=== PATIENT | female | born 1955 | race Caucasian/White ===

== ENCOUNTER 2017-08-10 08:23 | Inpatient (IN) | payer MEDICARE ==
[~2017-08-10] VITALS: Ht 167.6 cm; Wt 55.3 kg
[2017-08-10] VITALS (16 sets, daily range): BP systolic 120–179; BP diastolic 47–82
[2017-08-10] MEDS ORDERED: HUMALOG100 UNIT/4 SUBQ (08:25)
[2017-08-10 09:21] LABS: BASOPHILS % (AUTO) 0.7 % (0.0-2.0); LYMPHOCYTES % (AUTO) 6.3 % (20.0-45.0); MEAN CORPUSCULAR HEMOGLOBIN 28.7 PG (27.0-31.0); MEAN CORPUSCULAR HGB CONC 30.1 G/DL (32.0-36.0); MEAN CORPUSCULAR VOLUME 95 FL (80-99); MEAN PLATELET VOLUME 7.6 FL (6.5-10.1); MONOCYTES % (AUTO) 12.9 % (1.0-10.0); NEUTROPHILS % (AUTO) 80.1 % (45.0-75.0); PLATELET COUNT 310 K/UL (150-450); RED BLOOD COUNT 4.45 M/UL (4.20-5.40); RED CELL DISTRIBUTION WIDTH 15.4 % (11.6-14.8); WHITE BLOOD COUNT 9.2 K/UL (4.8-10.8)
[2017-08-10 09:33] LABS: ABG ALLEN TEST POSITIVE
--- NOTE | 2017-08-10 09:35 | Emergency Room Report ---
History of Present Illness General Chief Complaint: Altered Level of Consciousness Source: Patient, EMS Present Illness HPI Patient presents from nursing facility with complaints of change in mental status and elevated blood glucose The initial call from paramedics is essentially regarding high blood sugar patient is a diabetic and was found to have a high glucose Upon arrival the patient is responsive to physical stimuli However not verbal with the staff History of present illness is significantly limited Unknown duration of time regarding change in mentation Allergies: Coded Allergies: No Known Allergies (Unverified , 08/10/17) Patient History Limited by: medical condition Past Surgical History: unable to obtain Pertinent Family History: unable to obtain Reviewed Nursing Documentation: PMH: Agreed, PSxH: Agreed Nursing Documentation-PMH Hx Hypertension: Yes Hx Diabetes: Yes Hx Dialysis: Yes History Of Psychiatric Problem: Yes - SCHIZOPHRENIA Review of Systems All Other Systems: limited - Other than the ones mentioned in the history of present illness all others are reviewed however they do stay limited due to the patient's mental status Physical Exam Vital Signs Date Time Temp Pulse Resp B/P (MAP) Pulse Ox O2 Delivery O2 Flow Rate FiO2 08/10/17 08:19 99.3 112 14 98/54 96 Room Air 08/10/17 08:40 100 Sp02 EP Interpretation: reviewed, normal General Appearance: moderate distress - Patient is tachypneic, appears uncomfortable Head: normocephalic, atraumatic Eyes: bilateral eye PERRL, bilateral eye EOMI ENT: dry mucus membranes Neck: supple, thyroid normal Respiratory: crackles - Patient has audible cough, crackles diffusely appears tachypneic but no obvious retractions Cardiovascular #1: tachycardia Gastrointestinal: non tender, soft Musculoskeletal: other - Patient localizes to physical stimuli otherwise not following commands Neurologic: responsive - to physical stimuli Skin: other - Poor skin turgor, multiple subcutaneous hematomas appear to be likely subcutaneous injections from insulin Lymphatic: no adenopathy Procedures Critical Care Time Critical Care Time 50 minutes for initial critical presentation multiple evaluations presentation and findings concerning for left any pathology not including any procedural time Central Line Central Line : Consent: Emergent Central Line Lumen: triple Maximal Sterile Barrier Tech: yes cap, yes mask, yes sterile gown, yes sterile gloves, yes large sterile sheet, yes hand hygiene, yes chlorhexidine prep Central Line Postion: femoral (R) Anesthesia: Lidocaine cc's of anesthesia: 5 Complications: none Central Line Post Position: sutured Attempts: Other - 2 Patient Tolerated: Well Complications: None Medical Decision Making Diagnostic Impression: Primary Impression: DKA (diabetic ketoacidoses) ER Course Given the patient's presentation Patient is concerning with possibility of DKA, other infectious pathology, acidosis Patient has aggressive IV hydration initiated Maintaining appropriate gag reflex with appropriate cough Airway intubation has not been required Patient has central line placement as noted above Insulin including insulin drip also initiated Patient was given broad-spectrum antibiotic with the possibility of right upper lobe pathology And requires intensive care unit admission In critical condition Labs Test 08/10/17 09:00 08/10/17 09:15 08/10/17 09:50 White Blood Count 9.2 K/UL (4.8-10.8) Red Blood Count 4.45 M/UL (4.20-5.40) Hemoglobin 12.8 G/DL (12.0-16.0) Hematocrit 42.4 % (37.0-47.0) Mean Corpuscular Volume 95 FL (80-99) Mean Corpuscular Hemoglobin 28.7 PG (27.0-31.0) Mean Corpuscular Hemoglobin Concent 30.1 G/DL (32.0-36.0) Red Cell Distribution Width 15.4 % (11.6-14.8) Platelet Count 310 K/UL (150-450) Mean Platelet Volume 7.6 FL (6.5-10.1) Neutrophils (%) (Auto) 80.1 % (45.0-75.0) Lymphocytes (%) (Auto) 6.3 % (20.0-45.0) Monocytes (%) (Auto) 12.9 % (1.0-10.0) Eosinophils (%) (Auto) 0.0 % (0.0-3.0) Basophils (%) (Auto) 0.7 % (0.0-2.0) Sodium Level 140 MMOL/L (136-145) Potassium Level 4.2 MMOL/L (3.5-5.1) Chloride Level 101 MMOL/L (98-107) Carbon Dioxide Level 7 MMOL/L (21-32) Anion Gap 32 mmol/L (5-15) Blood Urea Nitrogen 30 mg/dL (7-18) Creatinine 1.7 MG/DL (0.55-1.30) Estimat Glomerular Filtration Rate 30.6 mL/min (>60) Glucose Level 482 MG/DL (74-106) Lactic Acid Level 2.00 mmol/L (0.66-2.22) Calcium Level 9.8 MG/DL (8.5-10.1) Total Bilirubin 0.5 MG/DL (0.2-1.0) Aspartate Amino Transf (AST/SGOT) 16 U/L (15-37) Alanine Aminotransferase (ALT/SGPT) 25 U/L (12-78) Alkaline Phosphatase 140 U/L (46-116) Total Creatine Kinase 90 U/L (26-308) Creatine Kinase MB 5.9 NG/ML (0.0-3.6) Creatine Kinase MB Relative Index 6.5 Total Protein 7.5 G/DL (6.4-8.2) Albumin 3.2 G/DL (3.4-5.0) Globulin 4.3 g/dL Albumin/Globulin Ratio 0.7 (1.0-2.7) Lipase 44 U/L (73-393) Arterial Blood pH 7.228 (7.350-7.450) Arterial Blood Partial Pressure CO2 12.0 mmHg (35.0-45.0) Arterial Blood Partial Pressure O2 108.9 mmHg (75.0-100.0) Arterial Blood HCO3 4.9 mmol/L (22.0-26.0) Arterial Blood Oxygen Saturation 97.7 % (92.0-98.0) Arterial Blood Base Excess -20.0 Kenneth Test Positive Urine Color Pale yellow Urine Appearance Clear Urine pH 6 (4.5-8.0) Urine Specific [place] 1.020 (1.005-1.035) Urine Protein 2+ (NEGATIVE) Urine Glucose (UA) 4+ (NEGATIVE) Urine Ketones 4+ (NEGATIVE) Urine Occult Blood Negative (NEGATIVE) Urine Nitrite Negative (NEGATIVE) Urine Bilirubin Negative (NEGATIVE) Urine Urobilinogen Normal MG/DL (0.0-1.0) Urine Leukocyte Esterase Negative (NEGATIVE) Urine RBC 0-2 /HPF (0 - 2) Urine WBC 0-2 /HPF (0 - 2) Urine Squamous Epithelial Cells Occasional /LPF Urine Bacteria Occasional /HPF (NONE) Urine Mucus Few /LPF (NONE/OCC) EKG Diagnostic Results Rate: tachycardiac Rhythm: NSR ST Segments: no acute changes Rhythm Strip Diag. Results EP Interpretation: yes Rate: 105 Rhythm: no PVC's, no ectopy, other - sinus tach Chest X-Ray Diagnostic Results Chest X-Ray Diagnostic Results : Chest X-Ray Ordered: Yes # of Views/Limited/Complete: 1 View Indication: Chest Pain Interpretation: no effusion, no pneumothorax, other - Right upper lobe increased markings, nonspecific Impression: Other - right upper lobe markings Electronically Signed by: Daxa Rivero DO Last Vital Signs Date Time Temp Pulse Resp B/P (MAP) Pulse Ox O2 Delivery O2 Flow Rate FiO2 08/10/17 08:40 97.0 105 20 126/59 100 Room Air 08/10/17 08:40 100 Status: improved Disposition: ADMITTED INPATIENT Condition: Critical Referrals: MANDIE PUENTE (PCP) DAXA RIVERO D.O. Aug 10, 2017 09:35
[2017-08-10 09:45] LABS: ALANINE AMINOTRANSFERASE 25 U/L (12-78); ALBUMIN/GLOBULIN RATIO 0.7 (1.0-2.7); ANION GAP 32 mmol/L (5-15); ASPARTATE AMINO TRANSFERASE 16 U/L (15-37); CALCIUM 9.8 MG/DL (8.5-10.1); CHLORIDE 101 MMOL/L (98-107); CKMB 5.9 NG/ML (0.0-3.6); CREATININE 1.7 MG/DL (0.55-1.30); GLOMERULAR FILTRATION RATE 30.6 mL/min (>60); LIPASE 44 U/L (73-393); POTASSIUM 4.2 MMOL/L (3.5-5.1); SODIUM 140 MMOL/L (136-145); TOTAL PROTEIN 7.5 G/DL (6.4-8.2)
[2017-08-10 09:55] LABS: CARBON DIOXIDE 7 MMOL/L (21-32)
[2017-08-10 09:57] LABS: REFLEX LACTIC ACID YES OR NO YES
--- NOTE | 2017-08-10 10:09 | Diagnostic Imaging Report ---
Indication: Dyspnea Comparison: None A single view chest radiograph was obtained. Findings: Ill-defined density noted in the right lung apex just of scarring. There is some pleural tenting and there is streaky ill-defined parenchymal densities present. There is suggestion of retraction of the right prominent hilum due to the fibrosis. The heart is normal in size. Bones are osteopenic. Impression: Scarring suspected within the right upper lobe. Difficult to completely exclude the possibility of superimposed disease of a more acute nature. There are no reference studies.
[2017-08-10 10:15] LABS: APPEARANCE,URINE CLEAR; KETONES,URINE 4+ (NEGATIVE); LEUKOCYTE ESTERASE ,URINE NEGATIVE (NEGATIVE); NITRITE,URINE NEGATIVE (NEGATIVE); PH,URINE 6 (4.5-8.0); PROTEIN,URINE 2+ (NEGATIVE); UROBILINOGEN,URINE NORMAL MG/DL (0.0-1.0)
[2017-08-10 10:25] LABS: RBC,URINE 0-2 /HPF (0 - 2); SQUAMOUS EPITHELIAL CELL,UR OCCASIONAL /LPF (NONE/OCC); WBC,URINE 0-2 /HPF (0 - 2)
[2017-08-10 10:26] LABS: BACTERIA,URINE OCCASIONAL /HPF; MUCUS,URINE FEW /LPF (NONE/OCC)
--- NOTE | 2017-08-10 11:12 | Infectious Diseases Prog Note ---
Assessment/Plan Problems: (1) Right upper lobe consolidation Assessment & Plan: rule out pneumonia, will continue levaquin for now and repeat CXR in am (2) DKA (diabetic ketoacidoses) Assessment & Plan: continue insuline drip, with tight glycemic control to keep blood sugar between 80-120 (3) Diabetes mellitus Assessment & Plan: poorly controlled, with DKA, recommend endocrinology eval Subjective Allergies: Coded Allergies: No Known Allergies (Unverified , 08/10/17) Objective Vital Signs Last 24 Hour Vital Signs Date Time Temp Pulse Resp B/P (MAP) Pulse Ox O2 Delivery O2 Flow Rate FiO2 08/10/17 10:30 97.0 98 17 129/52 100 Room Air 100 08/10/17 10:30 98 17 129/52 100 Room Air 100 08/10/17 09:40 100 19 129/52 100 Room Air 100 08/10/17 08:40 97.0 105 20 126/59 100 Room Air 08/10/17 08:40 100 20 Room Air 100 08/10/17 08:19 99.3 112 14 98/54 96 Room Air Height (Feet): 5 Height (Inches): 6.00 Weight (Pounds): 165 Laboratory Tests Test 08/10/17 09:00 08/10/17 09:15 08/10/17 09:50 08/10/17 10:20 White Blood Count 9.2 K/UL (4.8-10.8) Red Blood Count 4.45 M/UL (4.20-5.40) Hemoglobin 12.8 G/DL (12.0-16.0) Hematocrit 42.4 % (37.0-47.0) Mean Corpuscular Volume 95 FL (80-99) Mean Corpuscular Hemoglobin 28.7 PG (27.0-31.0) Mean Corpuscular Hemoglobin Concent 30.1 G/DL (32.0-36.0) L Red Cell Distribution Width 15.4 % (11.6-14.8) H Platelet Count 310 K/UL (150-450) Mean Platelet Volume 7.6 FL (6.5-10.1) Neutrophils (%) (Auto) 80.1 % (45.0-75.0) H Lymphocytes (%) (Auto) 6.3 % (20.0-45.0) L Monocytes (%) (Auto) 12.9 % (1.0-10.0) H Eosinophils (%) (Auto) 0.0 % (0.0-3.0) Basophils (%) (Auto) 0.7 % (0.0-2.0) Sodium Level 140 MMOL/L (136-145) Potassium Level 4.2 MMOL/L (3.5-5.1) Chloride Level 101 MMOL/L (98-107) Carbon Dioxide Level 7 MMOL/L (21-32) *L Anion Gap 32 mmol/L (5-15) H Blood Urea Nitrogen 30 mg/dL (7-18) H Creatinine 1.7 MG/DL (0.55-1.30) H Estimat Glomerular Filtration Rate 30.6 mL/min (>60) Glucose Level 482 MG/DL (74-106) H Lactic Acid Level 2.00 mmol/L (0.66-2.22) 1.60 mmol/L (0.66-2.22) Calcium Level 9.8 MG/DL (8.5-10.1) Total Bilirubin 0.5 MG/DL (0.2-1.0) Aspartate Amino Transf (AST/SGOT) 16 U/L (15-37) Alanine Aminotransferase (ALT/SGPT) 25 U/L (12-78) Alkaline Phosphatase 140 U/L (46-116) H Total Creatine Kinase 90 U/L (26-308) Creatine Kinase MB 5.9 NG/ML (0.0-3.6) H Creatine Kinase MB Relative Index 6.5 Total Protein 7.5 G/DL (6.4-8.2) Albumin 3.2 G/DL (3.4-5.0) L Globulin 4.3 g/dL Albumin/Globulin Ratio 0.7 (1.0-2.7) L Lipase 44 U/L (73-393) L Arterial Blood pH 7.228 (7.350-7.450) Arterial Blood Partial Pressure CO2 12.0 mmHg (35.0-45.0) *L Arterial Blood Partial Pressure O2 108.9 mmHg (75.0-100.0) H Arterial Blood HCO3 4.9 mmol/L (22.0-26.0) L Arterial Blood Oxygen Saturation 97.7 % (92.0-98.0) Arterial Blood Base Excess -20.0 Kenneth Test Positive Urine Color Pale yellow Urine Appearance Clear Urine pH 6 (4.5-8.0) Urine Specific [place] 1.020 (1.005-1.035) Urine Protein 2+ (NEGATIVE) H Urine Glucose (UA) 4+ (NEGATIVE) H Urine Ketones 4+ (NEGATIVE) H Urine Occult Blood Negative (NEGATIVE) Urine Nitrite Negative (NEGATIVE) Urine Bilirubin Negative (NEGATIVE) Urine Urobilinogen Normal MG/DL (0.0-1.0) Urine Leukocyte Esterase Negative (NEGATIVE) Urine RBC 0-2 /HPF (0 - 2) Urine WBC 0-2 /HPF (0 - 2) Urine Squamous Epithelial Cells Occasional /LPF Urine Bacteria Occasional /HPF (NONE) Urine Mucus Few /LPF (NONE/OCC) H Current Medications Medications (Trade) Dose Ordered Sig/Danielle Route PRN Reason Start Time Stop Time Status Last Admin Dose Admin Insulin Human Regular 100 units/ Sodium Chloride 100 ml @ 7 mls/hr Q24H IV 08/10/17 09:00 09/09/17 08:59 08/10/17 10:06 Richie Davis M.D. Aug 10, 2017 11:12
[2017-08-10] MEDS ORDERED: Nitroglycerin Subl 0.4mg tab SL PRN (11:30)
[2017-08-10] MEDS ORDERED: LORazepam Inj 2mg/ml 1ml IV PRN (11:30)
[2017-08-10] MEDS ORDERED: Miralax 17gm pkt ORAL PRN (11:30)
[2017-08-10] MEDS ORDERED: Morphine Sulfate 4mg/ml Inj IVP PRN (11:30)
[2017-08-10] MEDS ORDERED: ASPIR 8181 MG ORAL (11:32)
[2017-08-10] MEDS ORDERED: PLAVIX75 MG ORAL (11:32)
[2017-08-10] MEDS ORDERED: PEPCID20 MG ORAL (11:32)
[2017-08-10] MEDS ORDERED: VITAMIN D250000 UNI1 ORAL (11:32)
[2017-08-10] MEDS ORDERED: SIMVASTATIN80 MG ORAL (11:32)
[2017-08-10] MEDS ORDERED: NEURONTIN400 MG ORAL (11:32)
[2017-08-10] MEDS ORDERED: LIPITOR40 MG ORAL (11:32)
--- NOTE | 2017-08-10 11:49 | Pulmonolgy Critical Care Note ---
Critical Care - Asmt/Plan Problems: (1) assisted resident (2) DKA (diabetic ketoacidoses) Respiratory: monitor respiratory rate Cardiac: continue to monitor HR/BP Renal: F/U I&O, keep IV fluid Gastrointestinal: hold feedings Endocrine: monitor blood sugar, start insulin drip Hematologic: monitor H/H Neurologic: PRN Ativan, PRN Morphine, keep patient comfortable Affect: PRN ativan Notes Reviewed: head of physics, renal Discussed with: nurses, consultants, rehabilitation case coordinatorsenior architect/design manager - Objective Last 24 Hour Vital Signs Date Time Temp Pulse Resp B/P (MAP) Pulse Ox O2 Delivery O2 Flow Rate FiO2 08/10/17 11:00 97.3 99 17 120/51 100 Room Air 08/10/17 11:00 99 08/10/17 10:30 97.0 98 17 129/52 100 Room Air 100 08/10/17 10:30 98 17 129/52 100 Room Air 100 08/10/17 09:40 100 19 129/52 100 Room Air 100 08/10/17 08:40 97.0 105 20 126/59 100 Room Air 08/10/17 08:40 100 20 Room Air 100 08/10/17 08:19 99.3 112 14 98/54 96 Room Air Status: awake Condition: critical HEENT: atraumatic Neck: full ROM Lungs: chest wall tender Heart: HR/BP stable Abdomen: soft, non-tender Extremities: edema Accucheck: 397 Critical Care - Subjective ROS Limited/Unobtainable: Yes ICU Day: 1 Interval Events: 62 year old female with hx of DM, prison resident presented with complaints of change in mental status and elevated blood glucose. Upon arrival the patient is responsive to physical stimuli History of present illness is significantly limited. She was diagnosed to have DKA and started on insulin drip and transferred to ICU. FI02: 100 I&O: Intake and Output 08/10/17 08/11/17 19:00 07:00 Intake Total 1150 ml Output Total 650 ml Balance 500 ml Intake Oral 0 ml IV Total 1150 ml Output Urine Total 650 ml CXR: DMITRI Labs: Laboratory Tests Test 08/10/17 09:00 08/10/17 09:15 08/10/17 09:50 08/10/17 10:20 White Blood Count 9.2 K/UL (4.8-10.8) Red Blood Count 4.45 M/UL (4.20-5.40) Hemoglobin 12.8 G/DL (12.0-16.0) Hematocrit 42.4 % (37.0-47.0) Mean Corpuscular Volume 95 FL (80-99) Mean Corpuscular Hemoglobin 28.7 PG (27.0-31.0) Mean Corpuscular Hemoglobin Concent 30.1 G/DL (32.0-36.0) L Red Cell Distribution Width 15.4 % (11.6-14.8) H Platelet Count 310 K/UL (150-450) Mean Platelet Volume 7.6 FL (6.5-10.1) Neutrophils (%) (Auto) 80.1 % (45.0-75.0) H Lymphocytes (%) (Auto) 6.3 % (20.0-45.0) L Monocytes (%) (Auto) 12.9 % (1.0-10.0) H Eosinophils (%) (Auto) 0.0 % (0.0-3.0) Basophils (%) (Auto) 0.7 % (0.0-2.0) Sodium Level 140 MMOL/L (136-145) Potassium Level 4.2 MMOL/L (3.5-5.1) Chloride Level 101 MMOL/L (98-107) Carbon Dioxide Level 7 MMOL/L (21-32) *L Anion Gap 32 mmol/L (5-15) H Blood Urea Nitrogen 30 mg/dL (7-18) H Creatinine 1.7 MG/DL (0.55-1.30) H Estimat Glomerular Filtration Rate 30.6 mL/min (>60) Glucose Level 482 MG/DL (74-106) H Lactic Acid Level 2.00 mmol/L (0.66-2.22) 1.60 mmol/L (0.66-2.22) Calcium Level 9.8 MG/DL (8.5-10.1) Total Bilirubin 0.5 MG/DL (0.2-1.0) Aspartate Amino Transf (AST/SGOT) 16 U/L (15-37) Alanine Aminotransferase (ALT/SGPT) 25 U/L (12-78) Alkaline Phosphatase 140 U/L (46-116) H Total Creatine Kinase 90 U/L (26-308) Creatine Kinase MB 5.9 NG/ML (0.0-3.6) H Creatine Kinase MB Relative Index 6.5 Total Protein 7.5 G/DL (6.4-8.2) Albumin 3.2 G/DL (3.4-5.0) L Globulin 4.3 g/dL Albumin/Globulin Ratio 0.7 (1.0-2.7) L Lipase 44 U/L (73-393) L Arterial Blood pH 7.228 (7.350-7.450) Arterial Blood Partial Pressure CO2 12.0 mmHg (35.0-45.0) *L Arterial Blood Partial Pressure O2 108.9 mmHg (75.0-100.0) H Arterial Blood HCO3 4.9 mmol/L (22.0-26.0) L Arterial Blood Oxygen Saturation 97.7 % (92.0-98.0) Arterial Blood Base Excess -20.0 Kenneth Test Positive Urine Color Pale yellow Urine Appearance Clear Urine pH 6 (4.5-8.0) Urine Specific [place] 1.020 (1.005-1.035) Urine Protein 2+ (NEGATIVE) H Urine Glucose (UA) 4+ (NEGATIVE) H Urine Ketones 4+ (NEGATIVE) H Urine Occult Blood Negative (NEGATIVE) Urine Nitrite Negative (NEGATIVE) Urine Bilirubin Negative (NEGATIVE) Urine Urobilinogen Normal MG/DL (0.0-1.0) Urine Leukocyte Esterase Negative (NEGATIVE) Urine RBC 0-2 /HPF (0 - 2) Urine WBC 0-2 /HPF (0 - 2) Urine Squamous Epithelial Cells Occasional /LPF Urine Bacteria Occasional /HPF (NONE) Urine Mucus Few /LPF (NONE/OCC) YUVAL SIMPSON Aug 10, 2017 11:49
[2017-08-10] MEDS: Insulin Rate Change 1 Each MISC PRN ×3 (13:11→20:55)
[2017-08-10] MEDS: Pantoprazole Inj IVP SCH (13:39)
[2017-08-10] MEDS: Promethazine/DM 6.25mg/5ml ORAL PRN (14:21)
--- NOTE | 2017-08-10 18:30 | Consultation ---
DATE OF CONSULTATION: 08/10/2017 INFECTIOUS DISEASE CONSULTATION CONSULTING PHYSICIAN: Richie Davis M.D. REQUESTING PHYSICIAN: Daxa Lane M.D. REASON FOR CONSULTATION: Right upper lobe consolidation, possible pneumonia, recommendation for antibiotics therapy HISTORY OF PRESENT ILLNESS: The patient is a 62-year-old female, a residential resident, was sent from the residential with altered mental status and hyperglycemia. The patient's blood sugar was found to be high at the residential and when the paramedics arrived also, she had elevated blood sugar. The patient was barely responsive to physical stimuli upon arrival of the paramedics, but she was not verbal. The patient was found to have significant leukocytosis and hyperglycemia. She was hypotensive with temperature of 99.3 degrees. Chest x-ray showed right upper lobe consolidation, suspicious for pneumonia. The patient was given IV antibiotics by the emergency room physician and I was consulted by the primary provider for antibiotics treatment and further management. As of note, the patient is a poor historian, unresponsive, cannot provide history. History was mainly obtained from the medical record. PAST MEDICAL HISTORY: Significant for hypertension, diabetes, and schizophrenia. PAST SURGICAL HISTORY: Negative. FAMILY HISTORY: Unable to obtain. SOCIAL HISTORY: She is a residential resident. No recent drugs, tobacco, or alcohol. ALLERGIES: No known drug allergy. MEDICATIONS: The patient received levofloxacin in the emergency room. For the rest of her medications, please refer to MAR. PHYSICAL EXAMINATION: VITAL SIGNS: Temperature 97.3 degrees, pulse 99, respirations 17, blood pressure 120/51, and saturation 100% on room air. GENERAL: This is a middle-aged female, lying in bed, comfortable, nonverbal, not in acute distress. Afebrile. HEENT: Normocephalic and atraumatic. Pupils are reactive to light. Dry oral mucosa. No exudate or thrush. NECK: Supple. No lymphadenopathy. CARDIOVASCULAR: Regular rate and rhythm. No murmur. LUNGS: She had diminished breathing sounds at the bases. No wheezing or rhonchi. ABDOMEN: Soft, nontender, and nondistended. Positive bowel sounds. No organomegaly. EXTREMITIES: No edema or cyanosis. SKIN: No rash or hives. LABORATORY AND DIAGNOSTIC DATA: Labs showed white count of 9.2, hemoglobin of 12.8, hematocrit of 42.4, platelet count of 311. BUN of 30, creatinine of 1.7, carbon dioxide of 7. AST of 16, ALT of 25, alkaline phosphatase of 140. Urinalysis showed no evidence of infection, but +4 glucose and ketones. Imaging, chest x-ray showed scarring suspected within the right upper lobe, difficult to exclude acute process. ASSESSMENT AND RECOMMENDATION: 1. Right upper lobe consolidation, suspect pneumonia. We will continue Levaquin for now. Repeat chest x-ray in the morning to confirm. Monitor white count. 2. Diabetic ketoacidosis. Continue insulin drip with tight glycemic control to keep blood sugar between 80 to 120. Recommend technical intern consultation. 3. Diabetes mellitus, poorly controlled with diabetic ketoacidosis. Recommend Endocrinology evaluation for further evaluation and recommendation. Thank you. Infectious Disease will continue to follow. Richie Davis M.D. DR: Marvin JOB#: [id number] CC:
[2017-08-10 20:06] LABS: ANION GAP 16 mmol/L (5-15); CARBON DIOXIDE 20 MMOL/L (21-32); CHLORIDE 115 MMOL/L (98-107); CREATININE 1.1 MG/DL (0.55-1.30); GLOMERULAR FILTRATION RATE 50.5 mL/min (>60); POTASSIUM 2.9 MMOL/L (3.5-5.1); SODIUM 151 MMOL/L (136-145)
[2017-08-10] MEDS: D5NS 1,000 ML IV SCH (20:50)
[2017-08-10] MEDS: Atorvastatin 20mg tab ORAL SCH (20:51)
[2017-08-10] MEDS: Heparin 5000 units/ml inj SUBQ SCH (20:54)
[2017-08-11] VITALS (24 sets, daily range): BP systolic 103–146; BP diastolic 36–58
[2017-08-11] MEDS: Insulin Rate Change 1 Each MISC PRN ×7 (02:17→23:17)
--- NOTE | 2017-08-11 02:45 | History and Physical Report ---
DATE OF ADMISSION: 08/10/[address] Javier Calzada. REASON FOR ADMISSION: The patient is admitted for hypoglycemia and DKA. The patient did have a cramping abdominal pain and weakness. The plan is to admit to ICU for DKA. PAST MEDICAL HISTORY: NIDDM, GERD, neuropathy, hyperlipidemia, and CAD. MEDICATIONS: Insulin, simvastatin, gabapentin, Pepcid, vitamin D, Plavix, Lipitor, and aspirin. ALLERGIES: [place], penicillin, and [place]. SOCIAL HISTORY: No history of alcohol or illicit drugs. FAMILY HISTORY: Does have history of diabetes. REVIEW OF SYSTEMS: HEENT: Denies headaches. RESPIRATORY: Denies shortness of breath. Denies cough. CARDIOVASCULAR: Denies chest pain. GASTROINTESTINAL: Does have abdominal pain and recurrent nausea. EXTREMITIES: Generalized weakness. CENTRAL NERVOUS SYSTEM: No change in vision or speech pattern. PHYSICAL EXAMINATION: VITAL SIGNS: Temperature is 98.1 degrees, pulse 93, and blood pressure 150/60. HEENT: PERRLA. NECK: Supple. No lymphadenopathy. CHEST: Clear to auscultation. GASTROINTESTINAL: Soft with epigastric tenderness. No rebound. EXTREMITIES: Reflexes are equal on both sides with generalized weakness. LABORATORY DATA: WBC of 9.82, hemoglobin 12.8, and platelets of 310. Sodium 140, potassium 4.2, carbon dioxide of 7, BUN of 30, creatinine 1.7, glucose of 42. Alkaline phosphatase of 140. ASSESSMENT: 1. Diabetic ketoacidosis. 2. Azotemia. PLAN: I have asked Dr. Oconnell, Dr. Martinez, Dr. Avitia, and Dr. Brewer to see the patient for the above-mentioned diagnoses and treatment. Daxa Lane M.D. DR: NATALIE JOB#: [id number] CC:
[2017-08-11] MEDS: D5NS 1,000 ML IV SCH ×2 (03:13→09:08)
[2017-08-11 04:39] LABS: BASOPHILS % (AUTO) 0.5 % (0.0-2.0); LYMPHOCYTES % (AUTO) 17.8 % (20.0-45.0); MEAN CORPUSCULAR HGB CONC 33.1 G/DL (32.0-36.0); MEAN CORPUSCULAR VOLUME 91 FL (80-99); MEAN PLATELET VOLUME 6.8 FL (6.5-10.1); MONOCYTES % (AUTO) 14.9 % (1.0-10.0); NEUTROPHILS % (AUTO) 66.8 % (45.0-75.0); PLATELET COUNT 289 K/UL (150-450); RED BLOOD COUNT 3.93 M/UL (4.20-5.40); RED CELL DISTRIBUTION WIDTH 14.9 % (11.6-14.8); WHITE BLOOD COUNT 7.7 K/UL (4.8-10.8)
[2017-08-11 04:55] LABS: PROTHROMBIN TIME 10.1 SEC (9.30-11.50)
[2017-08-11 05:00] LABS: ALANINE AMINOTRANSFERASE 24 U/L (12-78); ALBUMIN/GLOBULIN RATIO 0.7 (1.0-2.7); ANION GAP 13 mmol/L (5-15); ASPARTATE AMINO TRANSFERASE 17 U/L (15-37); CALCIUM 8.7 MG/DL (8.5-10.1); CARBON DIOXIDE 21 MMOL/L (21-32); CHLORIDE 116 MMOL/L (98-107); CREATININE 0.9 MG/DL (0.55-1.30); CRP QUANT 5.5 mg/dL (0.00-0.90); GLOMERULAR FILTRATION RATE > 60 mL/min (>60); POTASSIUM 3.3 MMOL/L (3.5-5.1); SODIUM 150 MMOL/L (136-145); TOTAL PROTEIN 6.3 G/DL (6.4-8.2)
[2017-08-11 05:14] LABS: ALANINE AMINOTRANSFERASE 24 U/L (12-78); ASPARTATE AMINO TRANSFERASE 17 U/L (15-37); BILIRUBIN,DIRECT < 0.1 MG/DL (0.0-0.3); PHOSPHORUS 0.7 MG/DL (2.5-4.9); TOTAL PROTEIN 6.3 G/DL (6.4-8.2)
[2017-08-11 06:06] LABS: ERYTHROCYTE SEDIMENTATION RATE 78 MM/HR (0-30)
[2017-08-11] MEDS: Aspirin EC 81mg tab ORAL SCH (09:07)
[2017-08-11] MEDS: Promethazine/DM 6.25mg/5ml ORAL PRN ×2 (09:07→17:50)
[2017-08-11] MEDS: Pantoprazole Inj IVP SCH (09:08)
[2017-08-11] MEDS: Heparin 5000 units/ml inj SUBQ SCH ×2 (09:08→20:51)
[2017-08-11] MEDS ORDERED: Potassium Phosphate 30 MM in NS 275 ML IV ONE (10:30)
--- NOTE | 2017-08-11 13:04 | Pulmonolgy Critical Care Note ---
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 Discussed with: nurses, consultants, patient case managermanager city - Objective Last 24 Hour Vital Signs Date Time Temp Pulse Resp B/P (MAP) Pulse Ox O2 Delivery O2 Flow Rate FiO2 08/11/17 12:00 98.0 89 19 103/40 98 Room Air 08/11/17 12:00 87 08/11/17 11:00 90 20 141/55 96 Room Air 08/11/17 10:00 92 20 118/45 97 Room Air 08/11/17 09:00 92 20 130/58 97 Room Air 08/11/17 08:00 89 08/11/17 08:00 98.2 90 19 138/53 98 Room Air 08/11/17 07:00 92 20 144/54 97 Room Air 08/11/17 06:00 90 21 142/52 97 Room Air 08/11/17 05:00 94 18 141/58 98 Room Air 08/11/17 04:00 98.3 94 20 127/50 98 Room Air 08/11/17 04:00 94 08/11/17 03:00 94 24 126/38 95 Room Air 08/11/17 02:00 99 27 146/36 96 Room Air 08/11/17 01:00 95 23 146/43 97 Room Air 08/11/17 00:00 98.7 99 27 123/36 96 Room Air 08/11/17 00:00 97 08/10/17 23:00 97 17 140/58 97 Room Air 08/10/17 22:00 97 20 153/47 97 Room Air 08/10/17 21:00 106 21 179/82 98 Room Air 08/10/17 20:00 93 08/10/17 20:00 98.4 93 22 156/56 100 Room Air 08/10/17 19:00 92 19 160/65 100 Room Air 08/10/17 18:00 96 17 157/61 100 Room Air 08/10/17 17:00 90 18 156/57 98 Room Air 08/10/17 16:00 91 08/10/17 16:00 98.1 93 17 150/60 98 Room Air 08/10/17 15:00 96 14 152/77 100 Room Air 08/10/17 14:00 98 18 142/58 100 Room Air Status: awake Condition: critical Neck: full ROM Lungs: clear Heart: HR/BP stable, HR/BP unstable Abdomen: soft, non-tender Extremities: no C/C/E, edema Decubiti: location Micro: Microbiology Date/Time Source Procedure Growth Status 08/10/17 09:00 Blood Blood Culture - Preliminary Resulted Accucheck: 155 Critical Care - Subjective ROS Limited/Unobtainable: No ICU Day: 2 Interval Events: improving FI02: 100 I&O: Intake and Output 08/11/17 08/12/17 19:00 07:00 Intake Total 607.0 ml Output Total 500 ml Balance 107.0 ml IV Total 607.0 ml Output Urine Total 500 ml CXR: no new CXR Labs: Laboratory Tests Test 08/10/17 18:20 08/11/17 04:00 Sodium Level 151 MMOL/L (136-145) #H 150 MMOL/L (136-145) H Potassium Level 2.9 MMOL/L (3.5-5.1) L 3.3 MMOL/L (3.5-5.1) L Chloride Level 115 MMOL/L (98-107) H 116 MMOL/L (98-107) H Carbon Dioxide Level 20 MMOL/L (21-32) L 21 MMOL/L (21-32) Anion Gap 16 mmol/L (5-15) H 13 mmol/L (5-15) Blood Urea Nitrogen 22 mg/dL (7-18) H 12 mg/dL (7-18) Creatinine 1.1 MG/DL (0.55-1.30) 0.9 MG/DL (0.55-1.30) Estimat Glomerular Filtration Rate 50.5 mL/min (>60) > 60 mL/min (>60) Glucose Level 65 MG/DL (74-106) #L 140 MG/DL (74-106) H Calcium Level 9.0 MG/DL (8.5-10.1) 8.7 MG/DL (8.5-10.1) White Blood Count 7.7 K/UL (4.8-10.8) Red Blood Count 3.93 M/UL (4.20-5.40) L Hemoglobin 11.8 G/DL (12.0-16.0) L Hematocrit 35.7 % (37.0-47.0) L Mean Corpuscular Volume 91 FL (80-99) Mean Corpuscular Hemoglobin 30.0 PG (27.0-31.0) Mean Corpuscular Hemoglobin Concent 33.1 G/DL (32.0-36.0) Red Cell Distribution Width 14.9 % (11.6-14.8) H Platelet Count 289 K/UL (150-450) Mean Platelet Volume 6.8 FL (6.5-10.1) Neutrophils (%) (Auto) 66.8 % (45.0-75.0) Lymphocytes (%) (Auto) 17.8 % (20.0-45.0) L Monocytes (%) (Auto) 14.9 % (1.0-10.0) H Eosinophils (%) (Auto) 0.0 % (0.0-3.0) Basophils (%) (Auto) 0.5 % (0.0-2.0) Erythrocyte Sedimentation Rate 78 MM/HR (0-30) H Prothrombin Time 10.1 SEC (9.30-11.50) Prothromb Time International Ratio 1.0 (0.9-1.1) Activated Partial Thromboplast Time 25 SEC (23-33) Phosphorus Level 0.7 MG/DL (2.5-4.9) *L Magnesium Level 2.0 MG/DL (1.8-2.4) Total Bilirubin 0.3 MG/DL (0.2-1.0) Direct Bilirubin < 0.1 MG/DL (0.0-0.3) Aspartate Amino Transf (AST/SGOT) 17 U/L (15-37) Alanine Aminotransferase (ALT/SGPT) 24 U/L (12-78) Alkaline Phosphatase 106 U/L (46-116) C-Reactive Protein, Quantitative 5.5 mg/dL (0.00-0.90) H Total Protein 6.3 G/DL (6.4-8.2) L Albumin 2.5 G/DL (3.4-5.0) L Globulin 3.8 g/dL Albumin/Globulin Ratio 0.7 (1.0-2.7) L YUVAL MAYA Aug 11, 2017 13:04
--- NOTE | 2017-08-11 15:19 | Cardiology Report ---
APPROVED REPORT EKG Measurement Heart [id number] OR [id number] Sinus tachycardia Otherwise normal ECG
[2017-08-11] MEDS ORDERED: D5NS 1000ml IV ONE (15:59)
[2017-08-11] MEDS ORDERED: Tubing IV Secondary IV ONE (15:59)
[2017-08-11] MEDS: Vancomycin 1gm/D5W 275ml IVPB SCH ×2 (16:29)
[2017-08-11] MEDS ORDERED: Potassium Phosphate 30 MM in Sodium Chloride 500ML 550 ML IV ONE (17:00)
--- NOTE | 2017-08-11 18:01 | Infectious Diseases Prog Note ---
Assessment/Plan Problems: (1) Sepsis Assessment & Plan: with gram positive cocci in clusters, suspect staphylococcus , will start vancomycin pending identification and susceptibility (2) Right upper lobe consolidation Assessment & Plan: rule out pneumonia, will continue levaquin for now and repeat CXR in am (3) DKA (diabetic ketoacidoses) Assessment & Plan: continue insuline drip, with tight glycemic control to keep blood sugar between 80-120 (4) Diabetes mellitus Assessment & Plan: poorly controlled, with DKA, recommend endocrinology eval Subjective Constitutional: Reports: no symptoms HEENT: Reports: no symptoms Respiratory: Reports: no symptoms Breasts: Reports: no symptoms Cardiovascular: Reports: no symptoms Gastrointestinal/Abdominal: Reports: no symptoms Genitourinary: Reports: no symptoms Neurologic: Reports: no symptoms Psychiatric: Reports: no symptoms Skin: Reports: no symptoms Endocrine: Reports: no symptoms Hematologic: Reports: no symptoms Musculoskeletal: Reports: no symptoms Allergies: Coded Allergies: PENICILLINS (Verified Allergy, Unknown, 08/10/17) Beltr[place] (Verified Allergy, Unknown, 08/10/17) Uncoded Allergies: [place] (Allergy, Unknown, 08/10/17) Objective Vital Signs Last 24 Hour Vital Signs Date Time Temp Pulse Resp B/P (MAP) Pulse Ox O2 Delivery O2 Flow Rate FiO2 08/11/17 17:00 87 20 124/52 98 Room Air 08/11/17 16:00 85 08/11/17 16:00 98.2 86 20 130/52 98 Room Air 08/11/17 15:00 72 20 123/44 98 Room Air 08/11/17 14:00 73 20 134/51 98 Room Air 08/11/17 13:00 89 20 124/41 96 Room Air 08/11/17 12:00 98.0 89 19 103/40 98 Room Air 08/11/17 12:00 87 08/11/17 11:00 90 20 141/55 96 Room Air 08/11/17 10:00 92 20 118/45 97 Room Air 08/11/17 09:00 92 20 130/58 97 Room Air 08/11/17 08:00 89 08/11/17 08:00 98.2 90 19 138/53 98 Room Air 08/11/17 07:00 92 20 144/54 97 Room Air 08/11/17 06:00 90 21 142/52 97 Room Air 08/11/17 05:00 94 18 141/58 98 Room Air 08/11/17 04:00 98.3 94 20 127/50 98 Room Air 08/11/17 04:00 94 08/11/17 03:00 94 24 126/38 95 Room Air 08/11/17 02:00 99 27 146/36 96 Room Air 08/11/17 01:00 95 23 146/43 97 Room Air 08/11/17 00:00 98.7 99 27 123/36 96 Room Air 08/11/17 00:00 97 08/10/17 23:00 97 17 140/58 97 Room Air 08/10/17 22:00 97 20 153/47 97 Room Air 08/10/17 21:00 106 21 179/82 98 Room Air 08/10/17 20:00 93 08/10/17 20:00 98.4 93 22 156/56 100 Room Air 08/10/17 19:00 92 19 160/65 100 Room Air 08/10/17 18:00 96 17 157/61 100 Room Air Height (Feet): 5 Height (Inches): 6.00 Weight (Pounds): 121 General Appearance: WD/WN, no acute distress HEENT: normocephalic, atraumatic, anicteric, mucous membranes moist, PERRL, EOMI, pharynx normal, supple, no JVD Respiratory/Chest: chest wall non-tender, lungs clear, normal breath sounds, no respiratory distress, no accessory muscle use Cardiovascular: normal peripheral pulses, normal rate, regular rhythm, no gallop/murmur, no JVD Abdomen: normal bowel sounds, soft, non tender, no organomegaly, non distended , no mass, no scars Genitourinary: normal external genitalia Extremities: no cyanosis, no clubbing Skin: no rash, no lesions, no ulcers Neurologic/Psychiatric: alert, oriented x 3 Lymphatic: no neck adenopathy, no groin adenopathy Microbiology Date/Time Source Procedure Growth Status 08/10/17 09:00 Blood Blood Culture - Preliminary Resulted Laboratory Tests Test 08/10/17 18:20 08/11/17 04:00 Sodium Level 151 MMOL/L (136-145) #H 150 MMOL/L (136-145) H Potassium Level 2.9 MMOL/L (3.5-5.1) L 3.3 MMOL/L (3.5-5.1) L Chloride Level 115 MMOL/L (98-107) H 116 MMOL/L (98-107) H Carbon Dioxide Level 20 MMOL/L (21-32) L 21 MMOL/L (21-32) Anion Gap 16 mmol/L (5-15) H 13 mmol/L (5-15) Blood Urea Nitrogen 22 mg/dL (7-18) H 12 mg/dL (7-18) Creatinine 1.1 MG/DL (0.55-1.30) 0.9 MG/DL (0.55-1.30) Estimat Glomerular Filtration Rate 50.5 mL/min (>60) > 60 mL/min (>60) Glucose Level 65 MG/DL (74-106) #L 140 MG/DL (74-106) H Calcium Level 9.0 MG/DL (8.5-10.1) 8.7 MG/DL (8.5-10.1) White Blood Count 7.7 K/UL (4.8-10.8) Red Blood Count 3.93 M/UL (4.20-5.40) L Hemoglobin 11.8 G/DL (12.0-16.0) L Hematocrit 35.7 % (37.0-47.0) L Mean Corpuscular Volume 91 FL (80-99) Mean Corpuscular Hemoglobin 30.0 PG (27.0-31.0) Mean Corpuscular Hemoglobin Concent 33.1 G/DL (32.0-36.0) Red Cell Distribution Width 14.9 % (11.6-14.8) H Platelet Count 289 K/UL (150-450) Mean Platelet Volume 6.8 FL (6.5-10.1) Neutrophils (%) (Auto) 66.8 % (45.0-75.0) Lymphocytes (%) (Auto) 17.8 % (20.0-45.0) L Monocytes (%) (Auto) 14.9 % (1.0-10.0) H Eosinophils (%) (Auto) 0.0 % (0.0-3.0) Basophils (%) (Auto) 0.5 % (0.0-2.0) Erythrocyte Sedimentation Rate 78 MM/HR (0-30) H Prothrombin Time 10.1 SEC (9.30-11.50) Prothromb Time International Ratio 1.0 (0.9-1.1) Activated Partial Thromboplast Time 25 SEC (23-33) Phosphorus Level 0.7 MG/DL (2.5-4.9) *L Magnesium Level 2.0 MG/DL (1.8-2.4) Total Bilirubin 0.3 MG/DL (0.2-1.0) Direct Bilirubin < 0.1 MG/DL (0.0-0.3) Aspartate Amino Transf (AST/SGOT) 17 U/L (15-37) Alanine Aminotransferase (ALT/SGPT) 24 U/L (12-78) Alkaline Phosphatase 106 U/L (46-116) C-Reactive Protein, Quantitative 5.5 mg/dL (0.00-0.90) H Total Protein 6.3 G/DL (6.4-8.2) L Albumin 2.5 G/DL (3.4-5.0) L Globulin 3.8 g/dL Albumin/Globulin Ratio 0.7 (1.0-2.7) L Current Medications Medications (Trade) Dose Ordered Sig/Danielle Route PRN Reason Start Time Stop Time Status Last Admin Dose Admin Acetaminophen (Tylenol) 650 mg Q4H PRN ORAL Fever (T>100.5F) 08/10/17 11:30 09/09/17 11:29 Albuterol/ Ipratropium (Albuterol/ Ipratropium) 3 ml Q4H PRN HHN Shortness of Breath 08/10/17 11:30 08/15/17 11:29 Aspirin (Ecotrin) 81 mg DAILY ORAL 08/11/17 09:00 09/10/17 08:59 08/11/17 09:07 Atorvastatin Calcium (Lipitor) 40 mg BEDTIME ORAL 08/10/17 21:00 09/09/17 20:59 08/10/17 20:51 Dextrose 1,000 ml @ 75 mls/hr [id number] IV 08/11/17 14:00 09/10/17 13:59 08/11/17 14:03 Dextrose (Dextrose 50%) PRN PRN IV HYPOGLYCEMIA 08/10/17 17:30 09/09/17 17:29 Gabapentin (Neurontin) 300 mg THREE TIMES A DAY ORAL 08/10/17 13:00 09/09/17 12:59 08/11/17 17:50 Heparin Sodium (Porcine) (Heparin 5000 units/ml) 5,000 units EVERY 12 HOURS SUBQ 08/10/17 21:00 09/09/17 20:59 08/11/17 09:08 Insulin Human Regular (NovoLIN R) 5 units PRN PRN IV BS 200-299 08/10/17 17:30 09/09/17 17:29 Insulin Human Regular (NovoLIN R) 10 units PRN PRN IV BS=>300 08/10/17 17:30 09/09/17 17:29 Insulin Human Regular 100 units/ Sodium Chloride 101 ml @ 0 mls/hr Q24H IV 08/10/17 17:30 09/09/17 17:29 08/11/17 05:23 Levofloxacin 100 ml @ 100 mls/hr Q24H IVPB 08/11/17 16:00 08/18/17 15:59 08/11/17 16:29 Lorazepam (Ativan 2mg/ml 1ml) 2 mg Q2H PRN IV agitation 08/10/17 11:30 08/17/17 11:29 Miscellaneous Medication (Insulin Rate Change) 1 ea PRN PRN MISC Per rx protocol 08/10/17 17:30 09/09/17 17:29 08/11/17 14:04 Morphine Sulfate (Morphine Sulfate) 4 mg Q4H PRN IVP Severe Pain (Pain Scale 7-10) 08/10/17 11:30 08/17/17 11:29 Nitroglycerin (Ntg) 0.4 mg Q5M PRN SL Prn Chest Pain 08/10/17 11:30 09/09/17 11:29 Ondansetron HCl (Zofran) 4 mg Q6H PRN IVP Nausea & Vomiting 08/10/17 11:30 09/09/17 11:29 Pantoprazole (Protonix) 40 mg DAILY IVP 08/10/17 14:00 09/09/17 13:59 08/11/17 09:08 Polyethylene Glycol (Miralax) 17 gm DAILYPRN PRN ORAL Constipation 08/10/17 11:30 09/09/17 11:29 Potassium Phosphate 30 mm/ Sodium Chloride 560 ml @ 93.3 mls/hr ONCE ONCE IV 08/11/17 17:00 08/11/17 23:00 08/11/17 16:29 Promethazine HCl/ Dextromethorphan (Phenergan DM) 6.25 mg Q6H PRN ORAL For Cough 08/10/17 12:15 09/09/17 12:14 08/11/17 17:50 Vancomycin HCl (Vanco rx to dose) 1 ea DAILY PRN MISC Per rx protocol 08/11/17 14:15 09/10/17 14:14 Vancomycin HCl 1 gm/Dextrose 275 ml @ 183.708 mls/hr Q12HR@0400,1600 IVPB 08/11/17 16:00 08/16/17 15:59 08/11/17 16:29 Richie Davis M.D. Aug 11, 2017 18:01
--- NOTE | 2017-08-11 19:58 | Cardiology Progress Note ---
Assessment/Plan Assessment/Plan The patient is seen and examined, full consult note will be dictated shortly. Objective Last 24 Hour Vital Signs Date Time Temp Pulse Resp B/P (MAP) Pulse Ox O2 Delivery O2 Flow Rate FiO2 08/11/17 19:00 92 19 125/45 98 Room Air 08/11/17 18:00 89 20 114/54 98 Room Air 08/11/17 17:00 87 20 124/52 98 Room Air 08/11/17 16:00 85 08/11/17 16:00 98.2 86 20 130/52 98 Room Air 08/11/17 15:00 72 20 123/44 98 Room Air 08/11/17 14:00 73 20 134/51 98 Room Air 08/11/17 13:00 89 20 124/41 96 Room Air 08/11/17 12:00 98.0 89 19 103/40 98 Room Air 08/11/17 12:00 87 08/11/17 11:00 90 20 141/55 96 Room Air 08/11/17 10:00 92 20 118/45 97 Room Air 08/11/17 09:00 92 20 130/58 97 Room Air 08/11/17 08:00 89 08/11/17 08:00 98.2 90 19 138/53 98 Room Air 08/11/17 07:00 92 20 144/54 97 Room Air 08/11/17 06:00 90 21 142/52 97 Room Air 08/11/17 05:00 94 18 141/58 98 Room Air 08/11/17 04:00 98.3 94 20 127/50 98 Room Air 08/11/17 04:00 94 08/11/17 03:00 94 24 126/38 95 Room Air 08/11/17 02:00 99 27 146/36 96 Room Air 08/11/17 01:00 95 23 146/43 97 Room Air 08/11/17 00:00 98.7 99 27 123/36 96 Room Air 08/11/17 00:00 97 08/10/17 23:00 97 17 140/58 97 Room Air 08/10/17 22:00 97 20 153/47 97 Room Air 08/10/17 21:00 106 21 179/82 98 Room Air 08/10/17 20:00 93 08/10/17 20:00 98.4 93 22 156/56 100 Room Air Intake and Output 08/11/17 08/12/17 19:00 07:00 Intake Total 2094.6 ml Output Total 1300 ml Balance 794.6 ml IV Total 2094.6 ml Output Urine Total 1300 ml Laboratory Tests Test 08/11/17 04:00 08/11/17 19:35 White Blood Count 7.7 K/UL (4.8-10.8) Red Blood Count 3.93 M/UL (4.20-5.40) L Hemoglobin 11.8 G/DL (12.0-16.0) L Hematocrit 35.7 % (37.0-47.0) L Mean Corpuscular Volume 91 FL (80-99) Mean Corpuscular Hemoglobin 30.0 PG (27.0-31.0) Mean Corpuscular Hemoglobin Concent 33.1 G/DL (32.0-36.0) Red Cell Distribution Width 14.9 % (11.6-14.8) H Platelet Count 289 K/UL (150-450) Mean Platelet Volume 6.8 FL (6.5-10.1) Neutrophils (%) (Auto) 66.8 % (45.0-75.0) Lymphocytes (%) (Auto) 17.8 % (20.0-45.0) L Monocytes (%) (Auto) 14.9 % (1.0-10.0) H Eosinophils (%) (Auto) 0.0 % (0.0-3.0) Basophils (%) (Auto) 0.5 % (0.0-2.0) Erythrocyte Sedimentation Rate 78 MM/HR (0-30) H Prothrombin Time 10.1 SEC (9.30-11.50) Prothromb Time International Ratio 1.0 (0.9-1.1) Activated Partial Thromboplast Time 25 SEC (23-33) Sodium Level 150 MMOL/L (136-145) H Pending Potassium Level 3.3 MMOL/L (3.5-5.1) L Pending Chloride Level 116 MMOL/L (98-107) H Pending Carbon Dioxide Level 21 MMOL/L (21-32) Pending Anion Gap 13 mmol/L (5-15) Blood Urea Nitrogen 12 mg/dL (7-18) Pending Creatinine 0.9 MG/DL (0.55-1.30) Pending Estimat Glomerular Filtration Rate > 60 mL/min (>60) Pending Glucose Level 140 MG/DL (74-106) H Pending Calcium Level 8.7 MG/DL (8.5-10.1) Pending Phosphorus Level 0.7 MG/DL (2.5-4.9) *L Magnesium Level 2.0 MG/DL (1.8-2.4) Total Bilirubin 0.3 MG/DL (0.2-1.0) Direct Bilirubin < 0.1 MG/DL (0.0-0.3) Aspartate Amino Transf (AST/SGOT) 17 U/L (15-37) Alanine Aminotransferase (ALT/SGPT) 24 U/L (12-78) Alkaline Phosphatase 106 U/L (46-116) C-Reactive Protein, Quantitative 5.5 mg/dL (0.00-0.90) H Total Protein 6.3 G/DL (6.4-8.2) L Albumin 2.5 G/DL (3.4-5.0) L Globulin 3.8 g/dL Albumin/Globulin Ratio 0.7 (1.0-2.7) L Microbiology Date/Time Source Procedure Growth Status 08/10/17 09:00 Blood Blood Culture - Preliminary Resulted TAMAR CONNELL Aug 11, 2017 19:58
--- NOTE | 2017-08-11 20:14 | General Progress Note ---
Assessment/Plan Problem List: (1) DKA (diabetic ketoacidoses) ICD Codes: E13.10 - Other specified diabetes mellitus with ketoacidosis without coma SNOMED: 046091116, 81732125 (2) Diabetes mellitus ICD Codes: E11.9 - Type 2 diabetes mellitus without complications SNOMED: 13096454 (3) Sepsis ICD Codes: A41.9 - Sepsis, unspecified organism SNOMED: 34453734 Status: progressing Assessment/Plan out of dka afebrile bg is improving vitals stable Subjective ROS Limited/Unobtainable: Yes Allergies: Coded Allergies: PENICILLINS (Verified Allergy, Unknown, 08/10/17) Blanch (Verified Allergy, Unknown, 08/10/17) Uncoded Allergies: [place] (Allergy, Unknown, 08/10/17) Objective Last 24 Hour Vital Signs Date Time Temp Pulse Resp B/P (MAP) Pulse Ox O2 Delivery O2 Flow Rate FiO2 08/11/17 19:00 92 19 125/45 98 Room Air 08/11/17 18:00 89 20 114/54 98 Room Air 08/11/17 17:00 87 20 124/52 98 Room Air 08/11/17 16:00 85 08/11/17 16:00 98.2 86 20 130/52 98 Room Air 08/11/17 15:00 72 20 123/44 98 Room Air 08/11/17 14:00 73 20 134/51 98 Room Air 08/11/17 13:00 89 20 124/41 96 Room Air 08/11/17 12:00 98.0 89 19 103/40 98 Room Air 08/11/17 12:00 87 08/11/17 11:00 90 20 141/55 96 Room Air 08/11/17 10:00 92 20 118/45 97 Room Air 08/11/17 09:00 92 20 130/58 97 Room Air 08/11/17 08:00 89 08/11/17 08:00 98.2 90 19 138/53 98 Room Air 08/11/17 07:00 92 20 144/54 97 Room Air 08/11/17 06:00 90 21 142/52 97 Room Air 08/11/17 05:00 94 18 141/58 98 Room Air 08/11/17 04:00 98.3 94 20 127/50 98 Room Air 08/11/17 04:00 94 08/11/17 03:00 94 24 126/38 95 Room Air 08/11/17 02:00 99 27 146/36 96 Room Air 08/11/17 01:00 95 23 146/43 97 Room Air 08/11/17 00:00 98.7 99 27 123/36 96 Room Air 08/11/17 00:00 97 08/10/17 23:00 97 17 140/58 97 Room Air 08/10/17 22:00 97 20 153/47 97 Room Air 08/10/17 21:00 106 21 179/82 98 Room Air Intake and Output 08/11/17 08/12/17 19:00 07:00 Intake Total 2094.6 ml Output Total 1300 ml Balance 794.6 ml IV Total 2094.6 ml Output Urine Total 1300 ml Laboratory Tests 08/11/17 04:00: White Blood Count 7.7, Red Blood Count 3.93L, Hemoglobin 11.8L, Hematocrit 35.7L , Mean Corpuscular Volume 91, Mean Corpuscular Hemoglobin 30.0, Mean Corpuscular Hemoglobin Concent 33.1, Red Cell Distribution Width 14.9H, Platelet Count 289, Mean Platelet Volume 6.8, Neutrophils (%) (Auto) 66.8, Lymphocytes (%) (Auto) 17.8L, Monocytes (%) (Auto) 14.9H, Eosinophils (%) (Auto ) 0.0, Basophils (%) (Auto) 0.5, Erythrocyte Sedimentation Rate 78H, Prothrombin Time 10.1, Prothromb Time International Ratio 1.0, Activated Partial Thromboplast Time 25, Sodium Level 150H, Potassium Level 3.3L, Chloride Level 116H, Carbon Dioxide Level 21, Anion Gap 13, Blood Urea Nitrogen 12, Creatinine 0.9, Estimat Glomerular Filtration Rate > 60, Glucose Level 140H, Calcium Level 8.7, Phosphorus Level 0.7*L, Magnesium Level 2.0, Total Bilirubin 0.3, Direct Bilirubin < 0.1, Aspartate Amino Transf (AST/SGOT) 17, Alanine Aminotransferase (ALT/SGPT) 24, Alkaline Phosphatase 106, C-Reactive Protein, Quantitative 5.5H, Total Protein 6.3L, Albumin 2.5L, Globulin 3.8, Albumin/ Globulin Ratio 0.7L 08/11/17 19:35: Sodium Level [Pending], Potassium Level [Pending], Chloride Level [Pending], Carbon Dioxide Level [Pending], Blood Urea Nitrogen [Pending], Creatinine [ Pending], Estimat Glomerular Filtration Rate [Pending], Glucose Level [Pending] , Calcium Level [Pending] Height (Feet): 5 Height (Inches): 6.00 Weight (Pounds): [address] MD Aug 11, 2017 20:14
[2017-08-11 20:26] LABS: ANION GAP 8 mmol/L (5-15); CALCIUM 7.9 MG/DL (8.5-10.1); CARBON DIOXIDE 27 MMOL/L (21-32); CHLORIDE 107 MMOL/L (98-107); CREATININE 0.8 MG/DL (0.55-1.30); GLOMERULAR FILTRATION RATE > 60 mL/min (>60); POTASSIUM 2.9 MMOL/L (3.5-5.1); SODIUM 141 MMOL/L (136-145)
[2017-08-11] MEDS: Atorvastatin 20mg tab ORAL SCH (20:49)
[2017-08-11] MEDS: Albuterol/Ipratropium 3ml neb HHN PRN (23:18)
[2017-08-11] MEDS: Promethazine/Codeine 5ml UD ORAL PRN (23:39)
[2017-08-12] VITALS (24 sets, daily range): BP systolic 98–158; BP diastolic 43–67
[2017-08-12] MEDS: Insulin Rate Change 1 Each MISC PRN ×4 (03:13→11:07)
[2017-08-12] MEDS: Vancomycin 1gm/D5W 275ml IVPB SCH ×4 (04:10→16:34)
[2017-08-12 04:54] LABS: BASOPHILS % (AUTO) 1.1 % (0.0-2.0); EOSINOPHILS % (AUTO) 3.8 % (0.0-3.0); LYMPHOCYTES % (AUTO) 30.4 % (20.0-45.0); MEAN CORPUSCULAR HEMOGLOBIN 30.1 PG (27.0-31.0); MEAN CORPUSCULAR HGB CONC 33.3 G/DL (32.0-36.0); MEAN CORPUSCULAR VOLUME 90 FL (80-99); MEAN PLATELET VOLUME 6.8 FL (6.5-10.1); MONOCYTES % (AUTO) 14.6 % (1.0-10.0); NEUTROPHILS % (AUTO) 50.1 % (45.0-75.0); PLATELET COUNT 225 K/UL (150-450); RED BLOOD COUNT 3.75 M/UL (4.20-5.40); RED CELL DISTRIBUTION WIDTH 14.5 % (11.6-14.8); WHITE BLOOD COUNT 7.5 K/UL (4.8-10.8)
[2017-08-12 05:26] LABS: ALANINE AMINOTRANSFERASE 26 U/L (12-78); ALBUMIN/GLOBULIN RATIO 0.7 (1.0-2.7); ANION GAP 7 mmol/L (5-15); ASPARTATE AMINO TRANSFERASE 32 U/L (15-37); CALCIUM 7.8 MG/DL (8.5-10.1); CARBON DIOXIDE 27 MMOL/L (21-32); CHLORIDE 102 MMOL/L (98-107); CREATININE 0.5 MG/DL (0.55-1.30); GLOMERULAR FILTRATION RATE > 60 mL/min (>60); MAGNESIUM 1.5 MG/DL (1.8-2.4); PHOSPHORUS 1.8 MG/DL (2.5-4.9); SODIUM 136 MMOL/L (136-145); TOTAL PROTEIN 5.8 G/DL (6.4-8.2)
[2017-08-12 05:27] LABS: POTASSIUM 2.4 MMOL/L (3.5-5.1)
[2017-08-12] MEDS: Promethazine/Codeine 5ml UD ORAL PRN ×3 (05:57→20:45)
[2017-08-12] MEDS: Aspirin EC 81mg tab ORAL SCH (08:30)
--- NOTE | 2017-08-12 08:30 | Consultation ---
DATE OF CONSULTATION: 08/11/2017 ENDOCRINOLOGIC CONSULTATION CONSULTING PHYSICIAN: Nicko Martinez M.D. REFERRING PHYSICIAN: Daxa Lane M.D. REASON FOR CONSULTATION: Diabetic ketoacidosis. HISTORY OF PRESENT ILLNESS: The patient is a 62-year-old female, a [facility] resident, who was found to have altered mental status and high blood sugar. The patient does have a history of diabetes. The patient was sent to the emergency department for evaluation. Chest x-ray showed right upper lobe consolidation suspicious for pneumonia. Also she was found to be in diabetic ketoacidosis, admitted to ICU for appropriate treatment, started on IV fluid and IV insulin. I was called to manage diabetes and DKA. PAST MEDICAL HISTORY: 1. Hypertension. 2. Diabetes. 3. Schizophrenia. PAST SURGICAL HISTORY: None. ALLERGIES TO MEDICATIONS: None. MEDICATIONS: Reviewed and reconciled. SOCIAL HISTORY: Lives in a longterm facility. No smoking, alcohol, or drug use. FAMILY HISTORY: Noncontributory. PHYSICAL EXAMINATION: GENERAL: The patient is lethargic. VITAL SIGNS: Blood pressure is 130/80, pulse of 83, and temperature 98.1. HEENT: Pupils are equal and reactive to light. NECK: No JVD. HEART: Regular. LUNGS: Clear. ABDOMEN: Positive bowel sounds. Soft. EXTREMITIES: Positive for trace edema. LABORATORY DATA: Sodium 151, potassium 3.9, chloride 115, bicarbonate 20, BUN 22, and creatinine 1.1. Anion gap 16. CBC shows WBC of 9.2, hemoglobin 12.8, hematocrit 42.4, and platelets however 310. DIAGNOSES: 1. Diabetic ketoacidosis. 2. Possible pneumonia. 3. Encephalopathy. PLAN: 1. We will continue to treat diabetic ketoacidosis with IV insulin. 2. Blood glucose monitoring every hour. 3. IV hydration. 4. Correction of sodium. 5. Once anion gap is closed, we will transfer insulin treatment from IV to subcutaneous. 6. I will follow the patient during the hospital stay. Thank you, Dr. Lane, for the courtesy of this consultation. Nicko Martinez M.D. DR: DICKSON/NIKUNJ JOB#: [id number] CC: CASH
[2017-08-12] MEDS: Pantoprazole Inj IVP SCH (08:31)
[2017-08-12] MEDS: Heparin 5000 units/ml inj SUBQ SCH ×2 (08:44→20:48)
--- NOTE | 2017-08-12 13:09 | Pulmonolgy Critical Care Note ---
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 - Objective Last 24 Hour Vital Signs Date Time Temp Pulse Resp B/P (MAP) Pulse Ox O2 Delivery O2 Flow Rate FiO2 08/12/17 13:00 97.9 83 19 153/63 98 Room Air 08/12/17 12:00 80 08/12/17 12:00 99.6 81 20 109/44 96 Room Air 08/12/17 11:00 81 20 123/54 97 Room Air 08/12/17 10:00 82 17 121/43 99 Room Air 08/12/17 09:00 80 18 129/49 99 Room Air 08/12/17 08:00 99.6 89 19 136/59 99 Room Air 08/12/17 08:00 81 08/12/17 07:00 85 17 123/46 98 Room Air 08/12/17 06:00 85 17 129/56 98 Room Air 08/12/17 05:00 80 20 124/51 98 Room Air 08/12/17 04:00 87 08/12/17 04:00 97.9 82 19 129/51 98 Room Air 08/12/17 03:00 79 19 123/43 98 Room Air 08/12/17 02:00 79 19 121/54 98 Room Air 08/12/17 01:00 83 20 109/60 99 Room Air 08/12/17 00:00 97.9 85 20 118/47 99 Room Air 08/12/17 00:00 93 08/11/17 23:25 89 18 100 Room Air 21 08/11/17 23:18 21 08/11/17 23:17 90 23 99 Room Air 21 08/11/17 23:15 90 23 Room Air 21 08/11/17 23:00 90 21 129/56 100 Room Air 08/11/17 22:00 86 21 130/55 99 Room Air 08/11/17 21:00 86 21 128/57 99 Room Air 08/11/17 20:00 97.6 90 21 116/45 99 Room Air 08/11/17 20:00 90 08/11/17 19:00 92 19 125/45 98 Room Air 08/11/17 18:00 89 20 114/54 98 Room Air 08/11/17 17:00 87 20 124/52 98 Room Air 08/11/17 16:00 85 08/11/17 16:00 98.2 86 20 130/52 98 Room Air 08/11/17 15:00 72 20 123/44 98 Room Air 08/11/17 14:00 73 20 134/51 98 Room Air Status: awake Condition: critical, grave Neck: full ROM Lungs: clear Heart: HR/BP stable, regular Abdomen: non-tender Extremities: no C/C/E Micro: Microbiology Date/Time Source Procedure Growth Status 08/10/17 09:00 Blood Blood Culture - Preliminary Staphylococcus Sp Coag Neg Resulted 08/10/17 09:00 Blood Blood Culture - Preliminary Staphylococcus Sp Coag Neg Resulted 08/10/17 09:50 Rectum VRE Culture - Final NO VANCOMYCIN RESISTANT ENTEROCOCCUS ... Complete Accucheck: 147 Critical Care - Subjective ROS Limited/Unobtainable: No ICU Day: 3 Interval Events: has some cough, eating well. BS well controlled. FI02: 21 Sputum Amount: None Secretions: small I&O: Intake and Output 08/12/17 08/13/17 19:00 07:00 Intake Total 533.05 ml Output Total 1200 ml Balance -666.95 ml Intake Oral 100 ml IV Total 433.05 ml Output Urine Total 1200 ml CXR: DMITRI Labs: Laboratory Tests Test 08/11/17 19:35 08/12/17 03:45 Sodium Level 141 MMOL/L (136-145) 136 MMOL/L (136-145) Potassium Level 2.9 MMOL/L (3.5-5.1) L 2.4 MMOL/L (3.5-5.1) *L Chloride Level 107 MMOL/L (98-107) 102 MMOL/L (98-107) Carbon Dioxide Level 27 MMOL/L (21-32) 27 MMOL/L (21-32) Anion Gap 8 mmol/L (5-15) 7 mmol/L (5-15) Blood Urea Nitrogen 5 mg/dL (7-18) L 3 mg/dL (7-18) L Creatinine 0.8 MG/DL (0.55-1.30) 0.5 MG/DL (0.55-1.30) L Estimat Glomerular Filtration Rate > 60 mL/min (>60) > 60 mL/min (>60) Glucose Level 219 MG/DL (74-106) H 128 MG/DL (74-106) H Calcium Level 7.9 MG/DL (8.5-10.1) L 7.8 MG/DL (8.5-10.1) L White Blood Count 7.5 K/UL (4.8-10.8) Red Blood Count 3.75 M/UL (4.20-5.40) L Hemoglobin 11.3 G/DL (12.0-16.0) L Hematocrit 33.9 % (37.0-47.0) L Mean Corpuscular Volume 90 FL (80-99) Mean Corpuscular Hemoglobin 30.1 PG (27.0-31.0) Mean Corpuscular Hemoglobin Concent 33.3 G/DL (32.0-36.0) Red Cell Distribution Width 14.5 % (11.6-14.8) Platelet Count 225 K/UL (150-450) Mean Platelet Volume 6.8 FL (6.5-10.1) Neutrophils (%) (Auto) 50.1 % (45.0-75.0) Lymphocytes (%) (Auto) 30.4 % (20.0-45.0) Monocytes (%) (Auto) 14.6 % (1.0-10.0) H Eosinophils (%) (Auto) 3.8 % (0.0-3.0) H Basophils (%) (Auto) 1.1 % (0.0-2.0) Phosphorus Level 1.8 MG/DL (2.5-4.9) L Magnesium Level 1.5 MG/DL (1.8-2.4) L Total Bilirubin 0.4 MG/DL (0.2-1.0) Aspartate Amino Transf (AST/SGOT) 32 U/L (15-37) Alanine Aminotransferase (ALT/SGPT) 26 U/L (12-78) Alkaline Phosphatase 102 U/L (46-116) Total Protein 5.8 G/DL (6.4-8.2) L Albumin 2.3 G/DL (3.4-5.0) L Globulin 3.5 g/dL Albumin/Globulin Ratio 0.7 (1.0-2.7) L YUVAL MAYA Aug 12, 2017 13:09
[2017-08-12] MEDS: Albuterol/Ipratropium 3ml neb HHN PRN (13:18)
[2017-08-12] MEDS: Levemir Flexpen SUBQ SCH ×2 (14:46→23:12)
--- NOTE | 2017-08-12 15:49 | Infectious Diseases Prog Note ---
Assessment/Plan Problems: (1) Sepsis Assessment & Plan: with coag negative staph , grew from both sets , most likely real , on vancomycin pending susceptibility (2) Right upper lobe consolidation Assessment & Plan: rule out pneumonia, continue levaquin for now and order CT chest (3) DKA (diabetic ketoacidoses) Assessment & Plan: continue insuline , with tight glycemic control to keep blood sugar between 80-120 (4) Diabetes mellitus Assessment & Plan: poorly controlled, with DKA, recommend endocrinology eval Subjective Constitutional: Reports: no symptoms HEENT: Reports: no symptoms Respiratory: Reports: dry cough Breasts: Reports: no symptoms Cardiovascular: Reports: no symptoms Gastrointestinal/Abdominal: Reports: no symptoms Genitourinary: Reports: no symptoms Neurologic: Reports: no symptoms Psychiatric: Reports: no symptoms Skin: Reports: no symptoms Endocrine: Reports: no symptoms Hematologic: Reports: no symptoms Musculoskeletal: Reports: no symptoms Allergies: Coded Allergies: PENICILLINS (Verified Allergy, Unknown, 08/10/17) [place] (Verified Allergy, Unknown, 08/10/17) Uncoded Allergies: Mccormick (Allergy, Unknown, 08/10/17) Objective Vital Signs Last 24 Hour Vital Signs Date Time Temp Pulse Resp B/P (MAP) Pulse Ox O2 Delivery O2 Flow Rate FiO2 08/12/17 15:00 84 18 113/60 100 Room Air 08/12/17 15:00 82 23 113/60 97 Room Air 08/12/17 14:00 84 18 98/48 98 Room Air 08/12/17 13:27 91 20 100 Room Air 08/12/17 13:22 21 08/12/17 13:17 85 20 100 Room Air 21 08/12/17 13:00 97.9 83 19 153/63 98 Room Air 08/12/17 12:00 80 08/12/17 12:00 99.6 81 20 109/44 96 Room Air 08/12/17 11:00 81 20 123/54 97 Room Air 08/12/17 10:00 82 17 121/43 99 Room Air 08/12/17 09:00 80 18 129/49 99 Room Air 08/12/17 08:12 89 19 Room Air 08/12/17 08:00 99.6 89 19 136/59 99 Room Air 08/12/17 08:00 81 08/12/17 07:00 85 17 123/46 98 Room Air 08/12/17 06:00 85 17 129/56 98 Room Air 08/12/17 05:00 80 20 124/51 98 Room Air 08/12/17 04:00 87 08/12/17 04:00 97.9 82 19 129/51 98 Room Air 08/12/17 03:00 79 19 123/43 98 Room Air 08/12/17 02:00 79 19 121/54 98 Room Air 08/12/17 01:00 83 20 109/60 99 Room Air 08/12/17 00:00 97.9 85 20 118/47 99 Room Air 08/12/17 00:00 93 08/11/17 23:25 89 18 100 Room Air 21 08/11/17 23:18 21 08/11/17 23:17 90 23 99 Room Air 21 08/11/17 23:15 90 23 Room Air 21 08/11/17 23:00 90 21 129/56 100 Room Air 08/11/17 22:00 86 21 130/55 99 Room Air 08/11/17 21:00 86 21 128/57 99 Room Air 08/11/17 20:00 97.6 90 21 116/45 99 Room Air 08/11/17 20:00 90 08/11/17 19:00 92 19 125/45 98 Room Air 08/11/17 18:00 89 20 114/54 98 Room Air 08/11/17 17:00 87 20 124/52 98 Room Air 08/11/17 16:00 85 08/11/17 16:00 98.2 86 20 130/52 98 Room Air Height (Feet): 5 Height (Inches): 6.00 Weight (Pounds): 125 General Appearance: WD/WN, no acute distress HEENT: normocephalic, atraumatic, anicteric, mucous membranes moist Respiratory/Chest: chest wall non-tender, lungs clear, normal breath sounds, no respiratory distress, no accessory muscle use, decreased breath sounds Cardiovascular: normal peripheral pulses, normal rate, regular rhythm, no gallop/murmur, no JVD Abdomen: normal bowel sounds, soft, non tender, no organomegaly, non distended , no mass Extremities: no cyanosis, no clubbing Skin: no rash, no lesions, no ulcers Neurologic/Psychiatric: alert, oriented x 3 Microbiology Date/Time Source Procedure Growth Status 08/10/17 09:00 Blood Blood Culture - Preliminary Staphylococcus Sp Coag Neg Resulted 08/10/17 09:00 Blood Blood Culture - Preliminary Staphylococcus Sp Coag Neg Resulted 08/10/17 09:50 Rectum VRE Culture - Final NO VANCOMYCIN RESISTANT ENTEROCOCCUS ... Complete Laboratory Tests Test 08/11/17 19:35 08/12/17 03:45 Sodium Level 141 MMOL/L (136-145) 136 MMOL/L (136-145) Potassium Level 2.9 MMOL/L (3.5-5.1) L 2.4 MMOL/L (3.5-5.1) *L Chloride Level 107 MMOL/L (98-107) 102 MMOL/L (98-107) Carbon Dioxide Level 27 MMOL/L (21-32) 27 MMOL/L (21-32) Anion Gap 8 mmol/L (5-15) 7 mmol/L (5-15) Blood Urea Nitrogen 5 mg/dL (7-18) L 3 mg/dL (7-18) L Creatinine 0.8 MG/DL (0.55-1.30) 0.5 MG/DL (0.55-1.30) L Estimat Glomerular Filtration Rate > 60 mL/min (>60) > 60 mL/min (>60) Glucose Level 219 MG/DL (74-106) H 128 MG/DL (74-106) H Calcium Level 7.9 MG/DL (8.5-10.1) L 7.8 MG/DL (8.5-10.1) L White Blood Count 7.5 K/UL (4.8-10.8) Red Blood Count 3.75 M/UL (4.20-5.40) L Hemoglobin 11.3 G/DL (12.0-16.0) L Hematocrit 33.9 % (37.0-47.0) L Mean Corpuscular Volume 90 FL (80-99) Mean Corpuscular Hemoglobin 30.1 PG (27.0-31.0) Mean Corpuscular Hemoglobin Concent 33.3 G/DL (32.0-36.0) Red Cell Distribution Width 14.5 % (11.6-14.8) Platelet Count 225 K/UL (150-450) Mean Platelet Volume 6.8 FL (6.5-10.1) Neutrophils (%) (Auto) 50.1 % (45.0-75.0) Lymphocytes (%) (Auto) 30.4 % (20.0-45.0) Monocytes (%) (Auto) 14.6 % (1.0-10.0) H Eosinophils (%) (Auto) 3.8 % (0.0-3.0) H Basophils (%) (Auto) 1.1 % (0.0-2.0) Phosphorus Level 1.8 MG/DL (2.5-4.9) L Magnesium Level 1.5 MG/DL (1.8-2.4) L Total Bilirubin 0.4 MG/DL (0.2-1.0) Aspartate Amino Transf (AST/SGOT) 32 U/L (15-37) Alanine Aminotransferase (ALT/SGPT) 26 U/L (12-78) Alkaline Phosphatase 102 U/L (46-116) Total Protein 5.8 G/DL (6.4-8.2) L Albumin 2.3 G/DL (3.4-5.0) L Globulin 3.5 g/dL Albumin/Globulin Ratio 0.7 (1.0-2.7) L Current Medications Medications (Trade) Dose Ordered Sig/Danielle Route PRN Reason Start Time Stop Time Status Last Admin Dose Admin Acetaminophen (Tylenol) 650 mg Q4H PRN ORAL Fever (T>100.5F) 08/10/17 11:30 09/09/17 11:29 Albuterol/ Ipratropium (Albuterol/ Ipratropium) 3 ml Q4H PRN HHN Shortness of Breath 08/10/17 11:30 08/15/17 11:29 08/12/17 13:18 Aspirin (Ecotrin) 81 mg DAILY ORAL 08/11/17 09:00 09/10/17 08:59 08/12/17 08:30 Atorvastatin Calcium (Lipitor) 40 mg BEDTIME ORAL 08/10/17 21:00 09/09/17 20:59 08/11/17 20:49 Dextrose (Dextrose 50%) PRN PRN IV HYPOGLYCEMIA 08/10/17 17:30 09/09/17 17:29 Dextrose (Dextrose 50%) STAT PRN IV Hypoglycemia 08/12/17 13:15 09/11/17 13:14 Gabapentin (Neurontin) 300 mg THREE TIMES A DAY ORAL 08/10/17 13:00 09/09/17 12:59 08/12/17 12:49 Heparin Sodium (Porcine) (Heparin 5000 units/ml) 5,000 units EVERY 12 HOURS SUBQ 08/10/17 21:00 09/09/17 20:59 08/12/17 08:44 Insulin Aspart (NovoLOG) BEFORE MEALS AND HS SUBQ 08/12/17 16:30 09/11/17 16:29 Insulin Detemir (Levemir) 10 units EVERY 12 HOURS SUBQ 08/12/17 14:30 09/11/17 14:29 08/12/17 14:46 Levofloxacin 100 ml @ 100 mls/hr Q24H IVPB 08/11/17 16:00 08/18/17 15:59 08/12/17 15:23 Lorazepam (Ativan 2mg/ml 1ml) 2 mg Q2H PRN IV agitation 08/10/17 11:30 08/17/17 11:29 Miscellaneous Medication (Insulin Rate Change) 1 ea PRN PRN MISC Per rx protocol 08/10/17 17:30 09/09/17 17:29 08/12/17 11:07 Morphine Sulfate (Morphine Sulfate) 4 mg Q4H PRN IVP Severe Pain (Pain Scale 7-10) 08/10/17 11:30 08/17/17 11:29 Nitroglycerin (Ntg) 0.4 mg Q5M PRN SL Prn Chest Pain 08/10/17 11:30 09/09/17 11:29 Ondansetron HCl (Zofran) 4 mg Q6H PRN IVP Nausea & Vomiting 08/10/17 11:30 09/09/17 11:29 Pantoprazole (Protonix) 40 mg DAILY IVP 08/10/17 14:00 09/09/17 13:59 08/12/17 08:31 Polyethylene Glycol (Miralax) 17 gm DAILYPRN PRN ORAL Constipation 08/10/17 11:30 09/09/17 11:29 Promethazine HCl/ Codeine (Phenergan with Codeine) 5 ml Q6H PRN ORAL For Cough 08/11/17 23:15 09/10/17 23:14 08/12/17 12:59 Vancomycin HCl (Vanco rx to dose) 1 ea DAILY PRN MISC Per rx protocol 08/11/17 14:15 09/10/17 14:14 Vancomycin HCl 1 gm/Dextrose 275 ml @ 183.708 mls/hr Q12HR@0400,1600 IVPB 08/11/17 16:00 08/16/17 15:59 08/12/17 04:10 Richie Davis M.D. Aug 12, 2017 15:49
--- NOTE | 2017-08-12 16:00 | Consultation ---
DATE OF CONSULTATION: 08/11/2017 CARDIOLOGY CONSULTATION REFERRING PHYSICIAN: Daxa Lane M.D. REASON FOR CONSULTATION: Management of tachycardia. HISTORY OF PRESENT ILLNESS: The patient is a very unfortunate 62-year-old female, who is a referral from nursing facility for complaint of altered mental status and elevated blood sugar. The patient is nonverbal. Therefore, on arrival to the emergency department, the patient was tachycardic and also hypotensive. Cardiology consultation was made at request of Dr. Lane for management of the above conditions. The patient's blood pressure was 98/54 millimeter of mercury. She was admitted to intensive care unit of [facility] for further evaluation and management. A 12-lead electrocardiogram was significant for sinus tachycardia at rate of 105. There was no ST and T-wave abnormalities. At the bedside, the patient admits to history of coronary artery disease and history of myocardial infarction in the past. The detail of which cannot be obtained from the patient. Her risk factors for coronary artery disease includes hypertension and diabetes mellitus. PAST MEDICAL HISTORY: Diabetes mellitus and schizophrenia. PAST SURGICAL HISTORY: None. MEDICATIONS: In the nursing facility including aspirin 81 mg p.o. daily, Lipitor 40 mg p.o. at bedtime, Plavix 75 mg p.o. daily, and vitamin D 50,000 units once a week, Pepcid 20 mg p.o. at bedtime, Neurontin 300 mg three times a day, Humalog insulin, and Zocor 80 mg p.o. daily. ALLERGIES: No known drug allergies. SOCIAL HISTORY: She is a resident of a nursing facility. There is no history of recent drug, tobacco or alcohol use. FAMILY HISTORY: No premature coronary artery disease in first-degree relatives. PHYSICAL EXAMINATION: VITAL SIGNS: Blood pressure was 98/54, respiration 14, pulse of 112, temperature 99.3 degrees Fahrenheit, and O2 saturation 96% on room air. GENERAL: The patient is a very unfortunate 62-year-old lady who is seen in the intensive care unit in no apparent respiratory distress. Awake and communicating well. HEENT: Atraumatic and normocephalic. Anicteric. Pupils are equal, round, and reactive to light and accommodation. Extraocular movements are intact. NECK: JVP less than 5 centimeter. No carotid bruit. Carotid upstrokes 2+ bilaterally. CARDIOVASCULAR: Normal S1 and S2, tachycardic. No murmurs, gallops, or rubs. PMI is in the fourth intercostal space in the midclavicular line. LUNGS: There is crackles diffusely especially in both bases. ABDOMEN: Soft, nontender, and nondistended. No hepatosplenomegaly. Positive bowel sounds. EXTREMITIES: No evidence of edema, clubbing, or cyanosis. There is multiple subcutaneous hematomas. SKIN: Poor skin turgor. LABORATORY AND DIAGNOSTIC DATA: A 12-lead electrocardiogram shows sinus tachycardia at rate of [address] wave abnormality. Laboratory findings, WBC was 9.2, hemoglobin of 12.8, hematocrit 42.4, and platelet count is 310,000. Sodium was 151, potassium is 2.9, chloride is 116, bicarbonate was 20, BUN of 22, creatinine 1.1 and glucose is 65. Calcium is 9.0. Initial glucose level on arrival to the emergency department was 482 and bicarbonate level was 7. ASSESSMENT AND PLAN: 1. Sinus tachycardia. In view of the patient's serum sodium and presence of diabetic ketoacidosis. Aggressive hydration is the mainstay of therapy. We will continue with managing the patient's rhythm during these ICU stay. We will obtain 2D echocardiography for ruling out the cardiac structure abnormalities. Further diagnostic and therapeutic decision will be based on the results of echocardiography. 2. Hypotension with systolic blood pressure on arrival to the hospital at 98 millimeter of mercury. The patient clearly was hypovolemic, again hydration is the mainstay of therapy. Blood pressure has responded well to hydration. At this time, we will continue with hemodynamic management. 3. Diabetic ketoacidosis. 4. History of coronary artery disease, questionable myocardial infarction per patient. Again, 2D echocardiography will shed light on wall motion abnormalities if any and the patient was seen in the intensive care unit of [facility], time spent on evaluation and review of the medical record was 45 minutes. I would like to thank, Dr. Lane, for allowing me in the care of this pleasant patient. Milind Brewer M.D. DR: RYANN JOB#: [id number] CC:
[2017-08-12] MEDS: NovoLOG Insulin Flexpen SUBQ SCH ×2 (16:37→20:48)
--- NOTE | 2017-08-12 17:07 | Cardiology Progress Note ---
Assessment/Plan Assessment/Plan 1. Sinus tachycardia resolved, echo shows normal LV systolic function with no wall motion abnormalities, LVEF at 55%. 2. Hypotension resolved, agree with med-surg transfer. 3. Diabetic ketoacidosis, resolved. 4. History of coronary artery disease, normal EF with no WMA. Subjective Subjective Sinus rhythm at 81. Objective Last 24 Hour Vital Signs Date Time Temp Pulse Resp B/P (MAP) Pulse Ox O2 Delivery O2 Flow Rate FiO2 08/12/17 16:00 83 08/12/17 16:00 98.7 85 19 122/51 99 Room Air 08/12/17 15:00 84 18 113/60 100 Room Air 08/12/17 15:00 82 23 113/60 97 Room Air 08/12/17 14:00 84 18 98/48 98 Room Air 08/12/17 13:27 91 20 100 Room Air 21 08/12/17 13:22 21 08/12/17 13:17 85 20 100 Room Air 08/12/17 13:00 97.9 83 19 153/63 98 Room Air 08/12/17 12:00 80 08/12/17 12:00 99.6 81 20 109/44 96 Room Air 08/12/17 11:00 81 20 123/54 97 Room Air 08/12/17 10:00 82 17 121/43 99 Room Air 08/12/17 09:00 80 18 129/49 99 Room Air 08/12/17 08:12 89 19 Room Air 08/12/17 08:00 99.6 89 19 136/59 99 Room Air 08/12/17 08:00 81 08/12/17 07:00 85 17 123/46 98 Room Air 08/12/17 06:00 85 17 129/56 98 Room Air 08/12/17 05:00 80 20 124/51 98 Room Air 08/12/17 04:00 87 08/12/17 04:00 97.9 82 19 129/51 98 Room Air 08/12/17 03:00 79 19 123/43 98 Room Air 08/12/17 02:00 79 19 121/54 98 Room Air 08/12/17 01:00 83 20 109/60 99 Room Air 08/12/17 00:00 97.9 85 20 118/47 99 Room Air 08/12/17 00:00 93 08/11/17 23:25 89 18 100 Room Air 21 08/11/17 23:18 21 08/11/17 23:17 90 23 99 Room Air 21 08/11/17 23:15 90 23 Room Air 21 08/11/17 23:00 90 21 129/56 100 Room Air 08/11/17 22:00 86 21 130/55 99 Room Air 08/11/17 21:00 86 21 128/57 99 Room Air 08/11/17 20:00 97.6 90 21 116/45 99 Room Air 08/11/17 20:00 90 08/11/17 19:00 92 19 125/45 98 Room Air 08/11/17 18:00 89 20 114/54 98 Room Air 08/11/17 17:00 87 20 124/52 98 Room Air Intake and Output 08/12/17 08/13/17 19:00 07:00 Intake Total 633.05 ml Output Total 1850 ml Balance -1216.95 ml Intake Oral 200 ml IV Total 433.05 ml Output Urine Total 1850 ml 2D Echo: LVEF 55%, Mild LVH, Mod MR, Grade I LVDD, RVSP 30 mmHg Laboratory Tests Test 08/11/17 19:35 08/12/17 03:45 Sodium Level 141 MMOL/L (136-145) 136 MMOL/L (136-145) Potassium Level 2.9 MMOL/L (3.5-5.1) L 2.4 MMOL/L (3.5-5.1) *L Chloride Level 107 MMOL/L (98-107) 102 MMOL/L (98-107) Carbon Dioxide Level 27 MMOL/L (21-32) 27 MMOL/L (21-32) Anion Gap 8 mmol/L (5-15) 7 mmol/L (5-15) Blood Urea Nitrogen 5 mg/dL (7-18) L 3 mg/dL (7-18) L Creatinine 0.8 MG/DL (0.55-1.30) 0.5 MG/DL (0.55-1.30) L Estimat Glomerular Filtration Rate > 60 mL/min (>60) > 60 mL/min (>60) Glucose Level 219 MG/DL (74-106) H 128 MG/DL (74-106) H Calcium Level 7.9 MG/DL (8.5-10.1) L 7.8 MG/DL (8.5-10.1) L White Blood Count 7.5 K/UL (4.8-10.8) Red Blood Count 3.75 M/UL (4.20-5.40) L Hemoglobin 11.3 G/DL (12.0-16.0) L Hematocrit 33.9 % (37.0-47.0) L Mean Corpuscular Volume 90 FL (80-99) Mean Corpuscular Hemoglobin 30.1 PG (27.0-31.0) Mean Corpuscular Hemoglobin Concent 33.3 G/DL (32.0-36.0) Red Cell Distribution Width 14.5 % (11.6-14.8) Platelet Count 225 K/UL (150-450) Mean Platelet Volume 6.8 FL (6.5-10.1) Neutrophils (%) (Auto) 50.1 % (45.0-75.0) Lymphocytes (%) (Auto) 30.4 % (20.0-45.0) Monocytes (%) (Auto) 14.6 % (1.0-10.0) H Eosinophils (%) (Auto) 3.8 % (0.0-3.0) H Basophils (%) (Auto) 1.1 % (0.0-2.0) Phosphorus Level 1.8 MG/DL (2.5-4.9) L Magnesium Level 1.5 MG/DL (1.8-2.4) L Total Bilirubin 0.4 MG/DL (0.2-1.0) Aspartate Amino Transf (AST/SGOT) 32 U/L (15-37) Alanine Aminotransferase (ALT/SGPT) 26 U/L (12-78) Alkaline Phosphatase 102 U/L (46-116) Total Protein 5.8 G/DL (6.4-8.2) L Albumin 2.3 G/DL (3.4-5.0) L Globulin 3.5 g/dL Albumin/Globulin Ratio 0.7 (1.0-2.7) L Microbiology Date/Time Source Procedure Growth Status 08/10/17 09:00 Blood Blood Culture - Preliminary Staphylococcus Sp Coag Neg Resulted 08/10/17 09:00 Blood Blood Culture - Preliminary Staphylococcus Sp Coag Neg Resulted 08/10/17 09:50 Rectum VRE Culture - Final NO VANCOMYCIN RESISTANT ENTEROCOCCUS ... Complete Objective HEENT: Atraumatic and normocephalic. Anicteric. Pupils are equal, round, and reactive to light and accommodation. Extraocular movements are intact. NECK: JVP less than 5 centimeter. No carotid bruit. Carotid upstrokes 2+ bilaterally. CARDIOVASCULAR: Normal S1 and S2, tachycardic. No murmurs, gallops, or rubs. PMI is in the fourth intercostal space in the midclavicular line. LUNGS: There is crackles diffusely especially in both bases. ABDOMEN: Soft, nontender, and nondistended. No hepatosplenomegaly. Positive bowel sounds. EXTREMITIES: No evidence of edema, clubbing, or cyanosis. There is multiple subcutaneous hematomas. SKIN: Poor skin turgor. TAMAR CONNELL Aug 12, 2017 17:07
[2017-08-12] MEDS: Atorvastatin 20mg tab ORAL SCH (20:46)
[2017-08-12] MEDS ORDERED: D5NS 1000ml IV ONE (21:47)
[2017-08-12] MEDS ORDERED: Tubing IV Secondary IV ONE (21:47)
[2017-08-13] VITALS (10 sets, daily range): BP systolic 112–154; BP diastolic 49–68
[2017-08-13] MEDS ORDERED: Nitroglycerin Subl 0.4mg tab SL PRN (00:30)
[2017-08-13] MEDS ORDERED: LORazepam Inj 2mg/ml 1ml IV PRN (01:30)
[2017-08-13] MEDS ORDERED: Albuterol/Ipratropium 3ml neb HHN PRN (03:30)
[2017-08-13] MEDS ORDERED: Vancomycin 1 GM in D5W 275 ML IVPB SCH (04:00)
[2017-08-13 04:43] LABS: BASOPHILS % (AUTO) 1.5 % (0.0-2.0); LYMPHOCYTES % (AUTO) 19.1 % (20.0-45.0); MEAN CORPUSCULAR HGB CONC 32.9 G/DL (32.0-36.0); MEAN CORPUSCULAR VOLUME 91 FL (80-99); MEAN PLATELET VOLUME 7.5 FL (6.5-10.1); MONOCYTES % (AUTO) 12.7 % (1.0-10.0); NEUTROPHILS % (AUTO) 55.6 % (45.0-75.0); PLATELET COUNT 249 K/UL (150-450); RED BLOOD COUNT 3.77 M/UL (4.20-5.40)
[2017-08-13 05:01] LABS: ALANINE AMINOTRANSFERASE 23 U/L (12-78); ALBUMIN/GLOBULIN RATIO 0.6 (1.0-2.7); ANION GAP 8 mmol/L (5-15); ASPARTATE AMINO TRANSFERASE 19 U/L (15-37); CALCIUM 8.6 MG/DL (8.5-10.1); CARBON DIOXIDE 31 MMOL/L (21-32); CHLORIDE 101 MMOL/L (98-107); CREATININE 0.6 MG/DL (0.55-1.30); GLOMERULAR FILTRATION RATE > 60 mL/min (>60); MAGNESIUM 1.7 MG/DL (1.8-2.4); PHOSPHORUS 2.7 MG/DL (2.5-4.9); POTASSIUM 3.2 MMOL/L (3.5-5.1); SODIUM 140 MMOL/L (136-145); TOTAL PROTEIN 5.8 G/DL (6.4-8.2)
[2017-08-13] MEDS ORDERED: Promethazine/Codeine 5ml UD ORAL PRN (05:15)
--- NOTE | 2017-08-13 05:48 | General Progress Note ---
Assessment/Plan Problem List: (1) DKA (diabetic ketoacidoses) ICD Codes: E13.10 - Other specified diabetes mellitus with ketoacidosis without coma SNOMED: 519965420, 84012239 (2) Diabetes mellitus ICD Codes: E11.9 - Type 2 diabetes mellitus without complications SNOMED: 14118999 (3) Right upper lobe consolidation ICD Codes: J18.1 - Lobar pneumonia, unspecified organism SNOMED: 88142242 (4) Sepsis ICD Codes: A41.9 - Sepsis, unspecified organism SNOMED: 26792986 Assessment/Plan reduce Levemir to 7 units bid add Novolog 4 units ac tid continue SSI continue IVF Subjective ROS Limited/Unobtainable: Yes Allergies: Coded Allergies: PENICILLINS (Verified Allergy, Unknown, 08/10/17) [place] (Verified Allergy, Unknown, 08/10/17) Uncoded Allergies: [place] (Allergy, Unknown, 08/10/17) Subjective off insulin drip being transferred out of ICU Objective Last 24 Hour Vital Signs Date Time Temp Pulse Resp B/P (MAP) Pulse Ox O2 Delivery O2 Flow Rate FiO2 08/13/17 04:00 81 08/13/17 04:00 97.7 79 17 118/49 96 Room Air 08/13/17 03:00 76 18 131/56 96 Room Air 08/13/17 02:00 75 16 128/52 96 Room Air 08/13/17 01:00 72 16 123/51 97 Room Air 08/13/17 00:00 73 08/13/17 00:00 97.9 75 15 112/55 95 Room Air 08/12/17 23:00 73 15 112/55 97 Room Air 08/12/17 22:00 72 15 145/53 97 Room Air 08/12/17 21:00 74 15 156/58 97 Room Air 08/12/17 20:00 97.7 75 15 158/62 98 Room Air 08/12/17 20:00 80 08/12/17 19:00 81 20 141/51 98 Room Air 08/12/17 18:58 91 21 Room Air 08/12/17 18:11 99.2 08/12/17 18:00 88 20 134/52 98 Room Air 08/12/17 17:00 98 20 132/67 100 Room Air 08/12/17 16:00 83 08/12/17 16:00 98.7 85 19 122/51 99 Room Air 08/12/17 15:00 84 18 113/60 100 Room Air 08/12/17 15:00 82 23 113/60 97 Room Air 08/12/17 14:00 84 18 98/48 98 Room Air 08/12/17 13:27 91 20 100 Room Air 21 08/12/17 13:22 21 08/12/17 13:17 85 20 100 Room Air 21 08/12/17 13:00 97.9 83 19 153/63 98 Room Air 08/12/17 12:00 80 08/12/17 12:00 99.6 81 20 109/44 96 Room Air 08/12/17 11:00 81 20 123/54 97 Room Air 08/12/17 10:00 82 17 121/43 99 Room Air 08/12/17 09:00 80 18 129/49 99 Room Air 08/12/17 08:12 89 19 Room Air 08/12/17 08:00 99.6 89 19 136/59 99 Room Air 08/12/17 08:00 81 08/12/17 07:00 85 17 123/46 98 Room Air 08/12/17 06:00 85 17 129/56 98 Room Air Laboratory Tests 08/13/17 03:00: Vancomycin Level Trough 9.6 08/13/17 04:00: White Blood Count 7.0, Red Blood Count 3.77L, Hemoglobin 11.3L, Hematocrit 34.4L , Mean Corpuscular Volume 91, Mean Corpuscular Hemoglobin 30.0, Mean Corpuscular Hemoglobin Concent 32.9, Red Cell Distribution Width 14.0, Platelet Count 249, Mean Platelet Volume 7.5, Neutrophils (%) (Auto) 55.6, Lymphocytes (% ) (Auto) 19.1L, Monocytes (%) (Auto) 12.7H, Eosinophils (%) (Auto) 11.0H, Basophils (%) (Auto) 1.5, Sodium Level 140, Potassium Level 3.2L, Chloride Level 101, Carbon Dioxide Level 31, Anion Gap 8, Blood Urea Nitrogen 3L, Creatinine 0.6, Estimat Glomerular Filtration Rate > 60, Glucose Level 109H, Calcium Level 8.6, Phosphorus Level 2.7, Magnesium Level 1.7L, Total Bilirubin 0.4, Aspartate Amino Transf (AST/SGOT) 19, Alanine Aminotransferase (ALT/SGPT) 23, Alkaline Phosphatase 105, Total Protein 5.8L, Albumin 2.2L, Globulin 3.6, Albumin/Globulin Ratio 0.6L, TB Test (T-Spot) [Pending], TB Test Nil Control (T- Spot) [Pending], TB Test Panel A (T-Spot) [Pending], TB Test Panel B (T-Spot) [ Pending], TB Test Positive Control (T-Spot) [Pending] Height (Feet): 5 Height (Inches): 6.00 Weight (Pounds): 125 General Appearance: no apparent distress EENT: pale conjunctivae Neck: normal alignment Cardiovascular: normal rate Respiratory/Chest: decreased breath sounds Abdomen: normal bowel sounds Edema: no edema noted Arm (L), no edema noted Arm (R), no edema noted Leg (L), no edema noted Leg (R), no edema noted Pedal (L), no edema noted Pedal (R), no edema noted Generalized Objective Current Medications Medications (Trade) Dose Ordered Sig/Danielle Route PRN Reason Start Time Stop Time Status Last Admin Dose Admin Acetaminophen (Tylenol) 650 mg Q4H PRN ORAL Fever (T>100.5F) 08/13/17 03:30 09/09/17 11:29 Albuterol/ Ipratropium (Albuterol/ Ipratropium) 3 ml Q4H PRN HHN Shortness of Breath 08/13/17 03:30 08/15/17 11:29 Aspirin (Ecotrin) 81 mg DAILY ORAL 08/13/17 09:00 09/10/17 08:59 Atorvastatin Calcium (Lipitor) 40 mg BEDTIME ORAL 08/13/17 21:00 09/09/17 20:59 Dextrose (Dextrose 50%) PRN PRN IV HYPOGLYCEMIA 08/13/17 17:30 09/09/17 17:29 Dextrose (Dextrose 50%) STAT PRN IV Hypoglycemia 08/13/17 13:15 09/11/17 13:14 Gabapentin (Neurontin) 300 mg THREE TIMES A DAY ORAL 08/13/17 09:00 09/09/17 12:59 Heparin Sodium (Porcine) (Heparin 5000 units/ml) 5,000 units EVERY 12 HOURS SUBQ 08/13/17 09:00 09/09/17 20:59 Insulin Aspart (NovoLOG) BEFORE MEALS AND HS SUBQ 08/13/17 06:30 09/11/17 16:29 Insulin Detemir (Levemir) 10 units EVERY 12 HOURS SUBQ 08/13/17 09:00 09/11/17 14:29 Levofloxacin 100 ml @ 100 mls/hr Q24H IVPB 08/13/17 16:00 08/18/17 15:59 Lorazepam (Ativan 2mg/ml 1ml) 2 mg Q2H PRN IV agitation 08/13/17 01:30 08/17/17 11:29 Morphine Sulfate (Morphine Sulfate) 4 mg Q4H PRN IVP Severe Pain (Pain Scale 7-10) 08/13/17 03:30 08/17/17 11:29 Nitroglycerin (Ntg) 0.4 mg Q5M PRN SL Prn Chest Pain 08/13/17 00:30 09/09/17 11:29 Ondansetron HCl (Zofran) 4 mg Q6H PRN IVP Nausea & Vomiting 08/13/17 05:30 09/09/17 11:29 08/13/17 01:41 Pantoprazole (Protonix) 40 mg DAILY IVP 08/13/17 09:00 09/09/17 13:59 Polyethylene Glycol (Miralax) 17 gm DAILYPRN PRN ORAL Constipation 08/13/17 11:30 09/09/17 11:29 Promethazine HCl/ Codeine (Phenergan with Codeine) 5 ml Q6H PRN ORAL For Cough 08/13/17 05:15 09/10/17 23:14 08/13/17 03:13 Vancomycin HCl (Vanco rx to dose) 1 ea DAILY PRN MISC Per rx protocol 08/13/17 09:00 09/10/17 14:14 Vancomycin HCl 1 gm/Dextrose 275 ml @ 183.708 mls/hr Q12HR@0400,1600 IVPB 08/13/17 04:00 08/16/17 15:59 08/13/17 04:29 Item Value Date Time Bedside Blood Glucose 73 mg/dl 08/13/17 0330 Bedside Blood Glucose 90 mg/dl 08/12/17 2312 Bedside Blood Glucose 110 mg/dl 08/12/17 2100 Bedside Blood Glucose 387 mg/dl H 08/12/17 1637 Bedside Blood Glucose 286 mg/dl H 08/12/17 1446 Bedside Blood Glucose 185 mg/dl H 08/12/17 1000 EMA VALENCIA Aug 13, 2017 05:47
[2017-08-13] MEDS: NovoLOG Insulin Flexpen SUBQ SCH ×7 (06:30→21:00)
[2017-08-13] MEDS ORDERED: Levemir Flexpen SUBQ SCH (09:00)
[2017-08-13] MEDS: Aspirin EC 81mg tab ORAL SCH (09:00)
[2017-08-13] MEDS: Levemir Flexpen SUBQ SCH ×2 (09:00→21:00)
[2017-08-13] MEDS: Heparin 5000 units/ml inj SUBQ SCH ×2 (09:00→21:03)
--- NOTE | 2017-08-13 09:04 | Pulmonology Progress Note ---
Assessment/Plan Assessment/Plan ASSESSMENT DKA ARF probably due to dehydration -resolved acute encephalopathy2 to DKA, resolving possible sepsis abnormal CXR -RUL scarring vs consolidation DM e/lyte imbalance ( hypo K hypo Mg, hypo P) Hx of CAD neuropathy PLAN OF CARE [facility] floor DKA resolved , endo follows on long acting and short acting insulin with SS as needed s/p IVF renal parameters down to normal ARF was likely precipitated by dehydration e/lyte replaced as needed, today replace K and Mg empiric abx ID follows O2 prn HHN prn pulse oximetry stable on RA CXR with Scarring suspected within the right upper lobe. Difficult to completely exclude the possibility of superimposed disease of a more acute nature. no signs of respiratory distress, doubt PNA CT chest today venous Duplex BLE negative cardio follows ST and hypotension resolved ECHO with pEF 55% and no evidence of WMA continue ASA and statin Bowel regimen DVT prophayxls case discussed and evaluated by supervising physician Subjective Allergies: Coded Allergies: PENICILLINS (Verified Allergy, Unknown, 08/10/17) [place] (Verified Allergy, Unknown, 08/10/17) Uncoded Allergies: [place] (Allergy, Unknown, 08/10/17) Subjective on [facility] floor BS better low K and Mg this am denies chest pain, SOB reports leg pain, hx of neuropathy CXR with Scarring suspected within the right upper lobe. Difficult to completely exclude the possibility of superimposed disease of a more acute nature. CT chest this am Objective Last 24 Hour Vital Signs Date Time Temp Pulse Resp B/P (MAP) Pulse Ox O2 Delivery O2 Flow Rate FiO2 08/13/17 05:00 76 16 140/50 97 Room Air 08/13/17 04:00 81 08/13/17 04:00 97.7 79 17 118/49 96 Room Air 08/13/17 03:00 76 18 131/56 96 Room Air 08/13/17 02:00 75 16 128/52 96 Room Air 08/13/17 01:00 72 16 123/51 97 Room Air 08/13/17 00:00 73 08/13/17 00:00 97.9 75 15 112/55 95 Room Air 08/12/17 23:00 73 15 112/55 97 Room Air 08/12/17 22:00 72 15 145/53 97 Room Air 08/12/17 21:00 74 15 156/58 97 Room Air 08/12/17 20:00 97.7 75 15 158/62 98 Room Air 08/12/17 20:00 80 08/12/17 19:00 81 20 141/51 98 Room Air 08/12/17 18:58 91 21 Room Air 08/12/17 18:11 99.2 08/12/17 18:00 88 20 134/52 98 Room Air 08/12/17 17:00 98 20 132/67 100 Room Air 08/12/17 16:00 83 08/12/17 16:00 98.7 85 19 122/51 99 Room Air 08/12/17 15:00 84 18 113/60 100 Room Air 08/12/17 15:00 82 23 113/60 97 Room Air 08/12/17 14:00 84 18 98/48 98 Room Air 08/12/17 13:27 91 20 100 Room Air 08/12/17 13:22 21 08/12/17 13:17 85 20 100 Room Air 08/12/17 13:00 97.9 83 19 153/63 98 Room Air 08/12/17 12:00 80 08/12/17 12:00 99.6 81 20 109/44 96 Room Air 08/12/17 11:00 81 20 123/54 97 Room Air 08/12/17 10:00 82 17 121/43 99 Room Air 08/12/17 09:00 80 18 129/49 99 Room Air General Appearance: no acute distress HEENT: normocephalic, atraumatic, anicteric, mucous membranes moist, PERRL Respiratory/Chest: lungs clear, no respiratory distress, chest wall tender Cardiovascular: normal peripheral pulses, normal rate, regular rhythm, no JVD Abdomen: normal bowel sounds, soft, non tender, non distended Extremities: no edema, pedal pulses normal Neurologic/Psychiatric: alert, responsive Musculoskeletal: normal muscle bulk Microbiology Date/Time Source Procedure Growth Status 08/10/17 09:00 Blood Blood Culture - Final Staphylococcus Sp Coag Neg Complete 08/10/17 09:00 Blood Blood Culture - Final Staphylococcus Sp Coag Neg Complete 08/10/17 09:50 Rectum VRE Culture - Final NO VANCOMYCIN RESISTANT ENTEROCOCCUS ... Complete Laboratory Tests 08/13/17 03:00: Vancomycin Level Trough 9.6 08/13/17 04:00: White Blood Count 7.0, Red Blood Count 3.77L, Hemoglobin 11.3L, Hematocrit 34.4L , Mean Corpuscular Volume 91, Mean Corpuscular Hemoglobin 30.0, Mean Corpuscular Hemoglobin Concent 32.9, Red Cell Distribution Width 14.0, Platelet Count 249, Mean Platelet Volume 7.5, Neutrophils (%) (Auto) 55.6, Lymphocytes (% ) (Auto) 19.1L, Monocytes (%) (Auto) 12.7H, Eosinophils (%) (Auto) 11.0H, Basophils (%) (Auto) 1.5, Sodium Level 140, Potassium Level 3.2L, Chloride Level 101, Carbon Dioxide Level 31, Anion Gap 8, Blood Urea Nitrogen 3L, Creatinine 0.6, Estimat Glomerular Filtration Rate > 60, Glucose Level 109H, Calcium Level 8.6, Phosphorus Level 2.7, Magnesium Level 1.7L, Total Bilirubin 0.4, Aspartate Amino Transf (AST/SGOT) 19, Alanine Aminotransferase (ALT/SGPT) 23, Alkaline Phosphatase 105, Total Protein 5.8L, Albumin 2.2L, Globulin 3.6, Albumin/Globulin Ratio 0.6L, TB Test (T-Spot) [Pending], TB Test Nil Control (T- Spot) [Pending], TB Test Panel A (T-Spot) [Pending], TB Test Panel B (T-Spot) [ Pending], TB Test Positive Control (T-Spot) [Pending] Current Medications Medications (Trade) Dose Ordered Sig/Danielle Route PRN Reason Start Time Stop Time Status Last Admin Dose Admin Acetaminophen (Tylenol) 650 mg Q4H PRN ORAL Fever (T>100.5F) 08/13/17 03:30 09/09/17 11:29 Albuterol/ Ipratropium (Albuterol/ Ipratropium) 3 ml Q4H PRN HHN Shortness of Breath 08/13/17 03:30 08/15/17 11:29 Aspirin (Ecotrin) 81 mg DAILY ORAL 08/13/17 09:00 09/10/17 08:59 Atorvastatin Calcium (Lipitor) 40 mg BEDTIME ORAL 08/13/17 21:00 09/09/17 20:59 Dextrose (Dextrose 50%) STAT PRN IV Hypoglycemia 08/13/17 06:00 09/12/17 05:59 Gabapentin (Neurontin) 300 mg THREE TIMES A DAY ORAL 08/13/17 09:00 09/09/17 12:59 Heparin Sodium (Porcine) (Heparin 5000 units/ml) 5,000 units EVERY 12 HOURS SUBQ 08/13/17 09:00 09/09/17 20:59 Insulin Aspart (NovoLOG) BEFORE MEALS AND HS SUBQ 08/13/17 06:30 09/11/17 16:29 Insulin Aspart (NovoLOG) 4 units NOVOTIAC SUBQ 08/13/17 06:30 09/12/17 06:29 Insulin Detemir (Levemir) 7 units EVERY 12 HOURS SUBQ 08/13/17 09:00 09/12/17 08:59 Levofloxacin 100 ml @ 100 mls/hr Q24H IVPB 08/13/17 16:00 08/18/17 15:59 Lorazepam (Ativan 2mg/ml 1ml) 2 mg Q2H PRN IV agitation 08/13/17 01:30 08/17/17 11:29 Morphine Sulfate (Morphine Sulfate) 4 mg Q4H PRN IVP Severe Pain (Pain Scale 7-10) 08/13/17 03:30 08/17/17 11:29 Nitroglycerin (Ntg) 0.4 mg Q5M PRN SL Prn Chest Pain 08/13/17 00:30 09/09/17 11:29 Ondansetron HCl (Zofran) 4 mg Q6H PRN IVP Nausea & Vomiting 08/13/17 05:30 09/09/17 11:29 08/13/17 01:41 Pantoprazole (Protonix) 40 mg DAILY IVP 08/13/17 09:00 09/09/17 13:59 Polyethylene Glycol (Miralax) 17 gm DAILYPRN PRN ORAL Constipation 08/13/17 11:30 09/09/17 11:29 Potassium Chloride (K-Dur) 40 meq ONCE ONCE ORAL 08/13/17 09:00 08/13/17 09:01 UNV Promethazine HCl/ Codeine (Phenergan with Codeine) 5 ml Q6H PRN ORAL For Cough 08/13/17 05:15 09/10/17 23:14 08/13/17 03:13 Vancomycin HCl (Vanco rx to dose) 1 ea DAILY PRN MISC Per rx protocol 08/13/17 09:00 09/10/17 14:14 Vancomycin HCl 1 gm/Dextrose 275 ml @ 183.708 mls/hr Q12HR@0400,1600 IVPB 08/13/17 04:00 08/16/17 15:59 08/13/17 04:29 Ce Barillas NP ([place]) Aug 13, 2017 09:04
[2017-08-13] MEDS: Pantoprazole Inj IVP SCH (09:26)
[2017-08-13] MEDS: Morphine Sulfate 4mg/ml Inj IVP PRN ×2 (11:21→16:23)
[2017-08-13] MEDS ORDERED: Miralax 17gm pkt ORAL PRN (11:30)
--- NOTE | 2017-08-13 11:50 | Diagnostic Imaging Report ---
Indication: SOB Technique: One view of the chest Comparison: 08/10/2017 Findings: Right upper lobe scarring and volume loss with upward retraction of the right pulmonary hilum and compensatory hyperinflation of the right lower lobe is is again demonstrated. More dense opacities previously demonstrated are not evident currently, may be due to differences in rotation. No acute infiltrates. No effusions. Normal heart size. There are degenerative changes of the thoracic spine Impression: No acute process. Chronic right upper lobe scarring and volume loss again demonstrated
--- NOTE | 2017-08-13 12:09 | Diagnostic Imaging Report ---
Clinical Indication: Cough, infection Technique: IV administration nonionic contrast. Spiral acquisition obtained through the chest. Multiplanar reconstructions generated. Total dose length product 41 mGycm. CTDIvol(s) 14 mGy. Dose reduction achieved using automated exposure control Comparison: Chest radiograph of earlier the same day Findings: Reticular opacities are seen throughout the posterior basal segment of the left lower lobe. Focal reticular opacity is seen in the periphery of the lateral basilar segment of the left lower lobe. There is a large band of scarring involving the central right upper lobe extending from the hilum to the posterior upper right lung. This demonstrates associated calcification and bronchiectasis. This results in considerable volume loss, with upward retraction of the minor fissure, and considerable compensatory hyperinflation of the upper and middle lobes. Minimal scarring is seen within the postero-medial right costophrenic sulcus. A peripheral nodule is seen in the left upper lobe, measuring 3 mm diameter, image 18 series 6. A 5 mm nodule is seen in the periphery of the left upper lobe, 13 of series 6. Some vague groundglass opacity is seen peripheral this nodule. Very questionable 2 mm nodule is seen centrally within the left upper lobe on image 25 of series 6. No dense consolidation. No congestion. No effusions. The heart size is normal. No pericardial effusion. The esophagus is minimally dilated distally, otherwise unremarkable. No mediastinal or hilar mass or adenopathy. There is a somewhat prominent but not frankly enlarged right paratracheal node. The thyroid is unremarkable. No axillary or chest wall mass or adenopathy. The bones demonstrate mild degenerative thoracic spondylosis changes. There is an old healed fracture deformity of the posterior right sixth rib. The included upper abdominal anatomy is unremarkable. Impression: Considerable right upper lobe scarring and volume loss, associated bronchiectasis, as described Left basilar reticular opacity. Appearance nonspecific, could represent acute infiltrate versus chronic postinflammatory change Multiple small left upper lobe nodules. If there is significant smoking history or other risk factors for lung carcinoma, followup CT scan in 6-12 months is recommended. If there are is no significant risk factors, then no further followup is necessary Other parenchymal opacities, as described, most likely on the basis of chronic scarring Incidental finding old healed right sixth rib fracture deformity, degenerative spondylosis The CT scanner at [facility] is accredited by the [employer] and the scans are performed using protocols designed to limit radiation exposure to as low as reasonably achievable to attain images of sufficient resolution adequate for diagnostic evaluation.
--- NOTE | 2017-08-13 12:28 | Diagnostic Imaging Report ---
APPROVED REPORT CPT Code: 25693 Present Symptoms Lower Extremity Pain: Bilateral Comments: R/O DVT BILATERAL: Imaging reveals a patent deep venous system bilaterally. There is no evidence of thrombus within the femoral, popliteal or tibial segments. The greater saphenous veins are also within normal limits. Doppler indicates normal spontaneous flow within these segments.
--- NOTE | 2017-08-13 13:57 | Cardiology Report ---
APPROVED REPORT EXAM: Two-dimensional and M-mode echocardiogram with Doppler and color Doppler. INDICATION Tachycardia M-Mode DIMENSIONS IVSd1.5 (0.7-1.1cm)Left Atrium (MM)3.9 (1.6-4.0cm) LVDd3.6 (3.5-5.6cm)Aortic Root2.5 (2.0-3.7cm) PWd1.3 (0.7-1.1cm)Aortic Cusp Exc.1.5 (1.5-2.0cm) LVDs2.1 (2.5-4.0cm) PWs1.9 cm Normal left ventricular chamber size. Mild distal inferoseptal hypokinesis, otherwise all other remaning segments have normal wall motion. Left ventricular ejection fraction estimated to be 55 %. Mild left ventricular hypertrophy. No evidence of pericardial effusion. All other cardiac chamber sizes are within normal limits. Focal aortic valve sclerosis with adequate cusp excursion. Thickened mitral valve leaflets with normal excursion. Mitral annulus and aortic root calcification. Pulmonic valve not well visualized. Normal tricuspid valve structure. IVC at normal size with physiologic collapse. A color flow and spectral Doppler study was performed and revealed: Moderate mitral regurgitation. Mitral diastolic velocities suggest reduced left ventricular relaxation c/w mild LV diastolic dysfunction (Grade I). Mild tricuspid regurgitation. Tricuspid systolic velocities suggests peak right ventricular systolic pressure of 30 mmHg.
[2017-08-13] MEDS ORDERED: Sennosides 8.6mg ORAL PRN (14:30)
--- NOTE | 2017-08-13 14:39 | General Progress Note ---
Assessment/Plan Problem List: (1) DKA (diabetic ketoacidoses) ICD Codes: E13.10 - Other specified diabetes mellitus with ketoacidosis without coma SNOMED: 285654023, 59125187 (2) Diabetes mellitus ICD Codes: E11.9 - Type 2 diabetes mellitus without complications SNOMED: 09583375 (3) Sepsis ICD Codes: A41.9 - Sepsis, unspecified organism SNOMED: 71010206 Status: progressing Assessment/Plan out of dka afebrile constipated ordered stool softners sugars are improving Subjective Gastrointestinal/Abdominal: Reports: constipated Allergies: Coded Allergies: PENICILLINS (Verified Allergy, Unknown, 08/10/17) [place] (Verified Allergy, Unknown, 08/10/17) Uncoded Allergies: [place] (Allergy, Unknown, 08/10/17) Objective Last 24 Hour Vital Signs Date Time Temp Pulse Resp B/P (MAP) Pulse Ox O2 Delivery O2 Flow Rate FiO2 08/13/17 11:45 97.4 82 20 143/66 99 Room Air 08/13/17 08:13 82 18 Room Air 08/13/17 08:00 97.6 77 17 138/54 97 Room Air 08/13/17 05:00 76 16 140/50 97 Room Air 08/13/17 04:00 81 08/13/17 04:00 97.7 79 17 118/49 96 Room Air 08/13/17 03:00 76 18 131/56 96 Room Air 08/13/17 02:00 75 16 128/52 96 Room Air 08/13/17 01:00 72 16 123/51 97 Room Air 08/13/17 00:00 73 08/13/17 00:00 97.9 75 15 112/55 95 Room Air 08/12/17 23:00 73 15 112/55 97 Room Air 08/12/17 22:00 72 15 145/53 97 Room Air 08/12/17 21:00 74 15 156/58 97 Room Air 08/12/17 20:00 97.7 75 15 158/62 98 Room Air 08/12/17 20:00 80 08/12/17 19:00 81 20 141/51 98 Room Air 08/12/17 18:58 91 21 Room Air 08/12/17 18:11 99.2 08/12/17 18:00 88 20 134/52 98 Room Air 08/12/17 17:00 98 20 132/67 100 Room Air 08/12/17 16:00 83 08/12/17 16:00 98.7 85 19 122/51 99 Room Air 08/12/17 15:00 84 18 113/60 100 Room Air 08/12/17 15:00 82 23 113/60 97 Room Air Laboratory Tests 08/13/17 03:00: Vancomycin Level Trough 9.6 08/13/17 04:00: White Blood Count 7.0, Red Blood Count 3.77L, Hemoglobin 11.3L, Hematocrit 34.4L , Mean Corpuscular Volume 91, Mean Corpuscular Hemoglobin 30.0, Mean Corpuscular Hemoglobin Concent 32.9, Red Cell Distribution Width 14.0, Platelet Count 249, Mean Platelet Volume 7.5, Neutrophils (%) (Auto) 55.6, Lymphocytes (% ) (Auto) 19.1L, Monocytes (%) (Auto) 12.7H, Eosinophils (%) (Auto) 11.0H, Basophils (%) (Auto) 1.5, Sodium Level 140, Potassium Level 3.2L, Chloride Level 101, Carbon Dioxide Level 31, Anion Gap 8, Blood Urea Nitrogen 3L, Creatinine 0.6, Estimat Glomerular Filtration Rate > 60, Glucose Level 109H, Calcium Level 8.6, Phosphorus Level 2.7, Magnesium Level 1.7L, Total Bilirubin 0.4, Aspartate Amino Transf (AST/SGOT) 19, Alanine Aminotransferase (ALT/SGPT) 23, Alkaline Phosphatase 105, Total Protein 5.8L, Albumin 2.2L, Globulin 3.6, Albumin/Globulin Ratio 0.6L, TB Test (T-Spot) [Pending], TB Test Nil Control (T- Spot) [Pending], TB Test Panel A (T-Spot) [Pending], TB Test Panel B (T-Spot) [ Pending], TB Test Positive Control (T-Spot) [Pending] Height (Feet): 5 Height (Inches): 6.00 Weight (Pounds): 126 Neck: supple Cardiovascular: normal rate Respiratory/Chest: lungs clear Abdomen: soft Daxa Lane MD Aug 13, 2017 14:39
[2017-08-13] MEDS ORDERED: Tubing IV Secondary IV ONE (14:54)
[2017-08-13] MEDS ORDERED: NS 275ml ONE (16:08)
--- NOTE | 2017-08-13 17:43 | Infectious Diseases Prog Note ---
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 (3) DKA (diabetic ketoacidoses) Assessment & Plan: continue insuline , with tight glycemic control to keep blood sugar between 80-120 (4) Diabetes mellitus Assessment & Plan: poorly controlled, with DKA, recommend endocrinology eval (5) Pulmonary nodules Assessment & Plan: in the [facility], recommend follow up CT in 6 months , and 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 Subjective Constitutional: Reports: no symptoms HEENT: Reports: no symptoms Respiratory: Reports: dry cough Breasts: Reports: no symptoms Cardiovascular: Reports: no symptoms Gastrointestinal/Abdominal: Reports: no symptoms Genitourinary: Reports: no symptoms Neurologic: Reports: no symptoms Psychiatric: Reports: no symptoms Skin: Reports: no symptoms Endocrine: Reports: no symptoms Hematologic: Reports: no symptoms Allergies: Coded Allergies: [place]ENICILLINS (Verified Allergy, Unknown, 08/10/17) [place] (Verified Allergy, Unknown, 08/10/17) Uncoded Allergies: [place] (Allergy, Unknown, 08/10/17) Objective Vital Signs Last 24 Hour Vital Signs Date Time Temp Pulse Resp B/P (MAP) Pulse Ox O2 Delivery O2 Flow Rate FiO2 08/13/17 15:27 97.5 77 19 154/68 97 Room Air 08/13/17 11:45 97.4 82 20 143/66 99 Room Air 08/13/17 08:13 82 18 Room Air 08/13/17 08:00 97.6 77 17 138/54 97 Room Air 08/13/17 05:00 76 16 140/50 97 Room Air 08/13/17 04:00 81 08/13/17 04:00 97.7 79 17 118/49 96 Room Air 08/13/17 03:00 76 18 131/56 96 Room Air 08/13/17 02:00 75 16 128/52 96 Room Air 08/13/17 01:00 72 16 123/51 97 Room Air 08/13/17 00:00 73 08/13/17 00:00 97.9 75 15 112/55 95 Room Air 08/12/17 23:00 73 15 112/55 97 Room Air 08/12/17 22:00 72 15 145/53 97 Room Air 08/12/17 21:00 74 15 156/58 97 Room Air 08/12/17 20:00 97.7 75 15 158/62 98 Room Air 08/12/17 20:00 80 08/12/17 19:00 81 20 141/51 98 Room Air 08/12/17 18:58 91 21 Room Air 08/12/17 18:11 99.2 08/12/17 18:00 88 20 134/52 98 Room Air Height (Feet): 5 Height (Inches): 6.00 Weight (Pounds): 126 General Appearance: WD/WN, no acute distress HEENT: normocephalic, atraumatic, anicteric, mucous membranes moist, PERRL Respiratory/Chest: chest wall non-tender, lungs clear, normal breath sounds, no respiratory distress, no accessory muscle use Cardiovascular: normal peripheral pulses, normal rate, regular rhythm, no gallop/murmur, no JVD Abdomen: normal bowel sounds, soft, non tender, no organomegaly, non distended , no mass Extremities: no cyanosis, no clubbing Skin: no rash, no lesions, no ulcers Neurologic/Psychiatric: alert, oriented x 3 Laboratory Tests Test 08/13/17 03:00 08/13/17 04:00 Vancomycin Level Trough 9.6 ug/mL (5.0-12.0) White Blood Count 7.0 K/UL (4.8-10.8) Red Blood Count 3.77 M/UL (4.20-5.40) L Hemoglobin 11.3 G/DL (12.0-16.0) L Hematocrit 34.4 % (37.0-47.0) L Mean Corpuscular Volume 91 FL (80-99) Mean Corpuscular Hemoglobin 30.0 PG (27.0-31.0) Mean Corpuscular Hemoglobin Concent 32.9 G/DL (32.0-36.0) Red Cell Distribution Width 14.0 % (11.6-14.8) Platelet Count 249 K/UL (150-450) Mean Platelet Volume 7.5 FL (6.5-10.1) Neutrophils (%) (Auto) 55.6 % (45.0-75.0) Lymphocytes (%) (Auto) 19.1 % (20.0-45.0) L Monocytes (%) (Auto) 12.7 % (1.0-10.0) H Eosinophils (%) (Auto) 11.0 % (0.0-3.0) H Basophils (%) (Auto) 1.5 % (0.0-2.0) Sodium Level 140 MMOL/L (136-145) Potassium Level 3.2 MMOL/L (3.5-5.1) L Chloride Level 101 MMOL/L (98-107) Carbon Dioxide Level 31 MMOL/L (21-32) Anion Gap 8 mmol/L (5-15) Blood Urea Nitrogen 3 mg/dL (7-18) L Creatinine 0.6 MG/DL (0.55-1.30) Estimat Glomerular Filtration Rate > 60 mL/min (>60) Glucose Level 109 MG/DL (74-106) H Calcium Level 8.6 MG/DL (8.5-10.1) Phosphorus Level 2.7 MG/DL (2.5-4.9) Magnesium Level 1.7 MG/DL (1.8-2.4) L Total Bilirubin 0.4 MG/DL (0.2-1.0) Aspartate Amino Transf (AST/SGOT) 19 U/L (15-37) Alanine Aminotransferase (ALT/SGPT) 23 U/L (12-78) Alkaline Phosphatase 105 U/L (46-116) Total Protein 5.8 G/DL (6.4-8.2) L Albumin 2.2 G/DL (3.4-5.0) L Globulin 3.6 g/dL Albumin/Globulin Ratio 0.6 (1.0-2.7) L TB Test (T-Spot) Pending TB Test Nil Control (T-Spot) Pending TB Test Panel A (T-Spot) Pending TB Test Panel B (T-Spot) Pending TB Test Positive Control (T-Spot) Pending Current Medications Medications (Trade) Dose Ordered Sig/Danielle Route PRN Reason Start Time Stop Time Status Last Admin Dose Admin Acetaminophen (Tylenol) 650 mg Q4H PRN ORAL Fever (T>100.5F) 08/13/17 03:30 09/09/17 11:29 Albuterol/ Ipratropium (Albuterol/ Ipratropium) 3 ml Q4H PRN HHN Shortness of Breath 08/13/17 03:30 08/15/17 11:29 Aspirin (Ecotrin) 81 mg DAILY ORAL 08/13/17 09:00 09/10/17 08:59 Atorvastatin Calcium (Lipitor) 40 mg BEDTIME ORAL 08/13/17 21:00 09/09/17 20:59 Dextrose (Dextrose 50%) STAT PRN IV Hypoglycemia 08/13/17 06:00 09/12/17 05:59 Docusate Sodium (Colace) 100 mg TWICE A DAY ORAL 08/13/17 18:00 09/12/17 17:59 Gabapentin (Neurontin) 100 mg THREE TIMES A DAY ORAL 08/13/17 13:00 09/12/17 12:59 08/13/17 13:11 Heparin Sodium (Porcine) (Heparin 5000 units/ml) 5,000 units EVERY 12 HOURS SUBQ 08/13/17 09:00 09/09/17 20:59 Insulin Aspart (NovoLOG) BEFORE MEALS AND HS SUBQ 08/13/17 06:30 09/11/17 16:29 Insulin Aspart (NovoLOG) 4 units NOVOTIAC SUBQ 08/13/17 06:30 09/12/17 06:29 Insulin Detemir (Levemir) 7 units EVERY 12 HOURS SUBQ 08/13/17 09:00 09/12/17 08:59 Levofloxacin 100 ml @ 100 mls/hr Q24H IVPB 08/13/17 16:00 08/18/17 15:59 08/13/17 16:20 Lorazepam (Ativan 2mg/ml 1ml) 2 mg Q2H PRN IV agitation 08/13/17 01:30 08/17/17 11:29 Morphine Sulfate (Morphine Sulfate) 4 mg Q4H PRN IVP Severe Pain (Pain Scale 7-10) 08/13/17 03:30 08/17/17 11:29 08/13/17 16:23 Nitroglycerin (Ntg) 0.4 mg Q5M PRN SL Prn Chest Pain 08/13/17 00:30 09/09/17 11:29 Ondansetron HCl (Zofran) 4 mg Q6H PRN IVP Nausea & Vomiting 11/3/17 05:30 09/09/17 11:29 08/13/17 09:27 Pantoprazole (Protonix) 40 mg DAILY IVP 08/13/17 09:00 09/09/17 13:59 08/13/17 09:26 Polyethylene Glycol (Miralax) 17 gm DAILYPRN PRN ORAL Constipation 08/13/17 11:30 09/09/17 11:29 Promethazine HCl/ Codeine (Phenergan with Codeine) 5 ml Q6H PRN ORAL For Cough 08/13/17 05:15 09/10/17 23:14 08/13/17 03:13 Sennosides (Senokot) 8.6 mg DAILYPRN PRN ORAL Constipation 08/13/17 14:30 09/12/17 14:29 Vancomycin HCl (Vanco rx to dose) 1 ea DAILY PRN MISC Per rx protocol 08/13/17 09:00 09/10/17 14:14 Vancomycin HCl 1 gm/Dextrose 275 ml @ 183.708 mls/hr Q12HR@0400,1600 IVPB 08/13/17 04:00 08/16/17 15:59 08/13/17 04:29 Richie Davis M.D. Aug 13, 2017 17:43
[2017-08-13] MEDS: Docusate 100mg cap ORAL SCH (18:56)
[2017-08-13] MEDS ORDERED: Atorvastatin 20mg tab ORAL SCH (21:00)
--- NOTE | 2017-08-13 21:09 | Cardiology Progress Note ---
Assessment/Plan Assessment/Plan 1. Sinus tachycardia resolved, echo shows normal LV systolic function with no wall motion abnormalities, LVEF at 55%. 2. Hypotension resolved, not on the telemetry bed. 3. Diabetic ketoacidosis, resolved. 4. History of coronary artery disease, normal EF with no WMA. Subjective Subjective Transferred to Med surg unit. Objective Last 24 Hour Vital Signs Date Time Temp Pulse Resp B/P (MAP) Pulse Ox O2 Delivery O2 Flow Rate FiO2 08/13/17 20:30 70 18 Room Air 08/13/17 20:00 98.1 77 19 119/63 98 Room Air 08/13/17 15:27 97.5 77 19 154/68 97 Room Air 08/13/17 11:45 97.4 82 20 143/66 99 Room Air 08/13/17 08:13 82 18 Room Air 08/13/17 08:00 97.6 77 17 138/54 97 Room Air 08/13/17 05:00 76 16 140/50 97 Room Air 08/13/17 04:00 81 08/13/17 04:00 97.7 79 17 118/49 96 Room Air 08/13/17 03:00 76 18 131/56 96 Room Air 08/13/17 02:00 75 16 128/52 96 Room Air 08/13/17 01:00 72 16 123/51 97 Room Air 08/13/17 00:00 73 08/13/17 00:00 97.9 75 15 112/55 95 Room Air 08/12/17 23:00 73 15 112/55 97 Room Air 08/12/17 22:00 72 15 145/53 97 Room Air Intake and Output 08/13/17 08/14/17 19:00 07:00 Intake Total 450 ml Output Total 950 ml Balance -500 ml Intake Oral 450 ml Output Urine Total 900 ml Emesis 50 ml 2D Echo: LVEF 55%, Mild LVH, Mod MR, Grade I LVDD, RVSP 30 mmHg Laboratory Tests Test 08/13/17 03:00 08/13/17 04:00 Vancomycin Level Trough 9.6 ug/mL (5.0-12.0) White Blood Count 7.0 K/UL (4.8-10.8) Red Blood Count 3.77 M/UL (4.20-5.40) L Hemoglobin 11.3 G/DL (12.0-16.0) L Hematocrit 34.4 % (37.0-47.0) L Mean Corpuscular Volume 91 FL (80-99) Mean Corpuscular Hemoglobin 30.0 PG (27.0-31.0) Mean Corpuscular Hemoglobin Concent 32.9 G/DL (32.0-36.0) Red Cell Distribution Width 14.0 % (11.6-14.8) Platelet Count 249 K/UL (150-450) Mean Platelet Volume 7.5 FL (6.5-10.1) Neutrophils (%) (Auto) 55.6 % (45.0-75.0) Lymphocytes (%) (Auto) 19.1 % (20.0-45.0) L Monocytes (%) (Auto) 12.7 % (1.0-10.0) H Eosinophils (%) (Auto) 11.0 % (0.0-3.0) H Basophils (%) (Auto) 1.5 % (0.0-2.0) Sodium Level 140 MMOL/L (136-145) Potassium Level 3.2 MMOL/L (3.5-5.1) L Chloride Level 101 MMOL/L (98-107) Carbon Dioxide Level 31 MMOL/L (21-32) Anion Gap 8 mmol/L (5-15) Blood Urea Nitrogen 3 mg/dL (7-18) L Creatinine 0.6 MG/DL (0.55-1.30) Estimat Glomerular Filtration Rate > 60 mL/min (>60) Glucose Level 109 MG/DL (74-106) H Calcium Level 8.6 MG/DL (8.5-10.1) Phosphorus Level 2.7 MG/DL (2.5-4.9) Magnesium Level 1.7 MG/DL (1.8-2.4) L Total Bilirubin 0.4 MG/DL (0.2-1.0) Aspartate Amino Transf (AST/SGOT) 19 U/L (15-37) Alanine Aminotransferase (ALT/SGPT) 23 U/L (12-78) Alkaline Phosphatase 105 U/L (46-116) Total Protein 5.8 G/DL (6.4-8.2) L Albumin 2.2 G/DL (3.4-5.0) L Globulin 3.6 g/dL Albumin/Globulin Ratio 0.6 (1.0-2.7) L TB Test (T-Spot) Pending TB Test Nil Control (T-Spot) Pending TB Test Panel A (T-Spot) Pending TB Test Panel B (T-Spot) Pending TB Test Positive Control (T-Spot) Pending Objective HEENT: Atraumatic and normocephalic. Anicteric. Pupils are equal, round, and reactive to light and accommodation. Extraocular movements are intact. NECK: JVP less than 5 centimeter. No carotid bruit. Carotid upstrokes 2+ bilaterally. CARDIOVASCULAR: Normal S1 and S2, No murmurs, gallops, or rubs. PMI is in the fourth intercostal space in the midclavicular line. LUNGS: There is crackles diffusely especially in both bases. ABDOMEN: Soft, nontender, and nondistended. No hepatosplenomegaly. Positive bowel sounds. EXTREMITIES: No evidence of edema, clubbing, or cyanosis. TAMAR CONNELL Aug 13, 2017 21:09
[2017-08-14] VITALS: BP 115/59
[2017-08-14] MEDS: Vancomycin 1 GM in D5W 275 ML IVPB SCH ×2 (01:20→14:11)
[2017-08-14] MEDS: Morphine Sulfate 4mg/ml Inj IVP PRN ×2 (03:47→20:21)
[2017-08-14 04:00] VITALS: BP 132/76
[2017-08-14] MEDS: NovoLOG Insulin Flexpen SUBQ SCH ×7 (06:36→20:24)
[2017-08-14 07:41] LABS: ANION GAP 8 mmol/L (5-15); CALCIUM 9.2 MG/DL (8.5-10.1); CARBON DIOXIDE 27 MMOL/L (21-32); CHLORIDE 99 MMOL/L (98-107); CREATININE 0.6 MG/DL (0.55-1.30); GLOMERULAR FILTRATION RATE > 60 mL/min (>60); MAGNESIUM 2.3 MG/DL (1.8-2.4); POTASSIUM 4.8 MMOL/L (3.5-5.1); SODIUM 134 MMOL/L (136-145)
[2017-08-14 07:51] LABS: BASOPHILS % (AUTO) 0.8 % (0.0-2.0); EOSINOPHILS % (AUTO) 10.6 % (0.0-3.0); LYMPHOCYTES % (AUTO) 13.4 % (20.0-45.0); MEAN CORPUSCULAR HEMOGLOBIN 30.1 PG (27.0-31.0); MEAN CORPUSCULAR HGB CONC 32.1 G/DL (32.0-36.0); MEAN CORPUSCULAR VOLUME 94 FL (80-99); MEAN PLATELET VOLUME 6.6 FL (6.5-10.1); MONOCYTES % (AUTO) 9.3 % (1.0-10.0); NEUTROPHILS % (AUTO) 65.9 % (45.0-75.0); PLATELET COUNT 293 K/UL (150-450); RED BLOOD COUNT 4.06 M/UL (4.20-5.40); RED CELL DISTRIBUTION WIDTH 14.6 % (11.6-14.8)
[2017-08-14 08:30] VITALS: BP 122/60
[2017-08-14] MEDS: Aspirin EC 81mg tab ORAL SCH (09:00)
[2017-08-14] MEDS: Heparin 5000 units/ml inj SUBQ SCH ×2 (09:10→20:22)
[2017-08-14] MEDS: Levemir Flexpen SUBQ SCH ×2 (09:11→20:24)
[2017-08-14] MEDS: Docusate 100mg cap ORAL SCH ×2 (09:12→17:59)
[2017-08-14] MEDS: Pantoprazole Inj IVP SCH (09:12)
[2017-08-14 11:26] VITALS: BP 121/52
--- NOTE | 2017-08-14 11:26 | Pulmonology Progress Note ---
Assessment/Plan Assessment/Plan ASSESSMENT DKA bacteremia with SCON ARF probably due to dehydration -resolved acute encephalopathy2 to DKA, resolving possible sepsis abnormal CXR with considerable right upper lobe scarring and volume loss, associated bronchiectasis multiple small pulmonary nodules DM e/lyte imbalance ( hypo K hypo Mg, hypo P) -resolved Hx of CAD neuropathy PLAN OF CARE [facility] floor DKA resolved , endo follows on long acting and short acting insulin with SS as needed s/p IVF renal parameters down to normal ARF was likely precipitated by dehydration e/lyte replaced as needed, abx ID follows blood cx + SCON, TEODORO initially was planned , however repeated blood cx + Staph epidermidis, TEODORO was cancelled per ID will need to treat for 4 weeks after first negative blood cx O2 prn HHN prn pulse oximetry stable on RA CXR with Scarring suspected within the right upper lobe. Difficult to completely exclude the possibility of superimposed disease of a more acute nature. no signs of respiratory distress, doubt PNA CT chest with considerable right upper lobe scarring and volume loss, associated bronchiectasis, as described Left basilar reticular opacity. Appearance nonspecific, could represent acute infiltrate versus chronic postinflammatory change Multiple small left upper lobe nodules. If there is significant smoking history or other risk factors for lung carcinoma, followup CT scan in 6-12 months is recommended. venous Duplex BLE negative cardio follows ST and hypotension resolved ECHO with pEF 55% and no evidence of WMA continue ASA and statin Bowel regimen DVT prophayxls added low dose Neurontin dc planning case discussed and evaluated by supervising physician Subjective Allergies: Coded Allergies: [place] (Verified Allergy, Unknown, 08/10/17) [place] (Verified Allergy, Unknown, 08/10/17) Uncoded Allergies: [place] (Allergy, Unknown, 08/10/17) Subjective on [facility] floor BS stable denies chest pain, SOB + weakness, CT chest noted K and Mg stable after replacement Objective Last 24 Hour Vital Signs Date Time Temp Pulse Resp B/P (MAP) Pulse Ox O2 Delivery O2 Flow Rate FiO2 08/14/17 08:30 98.2 93 19 122/60 99 Room Air 08/14/17 07:56 66 16 Room Air 08/14/17 04:17 97.7 08/14/17 04:00 98.8 89 18 132/76 96 Room Air 08/14/17 00:00 97.7 83 19 115/59 93 Room Air 08/13/17 20:30 70 18 Room Air 08/13/17 20:00 98.1 77 19 119/63 98 Room Air 08/13/17 15:27 97.5 77 19 154/68 97 Room Air 08/13/17 11:45 97.4 82 20 143/66 99 Room Air Objective General Appearance: no acute distress HEENT: normocephalic, atraumatic, anicteric, mucous membranes moist, PERRL Respiratory/Chest: lungs clear, no respiratory distress, chest wall tender Cardiovascular: normal peripheral pulses, normal rate, regular rhythm, no JVD Abdomen: normal bowel sounds, soft, non tender, non distended Extremities: no edema, pedal pulses normal Neurologic/Psychiatric: alert, responsive Musculoskeletal: normal muscle bulk Microbiology Date/Time Source Procedure Growth Status 08/12/17 17:30 Blood Blood Culture - Preliminary Resulted Laboratory Tests 08/14/17 04:40: White Blood Count 9.0, Red Blood Count 4.06L, Hemoglobin 12.2, Hematocrit 38.2, Mean Corpuscular Volume 94, Mean Corpuscular Hemoglobin 30.1, Mean Corpuscular Hemoglobin Concent 32.1, Red Cell Distribution Width 14.6, Platelet Count 293, Mean Platelet Volume 6.6, Neutrophils (%) (Auto) 65.9, Lymphocytes (%) (Auto) 13.4L, Monocytes (%) (Auto) 9.3, Eosinophils (%) (Auto) 10.6H, Basophils (%) ( Auto) 0.8, Sodium Level 134L, Potassium Level 4.8, Chloride Level 99, Carbon Dioxide Level 27, Anion Gap 8, Blood Urea Nitrogen 8, Creatinine 0.6, Estimat Glomerular Filtration Rate > 60, Glucose Level 394#H, Calcium Level 9.2, Magnesium Level 2.3 Current Medications Medications (Trade) Dose Ordered Sig/Danielle Route PRN Reason Start Time Stop Time Status Last Admin Dose Admin Acetaminophen (Tylenol) 650 mg Q4H PRN ORAL Fever (T>100.5F) 08/13/17 03:30 09/09/17 11:29 Albuterol/ Ipratropium (Albuterol/ Ipratropium) 3 ml Q4H PRN HHN Shortness of Breath 08/13/17 03:30 08/15/17 11:29 Aspirin (Ecotrin) 81 mg DAILY ORAL 08/13/17 09:00 09/10/17 08:59 Atorvastatin Calcium (Lipitor) 40 mg BEDTIME ORAL 08/13/17 21:00 09/09/17 20:59 08/13/17 20:55 Dextrose (Dextrose 50%) STAT PRN IV Hypoglycemia 08/13/17 06:00 09/12/17 05:59 Docusate Sodium (Colace) 100 mg TWICE A DAY ORAL 08/13/17 18:00 09/12/17 17:59 08/14/17 09:12 Gabapentin (Neurontin) 100 mg THREE TIMES A DAY ORAL 08/13/17 13:00 09/12/17 12:59 08/14/17 09:12 Heparin Sodium (Porcine) (Heparin 5000 units/ml) 5,000 units EVERY 12 HOURS SUBQ 08/13/17 09:00 09/09/17 20:59 08/14/17 09:10 Insulin Aspart (NovoLOG) BEFORE MEALS AND HS SUBQ 08/13/17 06:30 09/11/17 16:29 08/14/17 06:36 Insulin Aspart (NovoLOG) 4 units NOVOTIAC SUBQ 08/13/17 06:30 09/12/17 06:29 08/14/17 06:37 Insulin Detemir (Levemir) 7 units EVERY 12 HOURS SUBQ 08/13/17 09:00 09/12/17 08:59 08/14/17 09:11 Levofloxacin 100 ml @ 100 mls/hr Q24H IVPB 08/13/17 16:00 08/18/17 15:59 08/13/17 16:20 Lorazepam (Ativan 2mg/ml 1ml) 2 mg Q2H PRN IV agitation 08/13/17 01:30 08/17/17 11:29 Morphine Sulfate (Morphine Sulfate) 4 mg Q4H PRN IVP Severe Pain (Pain Scale 7-10) 08/13/17 03:30 08/17/17 11:29 08/14/17 03:47 Nitroglycerin (Ntg) 0.4 mg Q5M PRN SL Prn Chest Pain 08/13/17 00:30 09/09/17 11:29 Ondansetron HCl (Zofran) 4 mg Q6H PRN IVP Nausea & Vomiting 08/13/17 05:30 09/09/17 11:29 08/14/17 03:55 Pantoprazole (Protonix) 40 mg DAILY IVP 08/13/17 09:00 09/09/17 13:59 08/14/17 09:12 Polyethylene Glycol (Miralax) 17 gm DAILYPRN PRN ORAL Constipation 08/13/17 11:30 09/09/17 11:29 Promethazine HCl/ Codeine (Phenergan with Codeine) 5 ml Q6H PRN ORAL For Cough 08/13/17 05:15 09/10/17 23:14 08/13/17 03:13 Sennosides (Senokot) 8.6 mg DAILYPRN PRN ORAL Constipation 08/13/17 14:30 09/12/17 14:29 Vancomycin HCl (Vanco rx to dose) 1 ea DAILY PRN MISC Per rx protocol 08/13/17 09:00 09/10/17 14:14 Vancomycin HCl 1 gm/Dextrose 275 ml @ 183.708 mls/hr Q12HR@0100,1300 IVPB 08/14/17 01:00 08/18/17 03:59 08/14/17 01:20 Eran (Jeremy)Ce DOLL SURGEON Aug 14, 2017 11:26
[2017-08-14 16:00] VITALS: BP 121/54
--- NOTE | 2017-08-14 16:28 | Infectious Diseases Prog Note ---
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 (3) DKA (diabetic ketoacidoses) Assessment & Plan: continue insuline , with tight glycemic control to keep blood sugar between 80-120 (4) Diabetes mellitus Assessment & Plan: poorly controlled, with DKA, recommend endocrinology eval (5) Pulmonary nodules Assessment & Plan: in the [facility], recommend follow up CT in 6 months , and 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 Subjective Constitutional: Reports: no symptoms HEENT: Reports: no symptoms Respiratory: Reports: dry cough Breasts: Reports: no symptoms Cardiovascular: Reports: no symptoms Gastrointestinal/Abdominal: Reports: nausea, vomiting Genitourinary: Reports: no symptoms Neurologic: Reports: no symptoms Psychiatric: Reports: no symptoms Skin: Reports: no symptoms Endocrine: Reports: no symptoms Hematologic: Reports: no symptoms Allergies: Coded Allergies: PENICILLINS (Verified Allergy, Unknown, 08/10/17) [place] (Verified Allergy, Unknown, 08/10/17) Uncoded Allergies: [place] (Allergy, Unknown, 08/10/17) Objective Vital Signs Last 24 Hour Vital Signs Date Time Temp Pulse Resp B/P (MAP) Pulse Ox O2 Delivery O2 Flow Rate FiO2 08/14/17 16:00 97.7 92 20 121/54 97 Room Air 08/14/17 11:26 98.0 89 20 121/52 98 Room Air 08/14/17 08:30 98.2 93 19 122/60 99 Room Air 08/14/17 07:56 66 16 Room Air 08/14/17 04:17 97.7 08/14/17 04:00 98.8 89 18 132/76 96 Room Air 08/14/17 00:00 97.7 83 19 115/59 93 Room Air 08/13/17 20:30 70 18 Room Air 08/13/17 20:00 98.1 77 19 119/63 98 Room Air Height (Feet): 5 Height (Inches): 6.00 Weight (Pounds): 127 General Appearance: WD/WN, no acute distress HEENT: normocephalic, atraumatic, anicteric, mucous membranes moist, PERRL, EOMI, pharynx normal, supple Respiratory/Chest: chest wall non-tender, normal breath sounds, no respiratory distress, no accessory muscle use, decreased breath sounds Cardiovascular: normal peripheral pulses, normal rate, regular rhythm, no gallop/murmur, no JVD Abdomen: normal bowel sounds, soft, non tender, no organomegaly, non distended , no mass, no scars Extremities: no cyanosis, no clubbing Skin: no rash, no lesions, no ulcers Neurologic/Psychiatric: alert, oriented x 3 Microbiology Date/Time Source Procedure Growth Status 08/12/17 17:30 Blood Blood Culture - Preliminary Resulted Laboratory Tests Test 08/14/17 04:40 White Blood Count 9.0 K/UL (4.8-10.8) Red Blood Count 4.06 M/UL (4.20-5.40) L Hemoglobin 12.2 G/DL (12.0-16.0) Hematocrit 38.2 % (37.0-47.0) Mean Corpuscular Volume 94 FL (80-99) Mean Corpuscular Hemoglobin 30.1 PG (27.0-31.0) Mean Corpuscular Hemoglobin Concent 32.1 G/DL (32.0-36.0) Red Cell Distribution Width 14.6 % (11.6-14.8) Platelet Count 293 K/UL (150-450) Mean Platelet Volume 6.6 FL (6.5-10.1) Neutrophils (%) (Auto) 65.9 % (45.0-75.0) Lymphocytes (%) (Auto) 13.4 % (20.0-45.0) L Monocytes (%) (Auto) 9.3 % (1.0-10.0) Eosinophils (%) (Auto) 10.6 % (0.0-3.0) H Basophils (%) (Auto) 0.8 % (0.0-2.0) Sodium Level 134 MMOL/L (136-145) L Potassium Level 4.8 MMOL/L (3.5-5.1) Chloride Level 99 MMOL/L (98-107) Carbon Dioxide Level 27 MMOL/L (21-32) Anion Gap 8 mmol/L (5-15) Blood Urea Nitrogen 8 mg/dL (7-18) Creatinine 0.6 MG/DL (0.55-1.30) Estimat Glomerular Filtration Rate > 60 mL/min (>60) Glucose Level 394 MG/DL (74-106) #H Calcium Level 9.2 MG/DL (8.5-10.1) Magnesium Level 2.3 MG/DL (1.8-2.4) Current Medications Medications (Trade) Dose Ordered Sig/Danielle Route PRN Reason Start Time Stop Time Status Last Admin Dose Admin Acetaminophen (Tylenol) 650 mg Q4H PRN ORAL Fever (T>100.5F) 08/13/17 03:30 09/09/17 11:29 Albuterol/ Ipratropium (Albuterol/ Ipratropium) 3 ml Q4H PRN HHN Shortness of Breath 08/13/17 03:30 08/15/17 11:29 Aspirin (Ecotrin) 81 mg DAILY ORAL 08/13/17 09:00 09/10/17 08:59 Daptomycin 500 mg/ Sodium Chloride 55 ml @ 100 mls/hr Q24HRS IV 08/14/17 17:00 08/21/17 16:59 Dextrose (Dextrose 50%) STAT PRN IV Hypoglycemia 08/13/17 06:00 09/12/17 05:59 Docusate Sodium (Colace) 100 mg TWICE A DAY ORAL 08/13/17 18:00 09/12/17 17:59 08/14/17 09:12 Gabapentin (Neurontin) 100 mg THREE TIMES A DAY ORAL 08/13/17 13:00 09/12/17 12:59 08/14/17 09:12 Heparin Sodium (Porcine) (Heparin 5000 units/ml) 5,000 units EVERY 12 HOURS SUBQ 08/13/17 09:00 09/09/17 20:59 08/14/17 09:10 Insulin Aspart (NovoLOG) BEFORE MEALS AND HS SUBQ 08/13/17 06:30 09/11/17 16:29 08/14/17 12:05 Insulin Aspart (NovoLOG) 4 units NOVOTIAC SUBQ 08/13/17 06:30 09/12/17 06:29 08/14/17 12:06 Insulin Detemir (Levemir) 7 units EVERY 12 HOURS SUBQ 08/13/17 09:00 09/12/17 08:59 08/14/17 09:11 Levofloxacin 100 ml @ 100 mls/hr Q24H IVPB 08/13/17 16:00 08/18/17 15:59 08/14/17 16:15 Lorazepam (Ativan 2mg/ml 1ml) 2 mg Q2H PRN IV agitation 08/13/17 01:30 08/17/17 11:29 Morphine Sulfate (Morphine Sulfate) 4 mg Q4H PRN IVP Severe Pain (Pain Scale 7-10) 08/13/17 03:30 08/17/17 11:29 08/14/17 03:47 Nitroglycerin (Ntg) 0.4 mg Q5M PRN SL Prn Chest Pain 08/13/17 00:30 09/09/17 11:29 Ondansetron HCl (Zofran) 4 mg Q6H PRN IVP Nausea & Vomiting 08/13/17 05:30 09/09/17 11:29 08/14/17 13:33 Pantoprazole (Protonix) 40 mg DAILY IVP 08/13/17 09:00 09/09/17 13:59 08/14/17 09:12 Polyethylene Glycol (Miralax) 17 gm DAILYPRN PRN ORAL Constipation 08/13/17 11:30 09/09/17 11:29 Promethazine HCl/ Codeine (Phenergan with Codeine) 5 ml Q6H PRN ORAL For Cough 08/13/17 05:15 09/10/17 23:14 08/13/17 03:13 Sennosides (Senokot) 8.6 mg DAILYPRN PRN ORAL Constipation 08/13/17 14:30 09/12/17 14:29 Richie Davis M.D. Aug 14, 2017 16:28
[2017-08-14] MEDS: DAPTOmycin 500 MG in NS 55 ML IV SCH (17:20)
[2017-08-14 20:18] VITALS: BP 141/62
--- NOTE | 2017-08-14 21:14 | General Progress Note ---
Assessment/Plan Problem List: (1) DKA (diabetic ketoacidoses) ICD Codes: E13.10 - Other specified diabetes mellitus with ketoacidosis without coma SNOMED: 636806623, 41343402 (2) Diabetes mellitus ICD Codes: E11.9 - Type 2 diabetes mellitus without complications SNOMED: 02607030 (3) Sepsis ICD Codes: A41.9 - Sepsis, unspecified organism SNOMED: 53232394 Status: progressing Assessment/Plan out of dka bg improving reviewed chart and labs more alert Subjective ROS Limited/Unobtainable: Yes Constitutional: Reports: no symptoms Allergies: Coded Allergies: PENICILLINS (Verified Allergy, Unknown, 08/10/17) [place] (Verified Allergy, Unknown, 08/10/17) Uncoded Allergies: [place] (Allergy, Unknown, 08/10/17) Objective Last 24 Hour Vital Signs Date Time Temp Pulse Resp B/P (MAP) Pulse Ox O2 Delivery O2 Flow Rate FiO2 08/14/17 20:56 97.7 08/14/17 20:18 97.7 80 20 141/62 Room Air 08/14/17 16:00 97.7 92 20 121/54 97 Room Air 08/14/17 11:26 98.0 89 20 121/52 98 Room Air 08/14/17 08:30 98.2 93 19 122/60 99 Room Air 08/14/17 07:56 66 16 Room Air 08/14/17 04:00 98.8 89 18 132/76 96 Room Air 08/14/17 00:00 97.7 83 19 115/59 93 Room Air Intake and Output 08/14/17 08/15/17 18:59 06:59 Intake Total 620 ml Output Total 1450 ml Balance -830 ml Intake Oral 620 ml Output Urine Total 1450 ml Laboratory Tests 08/14/17 04:40: White Blood Count 9.0, Red Blood Count 4.06L, Hemoglobin 12.2, Hematocrit 38.2, Mean Corpuscular Volume 94, Mean Corpuscular Hemoglobin 30.1, Mean Corpuscular Hemoglobin Concent 32.1, Red Cell Distribution Width 14.6, Platelet Count 293, Mean Platelet Volume 6.6, Neutrophils (%) (Auto) 65.9, Lymphocytes (%) (Auto) 13.4L, Monocytes (%) (Auto) 9.3, Eosinophils (%) (Auto) 10.6H, Basophils (%) ( Auto) 0.8, Sodium Level 134L, Potassium Level 4.8, Chloride Level 99, Carbon Dioxide Level 27, Anion Gap 8, Blood Urea Nitrogen 8, Creatinine 0.6, Estimat Glomerular Filtration Rate > 60, Glucose Level 394#H, Calcium Level 9.2, Magnesium Level 2.3 Height (Feet): 5 Height (Inches): 6.00 Weight (Pounds): 127 Neck: supple Cardiovascular: normal rate Respiratory/Chest: lungs clear Abdomen: soft Daxa Lane MD Aug 14, 2017 21:14
--- NOTE | 2017-08-14 23:58 | Cardiology Progress Note ---
Assessment/Plan Assessment/Plan 1. Sinus tachycardia resolved, echo shows normal LV systolic function with no wall motion abnormalities, LVEF at 55%. 2, Bacteremia with Staph caog negative not responding to vancomycin, Dr. Davis has made a request for TEODORO to rule out IE, the patient was discussed and is agreeable. 3. Hypotension resolved. 4. Diabetic ketoacidosis, resolved. 5. History of coronary artery disease, normal EF with no WMA. Subjective Subjective Not on telemetry unit. Denies chest pain or SOB. Objective Last 24 Hour Vital Signs Date Time Temp Pulse Resp B/P (MAP) Pulse Ox O2 Delivery O2 Flow Rate FiO2 08/14/17 20:56 97.7 08/14/17 20:18 97.7 80 20 141/62 Room Air 08/14/17 16:00 97.7 92 20 121/54 97 Room Air 08/14/17 11:26 98.0 89 20 121/52 98 Room Air 08/14/17 08:30 98.2 93 19 122/60 99 Room Air 08/14/17 07:56 66 16 Room Air 08/14/17 04:00 98.8 89 18 132/76 96 Room Air 08/14/17 00:00 97.7 83 19 115/59 93 Room Air Intake and Output 08/14/17 08/15/17 19:00 07:00 Intake Total 620 ml Output Total 1450 ml Balance -830 ml Intake Oral 620 ml Output Urine Total 1450 ml 2D Echo: LVEF 55%, Mild LVH, Mod MR, Grade I LVDD, RVSP 30 mmHg Laboratory Tests Test 08/14/17 04:40 White Blood Count 9.0 K/UL (4.8-10.8) Red Blood Count 4.06 M/UL (4.20-5.40) L Hemoglobin 12.2 G/DL (12.0-16.0) Hematocrit 38.2 % (37.0-47.0) Mean Corpuscular Volume 94 FL (80-99) Mean Corpuscular Hemoglobin 30.1 PG (27.0-31.0) Mean Corpuscular Hemoglobin Concent 32.1 G/DL (32.0-36.0) Red Cell Distribution Width 14.6 % (11.6-14.8) Platelet Count 293 K/UL (150-450) Mean Platelet Volume 6.6 FL (6.5-10.1) Neutrophils (%) (Auto) 65.9 % (45.0-75.0) Lymphocytes (%) (Auto) 13.4 % (20.0-45.0) L Monocytes (%) (Auto) 9.3 % (1.0-10.0) Eosinophils (%) (Auto) 10.6 % (0.0-3.0) H Basophils (%) (Auto) 0.8 % (0.0-2.0) Sodium Level 134 MMOL/L (136-145) L Potassium Level 4.8 MMOL/L (3.5-5.1) Chloride Level 99 MMOL/L (98-107) Carbon Dioxide Level 27 MMOL/L (21-32) Anion Gap 8 mmol/L (5-15) Blood Urea Nitrogen 8 mg/dL (7-18) Creatinine 0.6 MG/DL (0.55-1.30) Estimat Glomerular Filtration Rate > 60 mL/min (>60) Glucose Level 394 MG/DL (74-106) #H Calcium Level 9.2 MG/DL (8.5-10.1) Magnesium Level 2.3 MG/DL (1.8-2.4) Microbiology Date/Time Source Procedure Growth Status 08/12/17 17:30 Blood Blood Culture - Preliminary Resulted Objective HEENT: Atraumatic and normocephalic. Anicteric. Pupils are equal, round, and reactive to light and accommodation. Extraocular movements are intact. NECK: JVP less than 5 centimeter. No carotid bruit. Carotid upstrokes 2+ bilaterally. CARDIOVASCULAR: Normal S1 and S2, No murmurs, gallops, or rubs. PMI is in the fourth intercostal space in the midclavicular line. LUNGS: There is crackles diffusely especially in both bases. ABDOMEN: Soft, nontender, and nondistended. No hepatosplenomegaly. Positive bowel sounds. EXTREMITIES: No evidence of edema, clubbing, or cyanosis. TAMAR CONNELL Aug 14, 2017 23:58
[2017-08-15 00:02] VITALS: BP 139/55
[2017-08-15 04:00] VITALS: BP 152/63
[2017-08-15] MEDS: NovoLOG Insulin Flexpen SUBQ SCH ×7 (06:21→21:07)
[2017-08-15 08:00] VITALS: BP 120/57
[2017-08-15] MEDS: Docusate 100mg cap ORAL SCH ×2 (09:28→18:49)
[2017-08-15] MEDS: Pantoprazole Inj IVP SCH (09:28)
[2017-08-15] MEDS: Morphine Sulfate 4mg/ml Inj IVP PRN ×3 (09:28→21:10)
[2017-08-15] MEDS: Aspirin EC 81mg tab ORAL SCH (09:28)
[2017-08-15] MEDS: Heparin 5000 units/ml inj SUBQ SCH ×2 (09:29→21:03)
[2017-08-15] MEDS: Levemir Flexpen SUBQ SCH ×2 (09:30→21:05)
--- NOTE | 2017-08-15 11:09 | Diagnostic Imaging Report ---
Indication: Constipation Technique: ABDOMEN 1 VIEW Comparison: None. Findings: There is moderate fecal material the colon. A right femoral catheter is in place. Presumably this is venous. Clips are noted in the right lower quadrant of the abdomen. No free fluid. No gross free air. Result tube overlying lower pelvis. Impression: Right femoral catheter, presumably venous. Evidence of previous surgery. Moderate fecal material in the colon. Tube overlying lower pelvis.
--- NOTE | 2017-08-15 11:35 | Pulmonology Progress Note ---
Assessment/Plan Assessment/Plan ASSESSMENT DKA ARF probably due to dehydration -resolved acute encephalopathy2 to DKA, resolving possible sepsis abnormal CXR with considerable right upper lobe scarring and volume loss, associated bronchiectasis multiple small pulmonary nodules DM e/lyte imbalance ( hypo K hypo Mg, hypo P) -resolved Hx of CAD neuropathy PLAN OF CARE [facility] floor DKA resolved , endo follows on long acting and short acting insulin with SS as needed s/p IVF renal parameters down to normal ARF was likely precipitated by dehydration e/lyte replaced as needed, empiric abx ID follows O2 prn HHN prn pulse oximetry stable on RA CXR with Scarring suspected within the right upper lobe. Difficult to completely exclude the possibility of superimposed disease of a more acute nature. no signs of respiratory distress, doubt PNA CT chest with considerable right upper lobe scarring and volume loss, associated bronchiectasis, as described Left basilar reticular opacity. Appearance nonspecific, could represent acute infiltrate versus chronic postinflammatory change Multiple small left upper lobe nodules. If there is significant smoking history or other risk factors for lung carcinoma, followup CT scan in 6-12 months is recommended. venous Duplex BLE negative cardio follows ST and hypotension resolved ECHO with pEF 55% and no evidence of WMA continue ASA and statin Bowel regimen DVT prophayxls added low dose Neurontin dc planning per PMD, repeat CT chest in 6-12 months case discussed and evaluated by supervising physician Subjective Allergies: Coded Allergies: PENICILLINS (Verified Allergy, Unknown, 08/10/17) [place] (Verified Allergy, Unknown, 08/10/17) Uncoded Allergies: [place] (Allergy, Unknown, 08/10/17) Subjective on [facility] floor BS stable denies chest pain, SOB + weakness, CT chest noted K and Mg stable after replacement Objective Last 24 Hour Vital Signs Date Time Temp Pulse Resp B/P (MAP) Pulse Ox O2 Delivery O2 Flow Rate FiO2 08/15/17 08:00 97.5 85 20 120/57 97 Room Air 08/15/17 07:24 89 16 Room Air 08/15/17 04:00 99.5 84 20 152/63 100 Room Air 08/15/17 00:02 97.6 83 20 139/55 97 Room Air 08/14/17 20:56 97.7 08/14/17 20:18 97.7 80 20 141/62 Room Air 08/14/17 19:17 70 16 Room Air 08/14/17 16:00 97.7 92 20 121/54 97 Room Air Intake and Output 08/15/17 08/16/17 19:00 07:00 # Bowel Movements 2 Objective General Appearance: no acute distress HEENT: normocephalic, atraumatic, anicteric, mucous membranes moist, PERRL Respiratory/Chest: lungs clear, no respiratory distress, chest wall tender Cardiovascular: normal peripheral pulses, normal rate, regular rhythm, no JVD Abdomen: normal bowel sounds, soft, non tender, non distended Extremities: no edema, pedal pulses normal Neurologic/Psychiatric: alert, responsive Musculoskeletal: normal muscle bulk Microbiology Date/Time Source Procedure Growth Status 08/12/17 17:30 Blood Blood Culture - Preliminary Gram Positive Cocci Resulted Current Medications Medications (Trade) Dose Ordered Sig/Danielle Route PRN Reason Start Time Stop Time Status Last Admin Dose Admin Acetaminophen (Tylenol) 650 mg Q4H PRN ORAL Fever (T>100.5F) 08/13/17 03:30 09/09/17 11:29 Aspirin (Ecotrin) 81 mg DAILY ORAL 08/13/17 09:00 09/10/17 08:59 08/15/17 09:28 Daptomycin 500 mg/ Sodium Chloride 55 ml @ 100 mls/hr Q24HRS IV 08/14/17 17:00 08/21/17 16:59 08/14/17 17:20 Dextrose (Dextrose 50%) STAT PRN IV Hypoglycemia 08/13/17 06:00 09/12/17 05:59 Docusate Sodium (Colace) 100 mg TWICE A DAY ORAL 08/13/17 18:00 09/12/17 17:59 08/15/17 09:28 Gabapentin (Neurontin) 100 mg THREE TIMES A DAY ORAL 08/13/17 13:00 09/12/17 12:59 08/15/17 09:28 Heparin Sodium (Porcine) (Heparin 5000 units/ml) 5,000 units EVERY 12 HOURS SUBQ 08/13/17 09:00 09/09/17 20:59 08/15/17 09:29 Insulin Aspart (NovoLOG) BEFORE MEALS AND HS SUBQ 08/13/17 06:30 09/11/17 16:29 08/15/17 06:22 Insulin Aspart (NovoLOG) 4 units NOVOTIAC SUBQ 08/13/17 06:30 09/12/17 06:29 08/15/17 06:21 Insulin Detemir (Levemir) 7 units EVERY 12 HOURS SUBQ 08/13/17 09:00 09/12/17 08:59 08/15/17 09:30 Levofloxacin 100 ml @ 100 mls/hr Q24H IVPB 08/13/17 16:00 08/18/17 15:59 08/14/17 16:15 Lorazepam (Ativan 2mg/ml 1ml) 2 mg Q2H PRN IV agitation 08/13/17 01:30 08/17/17 11:29 Morphine Sulfate (Morphine Sulfate) 4 mg Q4H PRN IVP Severe Pain (Pain Scale 7-10) 08/13/17 03:30 08/17/17 11:29 08/15/17 09:28 Nitroglycerin (Ntg) 0.4 mg Q5M PRN SL Prn Chest Pain 08/13/17 00:30 09/09/17 11:29 Ondansetron HCl (Zofran) 4 mg Q6H PRN IVP Nausea & Vomiting 08/13/17 05:30 09/09/17 11:29 08/14/17 13:33 Pantoprazole (Protonix) 40 mg DAILY IVP 08/13/17 09:00 09/09/17 13:59 08/15/17 09:28 Polyethylene Glycol (Miralax) 17 gm DAILYPRN PRN ORAL Constipation 08/13/17 11:30 09/09/17 11:29 Promethazine HCl/ Codeine (Phenergan with Codeine) 5 ml Q6H PRN ORAL For Cough 08/13/17 05:15 09/10/17 23:14 08/13/17 03:13 Sennosides (Senokot) 8.6 mg DAILYPRN PRN ORAL Constipation 08/13/17 14:30 09/12/17 14:29 Ce Barillas NP (Vanchtein) Aug 15, 2017 11:35
[2017-08-15 12:00] VITALS: BP 133/63
[2017-08-15] MEDS: Levofloxacin 500mg tab ORAL SCH (15:49)
[2017-08-15 16:00] VITALS: BP 131/58
[2017-08-15] MEDS: DAPTOmycin 500 MG in NS 55 ML IV SCH (17:02)
[2017-08-15 20:00] VITALS: BP 133/58
--- NOTE | 2017-08-15 20:20 | General Progress Note ---
Assessment/Plan Problem List: (1) DKA (diabetic ketoacidoses) ICD Codes: E13.10 - Other specified diabetes mellitus with ketoacidosis without coma SNOMED: 537733772, 22634413 (2) Diabetes mellitus ICD Codes: E11.9 - Type 2 diabetes mellitus without complications SNOMED: 63243634 (3) Sepsis ICD Codes: A41.9 - Sepsis, unspecified organism SNOMED: 57443870 Status: progressing Assessment/Plan glucose is improving dc planning afebrile not acidodic Subjective ROS Limited/Unobtainable: Yes Allergies: Coded Allergies: PENICILLINS (Verified Allergy, Unknown, 08/10/17) [place] (Verified Allergy, Unknown, 08/10/17) Uncoded Allergies: [place] (Allergy, Unknown, 08/10/17) Objective Last 24 Hour Vital Signs Date Time Temp Pulse Resp B/P (MAP) Pulse Ox O2 Delivery O2 Flow Rate FiO2 08/15/17 19:22 84 16 Room Air 08/15/17 16:00 97.5 84 20 131/58 99 Room Air 08/15/17 12:00 97.3 81 20 133/63 98 Room Air 08/15/17 08:00 97.5 85 20 120/57 97 Room Air 08/15/17 07:24 89 16 Room Air 08/15/17 04:00 99.5 84 20 152/63 100 Room Air 08/15/17 00:02 97.6 83 20 139/55 97 Room Air 08/14/17 20:56 97.7 Intake and Output 08/15/17 08/16/17 19:00 07:00 Intake Total 240 ml Balance 240 ml Intake Oral 240 ml # Bowel Movements 2 Laboratory Tests 08/15/17 12:00: Histoplasma Antigen [Pending] Height (Feet): 5 Height (Inches): 6.00 Weight (Pounds): [address] MD Aug 15, 2017 20:20
--- NOTE | 2017-08-15 21:54 | Infectious Diseases Prog Note ---
Assessment/Plan Problems: (1) Sepsis Assessment & Plan: with coag negative staph , now with persistent bacteremia inspit of being on vancomycin , with repeated blood culture is positive for gram positive cocci in clusters, rule out endocarditis, now on daptomycin pending TEODORO , and repeated blood culture to confirm clearance . 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 Subjective Constitutional: Reports: fatigue, anorexia HEENT: Reports: no symptoms Respiratory: Reports: dry cough Breasts: Reports: no symptoms Cardiovascular: Reports: no symptoms Gastrointestinal/Abdominal: Reports: no symptoms Genitourinary: Reports: no symptoms Neurologic: Reports: weakness Psychiatric: Reports: no symptoms Skin: Reports: no symptoms Endocrine: Reports: no symptoms Hematologic: Reports: no symptoms Musculoskeletal: Reports: no symptoms Allergies: Coded Allergies: PENICILLINS (Verified Allergy, Unknown, 08/10/17) [place] (Verified Allergy, Unknown, 08/10/17) Uncoded Allergies: [place] (Allergy, Unknown, 08/10/17) Objective Vital Signs Last 24 Hour Vital Signs Date Time Temp Pulse Resp B/P (MAP) Pulse Ox O2 Delivery O2 Flow Rate FiO2 08/15/17 19:22 84 16 Room Air 08/15/17 16:00 97.5 84 20 131/58 99 Room Air 08/15/17 12:00 97.3 81 20 133/63 98 Room Air 08/15/17 08:00 97.5 85 20 120/57 97 Room Air 08/15/17 07:24 89 16 Room Air 08/15/17 04:00 99.5 84 20 152/63 100 Room Air 08/15/17 00:02 97.6 83 20 139/55 97 Room Air Height (Feet): 5 Height (Inches): 6.00 Weight (Pounds): 122 General Appearance: WD/WN, no acute distress HEENT: normocephalic, atraumatic, anicteric, mucous membranes moist, PERRL Respiratory/Chest: chest wall non-tender, lungs clear, normal breath sounds, no respiratory distress, no accessory muscle use Cardiovascular: normal peripheral pulses, normal rate, regular rhythm, no gallop/murmur, no JVD Abdomen: normal bowel sounds, soft, non tender, no organomegaly, non distended , no mass, no scars Genitourinary: normal external genitalia Extremities: no cyanosis, no clubbing Skin: no rash, no lesions, no ulcers 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, alert, oriented x 3, responsive Laboratory Tests Test 08/15/17 12:00 Histoplasma Antigen Pending Current Medications Medications (Trade) Dose Ordered Sig/Danielle Route PRN Reason Start Time Stop Time Status Last Admin Dose Admin Acetaminophen (Tylenol) 650 mg Q4H PRN ORAL Fever (T>100.5F) 08/13/17 03:30 09/09/17 11:29 Aspirin (Ecotrin) 81 mg DAILY ORAL 08/13/17 09:00 09/10/17 08:59 08/15/17 09:28 Daptomycin 500 mg/ Sodium Chloride 55 ml @ 100 mls/hr Q24HRS IV 08/14/17 17:00 08/21/17 16:59 08/15/17 17:02 Dextrose (Dextrose 50%) STAT PRN IV Hypoglycemia 08/13/17 06:00 09/12/17 05:59 Docusate Sodium (Colace) 100 mg TWICE A DAY ORAL 08/13/17 18:00 09/12/17 17:59 08/15/17 18:49 Gabapentin (Neurontin) 100 mg THREE TIMES A DAY ORAL 08/13/17 13:00 09/12/17 12:59 08/15/17 18:49 Heparin Sodium (Porcine) (Heparin 5000 units/ml) 5,000 units EVERY 12 HOURS SUBQ 08/13/17 09:00 09/09/17 20:59 08/15/17 21:03 Insulin Aspart (NovoLOG) BEFORE MEALS AND HS SUBQ 08/13/17 06:30 09/11/17 16:29 08/15/17 21:07 Insulin Aspart (NovoLOG) 4 units NOVOTIAC SUBQ 08/13/17 06:30 09/12/17 06:29 08/15/17 17:00 Insulin Detemir (Levemir) 7 units EVERY 12 HOURS SUBQ 08/13/17 09:00 09/12/17 08:59 08/15/17 21:05 Levofloxacin (Levaquin) 500 mg DAILY ORAL 08/15/17 16:00 08/18/17 15:59 08/15/17 15:49 Lorazepam (Ativan 2mg/ml 1ml) 2 mg Q2H PRN IV agitation 08/13/17 01:30 08/17/17 11:29 Morphine Sulfate (Morphine Sulfate) 4 mg Q4H PRN IVP Severe Pain (Pain Scale 7-10) 08/13/17 03:30 08/17/17 11:29 08/15/17 21:10 Nitroglycerin (Ntg) 0.4 mg Q5M PRN SL Prn Chest Pain 08/13/17 00:30 09/09/17 11:29 Ondansetron HCl (Zofran) 4 mg Q6H PRN IVP Nausea & Vomiting 08/13/17 05:30 09/09/17 11:29 08/14/17 13:33 Pantoprazole (Protonix) 40 mg ACBREAKFAST ORAL 08/16/17 06:30 09/15/17 06:29 Polyethylene Glycol (Miralax) 17 gm DAILYPRN PRN ORAL Constipation 08/13/17 11:30 09/09/17 11:29 Promethazine HCl/ Codeine (Phenergan with Codeine) 5 ml Q6H PRN ORAL For Cough 08/13/17 05:15 09/10/17 23:14 08/13/17 03:13 Sennosides (Senokot) 8.6 mg DAILYPRN PRN ORAL Constipation 08/13/17 14:30 09/12/17 14:29 Richie Davis M.D. Aug 15, 2017 21:54
--- NOTE | 2017-08-15 22:55 | Cardiology Progress Note ---
Assessment/Plan Assessment/Plan 1. Sinus tachycardia resolved, echo shows normal LV systolic function with no wall motion abnormalities, LVEF at 55%. 2, Bacteremia with Staph coagulase negative not responded to vancomycin, started on daptomycin, Dr. Davis has made a request for TEODORO to rule out IE, the patient was discussed and is agreeable. Will schedule with cardiology department. 3. Hypotension resolved. 4. Diabetic ketoacidosis, resolved. 5. History of coronary artery disease, normal EF with no WMA. Subjective Subjective Comfortable. Denies chest pain or SOB. Afebrile. Objective Last 24 Hour Vital Signs Date Time Temp Pulse Resp B/P (MAP) Pulse Ox O2 Delivery O2 Flow Rate FiO2 08/15/17 20:00 97.5 89 18 133/58 98 Room Air 08/15/17 19:22 84 16 Room Air 08/15/17 16:00 97.5 84 20 131/58 99 Room Air 08/15/17 12:00 97.3 81 20 133/63 98 Room Air 08/15/17 08:00 97.5 85 20 120/57 97 Room Air 08/15/17 07:24 89 16 Room Air 08/15/17 04:00 99.5 84 20 152/63 100 Room Air 08/15/17 00:02 97.6 83 20 139/55 97 Room Air Intake and Output 08/15/17 08/16/17 19:00 07:00 Intake Total 240 ml Balance 240 ml Intake Oral 240 ml # Bowel Movements 2 2D Echo: LVEF 55%, Mild LVH, Mod MR, Grade I LVDD, RVSP 30 mmHg Laboratory Tests Test 08/15/17 12:00 Histoplasma Antigen Pending Objective HEENT: Atraumatic and normocephalic. Anicteric. Pupils are equal, round, and reactive to light and accommodation. Extraocular movements are intact. NECK: JVP less than 5 centimeter. No carotid bruit. Carotid upstrokes 2+ bilaterally. CARDIOVASCULAR: Normal S1 and S2, No murmurs, gallops, or rubs. PMI is in the fourth intercostal space in the midclavicular line. LUNGS: There is crackles diffusely especially in both bases. ABDOMEN: Soft, nontender, and nondistended. No hepatosplenomegaly. Positive bowel sounds. EXTREMITIES: No evidence of edema, clubbing, or cyanosis. KOTAMAR Aug 15, 2017 22:55
[2017-08-16] VITALS: BP 128/54
[2017-08-16 04:00] VITALS: BP 132/63
[2017-08-16] MEDS: NovoLOG Insulin Flexpen SUBQ SCH ×7 (06:30→23:22)
--- NOTE | 2017-08-16 06:35 | General Progress Note ---
Assessment/Plan Problem List: (1) DKA (diabetic ketoacidoses) ICD Codes: E13.10 - Other specified diabetes mellitus with ketoacidosis without coma SNOMED: 080293693, 01702352 (2) Diabetes mellitus ICD Codes: E11.9 - Type 2 diabetes mellitus without complications SNOMED: 39994929 (3) Right upper lobe consolidation ICD Codes: J18.1 - Lobar pneumonia, unspecified organism SNOMED: 92973602 (4) Sepsis ICD Codes: A41.9 - Sepsis, unspecified organism SNOMED: 03681526 Assessment/Plan continue Levemir 7 units bid continue Novolog 4 units ac tid hold scheduled insulin for NPO status continue SSI Subjective ROS Limited/Unobtainable: Yes Allergies: Coded Allergies: PENICILLINS (Verified Allergy, Unknown, 08/10/17) [place] (Verified Allergy, Unknown, 08/10/17) Uncoded Allergies: [place] (Allergy, Unknown, 08/10/17) All Systems: reviewed and negative except above Subjective events noted she is NPO Objective Last 24 Hour Vital Signs Date Time Temp Pulse Resp B/P (MAP) Pulse Ox O2 Delivery O2 Flow Rate FiO2 08/16/17 04:00 97.9 86 20 132/63 98 Room Air 08/16/17 00:00 98.4 79 20 128/54 99 Room Air 08/15/17 20:00 97.5 89 18 133/58 98 Room Air 08/15/17 19:22 84 16 Room Air 08/15/17 16:00 97.5 84 20 131/58 99 Room Air 08/15/17 12:00 97.3 81 20 133/63 98 Room Air 08/15/17 08:00 97.5 85 20 120/57 97 Room Air 08/15/17 07:24 89 16 Room Air Laboratory Tests 08/15/17 12:00: Histoplasma Antigen [Pending] Height (Feet): 5 Height (Inches): 6.00 Weight (Pounds): 122 General Appearance: no apparent distress EENT: pale conjunctivae Neck: normal alignment Cardiovascular: normal rate Respiratory/Chest: decreased breath sounds Abdomen: normal bowel sounds Edema: no edema noted Arm (L), no edema noted Arm (R), no edema noted Leg (L), no edema noted Leg (R), no edema noted Pedal (L), no edema noted Pedal (R), no edema noted Generalized Objective Current Medications Medications (Trade) Dose Ordered Sig/Danielle Route PRN Reason Start Time Stop Time Status Last Admin Dose Admin Acetaminophen (Tylenol) 650 mg Q4H PRN ORAL Fever (T>100.5F) 08/13/17 03:30 09/09/17 11:29 Aspirin (Ecotrin) 81 mg DAILY ORAL 08/13/17 09:00 09/10/17 08:59 08/15/17 09:28 Chlorhexidine Gluconate (Margarita-Hex 2%) 1 applic Q24HRS TOPIC 08/16/17 20:00 09/15/17 19:59 Daptomycin 500 mg/ Sodium Chloride 55 ml @ 100 mls/hr Q24HRS IV 08/14/17 17:00 08/21/17 16:59 08/15/17 17:02 Dextrose (Dextrose 50%) STAT PRN IV Hypoglycemia 08/13/17 06:00 09/12/17 05:59 Docusate Sodium (Colace) 100 mg TWICE A DAY ORAL 08/13/17 18:00 09/12/17 17:59 08/15/17 18:49 Gabapentin (Neurontin) 100 mg THREE TIMES A DAY ORAL 08/13/17 13:00 09/12/17 12:59 08/15/17 18:49 Heparin Sodium (Porcine) (Heparin 5000 units/ml) 5,000 units EVERY 12 HOURS SUBQ 08/13/17 09:00 09/09/17 20:59 08/15/17 21:03 Insulin Aspart (NovoLOG) BEFORE MEALS AND HS SUBQ 08/13/17 06:30 09/11/17 16:29 08/15/17 21:07 Insulin Aspart (NovoLOG) 4 units NOVOTIAC SUBQ 08/13/17 06:30 09/12/17 06:29 08/15/17 17:00 Insulin Detemir (Levemir) 7 units EVERY 12 HOURS SUBQ 08/13/17 09:00 09/12/17 08:59 08/15/17 21:05 Levofloxacin (Levaquin) 500 mg DAILY ORAL 08/15/17 16:00 08/18/17 15:59 08/15/17 15:49 Lorazepam (Ativan 2mg/ml 1ml) 2 mg Q2H PRN IV agitation 08/13/17 01:30 08/17/17 11:29 Morphine Sulfate (Morphine Sulfate) 4 mg Q4H PRN IVP Severe Pain (Pain Scale 7-10) 08/13/17 03:30 08/17/17 11:29 08/15/17 21:10 Nitroglycerin (Ntg) 0.4 mg Q5M PRN SL Prn Chest Pain 08/13/17 00:30 09/09/17 11:29 Ondansetron HCl (Zofran) 4 mg Q6H PRN IVP Nausea & Vomiting 08/13/17 05:30 09/09/17 11:29 08/15/17 22:40 Pantoprazole (Protonix) 40 mg ACBREAKFAST ORAL 08/16/17 06:30 09/15/17 06:29 Polyethylene Glycol (Miralax) 17 gm DAILYPRN PRN ORAL Constipation 08/13/17 11:30 09/09/17 11:29 Promethazine HCl/ Codeine (Phenergan with Codeine) 5 ml Q6H PRN ORAL For Cough 08/13/17 05:15 09/10/17 23:14 08/13/17 03:13 Sennosides (Senokot) 8.6 mg DAILYPRN PRN ORAL Constipation 08/13/17 14:30 09/12/17 14:29 Item Value Date Time Bedside Blood Glucose 161 mg/dl H 08/16/17 0615 Bedside Blood Glucose 124 mg/dl H 08/15/17 2107 Bedside Blood Glucose 254 mg/dl H 08/15/17 1700 Bedside Blood Glucose 88 mg/dl 08/15/17 1142 Bedside Blood Glucose 152 mg/dl H 08/15/17 0930 EMA VALENCIA Aug 16, 2017 06:35
[2017-08-16 08:00] VITALS: BP 131/66
[2017-08-16] MEDS: Aspirin EC 81mg tab ORAL SCH (09:42)
[2017-08-16] MEDS: Levofloxacin 500mg tab ORAL SCH (09:42)
[2017-08-16] MEDS: Docusate 100mg cap ORAL SCH ×2 (09:42→18:12)
[2017-08-16] MEDS: Heparin 5000 units/ml inj SUBQ SCH ×2 (09:43→21:53)
[2017-08-16] MEDS: Levemir Flexpen SUBQ SCH ×2 (09:50→23:24)
[2017-08-16] MEDS: Morphine Sulfate 4mg/ml Inj IVP PRN ×3 (09:55→22:07)
[2017-08-16 12:00] VITALS: BP 128/69
--- NOTE | 2017-08-16 15:13 | General Progress Note ---
Assessment/Plan Problem List: (1) Diabetes mellitus ICD Codes: E11.9 - Type 2 diabetes mellitus without complications SNOMED: 10016757 (2) Right upper lobe consolidation ICD Codes: J18.1 - Lobar pneumonia, unspecified organism SNOMED: 23220979 (3) DKA (diabetic ketoacidoses) ICD Codes: E13.10 - Other specified diabetes mellitus with ketoacidosis without coma SNOMED: 817056702, 27025972 (4) Sepsis ICD Codes: A41.9 - Sepsis, unspecified organism SNOMED: 23809274 (5) Pulmonary nodules ICD Codes: R91.8 - Other nonspecific abnormal finding of lung field SNOMED: 046297384 Status: stable, progressing, tolerating diet Assessment/Plan ot pt diet abx cbc bmp am Subjective Constitutional: Reports: weakness Allergies: Coded Allergies: [place] (Verified Allergy, Unknown, 08/10/17) [place] (Verified Allergy, Unknown, 08/10/17) Uncoded Allergies: [place] (Allergy, Unknown, 08/10/17) All Systems: reviewed and negative except above Objective Last 24 Hour Vital Signs Date Time Temp Pulse Resp B/P (MAP) Pulse Ox O2 Delivery O2 Flow Rate FiO2 08/16/17 12:00 98.0 84 20 128/69 97 Room Air 08/16/17 08:00 98.0 90 20 131/66 96 Room Air 08/16/17 04:00 97.9 86 20 132/63 98 Room Air 08/16/17 00:00 98.4 79 20 128/54 99 Room Air 08/15/17 20:00 97.5 89 18 133/58 98 Room Air 08/15/17 19:22 84 16 Room Air 08/15/17 16:00 97.5 84 20 131/58 99 Room Air Laboratory Tests 08/16/17 04:35: Total Creatine Kinase 51, Coccidioides Antibody (Comp Fix) [Pending], Cryptococcus Antigen [Pending] Height (Feet): 5 Height (Inches): 6.00 Weight (Pounds): 123 General Appearance: lethargic EENT: normal ENT inspection Neck: normal alignment Cardiovascular: normal peripheral pulses, normal rate, regular rhythm Respiratory/Chest: chest wall non-tender, lungs clear, normal breath sounds Abdomen: normal bowel sounds, non tender, soft Extremities: normal inspection Edema: no edema noted Arm (L), no edema noted Arm (R), no edema noted Leg (L), no edema noted Leg (R), no edema noted Pedal (L), no edema noted Pedal (R), no edema noted Generalized Neurologic: motor weakness Skin: normal pigmentation, warm/dry MANDIE PUENTE Aug 16, 2017 15:13
[2017-08-16 15:57] VITALS: BP 121/77
--- NOTE | 2017-08-16 16:40 | Infectious Diseases Prog Note ---
Assessment/Plan Problems: (1) Sepsis Assessment & Plan: with coag negative staph , repeated blood culture is positive for staph epidermidis modt likely contaminant , now on daptomycin , will switch back to vancomycin , cancel TEODORO, and repeated blood culture to confirm clearance . 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 (3) DKA (diabetic ketoacidoses) Assessment & Plan: continue insuline , with tight glycemic control to keep blood sugar between 80-120 (4) Diabetes mellitus Assessment & Plan: poorly controlled, with DKA, recommend endocrinology eval (5) Pulmonary nodules Assessment & Plan: in the [facility], recommend follow up CT in 6 months , and follow up with account management specialist Subjective Constitutional: Reports: no symptoms HEENT: Reports: no symptoms Respiratory: Reports: dry cough Breasts: Reports: no symptoms Cardiovascular: Reports: no symptoms Gastrointestinal/Abdominal: Reports: no symptoms Genitourinary: Reports: no symptoms Neurologic: Reports: no symptoms Psychiatric: Reports: depression Skin: Reports: no symptoms Endocrine: Reports: no symptoms Hematologic: Reports: no symptoms Musculoskeletal: Reports: no symptoms Allergies: Coded Allergies: P[place] (Verified Allergy, Unknown, 08/10/17) [place] (Verified Allergy, Unknown, 08/10/17) Uncoded Allergies: [place] (Allergy, Unknown, 08/10/17) Objective Vital Signs Last 24 Hour Vital Signs Date Time Temp Pulse Resp B/P (MAP) Pulse Ox O2 Delivery O2 Flow Rate FiO2 08/16/17 15:57 97.6 72 21 121/77 95 Room Air 08/16/17 12:00 98.0 84 20 128/69 97 Room Air 08/16/17 08:00 98.0 90 20 131/66 96 Room Air 08/16/17 04:00 97.9 86 20 132/63 98 Room Air 08/16/17 00:00 98.4 79 20 128/54 99 Room Air 08/15/17 20:00 97.5 89 18 133/58 98 Room Air 08/15/17 19:22 84 16 Room Air Height (Feet): 5 Height (Inches): 6.00 Weight (Pounds): 123 General Appearance: WD/WN, no acute distress HEENT: normocephalic, atraumatic, anicteric, mucous membranes moist Respiratory/Chest: chest wall non-tender, lungs clear, normal breath sounds, no respiratory distress, no accessory muscle use Cardiovascular: normal peripheral pulses, normal rate, regular rhythm, no gallop/murmur Abdomen: normal bowel sounds, soft, non tender, no organomegaly, non distended , no mass Extremities: no cyanosis, no clubbing Skin: no rash, no lesions, no ulcers Neurologic/Psychiatric: alert, oriented x 3 Laboratory Tests Test 08/16/17 04:35 Total Creatine Kinase 51 U/L (26-308) Coccidioides Antibody (Comp Fix) Pending Cryptococcus Antigen Pending Current Medications Medications (Trade) Dose Ordered Sig/Danielle Route PRN Reason Start Time Stop Time Status Last Admin Dose Admin Acetaminophen (Tylenol) 650 mg Q4H PRN ORAL Fever (T>100.5F) 08/13/17 03:30 09/09/17 11:29 Aspirin (Ecotrin) 81 mg DAILY ORAL 08/13/17 09:00 09/10/17 08:59 08/16/17 09:42 Chlorhexidine Gluconate (Margarita-Hex 2%) 1 applic Q24HRS TOPIC 08/16/17 20:00 09/15/17 19:59 Daptomycin 500 mg/ Sodium Chloride 55 ml @ 100 mls/hr Q24HRS IV 08/14/17 17:00 08/21/17 16:59 08/15/17 17:02 Dextrose (Dextrose 50%) STAT PRN IV Hypoglycemia 08/13/17 06:00 09/12/17 05:59 Docusate Sodium (Colace) 100 mg TWICE A DAY ORAL 08/13/17 18:00 09/12/17 17:59 08/16/17 09:42 Gabapentin (Neurontin) 100 mg THREE TIMES A DAY ORAL 08/13/17 13:00 09/12/17 12:59 08/16/17 13:45 Heparin Sodium (Porcine) (Heparin 5000 units/ml) 5,000 units EVERY 12 HOURS SUBQ 08/13/17 09:00 09/09/17 20:59 08/16/17 09:43 Insulin Aspart (NovoLOG) BEFORE MEALS AND HS SUBQ 08/13/17 06:30 09/11/17 16:29 08/16/17 12:10 Insulin Aspart (NovoLOG) 4 units NOVOTIAC SUBQ 08/13/17 06:30 09/12/17 06:29 08/16/17 12:08 Insulin Detemir (Levemir) 7 units EVERY 12 HOURS SUBQ 08/13/17 09:00 09/12/17 08:59 08/16/17 09:50 Levofloxacin (Levaquin) 500 mg DAILY ORAL 08/15/17 16:00 08/18/17 15:59 08/16/17 09:42 Lorazepam (Ativan 2mg/ml 1ml) 2 mg Q2H PRN IV agitation 08/13/17 01:30 08/17/17 11:29 Morphine Sulfate (Morphine Sulfate) 4 mg Q4H PRN IVP Severe Pain (Pain Scale 7-10) 08/13/17 03:30 08/17/17 11:29 08/16/17 09:55 Nitroglycerin (Ntg) 0.4 mg Q5M PRN SL Prn Chest Pain 08/13/17 00:30 09/09/17 11:29 Ondansetron HCl (Zofran) 4 mg Q6H PRN IVP Nausea & Vomiting 08/13/17 05:30 09/09/17 11:29 08/15/17 22:40 Pantoprazole (Protonix) 40 mg ACBREAKFAST ORAL 08/16/17 06:30 09/15/17 06:29 08/16/17 06:43 Polyethylene Glycol (Miralax) 17 gm DAILYPRN PRN ORAL Constipation 08/13/17 11:30 09/09/17 11:29 Promethazine HCl/ Codeine (Phenergan with Codeine) 5 ml Q6H PRN ORAL For Cough 08/13/17 05:15 09/10/17 23:14 08/13/17 03:13 Sennosides (Senokot) 8.6 mg DAILYPRN PRN ORAL Constipation 08/13/17 14:30 09/12/17 14:29 Richie Davis M.D. Aug 16, 2017 16:40
--- NOTE | 2017-08-16 17:16 | Pulmonology Progress Note ---
Assessment/Plan Problems: (1) DKA (diabetic ketoacidoses) (2) Diabetes mellitus Assessment/Plan improving tolerating diet sliding scale diabetic diet Subjective ROS Limited/Unobtainable: No Constitutional: Reports: no symptoms HEENT: Repors: no symptoms Respiratory: Reports: no symptoms Cardiovascular: Reports: no symptoms Gastrointestinal/Abdominal: Reports: no symptoms Allergies: Coded Allergies: [place] (Verified Allergy, Unknown, 08/10/17) [place] (Verified Allergy, Unknown, 08/10/17) Uncoded Allergies: [place] (Allergy, Unknown, 08/10/17) Objective Last 24 Hour Vital Signs Date Time Temp Pulse Resp B/P (MAP) Pulse Ox O2 Delivery O2 Flow Rate FiO2 08/16/17 15:57 97.6 72 21 121/77 95 Room Air 08/16/17 12:00 98.0 84 20 128/69 97 Room Air 08/16/17 08:00 98.0 90 20 131/66 96 Room Air 08/16/17 04:00 97.9 86 20 132/63 98 Room Air 08/16/17 00:00 98.4 79 20 128/54 99 Room Air 08/15/17 20:00 97.5 89 18 133/58 98 Room Air 08/15/17 19:22 84 16 Room Air Intake and Output 08/16/17 08/17/17 18:59 06:59 Intake Total 540 ml Balance 540 ml Intake Oral 540 ml # Voids 4 General Appearance: WD/WN HEENT: normocephalic, atraumatic Respiratory/Chest: chest wall non-tender, lungs clear Breasts: no masses Cardiovascular: normal peripheral pulses, normal rate Abdomen: normal bowel sounds, soft, non tender, non distended Genitourinary: normal external genitalia Skin: no rash Laboratory Tests 08/16/17 04:35: Total Creatine Kinase 51, Coccidioides Antibody (Comp Fix) [Pending], Cryptococcus Antigen [Pending] Current Medications Medications (Trade) Dose Ordered Sig/Danielle Route PRN Reason Start Time Stop Time Status Last Admin Dose Admin Acetaminophen (Tylenol) 650 mg Q4H PRN ORAL Fever (T>100.5F) 08/13/17 03:30 09/09/17 11:29 Aspirin (Ecotrin) 81 mg DAILY ORAL 08/13/17 09:00 09/10/17 08:59 08/16/17 09:42 Chlorhexidine Gluconate (Margarita-Hex 2%) 1 applic Q24HRS TOPIC 08/16/17 20:00 09/15/17 19:59 Dextrose (Dextrose 50%) STAT PRN IV Hypoglycemia 08/13/17 06:00 09/12/17 05:59 Docusate Sodium (Colace) 100 mg TWICE A DAY ORAL 08/13/17 18:00 09/12/17 17:59 08/16/17 09:42 Gabapentin (Neurontin) 100 mg THREE TIMES A DAY ORAL 08/13/17 13:00 09/12/17 12:59 08/16/17 13:45 Heparin Sodium (Porcine) (Heparin 5000 units/ml) 5,000 units EVERY 12 HOURS SUBQ 08/13/17 09:00 09/09/17 20:59 08/16/17 09:43 Insulin Aspart (NovoLOG) BEFORE MEALS AND HS SUBQ 08/13/17 06:30 09/11/17 16:29 08/16/17 12:10 Insulin Aspart (NovoLOG) 4 units NOVOTIAC SUBQ 08/13/17 06:30 09/12/17 06:29 08/16/17 12:08 Insulin Detemir (Levemir) 7 units EVERY 12 HOURS SUBQ 08/13/17 09:00 09/12/17 08:59 08/16/17 09:50 Levofloxacin (Levaquin) 500 mg DAILY ORAL 08/15/17 16:00 08/18/17 15:59 08/16/17 09:42 Lorazepam (Ativan 2mg/ml 1ml) 2 mg Q2H PRN IV agitation 08/13/17 01:30 08/17/17 11:29 Morphine Sulfate (Morphine Sulfate) 4 mg Q4H PRN IVP Severe Pain (Pain Scale 7-10) 08/13/17 03:30 08/17/17 11:29 08/16/17 09:55 Nitroglycerin (Ntg) 0.4 mg Q5M PRN SL Prn Chest Pain 08/13/17 00:30 09/09/17 11:29 Ondansetron HCl (Zofran) 4 mg Q6H PRN IVP Nausea & Vomiting 08/13/17 05:30 09/09/17 11:29 08/15/17 22:40 Pantoprazole (Protonix) 40 mg ACBREAKFAST ORAL 08/16/17 06:30 09/15/17 06:29 08/16/17 06:43 Polyethylene Glycol (Miralax) 17 gm DAILYPRN PRN ORAL Constipation 08/13/17 11:30 09/09/17 11:29 Promethazine HCl/ Codeine (Phenergan with Codeine) 5 ml Q6H PRN ORAL For Cough 08/13/17 05:15 09/10/17 23:14 08/13/17 03:13 Sennosides (Senokot) 8.6 mg DAILYPRN PRN ORAL Constipation 08/13/17 14:30 09/12/17 14:29 Vancomycin HCl (Vanco rx to dose) 1 ea DAILY PRN MISC Per rx protocol 08/16/17 16:45 09/15/17 16:44 Vancomycin HCl 1 gm/Dextrose 275 ml @ 183.708 mls/hr Q12HR@0600,1800 IVPB 08/16/17 18:00 08/21/17 17:59 YUVAL MAYA Aug 16, 2017 17:16
[2017-08-16] MEDS: Vancomycin 1 GM in D5W 275 ML IVPB SCH (18:12)
[2017-08-16 20:00] VITALS: BP 148/50
[2017-08-16] MEDS: Dyna-Hex 2% Top Sol 2oz TOPIC SCH (21:54)
--- NOTE | 2017-08-16 22:33 | Cardiology Progress Note ---
Assessment/Plan Assessment/Plan 1. Sinus tachycardia resolved, echo shows normal LV systolic function with no wall motion abnormalities, LVEF at 55%. 2, Bacteremia with Staph Epidermidis, Dr. Davis has cancelled TEODORO. 4. Diabetic ketoacidosis, resolved. 5. History of coronary artery disease, normal EF with no WMA. Subjective Subjective Blood culture grew Staph. Epidermidis which is believed to be a contaminant. Denies chest pain or SOB. Afebrile. Objective Last 24 Hour Vital Signs Date Time Temp Pulse Resp B/P (MAP) Pulse Ox O2 Delivery O2 Flow Rate FiO2 08/16/17 20:00 97.7 75 18 148/50 100 Room Air 08/16/17 15:57 97.6 72 21 121/77 95 Room Air 08/16/17 12:00 98.0 84 20 128/69 97 Room Air 08/16/17 08:00 98.0 90 20 131/66 96 Room Air 08/16/17 04:00 97.9 86 20 132/63 98 Room Air 08/16/17 00:00 98.4 79 20 128/54 99 Room Air Intake and Output 08/16/17 08/17/17 19:00 07:00 Intake Total 540 ml Balance 540 ml Intake Oral 540 ml # Voids 4 2D Echo: LVEF 55%, Mild LVH, Mod MR, Grade I LVDD, RVSP 30 mmHg Laboratory Tests Test 08/16/17 04:35 Total Creatine Kinase 51 U/L (26-308) Coccidioides Antibody (Comp Fix) Pending Cryptococcus Antigen Pending Objective HEENT: Atraumatic and normocephalic. Anicteric. Pupils are equal, round, and reactive to light and accommodation. Extraocular movements are intact. NECK: JVP less than 5 centimeter. No carotid bruit. Carotid upstrokes 2+ bilaterally. CARDIOVASCULAR: Normal S1 and S2, No murmurs, gallops, or rubs. PMI is in the fourth intercostal space in the midclavicular line. LUNGS: There is crackles diffusely especially in both bases. ABDOMEN: Soft, nontender, and nondistended. No hepatosplenomegaly. Positive bowel sounds. EXTREMITIES: No evidence of edema, clubbing, or cyanosis. TAMAR CONNELL Aug 16, 2017 22:33
[2017-08-17] VITALS (7 sets, daily range): BP systolic 110–140; BP diastolic 49–59
--- NOTE | 2017-08-17 05:16 | General Progress Note ---
Assessment/Plan Problem List: (1) DKA (diabetic ketoacidoses) ICD Codes: E13.10 - Other specified diabetes mellitus with ketoacidosis without coma SNOMED: 230742743, 98784940 (2) Diabetes mellitus ICD Codes: E11.9 - Type 2 diabetes mellitus without complications SNOMED: 09291706 (3) Right upper lobe consolidation ICD Codes: J18.1 - Lobar pneumonia, unspecified organism SNOMED: 24778038 (4) Sepsis ICD Codes: A41.9 - Sepsis, unspecified organism SNOMED: 92873862 Assessment/Plan increase Levemir to 8 units bid continue Novolog 4 units ac tid hold scheduled insulin for NPO status continue SSI Subjective ROS Limited/Unobtainable: Yes Allergies: Coded Allergies: [place] (Verified Allergy, Unknown, 08/10/17) [place] (Verified Allergy, Unknown, 08/10/17) Uncoded Allergies: [place] (Allergy, Unknown, 08/10/17) Subjective events noted Objective Last 24 Hour Vital Signs Date Time Temp Pulse Resp B/P (MAP) Pulse Ox O2 Delivery O2 Flow Rate FiO2 08/17/17 04:00 98.1 79 18 140/59 98 Room Air 08/17/17 00:27 97.7 08/17/17 00:00 98.7 78 18 139/58 99 Room Air 08/16/17 20:00 97.7 75 18 148/50 100 Room Air 08/16/17 15:57 97.6 72 21 121/77 95 Room Air 08/16/17 12:00 98.0 84 20 128/69 97 Room Air 08/16/17 08:00 98.0 90 20 131/66 96 Room Air Height (Feet): 5 Height (Inches): 6.00 Weight (Pounds): 123 General Appearance: no apparent distress Neck: normal alignment Cardiovascular: normal rate Respiratory/Chest: lungs clear Abdomen: normal bowel sounds Edema: no edema noted Arm (L), no edema noted Arm (R), no edema noted Leg (L), no edema noted Leg (R), no edema noted Pedal (L), no edema noted Pedal (R), no edema noted Generalized Objective Current Medications Medications (Trade) Dose Ordered Sig/Danielle Route PRN Reason Start Time Stop Time Status Last Admin Dose Admin Acetaminophen (Tylenol) 650 mg Q4H PRN ORAL Fever (T>100.5F) 08/13/17 03:30 09/09/17 11:29 Aspirin (Ecotrin) 81 mg DAILY ORAL 08/13/17 09:00 09/10/17 08:59 08/16/17 09:42 Chlorhexidine Gluconate (Margarita-Hex 2%) 1 applic Q24HRS TOPIC 08/16/17 20:00 09/15/17 19:59 08/16/17 21:54 Dextrose (Dextrose 50%) STAT PRN IV Hypoglycemia 08/13/17 06:00 09/12/17 05:59 Docusate Sodium (Colace) 100 mg TWICE A DAY ORAL 08/13/17 18:00 09/12/17 17:59 08/16/17 18:12 Gabapentin (Neurontin) 100 mg THREE TIMES A DAY ORAL 08/13/17 13:00 09/12/17 12:59 08/16/17 18:12 Heparin Sodium (Porcine) (Heparin 5000 units/ml) 5,000 units EVERY 12 HOURS SUBQ 08/13/17 09:00 09/09/17 20:59 08/16/17 21:53 Insulin Aspart (NovoLOG) BEFORE MEALS AND HS SUBQ 08/13/17 06:30 09/11/17 16:29 08/16/17 23:22 Insulin Aspart (NovoLOG) 4 units NOVOTIAC SUBQ 08/13/17 06:30 09/12/17 06:29 08/16/17 17:19 Insulin Detemir (Levemir) 7 units EVERY 12 HOURS SUBQ 08/13/17 09:00 09/12/17 08:59 08/16/17 23:24 Levofloxacin (Levaquin) 500 mg DAILY ORAL 08/15/17 16:00 08/18/17 15:59 08/16/17 09:42 Lorazepam (Ativan 2mg/ml 1ml) 2 mg Q2H PRN IV agitation 08/13/17 01:30 08/17/17 11:29 Morphine Sulfate (Morphine Sulfate) 4 mg Q4H PRN IVP Severe Pain (Pain Scale 7-10) 08/13/17 03:30 08/17/17 11:29 08/16/17 22:07 Nitroglycerin (Ntg) 0.4 mg Q5M PRN SL Prn Chest Pain 08/13/17 00:30 09/09/17 11:29 Ondansetron HCl (Zofran) 4 mg Q6H PRN IVP Nausea & Vomiting 08/13/17 05:30 09/09/17 11:29 08/15/17 22:40 Pantoprazole (Protonix) 40 mg ACBREAKFAST ORAL 08/16/17 06:30 09/15/17 06:29 08/16/17 06:43 Polyethylene Glycol (Miralax) 17 gm DAILYPRN PRN ORAL Constipation 08/13/17 11:30 09/09/17 11:29 Promethazine HCl/ Codeine (Phenergan with Codeine) 5 ml Q6H PRN ORAL For Cough 08/13/17 05:15 09/10/17 23:14 08/13/17 03:13 Sennosides (Senokot) 8.6 mg DAILYPRN PRN ORAL Constipation 08/13/17 14:30 09/12/17 14:29 Vancomycin HCl (Vanco rx to dose) 1 ea DAILY PRN MISC Per rx protocol 08/16/17 16:45 09/15/17 16:44 Vancomycin HCl 1 gm/Dextrose 275 ml @ 183.708 mls/hr Q12HR@0600,1800 IVPB 08/16/17 18:00 08/21/17 17:59 08/16/17 18:12 Item Value Date Time Bedside Blood Glucose 210 mg/dl H 08/16/17 2324 Bedside Blood Glucose 124 mg/dl H 08/16/17 2100 Bedside Blood Glucose 171 mg/dl H 08/16/17 1720 Bedside Blood Glucose 225 mg/dl H 08/16/17 1210 EMA VALENCIA Aug 17, 2017 05:16
[2017-08-17] MEDS: Vancomycin 1 GM in D5W 275 ML IVPB SCH (06:48)
[2017-08-17 06:55] LABS: EOSINOPHILS % (AUTO) 6.5 % (0.0-3.0); LYMPHOCYTES % (AUTO) 18.5 % (20.0-45.0); MEAN CORPUSCULAR HEMOGLOBIN 30.1 PG (27.0-31.0); MEAN CORPUSCULAR HGB CONC 31.8 G/DL (32.0-36.0); MEAN CORPUSCULAR VOLUME 95 FL (80-99); MEAN PLATELET VOLUME 6.2 FL (6.5-10.1); MONOCYTES % (AUTO) 10.8 % (1.0-10.0); NEUTROPHILS % (AUTO) 63.2 % (45.0-75.0); PLATELET COUNT 418 K/UL (150-450); RED BLOOD COUNT 3.78 M/UL (4.20-5.40); RED CELL DISTRIBUTION WIDTH 14.4 % (11.6-14.8); WHITE BLOOD COUNT 10.2 K/UL (4.8-10.8)
[2017-08-17] MEDS: NovoLOG Insulin Flexpen SUBQ SCH ×7 (06:59→20:43)
[2017-08-17 07:10] LABS: ANION GAP 23 mmol/L (5-15); CALCIUM 9.2 MG/DL (8.5-10.1); CARBON DIOXIDE 16 MMOL/L (21-32); CHLORIDE 95 MMOL/L (98-107); CREATININE 0.6 MG/DL (0.55-1.30); GLOMERULAR FILTRATION RATE > 60 mL/min (>60); SODIUM 134 MMOL/L (136-145)
[2017-08-17] MEDS: Docusate 100mg cap ORAL SCH ×2 (08:49→17:42)
[2017-08-17] MEDS: Levofloxacin 500mg tab ORAL SCH (08:49)
[2017-08-17] MEDS: Morphine Sulfate 4mg/ml Inj IVP PRN ×3 (08:49→23:10)
[2017-08-17] MEDS: Aspirin EC 81mg tab ORAL SCH (08:49)
[2017-08-17] MEDS: Heparin 5000 units/ml inj SUBQ SCH ×2 (08:51→20:44)
[2017-08-17] MEDS: Levemir Flexpen SUBQ SCH ×2 (09:33→20:43)
--- NOTE | 2017-08-17 10:21 | General Progress Note ---
Assessment/Plan Problem List: (1) Diabetes mellitus ICD Codes: E11.9 - Type 2 diabetes mellitus without complications SNOMED: 78759615 (2) Right upper lobe consolidation ICD Codes: J18.1 - Lobar pneumonia, unspecified organism SNOMED: 94481935 (3) DKA (diabetic ketoacidoses) ICD Codes: E13.10 - Other specified diabetes mellitus with ketoacidosis without coma SNOMED: 563668176, 94701771 (4) Sepsis ICD Codes: A41.9 - Sepsis, unspecified organism SNOMED: 76419946 (5) Pulmonary nodules ICD Codes: R91.8 - Other nonspecific abnormal finding of lung field SNOMED: 168796218 Status: stable, progressing, tolerating diet Assessment/Plan ot pt diet abx bs control endo f/u cbc bmp am Subjective Constitutional: Reports: weakness Allergies: Coded Allergies: [place] (Verified Allergy, Unknown, 08/10/17) [place] (Verified Allergy, Unknown, 08/10/17) Uncoded Allergies: [place] (Allergy, Unknown, 08/10/17) All Systems: reviewed and negative except above Subjective sleepy calm Objective Last 24 Hour Vital Signs Date Time Temp Pulse Resp B/P (MAP) Pulse Ox O2 Delivery O2 Flow Rate FiO2 08/17/17 08:00 98.2 85 18 129/59 98 Room Air 08/17/17 04:00 98.1 79 18 140/59 98 Room Air 08/17/17 00:27 97.7 08/17/17 00:00 98.7 78 18 139/58 99 Room Air 08/16/17 20:00 97.7 75 18 148/50 100 Room Air 08/16/17 15:57 97.6 72 21 121/77 95 Room Air 08/16/17 12:00 98.0 84 20 128/69 97 Room Air Laboratory Tests 08/17/17 05:40: White Blood Count 10.2, Red Blood Count 3.78L, Hemoglobin 11.4L, Hematocrit 35.8L, Mean Corpuscular Volume 95, Mean Corpuscular Hemoglobin 30.1, Mean Corpuscular Hemoglobin Concent 31.8L, Red Cell Distribution Width 14.4, Platelet Count 418, Mean Platelet Volume 6.2L, Neutrophils (%) (Auto) 63.2, Lymphocytes (%) (Auto) 18.5L, Monocytes (%) (Auto) 10.8H, Eosinophils (%) (Auto ) 6.5H, Basophils (%) (Auto) 1.0, Sodium Level 134L, Potassium Level 4.0, Chloride Level 95L, Carbon Dioxide Level 16L, Anion Gap 23H, Blood Urea Nitrogen 10, Creatinine 0.6, Estimat Glomerular Filtration Rate > 60, Glucose Level 427H, Calcium Level 9.2 Height (Feet): 5 Height (Inches): 6.00 Weight (Pounds): 119 General Appearance: lethargic EENT: normal ENT inspection Neck: normal alignment Cardiovascular: normal peripheral pulses, normal rate, regular rhythm Respiratory/Chest: chest wall non-tender, lungs clear, normal breath sounds Abdomen: normal bowel sounds, non tender, soft Extremities: normal inspection Edema: no edema noted Arm (L), no edema noted Arm (R), no edema noted Leg (L), no edema noted Leg (R), no edema noted Pedal (L), no edema noted Pedal (R), no edema noted Generalized Neurologic: motor weakness Skin: normal pigmentation, warm/dry MANDIE PUENTE Aug 17, 2017 10:21
--- NOTE | 2017-08-17 13:35 | Infectious Diseases Prog Note ---
Assessment/Plan Problems: (1) Sepsis Assessment & Plan: with coag negative staph , repeated blood culture is positive for staph epidermidis mods likely contaminant , on vancomycin , will repeat blood culture to confirm clearance. 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 , screening for fungal infection is in progress (3) DKA (diabetic ketoacidoses) Assessment & Plan: continue insuline , with tight glycemic control to keep blood sugar between 80-120 (4) Diabetes mellitus Assessment & Plan: poorly controlled, with DKA, recommend endocrinology eval (5) Pulmonary nodules Assessment & Plan: in the [facility], recommend follow up CT in 6 months , and follow up with applications architect Subjective Constitutional: Reports: no symptoms HEENT: Reports: no symptoms Respiratory: Reports: dry cough Breasts: Reports: no symptoms Cardiovascular: Reports: no symptoms Gastrointestinal/Abdominal: Reports: no symptoms Genitourinary: Reports: no symptoms Neurologic: Reports: no symptoms Psychiatric: Reports: depression Skin: Reports: no symptoms Endocrine: Reports: no symptoms Hematologic: Reports: no symptoms Allergies: Coded Allergies: PENICILLINS (Verified Allergy, Unknown, 08/10/17) [place] (Verified Allergy, Unknown, 08/10/17) Uncoded Allergies: [place] (Allergy, Unknown, 08/10/17) Objective Vital Signs Last 24 Hour Vital Signs Date Time Temp Pulse Resp B/P (MAP) Pulse Ox O2 Delivery O2 Flow Rate FiO2 08/17/17 12:00 97.9 82 20 114/51 95 Room Air 08/17/17 08:00 98.2 85 18 129/59 98 Room Air 08/17/17 04:00 98.1 79 18 140/59 98 Room Air 08/17/17 00:27 97.7 08/17/17 00:00 98.7 78 18 139/58 99 Room Air 08/16/17 20:00 97.7 75 18 148/50 100 Room Air 08/16/17 15:57 97.6 72 21 121/77 95 Room Air Height (Feet): 5 Height (Inches): 6.00 Weight (Pounds): 119 General Appearance: WD/WN, no acute distress HEENT: normocephalic, atraumatic, anicteric, mucous membranes moist Respiratory/Chest: chest wall non-tender, lungs clear, normal breath sounds, no respiratory distress, no accessory muscle use Cardiovascular: normal peripheral pulses, normal rate, regular rhythm, no gallop/murmur, no JVD Abdomen: normal bowel sounds, soft, non tender, no organomegaly, non distended , no mass Extremities: no cyanosis, no clubbing Skin: no rash, no lesions Neurologic/Psychiatric: alert, responsive Laboratory Tests Test 08/17/17 05:40 White Blood Count 10.2 K/UL (4.8-10.8) Red Blood Count 3.78 M/UL (4.20-5.40) L Hemoglobin 11.4 G/DL (12.0-16.0) L Hematocrit 35.8 % (37.0-47.0) L Mean Corpuscular Volume 95 FL (80-99) Mean Corpuscular Hemoglobin 30.1 PG (27.0-31.0) Mean Corpuscular Hemoglobin Concent 31.8 G/DL (32.0-36.0) L Red Cell Distribution Width 14.4 % (11.6-14.8) Platelet Count 418 K/UL (150-450) Mean Platelet Volume 6.2 FL (6.5-10.1) L Neutrophils (%) (Auto) 63.2 % (45.0-75.0) Lymphocytes (%) (Auto) 18.5 % (20.0-45.0) L Monocytes (%) (Auto) 10.8 % (1.0-10.0) H Eosinophils (%) (Auto) 6.5 % (0.0-3.0) H Basophils (%) (Auto) 1.0 % (0.0-2.0) Sodium Level 134 MMOL/L (136-145) L Potassium Level 4.0 MMOL/L (3.5-5.1) Chloride Level 95 MMOL/L (98-107) L Carbon Dioxide Level 16 MMOL/L (21-32) L Anion Gap 23 mmol/L (5-15) H Blood Urea Nitrogen 10 mg/dL (7-18) Creatinine 0.6 MG/DL (0.55-1.30) Estimat Glomerular Filtration Rate > 60 mL/min (>60) Glucose Level 427 MG/DL (74-106) H Calcium Level 9.2 MG/DL (8.5-10.1) Current Medications Medications (Trade) Dose Ordered Sig/Danielle Route PRN Reason Start Time Stop Time Status Last Admin Dose Admin Acetaminophen (Tylenol) 650 mg Q4H PRN ORAL Fever (T>100.5F) 08/13/17 03:30 09/09/17 11:29 Aspirin (Ecotrin) 81 mg DAILY ORAL 08/13/17 09:00 09/10/17 08:59 08/17/17 08:49 Chlorhexidine Gluconate (Margarita-Hex 2%) 1 applic Q24HRS TOPIC 08/16/17 20:00 09/15/17 19:59 08/16/17 21:54 Dextrose (Dextrose 50%) STAT PRN IV Hypoglycemia 08/13/17 06:00 09/12/17 05:59 Docusate Sodium (Colace) 100 mg TWICE A DAY ORAL 08/13/17 18:00 09/12/17 17:59 08/17/17 08:49 Gabapentin (Neurontin) 100 mg THREE TIMES A DAY ORAL 08/13/17 13:00 09/12/17 12:59 08/17/17 12:34 Heparin Sodium (Porcine) (Heparin 5000 units/ml) 5,000 units EVERY 12 HOURS SUBQ 08/13/17 09:00 09/09/17 20:59 08/17/17 08:51 Insulin Aspart (NovoLOG) BEFORE MEALS AND HS SUBQ 08/13/17 06:30 09/11/17 16:29 08/17/17 12:33 Insulin Aspart (NovoLOG) 4 units NOVOTIAC SUBQ 08/13/17 06:30 09/12/17 06:29 08/17/17 12:32 Insulin Detemir (Levemir) 8 units EVERY 12 HOURS SUBQ 08/17/17 09:00 09/16/17 08:59 08/17/17 09:33 Levofloxacin (Levaquin) 500 mg DAILY ORAL 08/15/17 16:00 08/18/17 15:59 08/17/17 08:49 Nitroglycerin (Ntg) 0.4 mg Q5M PRN SL Prn Chest Pain 08/13/17 00:30 09/09/17 11:29 Ondansetron HCl (Zofran) 4 mg Q6H PRN IVP Nausea & Vomiting 08/13/17 05:30 09/09/17 11:29 08/15/17 22:40 Pantoprazole (Protonix) 40 mg ACBREAKFAST ORAL 08/16/17 06:30 09/15/17 06:29 08/17/17 06:47 Polyethylene Glycol (Miralax) 17 gm DAILYPRN PRN ORAL Constipation 08/13/17 11:30 09/09/17 11:29 Promethazine HCl/ Codeine (Phenergan with Codeine) 5 ml Q6H PRN ORAL For Cough 08/13/17 05:15 09/10/17 23:14 08/13/17 03:13 Sennosides (Senokot) 8.6 mg DAILYPRN PRN ORAL Constipation 08/13/17 14:30 09/12/17 14:29 Vancomycin HCl (Vanco rx to dose) 1 ea DAILY PRN MISC Per rx protocol 08/16/17 16:45 09/15/17 16:44 Vancomycin HCl 1 gm/Dextrose 275 ml @ 183.708 mls/hr Q12HR@0600,1800 IVPB 08/16/17 18:00 08/21/17 17:59 08/17/17 06:48 Richie Davis M.D. Aug 17, 2017 13:35
--- NOTE | 2017-08-17 15:13 | Pulmonology Progress Note ---
Assessment/Plan Problems: (1) DKA (diabetic ketoacidoses) (2) Diabetes mellitus Assessment/Plan improving tolerating diet sliding scale diabetic diet CT of chest in 4-6 month to rule out any growth of the nodules. Subjective ROS Limited/Unobtainable: No Constitutional: Reports: no symptoms HEENT: Repors: no symptoms Respiratory: Reports: no symptoms Allergies: Coded Allergies: [place] (Verified Allergy, Unknown, 08/10/17) [place] (Verified Allergy, Unknown, 08/10/17) Uncoded Allergies: [place] (Allergy, Unknown, 08/10/17) Objective Last 24 Hour Vital Signs Date Time Temp Pulse Resp B/P (MAP) Pulse Ox O2 Delivery O2 Flow Rate FiO2 08/17/17 12:00 97.9 82 20 114/51 95 Room Air 08/17/17 08:00 98.2 85 18 129/59 98 Room Air 08/17/17 04:00 98.1 79 18 140/59 98 Room Air 08/17/17 00:27 97.7 08/17/17 00:00 98.7 78 18 139/58 99 Room Air 08/16/17 20:00 97.7 75 18 148/50 100 Room Air 08/16/17 15:57 97.6 72 21 121/77 95 Room Air General Appearance: WD/WN HEENT: normocephalic, atraumatic Respiratory/Chest: chest wall non-tender, normal breath sounds Breasts: no masses Cardiovascular: normal peripheral pulses Abdomen: normal bowel sounds, soft, non tender Genitourinary: normal external genitalia Extremities: no cyanosis Skin: no ulcers Neurologic/Psychiatric: metrologist II-XII grossly normal, no motor/sensory deficits Lymphatic: no neck adenopathy Laboratory Tests 08/17/17 05:40: White Blood Count 10.2, Red Blood Count 3.78L, Hemoglobin 11.4L, Hematocrit 35.8L, Mean Corpuscular Volume 95, Mean Corpuscular Hemoglobin 30.1, Mean Corpuscular Hemoglobin Concent 31.8L, Red Cell Distribution Width 14.4, Platelet Count 418, Mean Platelet Volume 6.2L, Neutrophils (%) (Auto) 63.2, Lymphocytes (%) (Auto) 18.5L, Monocytes (%) (Auto) 10.8H, Eosinophils (%) (Auto ) 6.5H, Basophils (%) (Auto) 1.0, Sodium Level 134L, Potassium Level 4.0, Chloride Level 95L, Carbon Dioxide Level 16L, Anion Gap 23H, Blood Urea Nitrogen 10, Creatinine 0.6, Estimat Glomerular Filtration Rate > 60, Glucose Level 427H, Calcium Level 9.2 Current Medications Medications (Trade) Dose Ordered Sig/Danielle Route PRN Reason Start Time Stop Time Status Last Admin Dose Admin Acetaminophen (Tylenol) 650 mg Q4H PRN ORAL Fever (T>100.5F) 08/13/17 03:30 09/09/17 11:29 Aspirin (Ecotrin) 81 mg DAILY ORAL 08/13/17 09:00 09/10/17 08:59 08/17/17 08:49 Chlorhexidine Gluconate (Margarita-Hex 2%) 1 applic Q24HRS TOPIC 08/16/17 20:00 09/15/17 19:59 08/16/17 21:54 Dextrose (Dextrose 50%) STAT PRN IV Hypoglycemia 08/13/17 06:00 09/12/17 05:59 Docusate Sodium (Colace) 100 mg TWICE A DAY ORAL 08/13/17 18:00 09/12/17 17:59 08/17/17 08:49 Gabapentin (Neurontin) 100 mg THREE TIMES A DAY ORAL 08/13/17 13:00 09/12/17 12:59 08/17/17 12:34 Heparin Sodium (Porcine) (Heparin 5000 units/ml) 5,000 units EVERY 12 HOURS SUBQ 08/13/17 09:00 09/09/17 20:59 08/17/17 08:51 Insulin Aspart (NovoLOG) BEFORE MEALS AND HS SUBQ 08/13/17 06:30 09/11/17 16:29 08/17/17 12:33 Insulin Aspart (NovoLOG) 4 units NOVOTIAC SUBQ 08/13/17 06:30 09/12/17 06:29 08/17/17 12:32 Insulin Detemir (Levemir) 8 units EVERY 12 HOURS SUBQ 08/17/17 09:00 09/16/17 08:59 08/17/17 09:33 Levofloxacin (Levaquin) 500 mg DAILY ORAL 08/15/17 16:00 08/18/17 15:59 08/17/17 08:49 Nitroglycerin (Ntg) 0.4 mg Q5M PRN SL Prn Chest Pain 08/13/17 00:30 09/09/17 11:29 Ondansetron HCl (Zofran) 4 mg Q6H PRN IVP Nausea & Vomiting 08/13/17 05:30 09/09/17 11:29 08/15/17 22:40 Pantoprazole (Protonix) 40 mg ACBREAKFAST ORAL 08/16/17 06:30 09/15/17 06:29 08/17/17 06:47 Polyethylene Glycol (Miralax) 17 gm DAILYPRN PRN ORAL Constipation 08/13/17 11:30 09/09/17 11:29 Promethazine HCl/ Codeine (Phenergan with Codeine) 5 ml Q6H PRN ORAL For Cough 08/13/17 05:15 09/10/17 23:14 08/13/17 03:13 Sennosides (Senokot) 8.6 mg DAILYPRN PRN ORAL Constipation 08/13/17 14:30 09/12/17 14:29 Vancomycin HCl (Vanco rx to dose) 1 ea DAILY PRN MISC Per rx protocol 08/16/17 16:45 09/15/17 16:44 Vancomycin HCl 1 gm/Dextrose 275 ml @ 183.708 mls/hr Q12HR@0600,1800 IVPB 08/16/17 18:00 08/21/17 17:59 08/17/17 06:48 YUVAL MAYA Aug 17, 2017 15:13
[2017-08-17] MEDS: Vancomycin 1 GM in NS 275 ML IVPB SCH (18:13)
[2017-08-17] MEDS: Dyna-Hex 2% Top Sol 2oz TOPIC SCH (20:39)
--- NOTE | 2017-08-17 23:42 | Cardiology Progress Note ---
Assessment/Plan Assessment/Plan 1. Sinus tachycardia resolved, echo shows normal LV systolic function with no wall motion abnormalities, LVEF at 55%. 2, Bacteremia with Staph Epidermidis, possibly contamination. 4. Diabetic ketoacidosis, resolved. 5. History of coronary artery disease, normal EF with no WMA. Subjective Subjective Denies chest pain or SOB. Off the telemetry unit. Objective Last 24 Hour Vital Signs Date Time Temp Pulse Resp B/P (MAP) Pulse Ox O2 Delivery O2 Flow Rate FiO2 08/17/17 20:11 97.7 08/17/17 19:58 97.7 76 18 115/49 98 Room Air 08/17/17 16:00 97.5 81 17 110/52 98 Room Air 08/17/17 12:00 97.9 82 20 114/51 95 Room Air 08/17/17 08:00 98.2 85 18 129/59 98 Room Air 08/17/17 04:00 98.1 79 18 140/59 98 Room Air 08/17/17 00:27 97.7 08/17/17 00:00 98.7 78 18 139/58 99 Room Air Intake and Output 08/17/17 08/18/17 19:00 07:00 Intake Total 360 ml Output Total 750 ml Balance -390 ml Intake Oral 360 ml Output Urine Total 750 ml 2D Echo: LVEF 55%, Mild LVH, Mod MR, Grade I LVDD, RVSP 30 mmHg Laboratory Tests Test 08/17/17 05:40 White Blood Count 10.2 K/UL (4.8-10.8) Red Blood Count 3.78 M/UL (4.20-5.40) L Hemoglobin 11.4 G/DL (12.0-16.0) L Hematocrit 35.8 % (37.0-47.0) L Mean Corpuscular Volume 95 FL (80-99) Mean Corpuscular Hemoglobin 30.1 PG (27.0-31.0) Mean Corpuscular Hemoglobin Concent 31.8 G/DL (32.0-36.0) L Red Cell Distribution Width 14.4 % (11.6-14.8) Platelet Count 418 K/UL (150-450) Mean Platelet Volume 6.2 FL (6.5-10.1) L Neutrophils (%) (Auto) 63.2 % (45.0-75.0) Lymphocytes (%) (Auto) 18.5 % (20.0-45.0) L Monocytes (%) (Auto) 10.8 % (1.0-10.0) H Eosinophils (%) (Auto) 6.5 % (0.0-3.0) H Basophils (%) (Auto) 1.0 % (0.0-2.0) Sodium Level 134 MMOL/L (136-145) L Potassium Level 4.0 MMOL/L (3.5-5.1) Chloride Level 95 MMOL/L (98-107) L Carbon Dioxide Level 16 MMOL/L (21-32) L Anion Gap 23 mmol/L (5-15) H Blood Urea Nitrogen 10 mg/dL (7-18) Creatinine 0.6 MG/DL (0.55-1.30) Estimat Glomerular Filtration Rate > 60 mL/min (>60) Glucose Level 427 MG/DL (74-106) H Calcium Level 9.2 MG/DL (8.5-10.1) Objective HEENT: Atraumatic and normocephalic. Anicteric. Pupils are equal, round, and reactive to light and accommodation. Extraocular movements are intact. NECK: JVP less than 5 centimeter. No carotid bruit. Carotid upstrokes 2+ bilaterally. CARDIOVASCULAR: Normal S1 and S2, No murmurs, gallops, or rubs. PMI is in the fourth intercostal space in the midclavicular line. LUNGS: There is crackles diffusely especially in both bases. ABDOMEN: Soft, nontender, and nondistended. No hepatosplenomegaly. Positive bowel sounds. EXTREMITIES: No evidence of edema, clubbing, or cyanosis. TAMAR CONNELL Aug 17, 2017 23:42
[2017-08-18 04:00] VITALS: BP 149/66
[2017-08-18 05:33] LABS: BASOPHILS % (AUTO) 1.4 % (0.0-2.0); EOSINOPHILS % (AUTO) 6.9 % (0.0-3.0); LYMPHOCYTES % (AUTO) 22.4 % (20.0-45.0); MEAN CORPUSCULAR HEMOGLOBIN 30.1 PG (27.0-31.0); MEAN CORPUSCULAR HGB CONC 32.3 G/DL (32.0-36.0); MEAN CORPUSCULAR VOLUME 93 FL (80-99); MEAN PLATELET VOLUME 5.9 FL (6.5-10.1); MONOCYTES % (AUTO) 19.1 % (1.0-10.0); NEUTROPHILS % (AUTO) 50.2 % (45.0-75.0); PLATELET COUNT 412 K/UL (150-450); RED CELL DISTRIBUTION WIDTH 15.2 % (11.6-14.8); WHITE BLOOD COUNT 6.9 K/UL (4.8-10.8)
[2017-08-18] MEDS: Morphine Sulfate 4mg/ml Inj IVP PRN ×4 (05:33→20:04)
[2017-08-18 05:47] LABS: ANION GAP 7 mmol/L (5-15); CALCIUM 8.5 MG/DL (8.5-10.1); CARBON DIOXIDE 28 MMOL/L (21-32); CHLORIDE 102 MMOL/L (98-107); CREATININE 0.6 MG/DL (0.55-1.30); GLOMERULAR FILTRATION RATE > 60 mL/min (>60); POTASSIUM 3.2 MMOL/L (3.5-5.1); SODIUM 137 MMOL/L (136-145)
[2017-08-18] MEDS: Vancomycin 1 GM in NS 275 ML IVPB SCH (06:22)
[2017-08-18] MEDS: NovoLOG Insulin Flexpen SUBQ SCH ×7 (06:47→21:31)
[2017-08-18 07:52] VITALS: BP 154/67
[2017-08-18 09:20] LABS: NIL (NEG) CONTROL SPOT COUNT 1 (0-9); PANEL A SPOT COUNT 1; PANEL B SPOT COUNT 0; POSITIVE CONTROL SPOT COUNT > 20; T SPOT TB NEGATIVE
[2017-08-18] MEDS: Aspirin EC 81mg tab ORAL SCH (09:45)
[2017-08-18] MEDS: DiphenhydrAMINE 50mg/ml Inj IVP PRN ×2 (09:45→15:50)
[2017-08-18] MEDS: Levofloxacin 500mg tab ORAL SCH (09:46)
[2017-08-18] MEDS: Docusate 100mg cap ORAL SCH ×2 (09:46→17:34)
[2017-08-18] MEDS: Heparin 5000 units/ml inj SUBQ SCH ×2 (09:47→21:30)
[2017-08-18] MEDS: Levemir Flexpen SUBQ SCH ×2 (09:49→21:30)
[2017-08-18 11:27] VITALS: BP 140/61
--- NOTE | 2017-08-18 11:58 | General Progress Note ---
Assessment/Plan Problem List: (1) Diabetes mellitus ICD Codes: E11.9 - Type 2 diabetes mellitus without complications SNOMED: 41852334 (2) Right upper lobe consolidation ICD Codes: J18.1 - Lobar pneumonia, unspecified organism SNOMED: 44803891 (3) DKA (diabetic ketoacidoses) ICD Codes: E13.10 - Other specified diabetes mellitus with ketoacidosis without coma SNOMED: 761163834, 78105683 (4) Sepsis ICD Codes: A41.9 - Sepsis, unspecified organism SNOMED: 22967714 (5) Pulmonary nodules ICD Codes: R91.8 - Other nonspecific abnormal finding of lung field SNOMED: 507018052 Status: stable, progressing, tolerating diet Assessment/Plan ot pt diet abx bs control endo f/u cbc bmp am dc if clear Subjective Constitutional: Reports: weakness Allergies: Coded Allergies: [place] (Verified Allergy, Unknown, 08/10/17) [place] (Verified Allergy, Unknown, 08/10/17) Uncoded Allergies: [place] (Allergy, Unknown, 08/10/17) All Systems: reviewed and negative except above Subjective sleepy calm Objective Last 24 Hour Vital Signs Date Time Temp Pulse Resp B/P (MAP) Pulse Ox O2 Delivery O2 Flow Rate FiO2 08/18/17 11:27 97.9 78 19 140/61 99 Room Air 08/18/17 07:52 97.7 77 19 154/67 100 Room Air 08/18/17 06:14 97.5 08/18/17 04:00 97.5 80 18 149/66 100 Room Air 08/17/17 23:59 97.7 75 18 118/52 97 Room Air 08/17/17 19:58 97.7 76 18 115/49 98 Room Air 08/17/17 16:00 97.5 81 17 110/52 98 Room Air 08/17/17 12:00 97.9 82 20 114/51 95 Room Air Laboratory Tests 08/18/17 05:00: White Blood Count 6.9, Red Blood Count 3.40L, Hemoglobin 10.2L, Hematocrit 31.7L , Mean Corpuscular Volume 93, Mean Corpuscular Hemoglobin 30.1, Mean Corpuscular Hemoglobin Concent 32.3, Red Cell Distribution Width 15.2H, Platelet Count 412, Mean Platelet Volume 5.9L, Neutrophils (%) (Auto) 50.2, Lymphocytes (%) (Auto) 22.4, Monocytes (%) (Auto) 19.1H, Eosinophils (%) (Auto) 6.9H, Basophils (%) (Auto) 1.4, Sodium Level 137, Potassium Level 3.2L, Chloride Level 102, Carbon Dioxide Level 28, Anion Gap 7, Blood Urea Nitrogen 8 , Creatinine 0.6, Estimat Glomerular Filtration Rate > 60, Glucose Level 144#H, Calcium Level 8.5, Vancomycin Level Trough 9.2 Height (Feet): 5 Height (Inches): 6.00 Weight (Pounds): 121 General Appearance: lethargic EENT: normal ENT inspection Neck: normal alignment Cardiovascular: normal peripheral pulses, normal rate, regular rhythm Respiratory/Chest: chest wall non-tender, lungs clear, normal breath sounds Abdomen: normal bowel sounds, non tender, soft Extremities: normal inspection Edema: no edema noted Arm (L), no edema noted Arm (R), no edema noted Leg (L), no edema noted Leg (R), no edema noted Pedal (L), no edema noted Pedal (R), no edema noted Generalized Neurologic: motor weakness Skin: normal pigmentation, warm/dry MANDIE PUENTE Aug 18, 2017 11:58
[2017-08-18 12:19] LABS: CRYPTOCOCCAL ANTIGEN SERUM Negative (Negative)
[2017-08-18] MEDS ORDERED: Vancomycin 1 GM in NS 275 ML IVPB SCH (14:00)
[2017-08-18] MEDS: Vancomycin 1gm in Dextrose 275ml IVPB SCH ×2 (14:19→21:32)
--- NOTE | 2017-08-18 14:50 | Infectious Diseases Prog Note ---
Assessment/Plan Problems: (1) Sepsis Assessment & Plan: with coag negative staph , repeated blood culture is positive for staph epidermidis mods likely contaminant , on vancomycin , will repeat blood culture to confirm clearance. will treat with vancomycin for 4 weeks total , will remove femoral line . 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 , screening for fungal infection is in progress (3) DKA (diabetic ketoacidoses) Assessment & Plan: continue insuline , with tight glycemic control to keep blood sugar between 80-120 (4) Diabetes mellitus Assessment & Plan: poorly controlled, with DKA, recommend endocrinology eval (5) Pulmonary nodules Assessment & Plan: in the [facility], recommend follow up CT in 6 months , and follow up with county or city auditor Subjective Constitutional: Reports: no symptoms HEENT: Reports: no symptoms Respiratory: Reports: no symptoms Breasts: Reports: no symptoms Cardiovascular: Reports: no symptoms Gastrointestinal/Abdominal: Reports: no symptoms Genitourinary: Reports: no symptoms Neurologic: Reports: no symptoms Psychiatric: Reports: no symptoms Skin: Reports: no symptoms Endocrine: Reports: no symptoms Musculoskeletal: Reports: pain, other - lower back pain Allergies: Coded Allergies: [place] (Verified Allergy, Unknown, 08/10/17) [place] (Verified Allergy, Unknown, 08/10/17) Uncoded Allergies: [place] (Allergy, Unknown, 08/10/17) Objective Vital Signs Last 24 Hour Vital Signs Date Time Temp Pulse Resp B/P (MAP) Pulse Ox O2 Delivery O2 Flow Rate FiO2 08/18/17 11:27 97.9 78 19 140/61 99 Room Air 08/18/17 07:52 97.7 77 19 154/67 100 Room Air 08/18/17 06:14 97.5 08/18/17 04:00 97.5 80 18 149/66 100 Room Air 08/17/17 23:59 97.7 75 18 118/52 97 Room Air 08/17/17 19:58 97.7 76 18 115/49 98 Room Air 08/17/17 16:00 97.5 81 17 110/52 98 Room Air Height (Feet): 5 Height (Inches): 6.00 Weight (Pounds): 121 General Appearance: WD/WN, no acute distress, cachetic HEENT: normocephalic, atraumatic, anicteric, mucous membranes moist Respiratory/Chest: chest wall non-tender, lungs clear, normal breath sounds, no respiratory distress, no accessory muscle use Cardiovascular: normal peripheral pulses, normal rate, regular rhythm, no gallop/murmur, no JVD Abdomen: normal bowel sounds, soft, non tender, no organomegaly, non distended , no mass, no scars Extremities: no cyanosis, no clubbing Skin: no rash, no lesions, no ulcers Neurologic/Psychiatric: alert, oriented x 3 Lymphatic: no neck adenopathy, no groin adenopathy Laboratory Tests Test 08/18/17 05:00 White Blood Count 6.9 K/UL (4.8-10.8) Red Blood Count 3.40 M/UL (4.20-5.40) L Hemoglobin 10.2 G/DL (12.0-16.0) L Hematocrit 31.7 % (37.0-47.0) L Mean Corpuscular Volume 93 FL (80-99) Mean Corpuscular Hemoglobin 30.1 PG (27.0-31.0) Mean Corpuscular Hemoglobin Concent 32.3 G/DL (32.0-36.0) Red Cell Distribution Width 15.2 % (11.6-14.8) H Platelet Count 412 K/UL (150-450) Mean Platelet Volume 5.9 FL (6.5-10.1) L Neutrophils (%) (Auto) 50.2 % (45.0-75.0) Lymphocytes (%) (Auto) 22.4 % (20.0-45.0) Monocytes (%) (Auto) 19.1 % (1.0-10.0) H Eosinophils (%) (Auto) 6.9 % (0.0-3.0) H Basophils (%) (Auto) 1.4 % (0.0-2.0) Sodium Level 137 MMOL/L (136-145) Potassium Level 3.2 MMOL/L (3.5-5.1) L Chloride Level 102 MMOL/L (98-107) Carbon Dioxide Level 28 MMOL/L (21-32) Anion Gap 7 mmol/L (5-15) Blood Urea Nitrogen 8 mg/dL (7-18) Creatinine 0.6 MG/DL (0.55-1.30) Estimat Glomerular Filtration Rate > 60 mL/min (>60) Glucose Level 144 MG/DL (74-106) #H Calcium Level 8.5 MG/DL (8.5-10.1) Vancomycin Level Trough 9.2 ug/mL (5.0-12.0) Current Medications Medications (Trade) Dose Ordered Sig/Danielle Route PRN Reason Start Time Stop Time Status Last Admin Dose Admin Acetaminophen (Tylenol) 650 mg Q4H PRN ORAL Fever (T>100.5F) 08/13/17 03:30 09/09/17 11:29 Aspirin (Ecotrin) 81 mg DAILY ORAL 08/13/17 09:00 09/10/17 08:59 08/18/17 09:45 Chlorhexidine Gluconate (Margarita-Hex 2%) 1 applic Q24HRS TOPIC 08/16/17 20:00 09/15/17 19:59 08/17/17 20:39 Dextrose (Dextrose 50%) STAT PRN IV Hypoglycemia 08/13/17 06:00 09/12/17 05:59 08/17/17 16:37 Diphenhydramine HCl (Benadryl) 25 mg Q6H PRN IVP Itching 08/18/17 08:45 09/17/17 08:44 08/18/17 09:45 Docusate Sodium (Colace) 100 mg TWICE A DAY ORAL 08/13/17 18:00 09/12/17 17:59 08/18/17 09:46 Gabapentin (Neurontin) 100 mg THREE TIMES A DAY ORAL 08/13/17 13:00 09/12/17 12:59 08/18/17 14:18 Heparin Sodium (Porcine) (Heparin 5000 units/ml) 5,000 units EVERY 12 HOURS SUBQ 08/13/17 09:00 09/09/17 20:59 08/18/17 09:47 Insulin Aspart (NovoLOG) BEFORE MEALS AND HS SUBQ 08/13/17 06:30 09/11/17 16:29 08/18/17 12:05 Insulin Aspart (NovoLOG) 4 units NOVOTIAC SUBQ 08/13/17 06:30 09/12/17 06:29 08/18/17 12:06 Insulin Detemir (Levemir) 8 units EVERY 12 HOURS SUBQ 08/17/17 09:00 09/16/17 08:59 08/18/17 09:49 Levofloxacin (Levaquin) 500 mg DAILY ORAL 08/15/17 16:00 08/18/17 15:59 08/18/17 09:46 Morphine Sulfate (Morphine Sulfate) 4 mg Q4H PRN IVP Severe Pain (Pain Scale 7-10) 08/17/17 18:00 08/24/17 17:59 08/18/17 14:18 Nitroglycerin (Ntg) 0.4 mg Q5M PRN SL Prn Chest Pain 08/13/17 00:30 09/09/17 11:29 Ondansetron HCl (Zofran) 4 mg Q6H PRN IVP Nausea & Vomiting 08/13/17 05:30 09/09/17 11:29 08/18/17 05:32 Pantoprazole (Protonix) 40 mg ACBREAKFAST ORAL 08/16/17 06:30 09/15/17 06:29 08/18/17 06:21 Polyethylene Glycol (Miralax) 17 gm DAILYPRN PRN ORAL Constipation 08/13/17 11:30 09/09/17 11:29 Promethazine HCl/ Codeine (Phenergan with Codeine) 5 ml Q6H PRN ORAL For Cough 08/13/17 05:15 09/10/17 23:14 08/13/17 03:13 Sennosides (Senokot) 8.6 mg DAILYPRN PRN ORAL Constipation 08/13/17 14:30 09/12/17 14:29 Vancomycin HCl (Vanco rx to dose) 1 ea DAILY PRN MISC Per rx protocol 08/16/17 16:45 09/15/17 16:44 Vancomycin HCl 1 gm/Dextrose 275 ml @ 183.708 mls/hr Q8HR IVPB 08/18/17 14:00 08/23/17 13:59 08/18/17 14:19 Richie Davis M.D. Aug 18, 2017 14:50
[2017-08-18 15:40] VITALS: BP 132/61
--- NOTE | 2017-08-18 17:42 | Pulmonology Progress Note ---
Assessment/Plan Problems: (1) DKA (diabetic ketoacidoses) (2) Diabetes mellitus Assessment/Plan improving tolerating diet sliding scale diabetic diet CT of chest in 4-6 month to rule out any growth of the nodules. Subjective ROS Limited/Unobtainable: No Constitutional: Reports: no symptoms HEENT: Repors: no symptoms Respiratory: Reports: no symptoms Allergies: Coded Allergies: PENICILLINS (Verified Allergy, Unknown, 08/10/17) [place] (Verified Allergy, Unknown, 08/10/17) Uncoded Allergies: [place] (Allergy, Unknown, 08/10/17) Objective Last 24 Hour Vital Signs Date Time Temp Pulse Resp B/P (MAP) Pulse Ox O2 Delivery O2 Flow Rate FiO2 08/18/17 15:40 97.6 83 20 132/61 98 Room Air 08/18/17 11:27 97.9 78 19 140/61 99 Room Air 08/18/17 07:52 97.7 77 19 154/67 100 Room Air 08/18/17 06:14 97.5 08/18/17 04:00 97.5 80 18 149/66 100 Room Air 08/17/17 23:59 97.7 75 18 118/52 97 Room Air 08/17/17 19:58 97.7 76 18 115/49 98 Room Air General Appearance: WD/WN, no acute distress HEENT: normocephalic, atraumatic, anicteric Respiratory/Chest: chest wall non-tender, lungs clear Abdomen: normal bowel sounds, soft, non tender Genitourinary: normal external genitalia Extremities: no cyanosis Skin: no rash Laboratory Tests 08/18/17 05:00: White Blood Count 6.9, Red Blood Count 3.40L, Hemoglobin 10.2L, Hematocrit 31.7L , Mean Corpuscular Volume 93, Mean Corpuscular Hemoglobin 30.1, Mean Corpuscular Hemoglobin Concent 32.3, Red Cell Distribution Width 15.2H, Platelet Count 412, Mean Platelet Volume 5.9L, Neutrophils (%) (Auto) 50.2, Lymphocytes (%) (Auto) 22.4, Monocytes (%) (Auto) 19.1H, Eosinophils (%) (Auto) 6.9H, Basophils (%) (Auto) 1.4, Sodium Level 137, Potassium Level 3.2L, Chloride Level 102, Carbon Dioxide Level 28, Anion Gap 7, Blood Urea Nitrogen 8 , Creatinine 0.6, Estimat Glomerular Filtration Rate > 60, Glucose Level 144#H, Calcium Level 8.5, Vancomycin Level Trough 9.2 Current Medications Medications (Trade) Dose Ordered Sig/Danielle Route PRN Reason Start Time Stop Time Status Last Admin Dose Admin Acetaminophen (Tylenol) 650 mg Q4H PRN ORAL Fever (T>100.5F) 08/13/17 03:30 09/09/17 11:29 Aspirin (Ecotrin) 81 mg DAILY ORAL 08/13/17 09:00 09/10/17 08:59 08/18/17 09:45 Chlorhexidine Gluconate (Margarita-Hex 2%) 1 applic Q24HRS TOPIC 08/16/17 20:00 09/15/17 19:59 08/17/17 20:39 Dextrose (Dextrose 50%) STAT PRN IV Hypoglycemia 08/13/17 06:00 09/12/17 05:59 08/17/17 16:37 Diphenhydramine HCl (Benadryl) 25 mg Q6H PRN IVP Itching 08/18/17 08:45 09/17/17 08:44 08/18/17 15:50 Docusate Sodium (Colace) 100 mg TWICE A DAY ORAL 08/13/17 18:00 09/12/17 17:59 08/18/17 17:34 Gabapentin (Neurontin) 100 mg THREE TIMES A DAY ORAL 08/13/17 13:00 09/12/17 12:59 08/18/17 17:34 Heparin Sodium (Porcine) (Heparin 5000 units/ml) 5,000 units EVERY 12 HOURS SUBQ 08/13/17 09:00 09/09/17 20:59 08/18/17 09:47 Insulin Aspart (NovoLOG) BEFORE MEALS AND HS SUBQ 08/13/17 06:30 09/11/17 16:29 08/18/17 17:07 Insulin Aspart (NovoLOG) 4 units NOVOTIAC SUBQ 08/13/17 06:30 09/12/17 06:29 08/18/17 17:06 Insulin Detemir (Levemir) 8 units EVERY 12 HOURS SUBQ 08/17/17 09:00 09/16/17 08:59 08/18/17 09:49 Morphine Sulfate (Morphine Sulfate) 4 mg Q4H PRN IVP Severe Pain (Pain Scale 7-10) 08/17/17 18:00 08/24/17 17:59 08/18/17 14:18 Nitroglycerin (Ntg) 0.4 mg Q5M PRN SL Prn Chest Pain 08/13/17 00:30 09/09/17 11:29 Ondansetron HCl (Zofran) 4 mg Q6H PRN IVP Nausea & Vomiting 08/13/17 05:30 09/09/17 11:29 08/18/17 05:32 Pantoprazole (Protonix) 40 mg ACBREAKFAST ORAL 08/16/17 06:30 09/15/17 06:29 08/18/17 06:21 Polyethylene Glycol (Miralax) 17 gm DAILYPRN PRN ORAL Constipation 08/13/17 11:30 09/09/17 11:29 Promethazine HCl/ Codeine (Phenergan with Codeine) 5 ml Q6H PRN ORAL For Cough 08/13/17 05:15 09/10/17 23:14 08/13/17 03:13 Sennosides (Senokot) 8.6 mg DAILYPRN PRN ORAL Constipation 08/13/17 14:30 09/12/17 14:29 Vancomycin HCl (Vanco rx to dose) 1 ea DAILY PRN MISC Per rx protocol 08/16/17 16:45 09/15/17 16:44 Vancomycin HCl 1 gm/Dextrose 275 ml @ 183.708 mls/hr Q8HR IVPB 08/18/17 14:00 08/23/17 13:59 08/18/17 14:19 YUVAL MAYA Aug 18, 2017 17:42
--- NOTE | 2017-08-18 19:11 | Cardiology Progress Note ---
Assessment/Plan Assessment/Plan 1. Sinus tachycardia resolved, normal LVEF at 55%. 2, Bacteremia with Staph Epidermidis, possibly contamination. 4. Diabetic ketoacidosis, resolved. 5. History of coronary artery disease, normal EF with no WMA. Subjective Subjective Denies chest pain or SOB. No cardiac events. Objective Last 24 Hour Vital Signs Date Time Temp Pulse Resp B/P (MAP) Pulse Ox O2 Delivery O2 Flow Rate FiO2 08/18/17 15:40 97.6 83 20 132/61 98 Room Air 08/18/17 11:27 97.9 78 19 140/61 99 Room Air 08/18/17 07:52 97.7 77 19 154/67 100 Room Air 08/18/17 06:14 97.5 08/18/17 04:00 97.5 80 18 149/66 100 Room Air 08/17/17 23:59 97.7 75 18 118/52 97 Room Air 08/17/17 19:58 97.7 76 18 115/49 98 Room Air Intake and Output 08/18/17 08/19/17 19:00 07:00 Intake Total 620 ml Output Total 1500 ml Balance -880 ml Intake Oral 620 ml Output Urine Total 1500 ml 2D Echo: LVEF 55%, Mild LVH, Mod MR, Grade I LVDD, RVSP 30 mmHg Laboratory Tests Test 08/18/17 05:00 White Blood Count 6.9 K/UL (4.8-10.8) Red Blood Count 3.40 M/UL (4.20-5.40) L Hemoglobin 10.2 G/DL (12.0-16.0) L Hematocrit 31.7 % (37.0-47.0) L Mean Corpuscular Volume 93 FL (80-99) Mean Corpuscular Hemoglobin 30.1 PG (27.0-31.0) Mean Corpuscular Hemoglobin Concent 32.3 G/DL (32.0-36.0) Red Cell Distribution Width 15.2 % (11.6-14.8) H Platelet Count 412 K/UL (150-450) Mean Platelet Volume 5.9 FL (6.5-10.1) L Neutrophils (%) (Auto) 50.2 % (45.0-75.0) Lymphocytes (%) (Auto) 22.4 % (20.0-45.0) Monocytes (%) (Auto) 19.1 % (1.0-10.0) H Eosinophils (%) (Auto) 6.9 % (0.0-3.0) H Basophils (%) (Auto) 1.4 % (0.0-2.0) Sodium Level 137 MMOL/L (136-145) Potassium Level 3.2 MMOL/L (3.5-5.1) L Chloride Level 102 MMOL/L (98-107) Carbon Dioxide Level 28 MMOL/L (21-32) Anion Gap 7 mmol/L (5-15) Blood Urea Nitrogen 8 mg/dL (7-18) Creatinine 0.6 MG/DL (0.55-1.30) Estimat Glomerular Filtration Rate > 60 mL/min (>60) Glucose Level 144 MG/DL (74-106) #H Calcium Level 8.5 MG/DL (8.5-10.1) Vancomycin Level Trough 9.2 ug/mL (5.0-12.0) Objective HEENT: Atraumatic and normocephalic. Anicteric. Pupils are equal, round, and reactive to light and accommodation. Extraocular movements are intact. NECK: JVP less than 5 centimeter. No carotid bruit. Carotid upstrokes 2+ bilaterally. CARDIOVASCULAR: Normal S1 and S2, No murmurs, gallops, or rubs. PMI is in the fourth intercostal space in the midclavicular line. LUNGS: There is crackles diffusely especially in both bases. ABDOMEN: Soft, nontender, and nondistended. No hepatosplenomegaly. Positive bowel sounds. EXTREMITIES: No evidence of edema, clubbing, or cyanosis. TAMAR CONNELL Aug 18, 2017 19:11
[2017-08-18 20:00] VITALS: BP 147/70
[2017-08-18] MEDS: Dyna-Hex 2% Top Sol 2oz TOPIC SCH (20:04)
[2017-08-19] VITALS: BP 109/51
[2017-08-19] MEDS: Morphine Sulfate 4mg/ml Inj IVP PRN ×4 (00:35→20:56)
[2017-08-19] MEDS: DiphenhydrAMINE 50mg/ml Inj IVP PRN ×3 (00:35→17:37)
[2017-08-19 03:19] VITALS: BP 118/59
[2017-08-19] MEDS: NovoLOG Insulin Flexpen SUBQ SCH ×7 (06:24→21:00)
[2017-08-19] MEDS: Vancomycin 1gm in Dextrose 275ml IVPB SCH ×3 (06:31→20:56)
[2017-08-19 06:54] LABS: BASOPHILS % (AUTO) 1.6 % (0.0-2.0); EOSINOPHILS % (AUTO) 7.2 % (0.0-3.0); LYMPHOCYTES % (AUTO) 20.1 % (20.0-45.0); MEAN CORPUSCULAR HEMOGLOBIN 29.1 PG (27.0-31.0); MEAN CORPUSCULAR HGB CONC 30.6 G/DL (32.0-36.0); MEAN CORPUSCULAR VOLUME 95 FL (80-99); MEAN PLATELET VOLUME 5.2 FL (6.5-10.1); MONOCYTES % (AUTO) 19.1 % (1.0-10.0); NEUTROPHILS % (AUTO) 52.1 % (45.0-75.0); PLATELET COUNT 417 K/UL (150-450); RED BLOOD COUNT 3.37 M/UL (4.20-5.40); RED CELL DISTRIBUTION WIDTH 14.7 % (11.6-14.8)
[2017-08-19 07:08] LABS: ANION GAP 11 mmol/L (5-15); CALCIUM 8.9 MG/DL (8.5-10.1); CARBON DIOXIDE 27 MMOL/L (21-32); CHLORIDE 97 MMOL/L (98-107); CREATININE 0.6 MG/DL (0.55-1.30); GLOMERULAR FILTRATION RATE > 60 mL/min (>60); POTASSIUM 3.4 MMOL/L (3.5-5.1); SODIUM 135 MMOL/L (136-145)
[2017-08-19 08:00] VITALS: BP 129/61
--- NOTE | 2017-08-19 08:12 | General Progress Note ---
Assessment/Plan Problem List: (1) DKA (diabetic ketoacidoses) ICD Codes: E13.10 - Other specified diabetes mellitus with ketoacidosis without coma SNOMED: 666100096, 46453372 (2) Diabetes mellitus ICD Codes: E11.9 - Type 2 diabetes mellitus without complications SNOMED: 24896283 (3) Right upper lobe consolidation ICD Codes: J18.1 - Lobar pneumonia, unspecified organism SNOMED: 36747640 (4) Sepsis ICD Codes: A41.9 - Sepsis, unspecified organism SNOMED: 67232067 Assessment/Plan continue Levemir 8 units bid continue Novolog 4 units ac tid continue SSI Subjective ROS Limited/Unobtainable: Yes Allergies: Coded Allergies: PENICILLINS (Verified Allergy, Unknown, 08/10/17) [place] (Verified Allergy, Unknown, 08/10/17) Uncoded Allergies: [place] (Allergy, Unknown, 08/10/17) Subjective events noted Objective Last 24 Hour Vital Signs Date Time Temp Pulse Resp B/P (MAP) Pulse Ox O2 Delivery O2 Flow Rate FiO2 08/19/17 05:12 97.9 08/19/17 03:19 97.9 82 20 118/59 98 Room Air 08/19/17 00:00 99.0 84 19 109/51 97 Room Air 08/18/17 20:00 98.6 86 19 147/70 100 Room Air 08/18/17 15:40 97.6 83 20 132/61 98 Room Air 08/18/17 11:27 97.9 78 19 140/61 99 Room Air Laboratory Tests 08/19/17 05:20: White Blood Count 9.0, Red Blood Count 3.37L, Hemoglobin 9.8L, Hematocrit 32.0L , Mean Corpuscular Volume 95, Mean Corpuscular Hemoglobin 29.1, Mean Corpuscular Hemoglobin Concent 30.6L, Red Cell Distribution Width 14.7, Platelet Count 417, Mean Platelet Volume 5.2L, Neutrophils (%) (Auto) 52.1, Lymphocytes (%) (Auto) 20.1, Monocytes (%) (Auto) 19.1H, Eosinophils (%) (Auto) 7.2H, Basophils (%) (Auto) 1.6, Sodium Level 135L, Potassium Level 3.4L, Chloride Level 97L, Carbon Dioxide Level 27, Anion Gap 11, Blood Urea Nitrogen 8 , Creatinine 0.6, Estimat Glomerular Filtration Rate > 60, Glucose Level 138H, Calcium Level 8.9 Height (Feet): 5 Height (Inches): 6.00 Weight (Pounds): 122 General Appearance: no apparent distress Neck: normal alignment Cardiovascular: normal rate Respiratory/Chest: lungs clear Abdomen: normal bowel sounds Pelvis: normal external exam Edema: 1+ Arm (L), 1+ Arm (R), 1+ Leg (L), 1+ Leg (R), 1+ Pedal (L), 1+ Pedal ( R), 1+ Generalized Objective Current Medications Medications (Trade) Dose Ordered Sig/Danielle Route PRN Reason Start Time Stop Time Status Last Admin Dose Admin Acetaminophen (Tylenol) 650 mg Q4H PRN ORAL Fever (T>100.5F) 08/13/17 03:30 09/09/17 11:29 Aspirin (Ecotrin) 81 mg DAILY ORAL 08/13/17 09:00 09/10/17 08:59 08/18/17 09:45 Chlorhexidine Gluconate (Margarita-Hex 2%) 1 applic Q24HRS TOPIC 08/16/17 20:00 09/15/17 19:59 08/18/17 20:04 Dextrose (Dextrose 50%) STAT PRN IV Hypoglycemia 08/13/17 06:00 09/12/17 05:59 08/17/17 16:37 Diphenhydramine HCl (Benadryl) 25 mg Q6H PRN IVP Itching 08/18/17 08:45 09/17/17 08:44 08/19/17 06:33 Docusate Sodium (Colace) 100 mg TWICE A DAY ORAL 08/13/17 18:00 09/12/17 17:59 08/18/17 17:34 Gabapentin (Neurontin) 100 mg THREE TIMES A DAY ORAL 08/13/17 13:00 09/12/17 12:59 08/18/17 17:34 Heparin Sodium (Porcine) (Heparin 5000 units/ml) 5,000 units EVERY 12 HOURS SUBQ 08/13/17 09:00 09/09/17 20:59 08/18/17 21:30 Insulin Aspart (NovoLOG) BEFORE MEALS AND HS SUBQ 08/13/17 06:30 09/11/17 16:29 08/19/17 06:24 Insulin Aspart (NovoLOG) 4 units NOVOTIAC SUBQ 08/13/17 06:30 09/12/17 06:29 08/19/17 06:24 Insulin Detemir (Levemir) 8 units EVERY 12 HOURS SUBQ 08/17/17 09:00 09/16/17 08:59 08/18/17 21:30 Morphine Sulfate (Morphine Sulfate) 4 mg Q4H PRN IVP Severe Pain (Pain Scale 7-10) 08/17/17 18:00 08/24/17 17:59 08/19/17 04:42 Nitroglycerin (Ntg) 0.4 mg Q5M PRN SL Prn Chest Pain 08/13/17 00:30 09/09/17 11:29 Ondansetron HCl (Zofran) 4 mg Q6H PRN IVP Nausea & Vomiting 08/13/17 05:30 09/09/17 11:29 08/18/17 05:32 Pantoprazole (Protonix) 40 mg ACBREAKFAST ORAL 08/16/17 06:30 09/15/17 06:29 08/19/17 06:31 Polyethylene Glycol (Miralax) 17 gm DAILYPRN PRN ORAL Constipation 08/13/17 11:30 09/09/17 11:29 Promethazine HCl/ Codeine (Phenergan with Codeine) 5 ml Q6H PRN ORAL For Cough 08/13/17 05:15 09/10/17 23:14 08/13/17 03:13 Sennosides (Senokot) 8.6 mg DAILYPRN PRN ORAL Constipation 08/13/17 14:30 09/12/17 14:29 Vancomycin HCl (Vanco rx to dose) 1 ea DAILY PRN MISC Per rx protocol 08/16/17 16:45 09/15/17 16:44 Vancomycin HCl 1 gm/Dextrose 275 ml @ 183.708 mls/hr Q8HR IVPB 08/18/17 14:00 08/23/17 13:59 08/19/17 06:31 Item Value Date Time Bedside Blood Glucose 129 mg/dl H 08/19/17 0624 Bedside Blood Glucose 438 mg/dl H 08/18/17 2131 Bedside Blood Glucose 340 mg/dl H 08/18/17 1707 Bedside Blood Glucose 192 mg/dl H 08/18/17 1206 Bedside Blood Glucose 217 mg/dl H 08/18/17 0949 Bedside Blood Glucose 155 mg/dl H 08/18/17 0648 EMA VALENCIA Aug 19, 2017 08:12
[2017-08-19] MEDS: Docusate 100mg cap ORAL SCH ×2 (09:00→18:06)
[2017-08-19] MEDS: Aspirin EC 81mg tab ORAL SCH (10:34)
[2017-08-19] MEDS: Heparin 5000 units/ml inj SUBQ SCH ×2 (10:40→20:58)
[2017-08-19] MEDS: Levemir Flexpen SUBQ SCH ×2 (10:43→20:58)
[2017-08-19 12:00] VITALS: BP 110/56
--- NOTE | 2017-08-19 15:23 | Infectious Diseases Prog Note ---
Assessment/Plan Problems: (1) Sepsis Assessment & Plan: with coag negative staph , repeated blood culture is positive for staph epidermidis most likely contaminant , on vancomycin , will repeat blood culture to confirm clearance. will treat with vancomycin for 4 weeks total starting from the repeated negative blood culture , will remove femoral line tomorrow and place a new PICC line if blood culture remains negative for 48 hours . 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 , screening for fungal infection is in progress (3) DKA (diabetic ketoacidoses) Assessment & Plan: continue insuline , with tight glycemic control to keep blood sugar between 80-120 (4) Diabetes mellitus Assessment & Plan: poorly controlled, recommend tight glycemic control to keep blood glucose between 80-120 , and follow up with endocrinology (5) Pulmonary nodules Assessment & Plan: in the [place], recommend follow up CT in 6 months , and 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 (6) Fever Assessment & Plan: suspect due to picc line , will remove in am, repeat blood culture, and continue vancomycin Subjective Constitutional: Reports: no symptoms HEENT: Reports: no symptoms Respiratory: Reports: no symptoms Cardiovascular: Reports: no symptoms Gastrointestinal/Abdominal: Reports: no symptoms Genitourinary: Reports: no symptoms Neurologic: Reports: no symptoms Psychiatric: Reports: no symptoms Skin: Reports: no symptoms Endocrine: Reports: no symptoms Hematologic: Reports: no symptoms Musculoskeletal: Reports: no symptoms Allergies: Coded Allergies: [place]ENICILLINS (Verified Allergy, Unknown, 08/10/17) [place] (Verified Allergy, Unknown, 08/10/17) Uncoded Allergies: [place] (Allergy, Unknown, 08/10/17) Objective Vital Signs Last 24 Hour Vital Signs Date Time Temp Pulse Resp B/P (MAP) Pulse Ox O2 Delivery O2 Flow Rate FiO2 08/19/17 13:21 98.3 08/19/17 12:00 100.4 83 21 110/56 100 Room Air 08/19/17 08:00 95.4 90 20 129/61 100 Room Air 08/19/17 05:12 97.9 08/19/17 03:19 97.9 82 20 118/59 98 Room Air 08/19/17 00:00 99.0 84 19 109/51 97 Room Air 08/18/17 20:00 98.6 86 19 147/70 100 Room Air 08/18/17 15:40 97.6 83 20 132/61 98 Room Air Height (Feet): 5 Height (Inches): 6.00 Weight (Pounds): 122 General Appearance: WD/WN, no acute distress HEENT: normocephalic, atraumatic, anicteric, mucous membranes moist Respiratory/Chest: chest wall non-tender, lungs clear, normal breath sounds, no respiratory distress, no accessory muscle use Cardiovascular: normal peripheral pulses, normal rate, regular rhythm, no gallop/murmur, no JVD Abdomen: normal bowel sounds, soft, non tender, no organomegaly, non distended , no mass Extremities: no cyanosis, no clubbing Skin: no rash, no lesions Neurologic/Psychiatric: alert, oriented x 3 Lymphatic: no neck adenopathy, no groin adenopathy Microbiology Date/Time Source Procedure Growth Status 08/17/17 19:20 Blood Blood Culture - Preliminary NO GROWTH AFTER 24 HOURS Resulted 08/17/17 18:45 Blood Blood Culture - Preliminary NO GROWTH AFTER 24 HOURS Resulted Laboratory Tests Test 08/19/17 05:20 White Blood Count 9.0 K/UL (4.8-10.8) Red Blood Count 3.37 M/UL (4.20-5.40) L Hemoglobin 9.8 G/DL (12.0-16.0) L Hematocrit 32.0 % (37.0-47.0) L Mean Corpuscular Volume 95 FL (80-99) Mean Corpuscular Hemoglobin 29.1 PG (27.0-31.0) Mean Corpuscular Hemoglobin Concent 30.6 G/DL (32.0-36.0) L Red Cell Distribution Width 14.7 % (11.6-14.8) Platelet Count 417 K/UL (150-450) Mean Platelet Volume 5.2 FL (6.5-10.1) L Neutrophils (%) (Auto) 52.1 % (45.0-75.0) Lymphocytes (%) (Auto) 20.1 % (20.0-45.0) Monocytes (%) (Auto) 19.1 % (1.0-10.0) H Eosinophils (%) (Auto) 7.2 % (0.0-3.0) H Basophils (%) (Auto) 1.6 % (0.0-2.0) Sodium Level 135 MMOL/L (136-145) L Potassium Level 3.4 MMOL/L (3.5-5.1) L Chloride Level 97 MMOL/L (98-107) L Carbon Dioxide Level 27 MMOL/L (21-32) Anion Gap 11 mmol/L (5-15) Blood Urea Nitrogen 8 mg/dL (7-18) Creatinine 0.6 MG/DL (0.55-1.30) Estimat Glomerular Filtration Rate > 60 mL/min (>60) Glucose Level 138 MG/DL (74-106) H Calcium Level 8.9 MG/DL (8.5-10.1) Current Medications Medications (Trade) Dose Ordered Sig/Danielle Route PRN Reason Start Time Stop Time Status Last Admin Dose Admin Acetaminophen (Tylenol) 650 mg Q4H PRN ORAL Fever (T>100.5F) 08/13/17 03:30 09/09/17 11:29 08/19/17 12:22 Aspirin (Ecotrin) 81 mg DAILY ORAL 08/13/17 09:00 09/10/17 08:59 08/19/17 10:34 Chlorhexidine Gluconate (Margarita-Hex 2%) 1 applic Q24HRS TOPIC 08/16/17 20:00 09/15/17 19:59 08/18/17 20:04 Dextrose (Dextrose 50%) STAT PRN IV Hypoglycemia 08/13/17 06:00 09/12/17 05:59 08/17/17 16:37 Diphenhydramine HCl (Benadryl) 25 mg Q6H PRN IVP Itching 08/18/17 08:45 09/17/17 08:44 08/19/17 06:33 Docusate Sodium (Colace) 100 mg TWICE A DAY ORAL 08/13/17 18:00 09/12/17 17:59 08/18/17 17:34 Gabapentin (Neurontin) 100 mg THREE TIMES A DAY ORAL 08/13/17 13:00 09/12/17 12:59 08/19/17 13:48 Heparin Sodium (Porcine) (Heparin 5000 units/ml) 5,000 units EVERY 12 HOURS SUBQ 08/13/17 09:00 09/09/17 20:59 08/19/17 10:40 Insulin Aspart (NovoLOG) BEFORE MEALS AND HS SUBQ 08/13/17 06:30 09/11/17 16:29 08/19/17 06:24 Insulin Aspart (NovoLOG) 4 units NOVOTIAC SUBQ 08/13/17 06:30 09/12/17 06:29 08/19/17 12:23 Insulin Detemir (Levemir) 8 units EVERY 12 HOURS SUBQ 08/17/17 09:00 09/16/17 08:59 08/19/17 10:43 Morphine Sulfate (Morphine Sulfate) 4 mg Q4H PRN IVP Severe Pain (Pain Scale 7-10) 08/17/17 18:00 08/24/17 17:59 08/19/17 10:34 Nitroglycerin (Ntg) 0.4 mg Q5M PRN SL Prn Chest Pain 08/13/17 00:30 09/09/17 11:29 Ondansetron HCl (Zofran) 4 mg Q6H PRN IVP Nausea & Vomiting 08/13/17 05:30 09/09/17 11:29 08/18/17 05:32 Pantoprazole (Protonix) 40 mg ACBREAKFAST ORAL 08/16/17 06:30 09/15/17 06:29 08/19/17 06:31 Polyethylene Glycol (Miralax) 17 gm DAILYPRN PRN ORAL Constipation 08/13/17 11:30 09/09/17 11:29 Promethazine HCl/ Codeine (Phenergan with Codeine) 5 ml Q6H PRN ORAL For Cough 08/13/17 05:15 09/10/17 23:14 08/13/17 03:13 Sennosides (Senokot) 8.6 mg DAILYPRN PRN ORAL Constipation 08/13/17 14:30 09/12/17 14:29 Vancomycin HCl (Vanco rx to dose) 1 ea DAILY PRN MISC Per rx protocol 08/16/17 16:45 09/15/17 16:44 Vancomycin HCl 1 gm/Dextrose 275 ml @ 183.708 mls/hr Q8HR IVPB 08/18/17 14:00 08/23/17 13:59 08/19/17 13:49 Richie aDvis M.D. Aug 19, 2017 15:23
--- NOTE | 2017-08-19 15:25 | General Progress Note ---
Assessment/Plan Problem List: (1) Diabetes mellitus ICD Codes: E11.9 - Type 2 diabetes mellitus without complications SNOMED: 46186877 (2) Right upper lobe consolidation ICD Codes: J18.1 - Lobar pneumonia, unspecified organism SNOMED: 52929071 (3) DKA (diabetic ketoacidoses) ICD Codes: E13.10 - Other specified diabetes mellitus with ketoacidosis without coma SNOMED: 825138373, 53590525 (4) Sepsis ICD Codes: A41.9 - Sepsis, unspecified organism SNOMED: 81244710 (5) Pulmonary nodules ICD Codes: R91.8 - Other nonspecific abnormal finding of lung field SNOMED: 518287201 Status: stable, progressing, tolerating diet Assessment/Plan ot pt diet abx bs control endo f/u dc to snf Subjective Constitutional: Reports: weakness Allergies: Coded Allergies: [place] (Verified Allergy, Unknown, 08/10/17) [place] (Verified Allergy, Unknown, 08/10/17) Uncoded Allergies: [place] (Allergy, Unknown, 08/10/17) All Systems: reviewed and negative except above Subjective sleepy calm Objective Last 24 Hour Vital Signs Date Time Temp Pulse Resp B/P (MAP) Pulse Ox O2 Delivery O2 Flow Rate FiO2 08/19/17 13:21 98.3 08/19/17 12:00 100.4 83 21 110/56 100 Room Air 08/19/17 08:00 95.4 90 20 129/61 100 Room Air 08/19/17 05:12 97.9 08/19/17 03:19 97.9 82 20 118/59 98 Room Air 08/19/17 00:00 99.0 84 19 109/51 97 Room Air 08/18/17 20:00 98.6 86 19 147/70 100 Room Air 08/18/17 15:40 97.6 83 20 132/61 98 Room Air Intake and Output 08/19/17 08/20/17 19:00 07:00 Intake Total 260 ml Balance 260 ml Intake Oral 260 ml Laboratory Tests 08/19/17 05:20: White Blood Count 9.0, Red Blood Count 3.37L, Hemoglobin 9.8L, Hematocrit 32.0L , Mean Corpuscular Volume 95, Mean Corpuscular Hemoglobin 29.1, Mean Corpuscular Hemoglobin Concent 30.6L, Red Cell Distribution Width 14.7, Platelet Count 417, Mean Platelet Volume 5.2L, Neutrophils (%) (Auto) 52.1, Lymphocytes (%) (Auto) 20.1, Monocytes (%) (Auto) 19.1H, Eosinophils (%) (Auto) 7.2H, Basophils (%) (Auto) 1.6, Sodium Level 135L, Potassium Level 3.4L, Chloride Level 97L, Carbon Dioxide Level 27, Anion Gap 11, Blood Urea Nitrogen 8 , Creatinine 0.6, Estimat Glomerular Filtration Rate > 60, Glucose Level 138H, Calcium Level 8.9 Height (Feet): 5 Height (Inches): 6.00 Weight (Pounds): 122 General Appearance: lethargic EENT: normal ENT inspection Neck: normal alignment Cardiovascular: normal peripheral pulses, normal rate, regular rhythm Respiratory/Chest: chest wall non-tender, lungs clear, normal breath sounds Abdomen: normal bowel sounds, non tender, soft Extremities: normal inspection Edema: no edema noted Arm (L), no edema noted Arm (R), no edema noted Leg (L), no edema noted Leg (R), no edema noted Pedal (L), no edema noted Pedal (R), no edema noted Generalized Neurologic: motor weakness Skin: normal pigmentation, warm/dry MANDIE PUENTE Aug 19, 2017 15:25
[2017-08-19 16:00] VITALS: BP 133/67
--- NOTE | 2017-08-19 18:47 | Pulmonology Progress Note ---
Assessment/Plan Problems: (1) DKA (diabetic ketoacidoses) (2) Diabetes mellitus Assessment/Plan improving tolerating diet sliding scale diabetic diet CT of chest in 4-6 month to rule out any growth of the nodules. ok to dc to [facility] Subjective ROS Limited/Unobtainable: No Constitutional: Reports: no symptoms HEENT: Repors: no symptoms Respiratory: Reports: no symptoms Allergies: Coded Allergies: PENICILLINS (Verified Allergy, Unknown, 08/10/17) [place] (Verified Allergy, Unknown, 08/10/17) Uncoded Allergies: [place] (Allergy, Unknown, 08/10/17) Objective Last 24 Hour Vital Signs Date Time Temp Pulse Resp B/P (MAP) Pulse Ox O2 Delivery O2 Flow Rate FiO2 08/19/17 16:00 98.1 85 20 133/67 99 Room Air 08/19/17 13:21 98.3 08/19/17 12:00 100.4 83 21 110/56 100 Room Air 08/19/17 08:00 95.4 90 20 129/61 100 Room Air 08/19/17 05:12 97.9 08/19/17 03:19 97.9 82 20 118/59 98 Room Air 08/19/17 00:00 99.0 84 19 109/51 97 Room Air 08/18/17 20:00 98.6 86 19 147/70 100 Room Air Intake and Output 08/19/17 08/20/17 19:00 07:00 Intake Total 380 ml Output Total 2150 ml Balance -1770 ml Intake Oral 380 ml Output Urine Total 2150 ml Objective General Appearance: WD/WN, no apparent distress Lines, tubes and drains: peripheral, HEENT: normocephalic, anicteric Neck: non-tender, normal alignment Respiratory/Chest: chest wall non-tender, lungs clear Cardiovascular/Chest: normal rate, regular rhythm Abdomen: non tender, soft Genitourinary/Rectal: normal genital exam, normal rectal exam Extremities: normal range of motion, non-pitting General Appearance: WD/WN HEENT: normocephalic Microbiology Date/Time Source Procedure Growth Status 08/17/17 19:20 Blood Blood Culture - Preliminary NO GROWTH AFTER 24 HOURS Resulted 08/17/17 18:45 Blood Blood Culture - Preliminary NO GROWTH AFTER 24 HOURS Resulted Laboratory Tests 08/19/17 05:20: White Blood Count 9.0, Red Blood Count 3.37L, Hemoglobin 9.8L, Hematocrit 32.0L , Mean Corpuscular Volume 95, Mean Corpuscular Hemoglobin 29.1, Mean Corpuscular Hemoglobin Concent 30.6L, Red Cell Distribution Width 14.7, Platelet Count 417, Mean Platelet Volume 5.2L, Neutrophils (%) (Auto) 52.1, Lymphocytes (%) (Auto) 20.1, Monocytes (%) (Auto) 19.1H, Eosinophils (%) (Auto) 7.2H, Basophils (%) (Auto) 1.6, Sodium Level 135L, Potassium Level 3.4L, Chloride Level 97L, Carbon Dioxide Level 27, Anion Gap 11, Blood Urea Nitrogen 8 , Creatinine 0.6, Estimat Glomerular Filtration Rate > 60, Glucose Level 138H, Calcium Level 8.9 Current Medications Medications (Trade) Dose Ordered Sig/Danielle Route PRN Reason Start Time Stop Time Status Last Admin Dose Admin Acetaminophen (Tylenol) 650 mg Q4H PRN ORAL Fever (T>100.5F) 08/13/17 03:30 09/09/17 11:29 08/19/17 12:22 Aspirin (Ecotrin) 81 mg DAILY ORAL 08/13/17 09:00 09/10/17 08:59 08/19/17 10:34 Chlorhexidine Gluconate (Margarita-Hex 2%) 1 applic Q24HRS TOPIC 08/16/17 20:00 09/15/17 19:59 08/18/17 20:04 Dextrose (Dextrose 50%) STAT PRN IV Hypoglycemia 08/13/17 06:00 09/12/17 05:59 08/17/17 16:37 Diphenhydramine HCl (Benadryl) 25 mg Q6H PRN IVP Itching 08/18/17 08:45 09/17/17 08:44 08/19/17 17:37 Docusate Sodium (Colace) 100 mg TWICE A DAY ORAL 08/13/17 18:00 09/12/17 17:59 08/19/17 18:06 Gabapentin (Neurontin) 100 mg THREE TIMES A DAY ORAL 08/13/17 13:00 09/12/17 12:59 08/19/17 18:06 Heparin Sodium (Porcine) (Heparin 5000 units/ml) 5,000 units EVERY 12 HOURS SUBQ 08/13/17 09:00 09/09/17 20:59 08/19/17 10:40 Insulin Aspart (NovoLOG) BEFORE MEALS AND HS SUBQ 08/13/17 06:30 09/11/17 16:29 08/19/17 17:29 Insulin Aspart (NovoLOG) 4 units NOVOTIAC SUBQ 08/13/17 06:30 09/12/17 06:29 08/19/17 18:35 Insulin Detemir (Levemir) 8 units EVERY 12 HOURS SUBQ 08/17/17 09:00 09/16/17 08:59 08/19/17 10:43 Morphine Sulfate (Morphine Sulfate) 4 mg Q4H PRN IVP Severe Pain (Pain Scale 7-10) 08/17/17 18:00 08/24/17 17:59 08/19/17 10:34 Nitroglycerin (Ntg) 0.4 mg Q5M PRN SL Prn Chest Pain 08/13/17 00:30 09/09/17 11:29 Ondansetron HCl (Zofran) 4 mg Q6H PRN IVP Nausea & Vomiting 08/13/17 05:30 09/09/17 11:29 08/18/17 05:32 Pantoprazole (Protonix) 40 mg ACBREAKFAST ORAL 08/16/17 06:30 09/15/17 06:29 08/19/17 06:31 Polyethylene Glycol (Miralax) 17 gm DAILYPRN PRN ORAL Constipation 08/13/17 11:30 09/09/17 11:29 Promethazine HCl/ Codeine (Phenergan with Codeine) 5 ml Q6H PRN ORAL For Cough 08/13/17 05:15 09/10/17 23:14 08/13/17 03:13 Sennosides (Senokot) 8.6 mg DAILYPRN PRN ORAL Constipation 08/13/17 14:30 09/12/17 14:29 Vancomycin HCl (Vanco rx to dose) 1 ea DAILY PRN MISC Per rx protocol 08/16/17 16:45 09/15/17 16:44 Vancomycin HCl 1 gm/Dextrose 275 ml @ 183.708 mls/hr Q8HR IVPB 08/18/17 14:00 08/23/17 13:59 08/19/17 13:49 YUVAL MAYA Aug 19, 2017 18:47
[2017-08-19 20:00] VITALS: BP 145/70
[2017-08-19] MEDS: Dyna-Hex 2% Top Sol 2oz TOPIC SCH (20:56)
[2017-08-20 00:09] VITALS: BP 136/60
[2017-08-20] MEDS: Morphine Sulfate 4mg/ml Inj IVP PRN ×5 (01:21→21:33)
[2017-08-20 04:00] VITALS: BP 130/79
[2017-08-20] MEDS: DiphenhydrAMINE 50mg/ml Inj IVP PRN ×3 (06:14→23:41)
[2017-08-20] MEDS: Vancomycin 1gm in Dextrose 275ml IVPB SCH ×3 (06:15→21:32)
[2017-08-20] MEDS: NovoLOG Insulin Flexpen SUBQ SCH ×7 (06:16→21:41)
[2017-08-20 08:00] VITALS: BP 117/58
[2017-08-20] MEDS: Aspirin EC 81mg tab ORAL SCH (09:41)
[2017-08-20] MEDS: Docusate 100mg cap ORAL SCH ×2 (09:41→17:30)
[2017-08-20] MEDS: Heparin 5000 units/ml inj SUBQ SCH ×2 (09:45→21:40)
[2017-08-20] MEDS: Levemir Flexpen SUBQ SCH ×2 (09:58→21:42)
[2017-08-20 12:00] VITALS: BP 136/58
--- NOTE | 2017-08-20 13:36 | General Progress Note ---
Assessment/Plan Problem List: (1) Diabetes mellitus ICD Codes: E11.9 - Type 2 diabetes mellitus without complications SNOMED: 85089761 (2) Right upper lobe consolidation ICD Codes: J18.1 - Lobar pneumonia, unspecified organism SNOMED: 10459177 (3) DKA (diabetic ketoacidoses) ICD Codes: E13.10 - Other specified diabetes mellitus with ketoacidosis without coma SNOMED: 261660432, 70310872 (4) Sepsis ICD Codes: A41.9 - Sepsis, unspecified organism SNOMED: 46120258 (5) Pulmonary nodules ICD Codes: R91.8 - Other nonspecific abnormal finding of lung field SNOMED: 142745226 Status: stable, progressing Assessment/Plan ot pt diet abx bs control endo f/u dc to snf Subjective Constitutional: Reports: weakness Allergies: Coded Allergies: PENICILLINS (Verified Allergy, Unknown, 08/10/17) [place] (Verified Allergy, Unknown, 08/10/17) Uncoded Allergies: [place] (Allergy, Unknown, 08/10/17) All Systems: reviewed and negative except above Subjective sleepy calm Objective Last 24 Hour Vital Signs Date Time Temp Pulse Resp B/P (MAP) Pulse Ox O2 Delivery O2 Flow Rate FiO2 08/20/17 12:00 97.5 76 17 136/58 98 Room Air 08/20/17 08:00 100.0 82 17 117/58 98 Room Air 08/20/17 06:45 99.3 08/20/17 04:00 99.3 88 18 130/79 100 Room Air 08/20/17 00:09 98.2 80 18 136/60 98 Room Air 08/19/17 20:00 98.2 80 18 145/70 Room Air 08/19/17 16:00 98.1 85 20 133/67 99 Room Air Height (Feet): 5 Height (Inches): 6.00 Weight (Pounds): 123 General Appearance: lethargic EENT: normal ENT inspection Neck: normal alignment Cardiovascular: normal peripheral pulses, normal rate, regular rhythm Respiratory/Chest: chest wall non-tender, lungs clear, normal breath sounds Abdomen: normal bowel sounds, non tender, soft Extremities: normal inspection Edema: no edema noted Arm (L), no edema noted Arm (R), no edema noted Leg (L), no edema noted Leg (R), no edema noted Pedal (L), no edema noted Pedal (R), no edema noted Generalized Neurologic: motor weakness Skin: normal pigmentation, warm/dry MANDIE PUENTE Aug 20, 2017 13:36
[2017-08-20] MEDS ORDERED: 1/2 NS 1000ml IV ONE (14:45)
[2017-08-20] MEDS ORDERED: NS 275ml ONE (14:45)
[2017-08-20] MEDS ORDERED: Tubing IV Secondary IV ONE (14:45)
--- NOTE | 2017-08-20 14:56 | Pulmonology Progress Note ---
Assessment/Plan Problems: (1) DKA (diabetic ketoacidoses) (2) Diabetes mellitus Assessment/Plan improving tolerating diet sliding scale diabetic diet CT of chest in 4-6 month to rule out any growth of the nodules. ok to dc to [facility] Subjective ROS Limited/Unobtainable: No Constitutional: Reports: no symptoms HEENT: Repors: no symptoms Respiratory: Reports: no symptoms Allergies: Coded Allergies: PENICILLINS (Verified Allergy, Unknown, 08/10/17) [place] (Verified Allergy, Unknown, 08/10/17) Uncoded Allergies: [place] (Allergy, Unknown, 08/10/17) Objective Last 24 Hour Vital Signs Date Time Temp Pulse Resp B/P (MAP) Pulse Ox O2 Delivery O2 Flow Rate FiO2 08/20/17 13:32 97.5 08/20/17 12:00 97.5 76 17 136/58 98 Room Air 08/20/17 08:00 100.0 82 17 117/58 98 Room Air 08/20/17 04:00 99.3 88 18 130/79 100 Room Air 08/20/17 00:09 98.2 80 18 136/60 98 Room Air 08/19/17 20:00 98.2 80 18 145/70 Room Air 08/19/17 16:00 98.1 85 20 133/67 99 Room Air Objective General Appearance: WD/WN, no apparent distress Lines, tubes and drains: peripheral, HEENT: normocephalic, anicteric Neck: non-tender, normal alignment Respiratory/Chest: chest wall non-tender, lungs clear Cardiovascular/Chest: normal rate, regular rhythm Abdomen: non tender, soft Genitourinary/Rectal: normal genital exam, normal rectal exam Extremities: normal range of motion, non-pitting Microbiology Date/Time Source Procedure Growth Status 08/17/17 19:20 Blood Blood Culture - Preliminary NO GROWTH AFTER 48 HOURS Resulted 08/17/17 18:45 Blood Blood Culture - Preliminary NO GROWTH AFTER 48 HOURS Resulted Current Medications Medications (Trade) Dose Ordered Sig/Danielle Route PRN Reason Start Time Stop Time Status Last Admin Dose Admin Acetaminophen (Tylenol) 650 mg Q4H PRN ORAL Fever (T>100.5F) 08/13/17 03:30 09/09/17 11:29 08/19/17 12:22 Aspirin (Ecotrin) 81 mg DAILY ORAL 08/13/17 09:00 12/1/17 08:59 08/20/17 09:41 Chlorhexidine Gluconate (Margarita-Hex 2%) 1 applic Q24HRS TOPIC 08/16/17 20:00 09/15/17 19:59 08/19/17 20:56 Dextrose (Dextrose 50%) STAT PRN IV Hypoglycemia 08/13/17 06:00 09/12/17 05:59 08/17/17 16:37 Diphenhydramine HCl (Benadryl) 25 mg Q6H PRN IVP Itching 08/18/17 08:45 09/17/17 08:44 08/20/17 06:14 Docusate Sodium (Colace) 100 mg TWICE A DAY ORAL 08/13/17 18:00 09/12/17 17:59 08/20/17 09:41 Gabapentin (Neurontin) 100 mg THREE TIMES A DAY ORAL 08/13/17 13:00 09/12/17 12:59 08/20/17 13:02 Heparin Sodium (Porcine) (Heparin 5000 units/ml) 5,000 units EVERY 12 HOURS SUBQ 08/13/17 09:00 09/09/17 20:59 08/20/17 09:45 Insulin Aspart (NovoLOG) BEFORE MEALS AND HS SUBQ 08/13/17 06:30 09/11/17 16:29 08/20/17 12:33 Insulin Aspart (NovoLOG) 4 units NOVOTIAC SUBQ 08/13/17 06:30 09/12/17 06:29 08/20/17 12:34 Insulin Detemir (Levemir) 8 units EVERY 12 HOURS SUBQ 08/17/17 09:00 09/16/17 08:59 08/20/17 09:58 Morphine Sulfate (Morphine Sulfate) 4 mg Q4H PRN IVP Severe Pain (Pain Scale 7-10) 08/17/17 18:00 08/24/17 17:59 08/20/17 13:02 Nitroglycerin (Ntg) 0.4 mg Q5M PRN SL Prn Chest Pain 08/13/17 00:30 09/09/17 11:29 Ondansetron HCl (Zofran) 4 mg Q6H PRN IVP Nausea & Vomiting 08/13/17 05:30 09/09/17 11:29 08/18/17 05:32 Pantoprazole (Protonix) 40 mg ACBREAKFAST ORAL 08/16/17 06:30 09/15/17 06:29 08/20/17 06:15 Polyethylene Glycol (Miralax) 17 gm DAILYPRN PRN ORAL Constipation 08/13/17 11:30 09/09/17 11:29 Promethazine HCl/ Codeine (Phenergan with Codeine) 5 ml Q6H PRN ORAL For Cough 08/13/17 05:15 09/10/17 23:14 08/13/17 03:13 Sennosides (Senokot) 8.6 mg DAILYPRN PRN ORAL Constipation 08/13/17 14:30 09/12/17 14:29 Vancomycin HCl (Vanco rx to dose) 1 ea DAILY PRN MISC Per rx protocol 08/16/17 16:45 09/15/17 16:44 Vancomycin HCl 1 gm/Dextrose 275 ml @ 183.708 mls/hr Q8HR IVPB 08/18/17 14:00 08/23/17 13:59 08/20/17 13:02 YUVAL MAYA Aug 20, 2017 14:56
[2017-08-20 15:54] VITALS: BP 106/53
--- NOTE | 2017-08-20 16:46 | Cardiology Progress Note ---
Assessment/Plan Assessment/Plan 1. Sinus tachycardia resolved, normal LVEF at 55%. 2. Bacteremia with Staph Epidermidis, possibly contamination. 3. Pulmonary nodules. 4. Diabetic ketoacidosis, resolved. 5. History of coronary artery disease, normal EF with no WMA. Subjective Subjective Denies chest pain or SOB. Not on the telemetry unit. Objective Last 24 Hour Vital Signs Date Time Temp Pulse Resp B/P (MAP) Pulse Ox O2 Delivery O2 Flow Rate FiO2 08/20/17 15:54 98.2 81 19 106/53 95 Room Air 08/20/17 13:32 97.5 08/20/17 12:00 97.5 76 17 136/58 98 Room Air 08/20/17 08:00 100.0 82 17 117/58 98 Room Air 08/20/17 04:00 99.3 88 18 130/79 100 Room Air 08/20/17 00:09 98.2 80 18 136/60 98 Room Air 08/19/17 20:00 98.2 80 18 145/70 Room Air Intake and Output 08/20/17 08/21/17 19:00 07:00 Intake Total 275.000 ml Balance 275.000 ml IV Total 275.000 ml 2D Echo: LVEF 55%, Mild LVH, Mod MR, Grade I LVDD, RVSP 30 mmHg Microbiology Date/Time Source Procedure Growth Status 08/17/17 19:20 Blood Blood Culture - Preliminary NO GROWTH AFTER 48 HOURS Resulted 08/17/17 18:45 Blood Blood Culture - Preliminary NO GROWTH AFTER 48 HOURS Resulted Objective HEENT: Atraumatic and normocephalic. Anicteric. Pupils are equal, round, and reactive to light and accommodation. Extraocular movements are intact. NECK: JVP less than 5 centimeter. No carotid bruit. Carotid upstrokes 2+ bilaterally. CARDIOVASCULAR: Normal S1 and S2, No murmurs, gallops, or rubs. PMI is in the fourth intercostal space in the midclavicular line. LUNGS: There is crackles diffusely especially in both bases. ABDOMEN: Soft, nontender, and nondistended. No hepatosplenomegaly. Positive bowel sounds. EXTREMITIES: No evidence of edema, clubbing, or cyanosis. TAMAR CONNELL Aug 20, 2017 16:46
--- NOTE | 2017-08-20 17:09 | Infectious Diseases Prog Note ---
Assessment/Plan Problems: (1) Sepsis Assessment & Plan: with coag negative staph , repeated blood culture is positive for staph epidermidis most likely contaminant , on vancomycin , will repeat blood culture to confirm clearance. will treat with vancomycin for 4 weeks total starting from the repeated negative blood culture , please remove femoral line today, send tip for culture and place a new PICC line since blood culture remains negative for 48 hours . 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 , screening for fungal infection is in progress (3) DKA (diabetic ketoacidoses) Assessment & Plan: continue insuline , with tight glycemic control to keep blood sugar between 80-120 (4) Diabetes mellitus Assessment & Plan: poorly controlled, recommend tight glycemic control to keep blood glucose between 80-120 , and follow up with endocrinology (5) Pulmonary nodules Assessment & Plan: in the [place], recommend follow up CT in 6 months , and follow up with skein yarn dyer helper (6) Fever Assessment & Plan: suspect due to picc line infection , was removed, repeated blood culture so far is negative , continue vancomycin for 4 weeks Subjective Constitutional: Reports: fatigue HEENT: Reports: no symptoms Respiratory: Reports: dry cough Breasts: Reports: no symptoms Cardiovascular: Reports: no symptoms Gastrointestinal/Abdominal: Reports: no symptoms Genitourinary: Reports: no symptoms Neurologic: Reports: no symptoms Psychiatric: Reports: depression Skin: Reports: no symptoms Endocrine: Reports: no symptoms Hematologic: Reports: no symptoms Musculoskeletal: Reports: pain Allergies: Coded Allergies: PENICILLINS (Verified Allergy, Unknown, 08/10/17) [place] (Verified Allergy, Unknown, 08/10/17) Uncoded Allergies: [place] (Allergy, Unknown, 08/10/17) Objective Vital Signs Last 24 Hour Vital Signs Date Time Temp Pulse Resp B/P (MAP) Pulse Ox O2 Delivery O2 Flow Rate FiO2 08/20/17 15:54 98.2 81 19 106/53 95 Room Air 08/20/17 13:32 97.5 08/20/17 12:00 97.5 76 17 136/58 98 Room Air 08/20/17 08:00 100.0 82 17 117/58 98 Room Air 08/20/17 04:00 99.3 88 18 130/79 100 Room Air 08/20/17 00:09 98.2 80 18 136/60 98 Room Air 08/19/17 20:00 98.2 80 18 145/70 Room Air Height (Feet): 5 Height (Inches): 6.00 Weight (Pounds): 123 HEENT: normocephalic, atraumatic, anicteric, mucous membranes moist, EOMI, pharynx normal, supple Respiratory/Chest: chest wall non-tender, lungs clear, normal breath sounds, no respiratory distress, no accessory muscle use Cardiovascular: normal peripheral pulses, normal rate, regular rhythm, no gallop/murmur, no JVD Abdomen: normal bowel sounds, soft, non tender, no organomegaly, non distended , no mass, no scars Genitourinary: normal external genitalia Extremities: no cyanosis, no clubbing Skin: no rash, no lesions, no ulcers Neurologic/Psychiatric: alert, oriented x 3, responsive Lymphatic: no neck adenopathy, no groin adenopathy Microbiology Date/Time Source Procedure Growth Status 08/17/17 19:20 Blood Blood Culture - Preliminary NO GROWTH AFTER 48 HOURS Resulted 08/17/17 18:45 Blood Blood Culture - Preliminary NO GROWTH AFTER 48 HOURS Resulted Current Medications Medications (Trade) Dose Ordered Sig/Danielle Route PRN Reason Start Time Stop Time Status Last Admin Dose Admin Acetaminophen (Tylenol) 650 mg Q4H PRN ORAL Fever (T>100.5F) 08/13/17 03:30 09/09/17 11:29 08/19/17 12:22 Aspirin (Ecotrin) 81 mg DAILY ORAL 08/13/17 09:00 09/10/17 08:59 08/20/17 09:41 Chlorhexidine Gluconate (Margarita-Hex 2%) 1 applic Q24HRS TOPIC 08/16/17 20:00 09/15/17 19:59 08/19/17 20:56 Dextrose (Dextrose 50%) STAT PRN IV Hypoglycemia 08/13/17 06:00 09/12/17 05:59 08/17/17 16:37 Diphenhydramine HCl (Benadryl) 25 mg Q6H PRN IVP Itching 08/18/17 08:45 09/17/17 08:44 08/20/17 06:14 Docusate Sodium (Colace) 100 mg TWICE A DAY ORAL 08/13/17 18:00 09/12/17 17:59 08/20/17 09:41 Gabapentin (Neurontin) 100 mg THREE TIMES A DAY ORAL 08/13/17 13:00 09/12/17 12:59 08/20/17 13:02 Heparin Sodium (Porcine) (Heparin 5000 units/ml) 5,000 units EVERY 12 HOURS SUBQ 08/13/17 09:00 09/09/17 20:59 08/20/17 09:45 Insulin Aspart (NovoLOG) BEFORE MEALS AND HS SUBQ 08/13/17 06:30 09/11/17 16:29 08/20/17 16:47 Insulin Aspart (NovoLOG) 4 units NOVOTIAC SUBQ 08/13/17 06:30 09/12/17 06:29 08/20/17 16:48 Insulin Detemir (Levemir) 8 units EVERY 12 HOURS SUBQ 08/17/17 09:00 09/16/17 08:59 08/20/17 09:58 Morphine Sulfate (Morphine Sulfate) 4 mg Q4H PRN IVP Severe Pain (Pain Scale 7-10) 08/17/17 18:00 08/24/17 17:59 08/20/17 13:02 Nitroglycerin (Ntg) 0.4 mg Q5M PRN SL Prn Chest Pain 08/13/17 00:30 09/09/17 11:29 Ondansetron HCl (Zofran) 4 mg Q6H PRN IVP Nausea & Vomiting 08/13/17 05:30 09/09/17 11:29 08/18/17 05:32 Pantoprazole (Protonix) 40 mg ACBREAKFAST ORAL 08/16/17 06:30 09/15/17 06:29 08/20/17 06:15 Polyethylene Glycol (Miralax) 17 gm DAILYPRN PRN ORAL Constipation 08/13/17 11:30 09/09/17 11:29 Promethazine HCl/ Codeine (Phenergan with Codeine) 5 ml Q6H PRN ORAL For Cough 08/13/17 05:15 09/10/17 23:14 08/13/17 03:13 Sennosides (Senokot) 8.6 mg DAILYPRN PRN ORAL Constipation 08/13/17 14:30 09/12/17 14:29 Vancomycin HCl (Vanco rx to dose) 1 ea DAILY PRN MISC Per rx protocol 08/16/17 16:45 09/15/17 16:44 Vancomycin HCl 1 gm/Dextrose 275 ml @ 183.708 mls/hr Q8HR IVPB 08/18/17 14:00 08/23/17 13:59 08/20/17 13:02 Richie Davis M.D. Aug 20, 2017 17:09
[2017-08-20 20:00] VITALS: BP 133/57
[2017-08-20] MEDS: Dyna-Hex 2% Top Sol 2oz TOPIC SCH (21:32)
[2017-08-21] VITALS: BP 118/51
[2017-08-21 04:00] VITALS: BP 139/60
[2017-08-21] MEDS: Morphine Sulfate 4mg/ml Inj IVP PRN ×4 (05:32→20:17)
[2017-08-21] MEDS: DiphenhydrAMINE 50mg/ml Inj IVP PRN ×3 (06:16→18:53)
[2017-08-21] MEDS: Vancomycin 1gm in Dextrose 275ml IVPB SCH ×3 (06:17→20:33)
[2017-08-21] MEDS: NovoLOG Insulin Flexpen SUBQ SCH ×7 (06:27→20:32)
[2017-08-21 07:08] LABS: ANION GAP 6 mmol/L (5-15); CALCIUM 8.6 MG/DL (8.5-10.1); CARBON DIOXIDE 31 MMOL/L (21-32); CHLORIDE 99 MMOL/L (98-107); CREATININE 0.7 MG/DL (0.55-1.30); GLOMERULAR FILTRATION RATE > 60 mL/min (>60); SODIUM 135 MMOL/L (136-145)
[2017-08-21 08:15] VITALS: BP 138/67
--- NOTE | 2017-08-21 08:16 | General Progress Note ---
Assessment/Plan Problem List: (1) Diabetes mellitus ICD Codes: E11.9 - Type 2 diabetes mellitus without complications SNOMED: 56168000 (2) Right upper lobe consolidation ICD Codes: J18.1 - Lobar pneumonia, unspecified organism SNOMED: 93744849 (3) DKA (diabetic ketoacidoses) ICD Codes: E13.10 - Other specified diabetes mellitus with ketoacidosis without coma SNOMED: 132821032, 94528264 (4) Sepsis ICD Codes: A41.9 - Sepsis, unspecified organism SNOMED: 23787908 (5) Pulmonary nodules ICD Codes: R91.8 - Other nonspecific abnormal finding of lung field SNOMED: 959804019 Status: stable, progressing, tolerating diet Assessment/Plan ot pt diet abx bs control endo f/u cbc bmp am dc to snf Subjective Constitutional: Reports: weakness Allergies: Coded Allergies: PENICILLINS (Verified Allergy, Unknown, 08/10/17) [place] (Verified Allergy, Unknown, 08/10/17) Uncoded Allergies: [place] (Allergy, Unknown, 08/10/17) All Systems: reviewed and negative except above Subjective sleepy calm Objective Last 24 Hour Vital Signs Date Time Temp Pulse Resp B/P (MAP) Pulse Ox O2 Delivery O2 Flow Rate FiO2 08/21/17 06:02 99.1 08/21/17 04:00 99.1 81 20 139/60 100 Room Air 08/21/17 00:00 98.2 81 20 118/51 97 Room Air 08/20/17 20:00 98.2 83 20 133/57 100 Room Air 08/20/17 15:54 98.2 81 19 106/53 95 Room Air 08/20/17 12:00 97.5 76 17 136/58 98 Room Air Laboratory Tests 08/21/17 06:10: Sodium Level 135L, Potassium Level 4.0, Chloride Level 99, Carbon Dioxide Level 31, Anion Gap 6, Blood Urea Nitrogen 7, Creatinine 0.7, Estimat Glomerular Filtration Rate > 60, Glucose Level 274H, Calcium Level 8.6 Height (Feet): 5 Height (Inches): 6.00 Weight (Pounds): 120 General Appearance: lethargic EENT: normal ENT inspection Neck: normal alignment Cardiovascular: normal peripheral pulses, normal rate, regular rhythm Respiratory/Chest: chest wall non-tender, lungs clear, normal breath sounds Abdomen: normal bowel sounds, non tender, soft Extremities: normal inspection Edema: no edema noted Arm (L), no edema noted Arm (R), no edema noted Leg (L), no edema noted Leg (R), no edema noted Pedal (L), no edema noted Pedal (R), no edema noted Generalized Neurologic: motor weakness Skin: normal pigmentation, warm/dry MANDIE PUENTE Aug 21, 2017 08:16
--- NOTE | 2017-08-21 08:34 | General Progress Note ---
Assessment/Plan Problem List: (1) DKA (diabetic ketoacidoses) ICD Codes: E13.10 - Other specified diabetes mellitus with ketoacidosis without coma SNOMED: 471255705, 16080102 (2) Diabetes mellitus ICD Codes: E11.9 - Type 2 diabetes mellitus without complications SNOMED: 00881886 (3) Right upper lobe consolidation ICD Codes: J18.1 - Lobar pneumonia, unspecified organism SNOMED: 60986924 (4) Sepsis ICD Codes: A41.9 - Sepsis, unspecified organism SNOMED: 52445698 Assessment/Plan increase Levemir to 10 units bid continue Novolog 4 units ac tid continue SSI Subjective Allergies: Coded Allergies: PENICILLINS (Verified Allergy, Unknown, 08/10/17) [place] (Verified Allergy, Unknown, 08/10/17) Uncoded Allergies: [place] (Allergy, Unknown, 08/10/17) All Systems: reviewed and negative except above Subjective events noted feeling better fasting glucose is elevated today Objective Last 24 Hour Vital Signs Date Time Temp Pulse Resp B/P (MAP) Pulse Ox O2 Delivery O2 Flow Rate FiO2 08/21/17 06:02 99.1 08/21/17 04:00 99.1 81 20 139/60 100 Room Air 08/21/17 00:00 98.2 81 20 118/51 97 Room Air 08/20/17 20:00 98.2 83 20 133/57 100 Room Air 08/20/17 15:54 98.2 81 19 106/53 95 Room Air 08/20/17 12:00 97.5 76 17 136/58 98 Room Air Laboratory Tests 08/21/17 06:10: Sodium Level 135L, Potassium Level 4.0, Chloride Level 99, Carbon Dioxide Level 31, Anion Gap 6, Blood Urea Nitrogen 7, Creatinine 0.7, Estimat Glomerular Filtration Rate > 60, Glucose Level 274H, Calcium Level 8.6 Height (Feet): 5 Height (Inches): 6.00 Weight (Pounds): 120 General Appearance: no apparent distress EENT: pale conjunctivae Neck: normal alignment Cardiovascular: normal rate Respiratory/Chest: lungs clear Abdomen: normal bowel sounds Edema: no edema noted Arm (L), no edema noted Arm (R), no edema noted Leg (L), no edema noted Leg (R), no edema noted Pedal (L), no edema noted Pedal (R), no edema noted Generalized Objective Current Medications Medications (Trade) Dose Ordered Sig/Danielle Route PRN Reason Start Time Stop Time Status Last Admin Dose Admin Acetaminophen (Tylenol) 650 mg Q4H PRN ORAL Fever (T>100.5F) 08/13/17 03:30 09/09/17 11:29 08/19/17 12:22 Aspirin (Ecotrin) 81 mg DAILY ORAL 08/13/17 09:00 09/10/17 08:59 08/20/17 09:41 Chlorhexidine Gluconate (Margarita-Hex 2%) 1 applic Q24HRS TOPIC 08/16/17 20:00 09/15/17 19:59 08/20/17 21:32 Dextrose (Dextrose 50%) STAT PRN IV Hypoglycemia 08/13/17 06:00 09/12/17 05:59 08/17/17 16:37 Diphenhydramine HCl (Benadryl) 25 mg Q6H PRN IVP Itching 08/18/17 08:45 09/17/17 08:44 08/21/17 06:16 Docusate Sodium (Colace) 100 mg TWICE A DAY ORAL 08/13/17 18:00 09/12/17 17:59 08/20/17 17:30 Gabapentin (Neurontin) 100 mg THREE TIMES A DAY ORAL 08/13/17 13:00 09/12/17 12:59 08/20/17 17:30 Heparin Sodium (Porcine) (Heparin 5000 units/ml) 5,000 units EVERY 12 HOURS SUBQ 08/13/17 09:00 09/09/17 20:59 08/20/17 21:40 Insulin Aspart (NovoLOG) BEFORE MEALS AND HS SUBQ 08/13/17 06:30 09/11/17 16:29 08/21/17 06:27 Insulin Aspart (NovoLOG) 4 units NOVOTIAC SUBQ 08/13/17 06:30 09/12/17 06:29 08/20/17 16:48 Insulin Detemir (Levemir) 8 units EVERY 12 HOURS SUBQ 08/17/17 09:00 09/16/17 08:59 08/20/17 21:42 Morphine Sulfate (Morphine Sulfate) 4 mg Q4H PRN IVP Severe Pain (Pain Scale 7-10) 08/17/17 18:00 08/24/17 17:59 08/21/17 05:32 Nitroglycerin (Ntg) 0.4 mg Q5M PRN SL Prn Chest Pain 08/13/17 00:30 09/09/17 11:29 Ondansetron HCl (Zofran) 4 mg Q6H PRN IVP Nausea & Vomiting 08/13/17 05:30 09/09/17 11:29 08/20/17 21:45 Pantoprazole (Protonix) 40 mg ACBREAKFAST ORAL 08/16/17 06:30 09/15/17 06:29 08/21/17 06:17 Polyethylene Glycol (Miralax) 17 gm DAILYPRN PRN ORAL Constipation 08/13/17 11:30 09/09/17 11:29 Promethazine HCl/ Codeine (Phenergan with Codeine) 5 ml Q6H PRN ORAL For Cough 08/13/17 05:15 09/10/17 23:14 08/13/17 03:13 Sennosides (Senokot) 8.6 mg DAILYPRN PRN ORAL Constipation 08/13/17 14:30 09/12/17 14:29 Vancomycin HCl (Vanco rx to dose) 1 ea DAILY PRN MISC Per rx protocol 08/16/17 16:45 09/15/17 16:44 Vancomycin HCl 1 gm/Dextrose 275 ml @ 183.708 mls/hr Q8HR IVPB 08/18/17 14:00 08/23/17 13:59 08/21/17 06:17 Item Value Date Time Bedside Blood Glucose 262 mg/dl H 08/21/17 0629 Bedside Blood Glucose 171 mg/dl H 08/20/17 2142 Bedside Blood Glucose 368 mg/dl H 08/20/17 1648 Bedside Blood Glucose 206 mg/dl H 08/20/17 1234 Bedside Blood Glucose 187 mg/dl H 08/20/17 0958 EMA VALENCIA Aug 21, 2017 08:34
[2017-08-21] MEDS: Aspirin EC 81mg tab ORAL SCH (08:40)
[2017-08-21] MEDS: Docusate 100mg cap ORAL SCH ×2 (08:40→17:40)
[2017-08-21] MEDS: Heparin 5000 units/ml inj SUBQ SCH ×2 (08:41→20:16)
[2017-08-21] MEDS: Levemir Flexpen SUBQ SCH ×2 (08:58→21:00)
--- NOTE | 2017-08-21 09:11 | Pulmonology Progress Note ---
Assessment/Plan Problems: (1) DKA (diabetic ketoacidoses) (2) Diabetes mellitus Assessment/Plan improving tolerating diet sliding scale diabetic diet CT of chest in 4-6 month to rule out any growth of the nodules. ok to dc to correction dc planning in progress Subjective ROS Limited/Unobtainable: No Constitutional: Reports: no symptoms HEENT: Repors: no symptoms Respiratory: Reports: no symptoms Allergies: Coded Allergies: [place] (Verified Allergy, Unknown, 08/10/17) [place] (Verified Allergy, Unknown, 08/10/17) Uncoded Allergies: [place] (Allergy, Unknown, 08/10/17) Objective Last 24 Hour Vital Signs Date Time Temp Pulse Resp B/P (MAP) Pulse Ox O2 Delivery O2 Flow Rate FiO2 08/21/17 06:02 99.1 08/21/17 04:00 99.1 81 20 139/60 100 Room Air 08/21/17 00:00 98.2 81 20 118/51 97 Room Air 08/20/17 20:00 98.2 83 20 133/57 100 Room Air 08/20/17 15:54 98.2 81 19 106/53 95 Room Air 08/20/17 12:00 97.5 76 17 136/58 98 Room Air Objective General Appearance: WD/WN, no apparent distress Lines, tubes and drains: peripheral, HEENT: normocephalic, anicteric Neck: non-tender, normal alignment Respiratory/Chest: chest wall non-tender, lungs clear Cardiovascular/Chest: normal rate, regular rhythm Abdomen: non tender, soft Genitourinary/Rectal: normal genital exam, normal rectal exam Extremities: normal range of motion, non-pitting Microbiology Date/Time Source Procedure Growth Status 08/19/17 14:00 Blood Blood Culture - Preliminary NO GROWTH AFTER 24 HOURS Resulted 08/19/17 13:35 Blood Blood Culture - Preliminary NO GROWTH AFTER 24 HOURS Resulted Laboratory Tests 08/21/17 06:10: Sodium Level 135L, Potassium Level 4.0, Chloride Level 99, Carbon Dioxide Level 31, Anion Gap 6, Blood Urea Nitrogen 7, Creatinine 0.7, Estimat Glomerular Filtration Rate > 60, Glucose Level 274H, Calcium Level 8.6 Current Medications Medications (Trade) Dose Ordered Sig/Danielle Route PRN Reason Start Time Stop Time Status Last Admin Dose Admin Acetaminophen (Tylenol) 650 mg Q4H PRN ORAL Fever (T>100.5F) 08/13/17 03:30 09/09/17 11:29 08/19/17 12:22 Aspirin (Ecotrin) 81 mg DAILY ORAL 08/13/17 09:00 09/10/17 08:59 08/21/17 08:40 Chlorhexidine Gluconate (Margarita-Hex 2%) 1 applic Q24HRS TOPIC 08/16/17 20:00 09/15/17 19:59 08/20/17 21:32 Dextrose (Dextrose 50%) STAT PRN IV Hypoglycemia 08/13/17 06:00 09/12/17 05:59 08/17/17 16:37 Diphenhydramine HCl (Benadryl) 25 mg Q6H PRN IVP Itching 08/18/17 08:45 09/17/17 08:44 08/21/17 06:16 Docusate Sodium (Colace) 100 mg TWICE A DAY ORAL 08/13/17 18:00 09/12/17 17:59 08/21/17 08:40 Gabapentin (Neurontin) 100 mg THREE TIMES A DAY ORAL 08/13/17 13:00 09/12/17 12:59 08/21/17 08:40 Heparin Sodium (Porcine) (Heparin 5000 units/ml) 5,000 units EVERY 12 HOURS SUBQ 08/13/17 09:00 09/09/17 20:59 08/21/17 08:41 Insulin Aspart (NovoLOG) BEFORE MEALS AND HS SUBQ 08/13/17 06:30 09/11/17 16:29 08/21/17 06:27 Insulin Aspart (NovoLOG) 4 units NOVOTIAC SUBQ 08/13/17 06:30 09/12/17 06:29 08/20/17 16:48 Insulin Detemir (Levemir) 10 units EVERY 12 HOURS SUBQ 08/21/17 09:00 09/20/17 08:59 08/21/17 08:58 Morphine Sulfate (Morphine Sulfate) 4 mg Q4H PRN IVP Severe Pain (Pain Scale 7-10) 08/17/17 18:00 08/24/17 17:59 08/21/17 05:32 Nitroglycerin (Ntg) 0.4 mg Q5M PRN SL Prn Chest Pain 08/13/17 00:30 09/09/17 11:29 Ondansetron HCl (Zofran) 4 mg Q6H PRN IVP Nausea & Vomiting 08/13/17 05:30 09/09/17 11:29 08/20/17 21:45 Pantoprazole (Protonix) 40 mg ACBREAKFAST ORAL 08/16/17 06:30 09/15/17 06:29 08/21/17 06:17 Polyethylene Glycol (Miralax) 17 gm DAILYPRN PRN ORAL Constipation 08/13/17 11:30 09/09/17 11:29 Promethazine HCl/ Codeine (Phenergan with Codeine) 5 ml Q6H PRN ORAL For Cough 08/13/17 05:15 09/10/17 23:14 08/13/17 03:13 Sennosides (Senokot) 8.6 mg DAILYPRN PRN ORAL Constipation 08/13/17 14:30 09/12/17 14:29 Vancomycin HCl (Vanco rx to dose) 1 ea DAILY PRN MISC Per rx protocol 08/16/17 16:45 09/15/17 16:44 Vancomycin HCl 1 gm/Dextrose 275 ml @ 183.708 mls/hr Q8HR IVPB 08/18/17 14:00 08/23/17 13:59 08/21/17 06:17 YUVAL MAYA Aug 21, 2017 09:11
[2017-08-21] MEDS ORDERED: Tubing IV Secondary IV ONE (09:46)
[2017-08-21] MEDS ORDERED: NS 275ml ONE (09:46)
[2017-08-21 12:15] VITALS: BP 138/67
[2017-08-21 16:00] VITALS: BP 125/57
--- NOTE | 2017-08-21 19:12 | Infectious Diseases Prog Note ---
Assessment/Plan Problems: (1) Sepsis Assessment & Plan: with coag negative staph , repeated blood culture is positive for staph epidermidis most likely contaminant , on vancomycin , repeated blood culture again positive from the femoral line . will treat with vancomycin for 4 weeks total starting from the repeated negative blood culture , please remove femoral line today, send tip for culture and place a new PICC line . 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 , screening for fungal infection is in progress (3) DKA (diabetic ketoacidoses) Assessment & Plan: continue insuline , with tight glycemic control to keep blood sugar between 80-120 (4) Diabetes mellitus Assessment & Plan: poorly controlled, recommend tight glycemic control to keep blood glucose between 80-120 , and follow up with endocrinology (5) Pulmonary nodules Assessment & Plan: in the [place], recommend follow up CT in 6 months , and follow up with [employer] (6) Fever Assessment & Plan: suspect due to picc line infection , repeated blood culture so far is positive again from the femoral line , recommend removal , and to continue vancomycin for 4 weeks Subjective Constitutional: Reports: fatigue HEENT: Reports: no symptoms Respiratory: Reports: no symptoms Breasts: Reports: no symptoms Cardiovascular: Reports: no symptoms Gastrointestinal/Abdominal: Reports: no symptoms Genitourinary: Reports: no symptoms Neurologic: Reports: weakness Psychiatric: Reports: depression Skin: Reports: no symptoms Endocrine: Reports: no symptoms Hematologic: Reports: no symptoms Musculoskeletal: Reports: pain Allergies: Coded Allergies: [place] (Verified Allergy, Unknown, 08/10/17) [place] (Verified Allergy, Unknown, 08/10/17) Uncoded Allergies: [place] (Allergy, Unknown, 08/10/17) Objective Vital Signs Last 24 Hour Vital Signs Date Time Temp Pulse Resp B/P (MAP) Pulse Ox O2 Delivery O2 Flow Rate FiO2 08/21/17 16:00 97.9 81 20 125/57 96 Room Air 08/21/17 12:15 97.9 87 20 138/67 95 Room Air 08/21/17 08:15 97.3 87 20 138/67 95 Room Air 08/21/17 06:02 99.1 08/21/17 04:00 99.1 81 20 139/60 100 Room Air 08/21/17 00:00 98.2 81 20 118/51 97 Room Air 08/20/17 20:00 98.2 83 20 133/57 100 Room Air Height (Feet): 5 Height (Inches): 6.00 Weight (Pounds): 120 General Appearance: WD/WN, no acute distress HEENT: normocephalic, atraumatic, anicteric, mucous membranes moist, PERRL, EOMI, pharynx normal, supple, no JVD Respiratory/Chest: chest wall non-tender, lungs clear, normal breath sounds, no respiratory distress, no accessory muscle use Cardiovascular: normal peripheral pulses, normal rate, regular rhythm, no gallop/murmur, no JVD Abdomen: normal bowel sounds, soft, non tender, no organomegaly, non distended , no mass, no scars Extremities: no cyanosis, no clubbing Skin: no rash, no lesions, no ulcers Neurologic/Psychiatric: alert, oriented x 3 Lymphatic: no neck adenopathy, no groin adenopathy Microbiology Date/Time Source Procedure Growth Status 08/19/17 14:00 Blood Blood Culture - Preliminary Resulted 08/19/17 13:35 Blood Blood Culture - Preliminary NO GROWTH AFTER 24 HOURS Resulted Laboratory Tests Test 08/21/17 06:10 08/21/17 13:00 Sodium Level 135 MMOL/L (136-145) L Potassium Level 4.0 MMOL/L (3.5-5.1) Chloride Level 99 MMOL/L (98-107) Carbon Dioxide Level 31 MMOL/L (21-32) Anion Gap 6 mmol/L (5-15) Blood Urea Nitrogen 7 mg/dL (7-18) Creatinine 0.7 MG/DL (0.55-1.30) Estimat Glomerular Filtration Rate > 60 mL/min (>60) Glucose Level 274 MG/DL (74-106) H Calcium Level 8.6 MG/DL (8.5-10.1) Vancomycin Level Trough 17.3 ug/mL (5.0-12.0) H Current Medications Medications (Trade) Dose Ordered Sig/Danielle Route PRN Reason Start Time Stop Time Status Last Admin Dose Admin Acetaminophen (Tylenol) 650 mg Q4H PRN ORAL Fever (T>100.5F) 08/13/17 03:30 09/09/17 11:29 08/19/17 12:22 Aspirin (Ecotrin) 81 mg DAILY ORAL 08/13/17 09:00 09/10/17 08:59 08/21/17 08:40 Chlorhexidine Gluconate (Margarita-Hex 2%) 1 applic ONCE ONCE TOPIC 08/23/17 08:00 08/23/17 08:01 Chlorhexidine Gluconate (Magrarita-Hex 2%) 1 applic Q24HRS TOPIC 08/16/17 20:00 09/15/17 19:59 08/20/17 21:32 Dextrose (Dextrose 50%) STAT PRN IV Hypoglycemia 08/13/17 06:00 09/12/17 05:59 08/17/17 16:37 Diphenhydramine HCl (Benadryl) 25 mg Q6H PRN IVP Itching 08/18/17 08:45 09/17/17 08:44 08/21/17 18:53 Docusate Sodium (Colace) 100 mg TWICE A DAY ORAL 08/13/17 18:00 09/12/17 17:59 08/21/17 17:40 Gabapentin (Neurontin) 100 mg THREE TIMES A DAY ORAL 08/13/17 13:00 09/12/17 12:59 08/21/17 17:40 Heparin Sodium (Porcine) (Heparin 5000 units/ml) 5,000 units EVERY 12 HOURS SUBQ 08/13/17 09:00 09/09/17 20:59 08/21/17 08:41 Heparin Sodium/ Sodium Chloride (Heparin 2000 units/Ns 1000ml premix) 2,000 unit ONCE ONCE INJ 08/23/17 08:00 08/23/17 08:01 Insulin Aspart (NovoLOG) BEFORE MEALS AND HS SUBQ 08/13/17 06:30 09/11/17 16:29 08/21/17 16:52 Insulin Aspart (NovoLOG) 4 units NOVOTIAC SUBQ 08/13/17 06:30 09/12/17 06:29 08/21/17 16:56 Insulin Detemir (Levemir) 10 units EVERY 12 HOURS SUBQ 08/21/17 09:00 09/20/17 08:59 08/21/17 08:58 Lidocaine HCl (Xylocaine 1% 30ml) 30 ml ONCE ONCE INJ 08/23/17 08:00 08/23/17 08:01 Morphine Sulfate (Morphine Sulfate) 4 mg Q4H PRN IVP Severe Pain (Pain Scale 7-10) 08/17/17 18:00 08/24/17 17:59 08/21/17 14:54 Nitroglycerin (Ntg) 0.4 mg Q5M PRN SL Prn Chest Pain 08/13/17 00:30 09/09/17 11:29 Ondansetron HCl (Zofran) 4 mg Q6H PRN IVP Nausea & Vomiting 08/13/17 05:30 09/09/17 11:29 08/20/17 21:45 Pantoprazole (Protonix) 40 mg ACBREAKFAST ORAL 08/16/17 06:30 09/15/17 06:29 08/21/17 06:17 Polyethylene Glycol (Miralax) 17 gm DAILYPRN PRN ORAL Constipation 08/13/17 11:30 09/09/17 11:29 Promethazine HCl/ Codeine (Phenergan with Codeine) 5 ml Q6H PRN ORAL For Cough 08/13/17 05:15 09/10/17 23:14 08/13/17 03:13 Sennosides (Senokot) 8.6 mg DAILYPRN PRN ORAL Constipation 08/13/17 14:30 09/12/17 14:29 Vancomycin HCl (Vanco rx to dose) 1 ea DAILY PRN MISC Per rx protocol 08/16/17 16:45 09/15/17 16:44 Vancomycin HCl 1 gm/Dextrose 275 ml @ 183.708 mls/hr Q8HR IVPB 08/18/17 14:00 08/23/17 13:59 08/21/17 14:44 Richie Davis M.D. Aug 21, 2017 19:12
[2017-08-21 20:00] VITALS: BP 120/53
[2017-08-21] MEDS: Dyna-Hex 2% Top Sol 2oz TOPIC SCH (20:00)
[2017-08-22] VITALS (7 sets, daily range): BP systolic 117–145; BP diastolic 56–65
[2017-08-22] MEDS: Vancomycin 1gm in Dextrose 275ml IVPB SCH ×3 (05:56→21:12)
[2017-08-22] MEDS: NovoLOG Insulin Flexpen SUBQ SCH ×7 (05:58→20:39)
--- NOTE | 2017-08-22 06:54 | General Progress Note ---
Assessment/Plan Problem List: (1) DKA (diabetic ketoacidoses) ICD Codes: E13.10 - Other specified diabetes mellitus with ketoacidosis without coma SNOMED: 911322826, 80499997 (2) Diabetes mellitus ICD Codes: E11.9 - Type 2 diabetes mellitus without complications SNOMED: 39629240 (3) Right upper lobe consolidation ICD Codes: J18.1 - Lobar pneumonia, unspecified organism SNOMED: 35027471 (4) Sepsis ICD Codes: A41.9 - Sepsis, unspecified organism SNOMED: 83213710 Assessment/Plan continue Levemir 10 units bid continue Novolog 4 units ac tid continue SSI Subjective Allergies: Coded Allergies: PEN[place] (Verified Allergy, Unknown, 08/10/17) [place] (Verified Allergy, Unknown, 08/10/17) Uncoded Allergies: [place] (Allergy, Unknown, 08/10/17) All Systems: reviewed and negative except above Subjective events noted Objective Last 24 Hour Vital Signs Date Time Temp Pulse Resp B/P (MAP) Pulse Ox O2 Delivery O2 Flow Rate FiO2 08/22/17 00:00 97.9 75 20 130/60 94 Room Air 08/21/17 20:00 97.5 80 20 120/53 97 Room Air 08/21/17 16:00 97.9 81 20 125/57 96 Room Air 08/21/17 12:15 97.9 87 20 138/67 95 Room Air 08/21/17 08:15 97.3 87 20 138/67 95 Room Air Laboratory Tests 08/21/17 13:00: Vancomycin Level Trough 17.3H Height (Feet): 5 Height (Inches): 6.00 Weight (Pounds): 120 General Appearance: no apparent distress EENT: pale conjunctivae Neck: normal alignment Cardiovascular: normal rate Respiratory/Chest: lungs clear Abdomen: normal bowel sounds Objective Current Medications Medications (Trade) Dose Ordered Sig/Danielle Route PRN Reason Start Time Stop Time Status Last Admin Dose Admin Acetaminophen (Tylenol) 650 mg Q4H PRN ORAL Fever (T>100.5F) 08/13/17 03:30 09/09/17 11:29 08/19/17 12:22 Aspirin (Ecotrin) 81 mg DAILY ORAL 08/13/17 09:00 09/10/17 08:59 08/21/17 08:40 Chlorhexidine Gluconate (Margarita-Hex 2%) 1 applic ONCE ONCE TOPIC 08/23/17 08:00 08/23/17 08:01 Chlorhexidine Gluconate (Margarita-Hex 2%) 1 applic Q24HRS TOPIC 08/16/17 20:00 09/15/17 19:59 08/20/17 21:32 Dextrose (Dextrose 50%) STAT PRN IV Hypoglycemia 08/13/17 06:00 09/12/17 05:59 08/17/17 16:37 Diphenhydramine HCl (Benadryl) 25 mg Q6H PRN IVP Itching 08/18/17 08:45 09/17/17 08:44 08/21/17 18:53 Docusate Sodium (Colace) 100 mg TWICE A DAY ORAL 08/13/17 18:00 09/12/17 17:59 08/21/17 17:40 Gabapentin (Neurontin) 100 mg THREE TIMES A DAY ORAL 08/13/17 13:00 09/12/17 12:59 08/21/17 17:40 Heparin Sodium (Porcine) (Heparin 5000 units/ml) 5,000 units EVERY 12 HOURS SUBQ 08/13/17 09:00 09/09/17 20:59 08/21/17 20:16 Heparin Sodium/ Sodium Chloride (Heparin 2000 units/Ns 1000ml premix) 2,000 unit ONCE ONCE INJ 08/23/17 08:00 08/23/17 08:01 Insulin Aspart (NovoLOG) BEFORE MEALS AND HS SUBQ 08/13/17 06:30 09/11/17 16:29 08/22/17 05:58 Insulin Aspart (NovoLOG) 4 units NOVOTIAC SUBQ 08/13/17 06:30 09/12/17 06:29 08/22/17 05:59 Insulin Detemir (Levemir) 10 units EVERY 12 HOURS SUBQ 08/21/17 09:00 09/20/17 08:59 08/21/17 08:58 Lidocaine HCl (Xylocaine 1% 30ml) 30 ml ONCE ONCE INJ 08/23/17 08:00 08/23/17 08:01 Morphine Sulfate (Morphine Sulfate) 4 mg Q4H PRN IVP Severe Pain (Pain Scale 7-10) 08/17/17 18:00 08/24/17 17:59 08/21/17 20:17 Nitroglycerin (Ntg) 0.4 mg Q5M PRN SL Prn Chest Pain 08/13/17 00:30 09/09/17 11:29 Ondansetron HCl (Zofran) 4 mg Q6H PRN IVP Nausea & Vomiting 08/13/17 05:30 09/09/17 11:29 08/20/17 21:45 Pantoprazole (Protonix) 40 mg ACBREAKFAST ORAL 08/16/17 06:30 09/15/17 06:29 08/22/17 05:56 Polyethylene Glycol (Miralax) 17 gm DAILYPRN PRN ORAL Constipation 08/13/17 11:30 09/09/17 11:29 Promethazine HCl/ Codeine (Phenergan with Codeine) 5 ml Q6H PRN ORAL For Cough 08/13/17 05:15 09/10/17 23:14 08/13/17 03:13 Sennosides (Senokot) 8.6 mg DAILYPRN PRN ORAL Constipation 08/13/17 14:30 09/12/17 14:29 Vancomycin HCl (Vanco rx to dose) 1 ea DAILY PRN MISC Per rx protocol 08/16/17 16:45 09/15/17 16:44 Vancomycin HCl 1 gm/Dextrose 275 ml @ 183.708 mls/hr Q8HR IVPB 08/18/17 14:00 08/23/17 13:59 08/22/17 05:56 Item Value Date Time Bedside Blood Glucose 230 mg/dl H 08/22/17 0559 Bedside Blood Glucose 78 mg/dl 08/21/17 2100 Bedside Blood Glucose 131 mg/dl H 08/21/17 1656 Bedside Blood Glucose 223 mg/dl H 08/21/17 1225 Bedside Blood Glucose 251 mg/dl H 08/21/17 0858 Bedside Blood Glucose 262 mg/dl H 08/21/17 0629 EMA VALENCIA Aug 22, 2017 06:54
[2017-08-22 08:09] LABS: BASOPHILS % (AUTO) 1.6 % (0.0-2.0); EOSINOPHILS % (AUTO) 8.7 % (0.0-3.0); LYMPHOCYTES % (AUTO) 16.5 % (20.0-45.0); MEAN CORPUSCULAR HEMOGLOBIN 30.5 PG (27.0-31.0); MEAN CORPUSCULAR HGB CONC 32.6 G/DL (32.0-36.0); MEAN CORPUSCULAR VOLUME 94 FL (80-99); MEAN PLATELET VOLUME 5.5 FL (6.5-10.1); MONOCYTES % (AUTO) 8.7 % (1.0-10.0); NEUTROPHILS % (AUTO) 64.6 % (45.0-75.0); PLATELET COUNT 478 K/UL (150-450); RED CELL DISTRIBUTION WIDTH 14.6 % (11.6-14.8); WHITE BLOOD COUNT 8.3 K/UL (4.8-10.8)
[2017-08-22 08:22] LABS: ANION GAP 8 mmol/L (5-15); CARBON DIOXIDE 30 MMOL/L (21-32); CHLORIDE 99 MMOL/L (98-107); CREATININE 0.5 MG/DL (0.55-1.30); GLOMERULAR FILTRATION RATE > 60 mL/min (>60); POTASSIUM 3.8 MMOL/L (3.5-5.1); SODIUM 137 MMOL/L (136-145)
--- NOTE | 2017-08-22 08:34 | General Progress Note ---
Assessment/Plan Problem List: (1) Diabetes mellitus ICD Codes: E11.9 - Type 2 diabetes mellitus without complications SNOMED: 71948521 (2) Right upper lobe consolidation ICD Codes: J18.1 - Lobar pneumonia, unspecified organism SNOMED: 49147262 (3) DKA (diabetic ketoacidoses) ICD Codes: E13.10 - Other specified diabetes mellitus with ketoacidosis without coma SNOMED: 385466366, 18022604 (4) Sepsis ICD Codes: A41.9 - Sepsis, unspecified organism SNOMED: 89521620 (5) Pulmonary nodules ICD Codes: R91.8 - Other nonspecific abnormal finding of lung field SNOMED: 422529680 Status: stable, progressing, tolerating diet Assessment/Plan ot pt diet abx bs control endo f/u cbc bmp am dc to snf Subjective Constitutional: Reports: weakness Allergies: Coded Allergies: P[place]ILL[place] (Verified Allergy, Unknown, 08/10/17) [place] (Verified Allergy, Unknown, 08/10/17) Uncoded Allergies: [place] (Allergy, Unknown, 08/10/17) All Systems: reviewed and negative except above Subjective sleepy calm Objective Last 24 Hour Vital Signs Date Time Temp Pulse Resp B/P (MAP) Pulse Ox O2 Delivery O2 Flow Rate FiO2 08/22/17 06:00 98.6 80 20 134/59 95 Room Air 08/22/17 04:00 98.4 76 20 138/59 95 Room Air 08/22/17 00:00 97.9 75 20 130/60 94 Room Air 08/21/17 20:00 97.5 80 20 120/53 97 Room Air 08/21/17 16:00 97.9 81 20 125/57 96 Room Air 08/21/17 12:15 97.9 87 20 138/67 95 Room Air Laboratory Tests 08/21/17 13:00: Vancomycin Level Trough 17.3H 08/22/17 05:10: White Blood Count 8.3, Red Blood Count 3.40L, Hemoglobin 10.4L, Hematocrit 31.8L , Mean Corpuscular Volume 94, Mean Corpuscular Hemoglobin 30.5, Mean Corpuscular Hemoglobin Concent 32.6, Red Cell Distribution Width 14.6, Platelet Count 478H, Mean Platelet Volume 5.5L, Neutrophils (%) (Auto) 64.6, Lymphocytes (%) (Auto) 16.5L, Monocytes (%) (Auto) 8.7, Eosinophils (%) (Auto) 8.7H, Basophils (%) (Auto) 1.6, Sodium Level 137, Potassium Level 3.8, Chloride Level 99, Carbon Dioxide Level 30, Anion Gap 8, Blood Urea Nitrogen 6L, Creatinine 0.5L, Estimat Glomerular Filtration Rate > 60, Glucose Level 273H, Calcium Level 9.0 Height (Feet): 5 Height (Inches): 6.00 Weight (Pounds): 120 General Appearance: lethargic EENT: normal ENT inspection Neck: normal alignment Cardiovascular: normal peripheral pulses, normal rate, regular rhythm Respiratory/Chest: chest wall non-tender, lungs clear, normal breath sounds Abdomen: normal bowel sounds, non tender, soft Extremities: normal inspection Edema: no edema noted Arm (L), no edema noted Arm (R), no edema noted Leg (L), no edema noted Leg (R), no edema noted Pedal (L), no edema noted Pedal (R), no edema noted Generalized Neurologic: motor weakness Skin: normal pigmentation, warm/dry MANDIE PUENTE Aug 22, 2017 08:34
[2017-08-22] MEDS: Docusate 100mg cap ORAL SCH ×2 (08:47→17:08)
[2017-08-22] MEDS: Aspirin EC 81mg tab ORAL SCH (08:47)
[2017-08-22] MEDS: Heparin 5000 units/ml inj SUBQ SCH ×2 (08:48→20:38)
[2017-08-22] MEDS: Levemir Flexpen SUBQ SCH ×2 (08:49→20:40)
[2017-08-22] MEDS: Morphine Sulfate 4mg/ml Inj IVP PRN ×2 (12:57→18:56)
[2017-08-22] MEDS: DiphenhydrAMINE 50mg/ml Inj IVP PRN ×2 (13:47→20:36)
--- NOTE | 2017-08-22 17:24 | Cardiology Progress Note ---
Assessment/Plan Assessment/Plan 1. Sinus tachycardia resolved, normal LVEF at 55%. 2. History of coronary artery disease, normal EF with no WMA. Subjective Subjective No cardiac events. Not on the telemetry unit. Objective Last 24 Hour Vital Signs Date Time Temp Pulse Resp B/P (MAP) Pulse Ox O2 Delivery O2 Flow Rate FiO2 08/22/17 16:00 98.6 77 18 125/65 96 Room Air 08/22/17 12:26 98.1 80 18 144/56 95 Room Air 08/22/17 08:47 98.1 80 18 145/60 96 Room Air 08/22/17 06:00 98.6 80 20 134/59 95 Room Air 08/22/17 04:00 98.4 76 20 138/59 95 Room Air 08/22/17 00:00 97.9 75 20 130/60 94 Room Air 08/21/17 20:00 97.5 80 20 120/53 97 Room Air Intake and Output 08/22/17 08/23/17 18:59 06:59 Intake Total 726.292 ml Output Total 1900 ml Balance -1173.708 ml Intake Oral 360 ml IV Total 366.292 ml Output Urine Total 1900 ml 2D Echo: LVEF 55%, Mild LVH, Mod MR, Grade I LVDD, RVSP 30 mmHg Laboratory Tests Test 08/22/17 05:10 White Blood Count 8.3 K/UL (4.8-10.8) Red Blood Count 3.40 M/UL (4.20-5.40) L Hemoglobin 10.4 G/DL (12.0-16.0) L Hematocrit 31.8 % (37.0-47.0) L Mean Corpuscular Volume 94 FL (80-99) Mean Corpuscular Hemoglobin 30.5 PG (27.0-31.0) Mean Corpuscular Hemoglobin Concent 32.6 G/DL (32.0-36.0) Red Cell Distribution Width 14.6 % (11.6-14.8) Platelet Count 478 K/UL (150-450) H Mean Platelet Volume 5.5 FL (6.5-10.1) L Neutrophils (%) (Auto) 64.6 % (45.0-75.0) Lymphocytes (%) (Auto) 16.5 % (20.0-45.0) L Monocytes (%) (Auto) 8.7 % (1.0-10.0) Eosinophils (%) (Auto) 8.7 % (0.0-3.0) H Basophils (%) (Auto) 1.6 % (0.0-2.0) Sodium Level 137 MMOL/L (136-145) Potassium Level 3.8 MMOL/L (3.5-5.1) Chloride Level 99 MMOL/L (98-107) Carbon Dioxide Level 30 MMOL/L (21-32) Anion Gap 8 mmol/L (5-15) Blood Urea Nitrogen 6 mg/dL (7-18) L Creatinine 0.5 MG/DL (0.55-1.30) L Estimat Glomerular Filtration Rate > 60 mL/min (>60) Glucose Level 273 MG/DL (74-106) H Calcium Level 9.0 MG/DL (8.5-10.1) Objective HEENT: Atraumatic and normocephalic. Anicteric. Pupils are equal, round, and reactive to light and accommodation. Extraocular movements are intact. NECK: JVP less than 5 centimeter. No carotid bruit. Carotid upstrokes 2+ bilaterally. CARDIOVASCULAR: Normal S1 and S2, No murmurs, gallops, or rubs. PMI is in the fourth intercostal space in the midclavicular line. LUNGS: There is crackles diffusely especially in both bases. ABDOMEN: Soft, nontender, and nondistended. No hepatosplenomegaly. Positive bowel sounds. EXTREMITIES: No evidence of edema, clubbing, or cyanosis. TAMAR CONNELL Aug 22, 2017 17:24
[2017-08-22] MEDS: Dyna-Hex 2% Top Sol 2oz TOPIC SCH (20:00)
--- NOTE | 2017-08-22 20:18 | Infectious Diseases Prog Note ---
Assessment/Plan Problems: (1) Sepsis Assessment & Plan: with coag negative staph , repeated blood culture is positive for staph epidermidis most likely contaminant , on vancomycin , repeated blood culture again positive for coag negative staph which was done from the femoral line . will need vancomycin for 4 weeks total starting from the repeated negative blood culture , femoral line was removed yesterday , tip for culture is pending , ok to place a new PICC line in am . 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 , screening for fungal infection is in progress (3) DKA (diabetic ketoacidoses) Assessment & Plan: continue insuline , with tight glycemic control to keep blood sugar between 80-120 (4) Diabetes mellitus Assessment & Plan: poorly controlled, recommend tight glycemic control to keep blood glucose between 80-120 , and follow up with endocrinology (5) Pulmonary nodules Assessment & Plan: in the MARQUE[facility], recommend follow up CT in 6 months , and follow up with relay associate (6) Fever Assessment & Plan: suspect due to picc line infection , repeated blood culture so far is positive again from the femoral line , recommend removal , and to continue vancomycin for 4 weeks Subjective Constitutional: Reports: fatigue HEENT: Reports: no symptoms Respiratory: Reports: dry cough Breasts: Reports: no symptoms Cardiovascular: Reports: no symptoms Gastrointestinal/Abdominal: Reports: no symptoms Genitourinary: Reports: no symptoms Neurologic: Reports: weakness Psychiatric: Reports: depression Skin: Reports: no symptoms Endocrine: Reports: no symptoms Hematologic: Reports: no symptoms Allergies: Coded Allergies: PENICILLINS (Verified Allergy, Unknown, 08/10/17) [place] (Verified Allergy, Unknown, 08/10/17) Uncoded Allergies: [place] (Allergy, Unknown, 08/10/17) Objective Vital Signs Last 24 Hour Vital Signs Date Time Temp Pulse Resp B/P (MAP) Pulse Ox O2 Delivery O2 Flow Rate FiO2 08/22/17 20:00 98.2 77 18 117/58 97 Room Air 08/22/17 16:00 98.6 77 18 125/65 96 Room Air 08/22/17 12:26 98.1 80 18 144/56 95 Room Air 08/22/17 08:47 98.1 80 18 145/60 96 Room Air 08/22/17 06:00 98.6 80 20 134/59 95 Room Air 08/22/17 04:00 98.4 76 20 138/59 95 Room Air 08/22/17 00:00 97.9 75 20 130/60 94 Room Air Height (Feet): 5 Height (Inches): 6.00 Weight (Pounds): 120 General Appearance: WD/WN, no acute distress HEENT: normocephalic, atraumatic, anicteric, mucous membranes moist, PERRL Respiratory/Chest: chest wall non-tender, lungs clear, normal breath sounds, no respiratory distress, no accessory muscle use Cardiovascular: normal peripheral pulses, normal rate, regular rhythm, no gallop/murmur, no JVD Abdomen: normal bowel sounds, soft, non tender, no organomegaly, non distended , no mass, no scars Genitourinary: normal external genitalia Extremities: no cyanosis, no clubbing Skin: no rash, no lesions, no ulcers Neurologic/Psychiatric: alert, oriented x 3 Lymphatic: no neck adenopathy, no groin adenopathy Laboratory Tests Test 08/22/17 05:10 White Blood Count 8.3 K/UL (4.8-10.8) Red Blood Count 3.40 M/UL (4.20-5.40) L Hemoglobin 10.4 G/DL (12.0-16.0) L Hematocrit 31.8 % (37.0-47.0) L Mean Corpuscular Volume 94 FL (80-99) Mean Corpuscular Hemoglobin 30.5 PG (27.0-31.0) Mean Corpuscular Hemoglobin Concent 32.6 G/DL (32.0-36.0) Red Cell Distribution Width 14.6 % (11.6-14.8) Platelet Count 478 K/UL (150-450) H Mean Platelet Volume 5.5 FL (6.5-10.1) L Neutrophils (%) (Auto) 64.6 % (45.0-75.0) Lymphocytes (%) (Auto) 16.5 % (20.0-45.0) L Monocytes (%) (Auto) 8.7 % (1.0-10.0) Eosinophils (%) (Auto) 8.7 % (0.0-3.0) H Basophils (%) (Auto) 1.6 % (0.0-2.0) Sodium Level 137 MMOL/L (136-145) Potassium Level 3.8 MMOL/L (3.5-5.1) Chloride Level 99 MMOL/L (98-107) Carbon Dioxide Level 30 MMOL/L (21-32) Anion Gap 8 mmol/L (5-15) Blood Urea Nitrogen 6 mg/dL (7-18) L Creatinine 0.5 MG/DL (0.55-1.30) L Estimat Glomerular Filtration Rate > 60 mL/min (>60) Glucose Level 273 MG/DL (74-106) H Calcium Level 9.0 MG/DL (8.5-10.1) Current Medications Medications (Trade) Dose Ordered Sig/Danielle Route PRN Reason Start Time Stop Time Status Last Admin Dose Admin Acetaminophen (Tylenol) 650 mg Q4H PRN ORAL Fever (T>100.5F) 08/13/17 03:30 09/09/17 11:29 08/19/17 12:22 Aspirin (Ecotrin) 81 mg DAILY ORAL 08/13/17 09:00 09/10/17 08:59 08/22/17 08:47 Chlorhexidine Gluconate (Margarita-Hex 2%) 1 applic ONCE ONCE TOPIC 08/23/17 08:00 08/23/17 08:01 Chlorhexidine Gluconate (Margarita-Hex 2%) 1 applic Q24HRS TOPIC 08/16/17 20:00 09/15/17 19:59 08/20/17 21:32 Dextrose (Dextrose 50%) STAT PRN IV Hypoglycemia 08/13/17 06:00 09/12/17 05:59 08/17/17 16:37 Diphenhydramine HCl (Benadryl) 25 mg Q6H PRN IVP Itching 08/18/17 08:45 09/17/17 08:44 08/22/17 13:47 Docusate Sodium (Colace) 100 mg TWICE A DAY ORAL 08/13/17 18:00 09/12/17 17:59 08/22/17 17:08 Gabapentin (Neurontin) 100 mg THREE TIMES A DAY ORAL 08/13/17 13:00 09/12/17 12:59 08/22/17 17:08 Heparin Sodium (Porcine) (Heparin 5000 units/ml) 5,000 units EVERY 12 HOURS SUBQ 08/13/17 09:00 09/09/17 20:59 08/22/17 08:48 Heparin Sodium/ Sodium Chloride (Heparin 2000 units/Ns 1000ml premix) 2,000 unit ONCE ONCE INJ 08/23/17 08:00 08/23/17 08:01 Insulin Aspart (NovoLOG) BEFORE MEALS AND HS SUBQ 08/13/17 06:30 09/11/17 16:29 08/22/17 17:09 Insulin Aspart (NovoLOG) 4 units NOVOTIAC SUBQ 08/13/17 06:30 09/12/17 06:29 08/22/17 17:10 Insulin Detemir (Levemir) 10 units EVERY 12 HOURS SUBQ 08/21/17 09:00 09/20/17 08:59 08/22/17 08:49 Lidocaine HCl (Xylocaine 1% 30ml) 30 ml ONCE ONCE INJ 08/23/17 08:00 08/23/17 08:01 Morphine Sulfate (Morphine Sulfate) 4 mg Q4H PRN IVP Severe Pain (Pain Scale 7-10) 08/17/17 18:00 08/24/17 17:59 08/22/17 18:56 Nitroglycerin (Ntg) 0.4 mg Q5M PRN SL Prn Chest Pain 08/13/17 00:30 09/09/17 11:29 Ondansetron HCl (Zofran) 4 mg Q6H PRN IVP Nausea & Vomiting 08/13/17 05:30 09/09/17 11:29 08/20/17 21:45 Pantoprazole (Protonix) 40 mg ACBREAKFAST ORAL 08/16/17 06:30 09/15/17 06:29 08/22/17 05:56 Polyethylene Glycol (Miralax) 17 gm DAILYPRN PRN ORAL Constipation 08/13/17 11:30 09/09/17 11:29 Promethazine HCl/ Codeine (Phenergan with Codeine) 5 ml Q6H PRN ORAL For Cough 08/13/17 05:15 09/10/17 23:14 08/13/17 03:13 Sennosides (Senokot) 8.6 mg DAILYPRN PRN ORAL Constipation 08/13/17 14:30 09/12/17 14:29 Vancomycin HCl (Vanco rx to dose) 1 ea DAILY PRN MISC Per rx protocol 08/16/17 16:45 09/15/17 16:44 Vancomycin HCl 1 gm/Dextrose 275 ml @ 183.708 mls/hr Q8HR IVPB 08/18/17 14:00 08/27/17 13:59 08/22/17 13:11 Richie Davis M.D. Aug 22, 2017 20:18
--- NOTE | 2017-08-22 21:15 | Pulmonology Progress Note ---
Assessment/Plan Problems: (1) DKA (diabetic ketoacidoses) (2) Diabetes mellitus Assessment/Plan no new complains tolerating diet sliding scale diabetic diet CT of chest in 4-6 month to rule out any growth of the nodules. ok to dc to snf dc planning in progress Subjective ROS Limited/Unobtainable: No Interval Events: doing better Allergies: Coded Allergies: PENICILLINS (Verified Allergy, Unknown, 08/10/17) [place] (Verified Allergy, Unknown, 08/10/17) Uncoded Allergies: [place] (Allergy, Unknown, 08/10/17) Objective Last 24 Hour Vital Signs Date Time Temp Pulse Resp B/P (MAP) Pulse Ox O2 Delivery O2 Flow Rate FiO2 08/22/17 20:00 98.2 77 18 117/58 97 Room Air 08/22/17 16:00 98.6 77 18 125/65 96 Room Air 08/22/17 12:26 98.1 80 18 144/56 95 Room Air 08/22/17 08:47 98.1 80 18 145/60 96 Room Air 08/22/17 06:00 98.6 80 20 134/59 95 Room Air 08/22/17 04:00 98.4 76 20 138/59 95 Room Air 08/22/17 00:00 97.9 75 20 130/60 94 Room Air Intake and Output 08/22/17 08/23/17 19:00 07:00 Intake Total 966.292 ml Output Total 1900 ml Balance -933.708 ml Intake Oral 600 ml IV Total 366.292 ml Output Urine Total 1900 ml Objective General Appearance: WD/WN, no apparent distress Lines, tubes and drains: peripheral, HEENT: normocephalic, anicteric Neck: non-tender, normal alignment Respiratory/Chest: chest wall non-tender, lungs clear Cardiovascular/Chest: normal rate, regular rhythm Abdomen: non tender, soft Genitourinary/Rectal: normal genital exam, normal rectal exam Extremities: normal range of motion, non-pitting Laboratory Tests 08/22/17 05:10: White Blood Count 8.3, Red Blood Count 3.40L, Hemoglobin 10.4L, Hematocrit 31.8L , Mean Corpuscular Volume 94, Mean Corpuscular Hemoglobin 30.5, Mean Corpuscular Hemoglobin Concent 32.6, Red Cell Distribution Width 14.6, Platelet Count 478H, Mean Platelet Volume 5.5L, Neutrophils (%) (Auto) 64.6, Lymphocytes (%) (Auto) 16.5L, Monocytes (%) (Auto) 8.7, Eosinophils (%) (Auto) 8.7H, Basophils (%) (Auto) 1.6, Sodium Level 137, Potassium Level 3.8, Chloride Level 99, Carbon Dioxide Level 30, Anion Gap 8, Blood Urea Nitrogen 6L, Creatinine 0.5L, Estimat Glomerular Filtration Rate > 60, Glucose Level 273H, Calcium Level 9.0 Current Medications Medications (Trade) Dose Ordered Sig/Danielle Route PRN Reason Start Time Stop Time Status Last Admin Dose Admin Acetaminophen (Tylenol) 650 mg Q4H PRN ORAL Fever (T>100.5F) 08/13/17 03:30 09/09/17 11:29 08/19/17 12:22 Aspirin (Ecotrin) 81 mg DAILY ORAL 08/13/17 09:00 09/10/17 08:59 08/22/17 08:47 Chlorhexidine Gluconate (Margarita-Hex 2%) 1 applic ONCE ONCE TOPIC 08/23/17 08:00 08/23/17 08:01 Chlorhexidine Gluconate (Margarita-Hex 2%) 1 applic Q24HRS TOPIC 08/16/17 20:00 09/15/17 19:59 08/20/17 21:32 Dextrose (Dextrose 50%) STAT PRN IV Hypoglycemia 08/13/17 06:00 09/12/17 05:59 08/17/17 16:37 Diphenhydramine HCl (Benadryl) 25 mg Q6H PRN IVP Itching 08/18/17 08:45 09/17/17 08:44 08/22/17 20:36 Docusate Sodium (Colace) 100 mg TWICE A DAY ORAL 08/13/17 18:00 09/12/17 17:59 08/22/17 17:08 Gabapentin (Neurontin) 100 mg THREE TIMES A DAY ORAL 08/13/17 13:00 09/12/17 12:59 08/22/17 17:08 Heparin Sodium (Porcine) (Heparin 5000 units/ml) 5,000 units EVERY 12 HOURS SUBQ 08/13/17 09:00 09/09/17 20:59 08/22/17 20:38 Heparin Sodium/ Sodium Chloride (Heparin 2000 units/Ns 1000ml premix) 2,000 unit ONCE ONCE INJ 08/23/17 08:00 08/23/17 08:01 Insulin Aspart (NovoLOG) BEFORE MEALS AND HS SUBQ 08/13/17 06:30 09/11/17 16:29 08/22/17 20:39 Insulin Aspart (NovoLOG) 4 units NOVOTIAC SUBQ 08/13/17 06:30 09/12/17 06:29 08/22/17 17:10 Insulin Detemir (Levemir) 10 units EVERY 12 HOURS SUBQ 08/21/17 09:00 09/20/17 08:59 08/22/17 20:40 Lidocaine HCl (Xylocaine 1% 30ml) 30 ml ONCE ONCE INJ 08/23/17 08:00 08/23/17 08:01 Morphine Sulfate (Morphine Sulfate) 4 mg Q4H PRN IVP Severe Pain (Pain Scale 7-10) 08/17/17 18:00 08/24/17 17:59 08/22/17 18:56 Nitroglycerin (Ntg) 0.4 mg Q5M PRN SL Prn Chest Pain 08/13/17 00:30 09/09/17 11:29 Ondansetron HCl (Zofran) 4 mg Q6H PRN IVP Nausea & Vomiting 08/13/17 05:30 09/09/17 11:29 08/20/17 21:45 Pantoprazole (Protonix) 40 mg ACBREAKFAST ORAL 08/16/17 06:30 09/15/17 06:29 08/22/17 05:56 Polyethylene Glycol (Miralax) 17 gm DAILYPRN PRN ORAL Constipation 08/13/17 11:30 09/09/17 11:29 Promethazine HCl/ Codeine (Phenergan with Codeine) 5 ml Q6H PRN ORAL For Cough 08/13/17 05:15 09/10/17 23:14 08/13/17 03:13 Sennosides (Senokot) 8.6 mg DAILYPRN PRN ORAL Constipation 08/13/17 14:30 09/12/17 14:29 Vancomycin HCl (Vanco rx to dose) 1 ea DAILY PRN MISC Per rx protocol 08/16/17 16:45 09/15/17 16:44 Vancomycin HCl 1 gm/Dextrose 275 ml @ 183.708 mls/hr Q8HR IVPB 08/18/17 14:00 08/27/17 13:59 08/22/17 21:12 YUVAL MAYA Aug 22, 2017 21:15
[2017-08-23] VITALS (7 sets, daily range): BP systolic 120–145; BP diastolic 51–70
[2017-08-23] MEDS: Morphine Sulfate 4mg/ml Inj IVP PRN ×3 (01:35→23:26)
[2017-08-23] MEDS: Vancomycin 1gm in Dextrose 275ml IVPB SCH ×3 (05:31→20:24)
[2017-08-23] MEDS: NovoLOG Insulin Flexpen SUBQ SCH ×7 (06:05→20:30)
[2017-08-23 07:17] LABS: BASOPHILS % (AUTO) 2.2 % (0.0-2.0); EOSINOPHILS % (AUTO) 7.4 % (0.0-3.0); LYMPHOCYTES % (AUTO) 23.5 % (20.0-45.0); MEAN CORPUSCULAR HEMOGLOBIN 29.9 PG (27.0-31.0); MEAN CORPUSCULAR HGB CONC 32.1 G/DL (32.0-36.0); MEAN CORPUSCULAR VOLUME 93 FL (80-99); MEAN PLATELET VOLUME 5.4 FL (6.5-10.1); MONOCYTES % (AUTO) 9.6 % (1.0-10.0); NEUTROPHILS % (AUTO) 57.4 % (45.0-75.0); PLATELET COUNT 473 K/UL (150-450); RED BLOOD COUNT 3.58 M/UL (4.20-5.40); RED CELL DISTRIBUTION WIDTH 14.2 % (11.6-14.8); WHITE BLOOD COUNT 8.1 K/UL (4.8-10.8)
[2017-08-23 07:36] LABS: ANION GAP 4 mmol/L (5-15); CALCIUM 8.8 MG/DL (8.5-10.1); CARBON DIOXIDE 33 MMOL/L (21-32); CHLORIDE 103 MMOL/L (98-107); CREATININE 0.5 MG/DL (0.55-1.30); GLOMERULAR FILTRATION RATE > 60 mL/min (>60); POTASSIUM 4.4 MMOL/L (3.5-5.1); SODIUM 140 MMOL/L (136-145)
--- NOTE | 2017-08-23 07:49 | General Progress Note ---
Assessment/Plan Problem List: (1) DKA (diabetic ketoacidoses) ICD Codes: E13.10 - Other specified diabetes mellitus with ketoacidosis without coma SNOMED: 748150944, 65599276 (2) Diabetes mellitus ICD Codes: E11.9 - Type 2 diabetes mellitus without complications SNOMED: 36889077 (3) Right upper lobe consolidation ICD Codes: J18.1 - Lobar pneumonia, unspecified organism SNOMED: 15194347 (4) Sepsis ICD Codes: A41.9 - Sepsis, unspecified organism SNOMED: 06201106 Assessment/Plan continue Levemir 10 units bid continue Novolog 4 units ac tid continue SSI Subjective Allergies: Coded Allergies: PENICILLINS (Verified Allergy, Unknown, 08/10/17) [employer] (Verified Allergy, Unknown, 08/10/17) Uncoded Allergies: [place] (Allergy, Unknown, 08/10/17) All Systems: reviewed and negative except above Subjective events noted Objective Last 24 Hour Vital Signs Date Time Temp Pulse Resp B/P (MAP) Pulse Ox O2 Delivery O2 Flow Rate FiO2 08/23/17 04:00 97.0 67 18 123/54 95 Room Air 08/23/17 00:00 97.9 69 18 120/51 96 Room Air 08/22/17 20:00 98.2 77 18 117/58 97 Room Air 08/22/17 16:00 98.6 77 18 125/65 96 Room Air 08/22/17 12:26 98.1 80 18 144/56 95 Room Air 08/22/17 08:47 98.1 80 18 145/60 96 Room Air Laboratory Tests 08/23/17 04:30: White Blood Count 8.1, Red Blood Count 3.58L, Hemoglobin 10.7L, Hematocrit 33.4L , Mean Corpuscular Volume 93, Mean Corpuscular Hemoglobin 29.9, Mean Corpuscular Hemoglobin Concent 32.1, Red Cell Distribution Width 14.2, Platelet Count 473H, Mean Platelet Volume 5.4L, Neutrophils (%) (Auto) 57.4, Lymphocytes (%) (Auto) 23.5, Monocytes (%) (Auto) 9.6, Eosinophils (%) (Auto) 7.4H, Basophils (%) (Auto) 2.2H, Sodium Level 140, Potassium Level 4.4, Chloride Level 103, Carbon Dioxide Level 33H, Anion Gap 4L, Blood Urea Nitrogen 4L, Creatinine 0.5L, Estimat Glomerular Filtration Rate > 60, Glucose Level 69#L, Calcium Level 8.8 Height (Feet): 5 Height (Inches): 6.00 Weight (Pounds): 120 General Appearance: no apparent distress Neck: normal alignment Cardiovascular: normal rate Respiratory/Chest: lungs clear Abdomen: normal bowel sounds Objective Current Medications Medications (Trade) Dose Ordered Sig/Danielle Route PRN Reason Start Time Stop Time Status Last Admin Dose Admin Acetaminophen (Tylenol) 650 mg Q4H PRN ORAL Fever (T>100.5F) 08/13/17 03:30 09/09/17 11:29 08/19/17 12:22 Aspirin (Ecotrin) 81 mg DAILY ORAL 08/13/17 09:00 09/10/17 08:59 08/22/17 08:47 Bisacodyl (Dulcolax) 10 mg BID PRN RECTAL Constipation 08/23/17 03:15 09/22/17 03:14 Chlorhexidine Gluconate (Margarita-Hex 2%) 1 applic ONCE ONCE TOPIC 08/23/17 08:00 08/23/17 08:01 Chlorhexidine Gluconate (Margarita-Hex 2%) 1 applic Q24HRS TOPIC 08/16/17 20:00 09/15/17 19:59 08/20/17 21:32 Dextrose (Dextrose 50%) STAT PRN IV Hypoglycemia 08/13/17 06:00 09/12/17 05:59 08/17/17 16:37 Diphenhydramine HCl (Benadryl) 25 mg Q6H PRN IVP Itching 08/18/17 08:45 09/17/17 08:44 08/22/17 20:36 Docusate Sodium (Colace) 100 mg TWICE A DAY ORAL 08/23/17 09:00 09/22/17 08:59 Docusate Sodium (Colace) 100 mg TWICE A DAY ORAL 08/13/17 18:00 09/12/17 17:59 08/22/17 17:08 Gabapentin (Neurontin) 100 mg THREE TIMES A DAY ORAL 08/13/17 13:00 09/12/17 12:59 08/22/17 17:08 Heparin Sodium (Porcine) (Heparin 5000 units/ml) 5,000 units EVERY 12 HOURS SUBQ 08/13/17 09:00 09/09/17 20:59 08/22/17 20:38 Heparin Sodium/ Sodium Chloride (Heparin 2000 units/Ns 1000ml premix) 2,000 unit ONCE ONCE INJ 08/23/17 08:00 08/23/17 08:01 Insulin Aspart (NovoLOG) BEFORE MEALS AND HS SUBQ 08/13/17 06:30 09/11/17 16:29 08/22/17 20:39 Insulin Aspart (NovoLOG) 4 units NOVOTIAC SUBQ 08/13/17 06:30 09/12/17 06:29 08/22/17 17:10 Insulin Detemir (Levemir) 10 units EVERY 12 HOURS SUBQ 08/21/17 09:00 09/20/17 08:59 08/22/17 20:40 Lidocaine HCl (Xylocaine 1% 30ml) 30 ml ONCE ONCE INJ 08/23/17 08:00 08/23/17 08:01 Morphine Sulfate (Morphine Sulfate) 4 mg Q4H PRN IVP Severe Pain (Pain Scale 7-10) 08/17/17 18:00 08/24/17 17:59 08/23/17 01:35 Nitroglycerin (Ntg) 0.4 mg Q5M PRN SL Prn Chest Pain 08/13/17 00:30 09/09/17 11:29 Ondansetron HCl (Zofran) 4 mg Q6H PRN IVP Nausea & Vomiting 08/13/17 05:30 09/09/17 11:29 08/20/17 21:45 Pantoprazole (Protonix) 40 mg ACBREAKFAST ORAL 08/16/17 06:30 09/15/17 06:29 08/23/17 06:05 Polyethylene Glycol (Miralax) 17 gm DAILYPRN PRN ORAL Constipation 08/13/17 11:30 09/09/17 11:29 Promethazine HCl/ Codeine (Phenergan with Codeine) 5 ml Q6H PRN ORAL For Cough 08/13/17 05:15 09/10/17 23:14 08/13/17 03:13 Sennosides (Senokot) 8.6 mg DAILYPRN PRN ORAL Constipation 08/13/17 14:30 09/12/17 14:29 Vancomycin HCl (Vanco rx to dose) 1 ea DAILY PRN MISC Per rx protocol 08/16/17 16:45 09/15/17 16:44 Vancomycin HCl 1 gm/Dextrose 275 ml @ 183.708 mls/hr Q8HR IVPB 08/18/17 14:00 08/27/17 13:59 08/23/17 05:31 Item Value Date Time Bedside Blood Glucose 78 mg/dl 08/23/17 0615 Bedside Blood Glucose 168 mg/dl H 08/22/17 2100 Bedside Blood Glucose 226 mg/dl H 08/22/17 1710 Bedside Blood Glucose 226 mg/dl H 08/22/17 1252 Bedside Blood Glucose 195 mg/dl H 08/22/17 0849 Bedside Blood Glucose 230 mg/dl H 08/22/17 0559 EMA VALENCIA Aug 23, 2017 07:49
[2017-08-23] MEDS ORDERED: Dyna-Hex 2% Top Sol 2oz TOPIC ONE (08:00)
[2017-08-23] MEDS ORDERED: Heparin 2000 units/Ns 1000ml INJ ONE (08:00)
[2017-08-23] MEDS ORDERED: Lidocaine 1% Plain 30 ml INJ ONE (08:00)
[2017-08-23] MEDS: Aspirin EC 81mg tab ORAL SCH (08:54)
[2017-08-23] MEDS: Docusate 100mg cap ORAL SCH ×3 (08:58→18:03)
[2017-08-23] MEDS: Heparin 5000 units/ml inj SUBQ SCH ×2 (09:04→20:31)
[2017-08-23] MEDS: Levemir Flexpen SUBQ SCH ×2 (09:06→20:28)
[2017-08-23] MEDS: DiphenhydrAMINE 50mg/ml Inj IVP PRN (09:16)
--- NOTE | 2017-08-23 12:41 | General Progress Note ---
Assessment/Plan Problem List: (1) Diabetes mellitus ICD Codes: E11.9 - Type 2 diabetes mellitus without complications SNOMED: 92231136 (2) Right upper lobe consolidation ICD Codes: J18.1 - Lobar pneumonia, unspecified organism SNOMED: 80252712 (3) DKA (diabetic ketoacidoses) ICD Codes: E13.10 - Other specified diabetes mellitus with ketoacidosis without coma SNOMED: 882937548, 80519196 (4) Sepsis ICD Codes: A41.9 - Sepsis, unspecified organism SNOMED: 34662833 (5) Pulmonary nodules ICD Codes: R91.8 - Other nonspecific abnormal finding of lung field SNOMED: 308847245 Status: stable, progressing, tolerating diet Assessment/Plan ot pt diet abx bs control endo f/u dc to snf Subjective Constitutional: Reports: weakness Allergies: Coded Allergies: [place] (Verified Allergy, Unknown, 08/10/17) [place] (Verified Allergy, Unknown, 08/10/17) Uncoded Allergies: [place] (Allergy, Unknown, 08/10/17) Subjective sleepy calm Objective Last 24 Hour Vital Signs Date Time Temp Pulse Resp B/P (MAP) Pulse Ox O2 Delivery O2 Flow Rate FiO2 08/23/17 08:00 97.9 75 19 145/56 98 Room Air 08/23/17 04:00 97.0 67 18 123/54 95 Room Air 08/23/17 00:00 97.9 69 18 120/51 96 Room Air 08/22/17 20:00 98.2 77 18 117/58 97 Room Air 08/22/17 16:00 98.6 77 18 125/65 96 Room Air Laboratory Tests 08/23/17 04:30: White Blood Count 8.1, Red Blood Count 3.58L, Hemoglobin 10.7L, Hematocrit 33.4L , Mean Corpuscular Volume 93, Mean Corpuscular Hemoglobin 29.9, Mean Corpuscular Hemoglobin Concent 32.1, Red Cell Distribution Width 14.2, Platelet Count 473H, Mean Platelet Volume 5.4L, Neutrophils (%) (Auto) 57.4, Lymphocytes (%) (Auto) 23.5, Monocytes (%) (Auto) 9.6, Eosinophils (%) (Auto) 7.4H, Basophils (%) (Auto) 2.2H, Sodium Level 140, Potassium Level 4.4, Chloride Level 103, Carbon Dioxide Level 33H, Anion Gap 4L, Blood Urea Nitrogen 4L, Creatinine 0.5L, Estimat Glomerular Filtration Rate > 60, Glucose Level 69#L, Calcium Level 8.8 Height (Feet): 5 Height (Inches): 6.00 Weight (Pounds): 120 General Appearance: lethargic EENT: normal ENT inspection Neck: normal alignment Cardiovascular: normal peripheral pulses, normal rate, regular rhythm Respiratory/Chest: chest wall non-tender, lungs clear, normal breath sounds Abdomen: normal bowel sounds, non tender, soft Extremities: normal inspection Edema: no edema noted Arm (L), no edema noted Arm (R), no edema noted Leg (L), no edema noted Leg (R), no edema noted Pedal (L), no edema noted Pedal (R), no edema noted Generalized Neurologic: motor weakness Skin: normal pigmentation, warm/dry MANDIE PUENTE Aug 23, 2017 12:41
--- NOTE | 2017-08-23 14:27 | Pulmonology Progress Note ---
Assessment/Plan Problems: (1) DKA (diabetic ketoacidoses) (2) Diabetes mellitus Assessment/Plan no new complains improving tolerating diet sliding scale diabetic diet CT of chest in 4-6 month to rule out any growth of the nodules. all meds/labs reviewed ok to dc to senior living dc planning in progress Subjective ROS Limited/Unobtainable: No Constitutional: Reports: no symptoms HEENT: Repors: no symptoms Allergies: Coded Allergies: PENICILLINS (Verified Allergy, Unknown, 08/10/17) [place] (Verified Allergy, Unknown, 08/10/17) Uncoded Allergies: [place] (Allergy, Unknown, 08/10/17) Objective Last 24 Hour Vital Signs Date Time Temp Pulse Resp B/P (MAP) Pulse Ox O2 Delivery O2 Flow Rate FiO2 08/23/17 12:00 98.4 80 18 144/70 99 Room Air 08/23/17 08:00 97.9 75 19 145/56 98 Room Air 08/23/17 04:00 97.0 67 18 123/54 95 Room Air 08/23/17 00:00 97.9 69 18 120/51 96 Room Air 08/22/17 20:00 98.2 77 18 117/58 97 Room Air 08/22/17 16:00 98.6 77 18 125/65 96 Room Air Intake and Output 08/23/17 08/24/17 19:00 07:00 Intake Total 360 ml Output Total 850 ml Balance -490 ml Intake Oral 360 ml Output Urine Total 850 ml Objective General Appearance: WD/WN, no apparent distress Lines, tubes and drains: peripheral, HEENT: normocephalic, anicteric Neck: non-tender, normal alignment Respiratory/Chest: chest wall non-tender, lungs clear Cardiovascular/Chest: normal rate, regular rhythm Abdomen: non tender, soft Genitourinary/Rectal: normal genital exam, normal rectal exam Extremities: normal range of motion, non-pitting Microbiology Date/Time Source Procedure Growth Status 08/21/17 18:00 Femoral Right Catheter Tip Culture - Preliminary NO GROWTH AFTER 24 HOURS Resulted Laboratory Tests 08/23/17 04:30: White Blood Count 8.1, Red Blood Count 3.58L, Hemoglobin 10.7L, Hematocrit 33.4L , Mean Corpuscular Volume 93, Mean Corpuscular Hemoglobin 29.9, Mean Corpuscular Hemoglobin Concent 32.1, Red Cell Distribution Width 14.2, Platelet Count 473H, Mean Platelet Volume 5.4L, Neutrophils (%) (Auto) 57.4, Lymphocytes (%) (Auto) 23.5, Monocytes (%) (Auto) 9.6, Eosinophils (%) (Auto) 7.4H, Basophils (%) (Auto) 2.2H, Sodium Level 140, Potassium Level 4.4, Chloride Level 103, Carbon Dioxide Level 33H, Anion Gap 4L, Blood Urea Nitrogen 4L, Creatinine 0.5L, Estimat Glomerular Filtration Rate > 60, Glucose Level 69#L, Calcium Level 8.8 Current Medications Medications (Trade) Dose Ordered Sig/Danielle Route PRN Reason Start Time Stop Time Status Last Admin Dose Admin Acetaminophen (Tylenol) 650 mg Q4H PRN ORAL Fever (T>100.5F) 08/13/17 03:30 09/09/17 11:29 08/19/17 12:22 Aspirin (Ecotrin) 81 mg DAILY ORAL 08/13/17 09:00 09/10/17 08:59 08/23/17 08:54 Bisacodyl (Dulcolax) 10 mg BID PRN RECTAL Constipation 08/23/17 03:15 09/22/17 03:14 Chlorhexidine Gluconate (Margarita-Hex 2%) 1 applic Q24HRS TOPIC 08/16/17 20:00 09/15/17 19:59 08/20/17 21:32 Dextrose (Dextrose 50%) STAT PRN IV Hypoglycemia 08/13/17 06:00 09/12/17 05:59 08/17/17 16:37 Diphenhydramine HCl (Benadryl) 25 mg Q6H PRN IVP Itching 08/18/17 08:45 09/17/17 08:44 08/23/17 09:16 Docusate Sodium (Colace) 100 mg TWICE A DAY ORAL 08/23/17 09:00 09/22/17 08:59 Gabapentin (Neurontin) 100 mg THREE TIMES A DAY ORAL 08/13/17 13:00 09/12/17 12:59 08/23/17 14:17 Heparin Sodium (Porcine) (Heparin 5000 units/ml) 5,000 units EVERY 12 HOURS SUBQ 08/13/17 09:00 09/09/17 20:59 08/23/17 09:04 Insulin Aspart (NovoLOG) BEFORE MEALS AND HS SUBQ 08/13/17 06:30 09/11/17 16:29 08/23/17 12:47 Insulin Aspart (NovoLOG) 4 units NOVOTIAC SUBQ 08/13/17 06:30 09/12/17 06:29 08/23/17 12:48 Insulin Detemir (Levemir) 10 units EVERY 12 HOURS SUBQ 08/21/17 09:00 09/20/17 08:59 08/23/17 09:06 Morphine Sulfate (Morphine Sulfate) 4 mg Q4H PRN IVP Severe Pain (Pain Scale 7-10) 08/17/17 18:00 08/24/17 17:59 08/23/17 12:41 Nitroglycerin (Ntg) 0.4 mg Q5M PRN SL Prn Chest Pain 08/13/17 00:30 09/09/17 11:29 Ondansetron HCl (Zofran) 4 mg Q6H PRN IVP Nausea & Vomiting 08/13/17 05:30 09/09/17 11:29 08/20/17 21:45 Pantoprazole (Protonix) 40 mg ACBREAKFAST ORAL 08/16/17 06:30 09/15/17 06:29 08/23/17 06:05 Polyethylene Glycol (Miralax) 17 gm DAILYPRN PRN ORAL Constipation 08/13/17 11:30 09/09/17 11:29 Promethazine HCl/ Codeine (Phenergan with Codeine) 5 ml Q6H PRN ORAL For Cough 08/13/17 05:15 09/10/17 23:14 08/13/17 03:13 Sennosides (Senokot) 8.6 mg DAILYPRN PRN ORAL Constipation 08/13/17 14:30 09/12/17 14:29 Vancomycin HCl (Vanco rx to dose) 1 ea DAILY PRN MISC Per rx protocol 08/16/17 16:45 09/15/17 16:44 Vancomycin HCl 1 gm/Dextrose 275 ml @ 183.708 mls/hr Q8HR IVPB 08/18/17 14:00 08/27/17 13:59 08/23/17 05:31 YUVAL MAYA Aug 23, 2017 14:27
--- NOTE | 2017-08-23 15:23 | Diagnostic Imaging Report ---
Indications: Needs long-term IV access Technique: Ultrasound confirms patent compressible right brachial vein. Total sterile technique, including sterile probe cover and sterile gel, hat, mask,, sterile gown, large sterile drape, and preparation with 2% chlorhexidine utilized. Local anesthesia with 1% lidocaine. Under real-time ultrasound guidance, puncture brachial vein using 21-gauge needle, documented and archived, passage 0.018 guidewire under direct fluoroscopy, which was used to determine appropriate catheter length, exchange for 5 [place] peel-away sheath. 5 [place] Bard dual-lumen power PICC cut to 38 cm. It was inserted through the peel-away sheath. Peel-away sheath and guidewire removed. Catheter fixed to the skin. Both catheter ports aspirated and flushed. Patient tolerated procedure well, without immediate complication. Digital radiograph documents satisfactory catheter tip position, at the cavoatrial junction. Total fluoroscopy time 0.5 minutes. Total dose area product 8.2 dGycm2 Impression: Successful placement of right arm PICC under sonographic and fluoroscopic guidance, as described above.
[2017-08-23] MEDS ORDERED: VANCO 1 GR1 GM/250 M IV (16:11)
[2017-08-23] MEDS ORDERED: TYLENOL650 MG/20. ORAL (16:16)
[2017-08-23] MEDS ORDERED: GABAPENTIN100 MG ORAL (16:18)
[2017-08-23] MEDS ORDERED: DOCUSATE SODIU100 M2 ORAL (16:19)
[2017-08-23] MEDS ORDERED: PROMETHAZINE-C118 M1 ORAL (16:22)
[2017-08-23] MEDS ORDERED: LEVEMIR100 UNIT/1 SUBQ (16:24)
[2017-08-23] MEDS ORDERED: PANTOPRAZOLE SO20 MG ORAL (16:26)
[2017-08-23] MEDS ORDERED: MIRALAX17 G2 ORAL (16:27)
[2017-08-23] MEDS ORDERED: SENNA-GEN8.6 M1 PO (16:29)
--- NOTE | 2017-08-23 16:47 | Infectious Diseases Prog Note ---
Assessment/Plan Problems: (1) Sepsis Assessment & Plan: with coag negative staph , repeated blood culture is positive for staph epidermidis most likely contaminant , on vancomycin , repeated blood culture again positive for coag negative staph which was done from the femoral line . will need vancomycin for 4 weeks total starting from the repeated negative blood culture , femoral line was removed yesterday , tip for culture is pending , Had a new PICC line placed . 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 , screening for fungal infection is in progress (3) DKA (diabetic ketoacidoses) Assessment & Plan: continue insuline , with tight glycemic control to keep blood sugar between 80-120 (4) Diabetes mellitus Assessment & Plan: poorly controlled, recommend tight glycemic control to keep blood glucose between 80-120 , and follow up with endocrinology (5) Pulmonary nodules Assessment & Plan: in the [place], recommend follow up CT in 6 months , and 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 (6) Fever Assessment & Plan: resolved , suspect due to picc line infection , repeated blood culture so far is positive again from the femoral line , S/P removal , continue vancomycin for 4 weeks Subjective Constitutional: Reports: no symptoms HEENT: Reports: no symptoms Respiratory: Reports: no symptoms Breasts: Reports: no symptoms Cardiovascular: Reports: no symptoms Gastrointestinal/Abdominal: Reports: no symptoms Genitourinary: Reports: no symptoms Neurologic: Reports: no symptoms Psychiatric: Reports: no symptoms Skin: Reports: no symptoms Endocrine: Reports: no symptoms Hematologic: Reports: no symptoms Musculoskeletal: Reports: no symptoms Allergies: Coded Allergies: [place] (Verified Allergy, Unknown, 08/10/17) [place] (Verified Allergy, Unknown, 08/10/17) Uncoded Allergies: [place] (Allergy, Unknown, 08/10/17) Objective Vital Signs Last 24 Hour Vital Signs Date Time Temp Pulse Resp B/P (MAP) Pulse Ox O2 Delivery O2 Flow Rate FiO2 08/23/17 16:00 97.9 77 20 135/65 100 Room Air 08/23/17 12:00 98.4 80 18 144/70 99 Room Air 08/23/17 08:00 97.9 75 19 145/56 98 Room Air 08/23/17 04:00 97.0 67 18 123/54 95 Room Air 08/23/17 00:00 97.9 69 18 120/51 96 Room Air 08/22/17 20:00 98.2 77 18 117/58 97 Room Air Height (Feet): 5 Height (Inches): 6.00 Weight (Pounds): 120 General Appearance: WD/WN, no acute distress HEENT: normocephalic, atraumatic, anicteric, mucous membranes moist, PERRL, EOMI, pharynx normal, supple, no JVD Respiratory/Chest: chest wall non-tender, lungs clear, normal breath sounds, no respiratory distress, no accessory muscle use Cardiovascular: normal peripheral pulses, normal rate, regular rhythm, no gallop/murmur, no JVD Abdomen: normal bowel sounds, soft, non tender, no organomegaly, non distended , no mass, no scars Extremities: no cyanosis, no clubbing Skin: no rash, no lesions, no ulcers Neurologic/Psychiatric: alert, oriented x 3 Lymphatic: no neck adenopathy, no groin adenopathy Microbiology Date/Time Source Procedure Growth Status 08/21/17 18:00 Femoral Right Catheter Tip Culture - Preliminary NO GROWTH AFTER 24 HOURS Resulted Laboratory Tests Test 08/23/17 04:30 White Blood Count 8.1 K/UL (4.8-10.8) Red Blood Count 3.58 M/UL (4.20-5.40) L Hemoglobin 10.7 G/DL (12.0-16.0) L Hematocrit 33.4 % (37.0-47.0) L Mean Corpuscular Volume 93 FL (80-99) Mean Corpuscular Hemoglobin 29.9 PG (27.0-31.0) Mean Corpuscular Hemoglobin Concent 32.1 G/DL (32.0-36.0) Red Cell Distribution Width 14.2 % (11.6-14.8) Platelet Count 473 K/UL (150-450) H Mean Platelet Volume 5.4 FL (6.5-10.1) L Neutrophils (%) (Auto) 57.4 % (45.0-75.0) Lymphocytes (%) (Auto) 23.5 % (20.0-45.0) Monocytes (%) (Auto) 9.6 % (1.0-10.0) Eosinophils (%) (Auto) 7.4 % (0.0-3.0) H Basophils (%) (Auto) 2.2 % (0.0-2.0) H Sodium Level 140 MMOL/L (136-145) Potassium Level 4.4 MMOL/L (3.5-5.1) Chloride Level 103 MMOL/L (98-107) Carbon Dioxide Level 33 MMOL/L (21-32) H Anion Gap 4 mmol/L (5-15) L Blood Urea Nitrogen 4 mg/dL (7-18) L Creatinine 0.5 MG/DL (0.55-1.30) L Estimat Glomerular Filtration Rate > 60 mL/min (>60) Glucose Level 69 MG/DL (74-106) #L Calcium Level 8.8 MG/DL (8.5-10.1) Current Medications Medications (Trade) Dose Ordered Sig/Danielle Route PRN Reason Start Time Stop Time Status Last Admin Dose Admin Acetaminophen (Tylenol) 650 mg Q4H PRN ORAL Fever (T>100.5F) 08/13/17 03:30 09/09/17 11:29 08/19/17 12:22 Aspirin (Ecotrin) 81 mg DAILY ORAL 08/13/17 09:00 09/10/17 08:59 08/23/17 08:54 Bisacodyl (Dulcolax) 10 mg BID PRN RECTAL Constipation 08/23/17 03:15 09/22/17 03:14 Chlorhexidine Gluconate (Margarita-Hex 2%) 1 applic Q24HRS TOPIC 08/16/17 20:00 09/15/17 19:59 08/20/17 21:32 Dextrose (Dextrose 50%) STAT PRN IV Hypoglycemia 08/13/17 06:00 09/12/17 05:59 08/17/17 16:37 Diphenhydramine HCl (Benadryl) 25 mg Q6H PRN IVP Itching 08/18/17 08:45 09/17/17 08:44 08/23/17 09:16 Docusate Sodium (Colace) 100 mg TWICE A DAY ORAL 08/23/17 09:00 09/22/17 08:59 Gabapentin (Neurontin) 100 mg THREE TIMES A DAY ORAL 08/13/17 13:00 09/12/17 12:59 08/23/17 14:17 Heparin Sodium (Porcine) (Heparin 5000 units/ml) 5,000 units EVERY 12 HOURS SUBQ 08/13/17 09:00 09/09/17 20:59 08/23/17 09:04 Insulin Aspart (NovoLOG) BEFORE MEALS AND HS SUBQ 08/13/17 06:30 09/11/17 16:29 08/23/17 12:47 Insulin Aspart (NovoLOG) 4 units NOVOTIAC SUBQ 08/13/17 06:30 09/12/17 06:29 08/23/17 12:48 Insulin Detemir (Levemir) 10 units EVERY 12 HOURS SUBQ 08/21/17 09:00 09/20/17 08:59 08/23/17 09:06 Morphine Sulfate (Morphine Sulfate) 4 mg Q4H PRN IVP Severe Pain (Pain Scale 7-10) 08/17/17 18:00 08/24/17 17:59 08/23/17 12:41 Nitroglycerin (Ntg) 0.4 mg Q5M PRN SL Prn Chest Pain 08/13/17 00:30 09/09/17 11:29 Ondansetron HCl (Zofran) 4 mg Q6H PRN IVP Nausea & Vomiting 08/13/17 05:30 09/09/17 11:29 08/20/17 21:45 Pantoprazole (Protonix) 40 mg ACBREAKFAST ORAL 08/16/17 06:30 09/15/17 06:29 08/23/17 06:05 Polyethylene Glycol (Miralax) 17 gm DAILYPRN PRN ORAL Constipation 08/13/17 11:30 09/09/17 11:29 Promethazine HCl/ Codeine (Phenergan with Codeine) 5 ml Q6H PRN ORAL For Cough 08/13/17 05:15 09/10/17 23:14 08/13/17 03:13 Sennosides (Senokot) 8.6 mg DAILYPRN PRN ORAL Constipation 08/13/17 14:30 09/12/17 14:29 Vancomycin HCl (Vanco rx to dose) 1 ea DAILY PRN MISC Per rx protocol 08/16/17 16:45 09/15/17 16:44 Vancomycin HCl 1 gm/Dextrose 275 ml @ 183.708 mls/hr Q8HR IVPB 08/18/17 14:00 08/27/17 13:59 08/23/17 14:22 Richie Davis M.D. Aug 23, 2017 16:47
[2017-08-23] MEDS: Dyna-Hex 2% Top Sol 2oz TOPIC SCH (20:23)
--- NOTE | 2017-08-23 23:20 | Cardiology Progress Note ---
Assessment/Plan Assessment/Plan 1. Sinus tachycardia resolved, normal LVEF at 55%. 2. History of coronary artery disease, normal EF with no WMA. Subjective Subjective No cardiac events. Not on the telemetry unit. Objective Last 24 Hour Vital Signs Date Time Temp Pulse Resp B/P (MAP) Pulse Ox O2 Delivery O2 Flow Rate FiO2 08/23/17 23:04 97.5 89 20 122/52 97 Room Air 08/23/17 19:03 98.4 83 20 137/62 97 Room Air 08/23/17 16:00 97.9 77 20 135/65 100 Room Air 08/23/17 12:00 98.4 80 18 144/70 99 Room Air 08/23/17 08:00 97.9 75 19 145/56 98 Room Air 08/23/17 04:00 97.0 67 18 123/54 95 Room Air 08/23/17 00:00 97.9 69 18 120/51 96 Room Air Intake and Output 08/23/17 08/24/17 19:00 07:00 Intake Total 360 ml Output Total 2650 ml Balance -2290 ml Intake Oral 360 ml Output Urine Total 2650 ml 2D Echo: LVEF 55%, Mild LVH, Mod MR, Grade I LVDD, RVSP 30 mmHg Laboratory Tests Test 08/23/17 04:30 08/23/17 17:20 White Blood Count 8.1 K/UL (4.8-10.8) Red Blood Count 3.58 M/UL (4.20-5.40) L Hemoglobin 10.7 G/DL (12.0-16.0) L Hematocrit 33.4 % (37.0-47.0) L Mean Corpuscular Volume 93 FL (80-99) Mean Corpuscular Hemoglobin 29.9 PG (27.0-31.0) Mean Corpuscular Hemoglobin Concent 32.1 G/DL (32.0-36.0) Red Cell Distribution Width 14.2 % (11.6-14.8) Platelet Count 473 K/UL (150-450) H Mean Platelet Volume 5.4 FL (6.5-10.1) L Neutrophils (%) (Auto) 57.4 % (45.0-75.0) Lymphocytes (%) (Auto) 23.5 % (20.0-45.0) Monocytes (%) (Auto) 9.6 % (1.0-10.0) Eosinophils (%) (Auto) 7.4 % (0.0-3.0) H Basophils (%) (Auto) 2.2 % (0.0-2.0) H Sodium Level 140 MMOL/L (136-145) Potassium Level 4.4 MMOL/L (3.5-5.1) Chloride Level 103 MMOL/L (98-107) Carbon Dioxide Level 33 MMOL/L (21-32) H Anion Gap 4 mmol/L (5-15) L Blood Urea Nitrogen 4 mg/dL (7-18) L Creatinine 0.5 MG/DL (0.55-1.30) L Estimat Glomerular Filtration Rate > 60 mL/min (>60) Glucose Level 69 MG/DL (74-106) #L 522 MG/DL (74-106) #*H Calcium Level 8.8 MG/DL (8.5-10.1) Microbiology Date/Time Source Procedure Growth Status 08/21/17 18:00 Femoral Right Catheter Tip Culture - Preliminary NO GROWTH AFTER 24 HOURS Resulted Objective HEENT: Atraumatic and normocephalic. Anicteric. Pupils are equal, round, and reactive to light and accommodation. Extraocular movements are intact. NECK: JVP less than 5 centimeter. No carotid bruit. Carotid upstrokes 2+ bilaterally. CARDIOVASCULAR: Normal S1 and S2, No murmurs, gallops, or rubs. PMI is in the fourth intercostal space in the midclavicular line. LUNGS: There is crackles diffusely especially in both bases. ABDOMEN: Soft, nontender, and nondistended. No hepatosplenomegaly. Positive bowel sounds. EXTREMITIES: No evidence of edema, clubbing, or cyanosis. TAMAR CONNELL Aug 23, 2017 23:20
[2017-08-24] MEDS: DiphenhydrAMINE 50mg/ml Inj IVP PRN ×3 (03:05→16:59)
[2017-08-24 04:01] VITALS: BP 138/60
[2017-08-24] MEDS: Vancomycin 1gm in Dextrose 275ml IVPB SCH ×2 (05:51→13:56)
[2017-08-24] MEDS: Morphine Sulfate 4mg/ml Inj IVP PRN ×3 (05:52→15:32)
[2017-08-24] MEDS: NovoLOG Insulin Flexpen SUBQ SCH ×6 (06:01→17:01)
[2017-08-24 08:25] VITALS: BP 132/61
[2017-08-24] MEDS: Docusate 100mg cap ORAL SCH ×2 (09:47→17:46)
[2017-08-24] MEDS: Aspirin EC 81mg tab ORAL SCH (09:48)
[2017-08-24] MEDS: Heparin 5000 units/ml inj SUBQ SCH ×2 (10:06→10:17)
[2017-08-24] MEDS: Levemir Flexpen SUBQ SCH ×2 (10:11→10:19)
[2017-08-24 11:55] VITALS: BP 124/60
--- NOTE | 2017-08-24 14:58 | General Progress Note ---
Assessment/Plan Problem List: (1) Diabetes mellitus ICD Codes: E11.9 - Type 2 diabetes mellitus without complications SNOMED: 77550436 (2) Right upper lobe consolidation ICD Codes: J18.1 - Lobar pneumonia, unspecified organism SNOMED: 54860313 (3) DKA (diabetic ketoacidoses) ICD Codes: E13.10 - Other specified diabetes mellitus with ketoacidosis without coma SNOMED: 092732005, 35635983 (4) Sepsis ICD Codes: A41.9 - Sepsis, unspecified organism SNOMED: 53649599 (5) Pulmonary nodules ICD Codes: R91.8 - Other nonspecific abnormal finding of lung field SNOMED: 108453181 Status: stable, progressing, tolerating diet Assessment/Plan ot pt diet abx bs control cbc bmp am endo f/u dc to snf Subjective Constitutional: Reports: weakness Allergies: Coded Allergies: [place] (Verified Allergy, Unknown, 08/10/17) [place] (Verified Allergy, Unknown, 08/10/17) Uncoded Allergies: [place] (Allergy, Unknown, 08/10/17) All Systems: reviewed and negative except above Subjective sleepy calm Objective Last 24 Hour Vital Signs Date Time Temp Pulse Resp B/P (MAP) Pulse Ox O2 Delivery O2 Flow Rate FiO2 08/24/17 11:55 98.2 73 16 124/60 99 Room Air 08/24/17 08:25 98.2 74 16 132/61 100 Room Air 08/24/17 04:01 98.1 79 20 138/60 97 Room Air 08/23/17 23:04 97.5 89 20 122/52 97 Room Air 08/23/17 19:03 98.4 83 20 137/62 97 Room Air 08/23/17 16:00 97.9 77 20 135/65 100 Room Air Intake and Output 08/24/17 08/25/17 19:00 07:00 Intake Total 1120 ml Output Total 1100 ml Balance 20 ml Intake Oral 720 ml IV Total 400 ml Output Urine Total 1100 ml Laboratory Tests 08/23/17 17:20: Glucose Level 522#*H Height (Feet): 5 Height (Inches): 6.00 Weight (Pounds): 122 General Appearance: lethargic EENT: normal ENT inspection Neck: normal alignment Cardiovascular: normal peripheral pulses, normal rate, regular rhythm Respiratory/Chest: chest wall non-tender, lungs clear, normal breath sounds Abdomen: normal bowel sounds, non tender, soft Extremities: normal inspection Edema: no edema noted Arm (L), no edema noted Arm (R), no edema noted Leg (L), no edema noted Leg (R), no edema noted Pedal (L), no edema noted Pedal (R), no edema noted Generalized Neurologic: motor weakness Skin: normal pigmentation, warm/dry MANDIE PUENTE Aug 24, 2017 14:58
--- NOTE | 2017-08-24 14:59 | Pulmonology Progress Note ---
Assessment/Plan Problems: (1) DKA (diabetic ketoacidoses) (2) Diabetes mellitus Assessment/Plan dc IV lfuids no new complains tolerating diet sliding scale diabetic diet dc planning in progress Subjective ROS Limited/Unobtainable: No Constitutional: Reports: no symptoms HEENT: Repors: no symptoms Respiratory: Reports: no symptoms Allergies: Coded Allergies: [place] (Verified Allergy, Unknown, 08/10/17) [place] (Verified Allergy, Unknown, 08/10/17) Uncoded Allergies: [place] (Allergy, Unknown, 08/10/17) Objective Last 24 Hour Vital Signs Date Time Temp Pulse Resp B/P (MAP) Pulse Ox O2 Delivery O2 Flow Rate FiO2 08/24/17 11:55 98.2 73 16 124/60 99 Room Air 08/24/17 08:25 98.2 74 16 132/61 100 Room Air 08/24/17 04:01 98.1 79 20 138/60 97 Room Air 08/23/17 23:04 97.5 89 20 122/52 97 Room Air 08/23/17 19:03 98.4 83 20 137/62 97 Room Air 08/23/17 16:00 97.9 77 20 135/65 100 Room Air Intake and Output 08/24/17 08/25/17 19:00 07:00 Intake Total 1120 ml Output Total 1100 ml Balance 20 ml Intake Oral 720 ml IV Total 400 ml Output Urine Total 1100 ml Objective General Appearance: WD/WN, no apparent distress Lines, tubes and drains: peripheral, HEENT: normocephalic, anicteric Neck: non-tender, normal alignment Respiratory/Chest: chest wall non-tender, lungs clear Cardiovascular/Chest: normal rate, regular rhythm Abdomen: non tender, soft Genitourinary/Rectal: normal genital exam, normal rectal exam Extremities: normal range of motion, non-pitting Microbiology Date/Time Source Procedure Growth Status 08/21/17 18:00 Femoral Right Catheter Tip Culture - Preliminary NO GROWTH AFTER 48 HOURS Resulted Laboratory Tests 08/23/17 17:20: Glucose Level 522#*H Current Medications Medications (Trade) Dose Ordered Sig/Danielle Route PRN Reason Start Time Stop Time Status Last Admin Dose Admin Acetaminophen (Tylenol) 650 mg Q4H PRN ORAL Fever (T>100.5F) 08/13/17 03:30 09/09/17 11:29 08/19/17 12:22 Aspirin (Ecotrin) 81 mg DAILY ORAL 08/13/17 09:00 09/10/17 08:59 08/24/17 09:48 Bisacodyl (Dulcolax) 10 mg BID PRN RECTAL Constipation 08/23/17 03:15 09/22/17 03:14 08/24/17 09:53 Chlorhexidine Gluconate (Margarita-Hex 2%) 1 applic Q24HRS TOPIC 08/16/17 20:00 09/15/17 19:59 08/23/17 20:23 Dextrose (Dextrose 50%) STAT PRN IV Hypoglycemia 08/13/17 06:00 09/12/17 05:59 08/17/17 16:37 Diphenhydramine HCl (Benadryl) 25 mg Q6H PRN IVP Itching 08/18/17 08:45 09/17/17 08:44 08/24/17 10:10 Docusate Sodium (Colace) 100 mg TWICE A DAY ORAL 08/23/17 09:00 09/22/17 08:59 08/24/17 09:47 Gabapentin (Neurontin) 100 mg THREE TIMES A DAY ORAL 08/13/17 13:00 09/12/17 12:59 08/24/17 13:01 Heparin Sodium (Porcine) (Heparin 5000 units/ml) 5,000 units EVERY 12 HOURS SUBQ 08/13/17 09:00 09/09/17 20:59 08/24/17 10:17 Insulin Aspart (NovoLOG) BEFORE MEALS AND HS SUBQ 08/13/17 06:30 09/11/17 16:29 08/24/17 12:15 Insulin Aspart (NovoLOG) 4 units NOVOTIAC SUBQ 08/13/17 06:30 09/12/17 06:29 08/24/17 12:16 Insulin Detemir (Levemir) 10 units EVERY 12 HOURS SUBQ 08/21/17 09:00 09/20/17 08:59 08/24/17 10:19 Morphine Sulfate (Morphine Sulfate) 4 mg Q4H PRN IVP Severe Pain (Pain Scale 7-10) 08/17/17 18:00 08/24/17 17:59 08/24/17 11:01 Nitroglycerin (Ntg) 0.4 mg Q5M PRN SL Prn Chest Pain 08/13/17 00:30 09/09/17 11:29 Ondansetron HCl (Zofran) 4 mg Q6H PRN IVP Nausea & Vomiting 08/13/17 05:30 09/09/17 11:29 08/24/17 08:50 Pantoprazole (Protonix) 40 mg ACBREAKFAST ORAL 08/16/17 06:30 09/15/17 06:29 08/24/17 05:51 Polyethylene Glycol (Miralax) 17 gm DAILYPRN PRN ORAL Constipation 08/13/17 11:30 09/09/17 11:29 Promethazine HCl/ Codeine (Phenergan with Codeine) 5 ml Q6H PRN ORAL For Cough 08/13/17 05:15 09/10/17 23:14 08/13/17 03:13 Sennosides (Senokot) 8.6 mg DAILYPRN PRN ORAL Constipation 08/13/17 14:30 09/12/17 14:29 Sodium Chloride 1,000 ml @ 75 mls/hr [id number] IV 08/23/17 22:30 09/22/17 22:29 08/24/17 12:18 Vancomycin HCl (Vanco rx to dose) 1 ea DAILY PRN MISC Per rx protocol 08/16/17 16:45 09/15/17 16:44 Vancomycin HCl 1 gm/Dextrose 275 ml @ 183.708 mls/hr Q8HR IVPB 08/18/17 14:00 08/27/17 13:59 08/24/17 13:56 YUVAL MAYA Aug 24, 2017 14:59
[2017-08-24 16:24] VITALS: BP 140/72
--- NOTE | 2017-08-24 17:32 | Infectious Diseases Prog Note ---
Assessment/Plan Problems: (1) Sepsis Assessment & Plan: with coag negative staph , repeated blood culture is positive for staph epidermidis most likely contaminant , on vancomycin , repeated blood culture again positive for coag negative staph which was done from the femoral line . will need vancomycin for 4 weeks total starting from the repeated negative blood culture , femoral line was removed , tip for culture is pending , Had a new PICC line placed . 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 , screening for fungal infection is in progress (3) DKA (diabetic ketoacidoses) Assessment & Plan: continue insuline , with tight glycemic control to keep blood sugar between 80-120 (4) Diabetes mellitus Assessment & Plan: poorly controlled, recommend tight glycemic control to keep blood glucose between 80-120 , and follow up with endocrinology (5) Pulmonary nodules Assessment & Plan: in the [facility], recommend follow up CT in 6 months , and 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 (6) Fever Assessment & Plan: resolved , suspect due to picc line infection , repeated blood culture so far is positive again from the femoral line , S/P removal , continue vancomycin for 4 weeks Subjective Constitutional: Reports: no symptoms HEENT: Reports: no symptoms Respiratory: Reports: no symptoms Breasts: Reports: no symptoms Cardiovascular: Reports: no symptoms Gastrointestinal/Abdominal: Reports: no symptoms Genitourinary: Reports: no symptoms Neurologic: Reports: no symptoms Psychiatric: Reports: no symptoms Skin: Reports: no symptoms Endocrine: Reports: no symptoms Hematologic: Reports: no symptoms Musculoskeletal: Reports: no symptoms Allergies: Coded Allergies: PENICILLINS (Verified Allergy, Unknown, 08/10/17) [place] (Verified Allergy, Unknown, 08/10/17) Uncoded Allergies: [place] (Allergy, Unknown, 08/10/17) Objective Vital Signs Last 24 Hour Vital Signs Date Time Temp Pulse Resp B/P (MAP) Pulse Ox O2 Delivery O2 Flow Rate FiO2 08/24/17 16:24 98.1 72 19 140/72 Room Air 08/24/17 11:55 98.2 73 16 124/60 99 Room Air 08/24/17 08:25 98.2 74 16 132/61 100 Room Air 08/24/17 04:01 98.1 79 20 138/60 97 Room Air 08/23/17 23:04 97.5 89 20 122/52 97 Room Air 08/23/17 19:03 98.4 83 20 137/62 97 Room Air Height (Feet): 5 Height (Inches): 6.00 Weight (Pounds): 122 General Appearance: WD/WN, no acute distress HEENT: normocephalic, atraumatic, anicteric, mucous membranes moist, PERRL Respiratory/Chest: chest wall non-tender, lungs clear, normal breath sounds, no respiratory distress, no accessory muscle use Cardiovascular: normal peripheral pulses, normal rate, regular rhythm, no gallop/murmur, no JVD Abdomen: normal bowel sounds, soft, non tender, no organomegaly, non distended , no mass, no scars Extremities: no cyanosis, no clubbing Skin: no rash, no lesions, no ulcers Neurologic/Psychiatric: alert, oriented x 3 Microbiology Date/Time Source Procedure Growth Status 08/21/17 18:00 Femoral Right Catheter Tip Culture - Preliminary NO GROWTH AFTER 48 HOURS Resulted Current Medications Medications (Trade) Dose Ordered Sig/Danielle Route PRN Reason Start Time Stop Time Status Last Admin Dose Admin Acetaminophen (Tylenol) 650 mg Q4H PRN ORAL Fever (T>100.5F) 08/13/17 03:30 09/09/17 11:29 08/19/17 12:22 Aspirin (Ecotrin) 81 mg DAILY ORAL 08/13/17 09:00 09/10/17 08:59 08/24/17 09:48 Bisacodyl (Dulcolax) 10 mg BID PRN RECTAL Constipation 08/23/17 03:15 09/22/17 03:14 08/24/17 09:53 Chlorhexidine Gluconate (Margarita-Hex 2%) 1 applic Q24HRS TOPIC 08/16/17 20:00 09/15/17 19:59 08/23/17 20:23 Dextrose (Dextrose 50%) STAT PRN IV Hypoglycemia 08/13/17 06:00 09/12/17 05:59 08/17/17 16:37 Diphenhydramine HCl (Benadryl) 25 mg Q6H PRN IVP Itching 08/18/17 08:45 09/17/17 08:44 08/24/17 16:59 Docusate Sodium (Colace) 100 mg TWICE A DAY ORAL 08/23/17 09:00 09/22/17 08:59 08/24/17 09:47 Gabapentin (Neurontin) 100 mg THREE TIMES A DAY ORAL 08/13/17 13:00 09/12/17 12:59 08/24/17 13:01 Heparin Sodium (Porcine) (Heparin 5000 units/ml) 5,000 units EVERY 12 HOURS SUBQ 08/13/17 09:00 09/09/17 20:59 08/24/17 10:17 Insulin Aspart (NovoLOG) BEFORE MEALS AND HS SUBQ 08/13/17 06:30 09/11/17 16:29 08/24/17 17:00 Insulin Aspart (NovoLOG) 4 units NOVOTIAC SUBQ 08/13/17 06:30 09/12/17 06:29 08/24/17 17:01 Insulin Detemir (Levemir) 10 units EVERY 12 HOURS SUBQ 08/21/17 09:00 09/20/17 08:59 08/24/17 10:19 Morphine Sulfate (Morphine Sulfate) 4 mg Q4H PRN IVP Severe Pain (Pain Scale 7-10) 08/17/17 18:00 08/24/17 17:59 08/24/17 15:32 Nitroglycerin (Ntg) 0.4 mg Q5M PRN SL Prn Chest Pain 08/13/17 00:30 09/09/17 11:29 Ondansetron HCl (Zofran) 4 mg Q6H PRN IVP Nausea & Vomiting 08/13/17 05:30 09/09/17 11:29 08/24/17 08:50 Pantoprazole (Protonix) 40 mg ACBREAKFAST ORAL 08/16/17 06:30 09/15/17 06:29 08/24/17 05:51 Polyethylene Glycol (Miralax) 17 gm DAILYPRN PRN ORAL Constipation 08/13/17 11:30 09/09/17 11:29 Promethazine HCl/ Codeine (Phenergan with Codeine) 5 ml Q6H PRN ORAL For Cough 08/13/17 05:15 09/10/17 23:14 08/13/17 03:13 Sennosides (Senokot) 8.6 mg DAILYPRN PRN ORAL Constipation 08/13/17 14:30 09/12/17 14:29 Vancomycin HCl (Vanco rx to dose) 1 ea DAILY PRN MISC Per rx protocol 08/16/17 16:45 09/15/17 16:44 Vancomycin HCl 1 gm/Dextrose 275 ml @ 183.708 mls/hr Q8HR IVPB 08/18/17 14:00 08/27/17 13:59 08/24/17 13:56 Richie Davis M.D. Aug 24, 2017 17:32
[2017-08-24] MEDS ORDERED: NS 275ml ONE (19:34)
--- NOTE | 2017-08-24 23:19 | Cardiology Progress Note ---
Assessment/Plan Assessment/Plan 1. Sinus tachycardia resolved, normal LVEF at 55%. 2. History of coronary artery disease, normal EF with no WMA. Subjective Subjective No cardiac events. Not on the telemetry unit. Objective Last 24 Hour Vital Signs Date Time Temp Pulse Resp B/P (MAP) Pulse Ox O2 Delivery O2 Flow Rate FiO2 08/24/17 16:24 98.1 72 19 140/72 Room Air 08/24/17 11:55 98.2 73 16 124/60 99 Room Air 08/24/17 08:25 98.2 74 16 132/61 100 Room Air 08/24/17 04:01 98.1 79 20 138/60 97 Room Air Intake and Output 08/24/17 08/25/17 19:00 07:00 Intake Total 1395.000 ml Output Total 1100 ml Balance 295.000 ml Intake Oral 720 ml IV Total 675.000 ml Output Urine Total 1100 ml # Voids 1 2D Echo: LVEF 55%, Mild LVH, Mod MR, Grade I LVDD, RVSP 30 mmHg Objective HEENT: Atraumatic and normocephalic. Anicteric. Pupils are equal, round, and reactive to light and accommodation. Extraocular movements are intact. NECK: JVP less than 5 centimeter. No carotid bruit. Carotid upstrokes 2+ bilaterally. CARDIOVASCULAR: Normal S1 and S2, No murmurs, gallops, or rubs. PMI is in the fourth intercostal space in the midclavicular line. LUNGS: There is crackles diffusely especially in both bases. ABDOMEN: Soft, nontender, and nondistended. No hepatosplenomegaly. Positive bowel sounds. EXTREMITIES: No evidence of edema, clubbing, or cyanosis. TAMAR CONNELL Aug 24, 2017 23:19
--- NOTE | 2017-08-27 13:28 | Discharge Summary ---
Discharge Summary Hospital Course Date of Admission Aug 10, 2017 at 08:52 Date of Discharge Aug 24, 2017 at 19:35 Admitting Diagnosis hyperglycemia HPI Juliette Hernandez is a 62 year old female who was admitted on Aug 10, 2017 at 08:52 for Hyperglycemia Hospital Course [id number] Discharge Discharge Disposition Patient was discharged to SNF/Subacute Facility(03) Discharge Diagnoses: Paola Ferreira NP Aug 27, 2017 13:28
--- NOTE | 2017-08-28 04:32 | Discharge Summary 2 SIG ---
DATE OF ADMISSION: 08/10/2017 DATE OF DISCHARGE: 08/24/2017 CONSULTANTS: 1. Richie Davis M.D. 2. Kaitlin Oconnell M.D. 3. Nicko Martinez M.D. 4. Milind Brewer M.D. BRIEF HOSPITAL COURSE: The patient is a 62-year-old female, who was brought in by EMS from nursing facility for complaints of change in mental status and elevated blood glucose. Upon arrival to ED, the patient was responsive to physical stimuli, however was not verbal. She has history of hypertension, diabetes, and schizophrenia. On arrival to ED, she was found to have elevated glucose 482. Lactic acid level was 2.0. WBC was 9.2. Anion gap was 32. Urine ketones was +4. EKG showed sinus tacardia and chest x-ray with right upper lobe increased markings. Aggressive IV hydration was necessary. A central triple-lumen catheter was inserted to the right femoral. She was started on IV hydration and insulin drip and was admitted to ICU for DKA and pneumonia. She was started on IV Levaquin. She was initially placed on NPO. Following day, the anion gap was closed. Insulin drip was discontinued and was given NovoLog 4 units before meals b.i.d. and Levemir 7 units b.i.d. She was transferred out of ICU and was transferred to medical floor. She had renal failure probably due to dehydration. Initial blood culture showed growth of coagulase-negative Staphylococcus raising possibility for bacteremia with endocarditis. She initially presented with sinus tachycardia and on transthoracic echocardiogram showed normal LV systolic function with no wall motion abnormalities and left ventricular ejection fraction at 55%. Vancomycin was discontinued and patient was started on daptomycin and was planned to undergo a transesophageal echocardiogram to rule out endocarditis. Blood sugars were continued to monitor. Levemir was eventually increased to 10 units b.i.d. Surveillance blood culture showed growth of Staphylococcus epidermidis. Plan for [facility] was canceled as Staph epidermidis growth possibly from contamination. Femoral catheter tip was sent for culture and there was no growth. PICC line was inserted on 08/23/2017. Daptomycin was discontinued and was switched back to vancomycin. She had a CT scan of the chest that showed considerable right upper lobe scarring and multiple small left upper lobe nodules. She was recommended to follow up CT scan in 6 to 12 months. Blood sugar with better control. Fever resolved. The patient was recommended need to continue vancomycin for total of 4 weeks. She was eventually discharged to SNF to continue IV vancomycin, end of therapy 09/16/2017. FINAL DIAGNOSES: 1. Sepsis, possible endocarditis. 2. Right upper lobe consolidation, possible pneumonia. 3. Acute diabetic ketoacidosis. 4. Diabetes mellitus poorly controlled. 5. Pulmonary nodules. 6. Sinus tachycardia, resolved. 7. Coronary artery disease. 8. Acute renal failure probably due to dehydration. 9. Acute metabolic encephalopathy secondary to diabetic ketoacidosis. 10. Hypokalemia. 11. Hypomagnesemia. 12. Hypophosphatemia. 13. Neuropathy. DISPOSITION: The patient was discharged to [facility]. DISCHARGE MEDICATIONS: Refer to medication list. Continue with IV vancomycin for 28 days. Javier Calzada D.O. I have been assigned to dictate discharge summary on this account and I was not involved in the patient's management. Paola Ferreira N.P. DR: ORLIN JOB#: [id number] CC: CASH
== END 2017-08-24 19:35 | DRG 871 ==
LOC: EDBD 08:23 → EMR 08:39 → ICU 08:52 → EDBEDREQ 09:37 → 4E 08-13 05:52
PROC: 06HM33Z Insertion of Infusion Device into Right Femoral Vein, Percutaneous Approach (ICD-10-PCS; principal; 2017-08-10)
PROC: 02HV33Z Insertion of Infusion Device into Superior Vena Cava, Percutaneous Approach (ICD-10-PCS; 2017-08-23)
PROC: B548ZZA Ultrasonography of Superior Vena Cava, Guidance (ICD-10-PCS; 2017-08-23)
DX: A41.9 Sepsis, unspecified organism (principal); G93.40 Encephalopathy, unspecified; E11.10 Type 2 diabetes mellitus with ketoacidosis without coma; N17.9 Acute kidney failure, unspecified; I95.9 Hypotension, unspecified; J18.9 Pneumonia, unspecified organism; E83.42 Hypomagnesemia; I25.10 Atherosclerotic heart disease of native coronary artery without angina pectoris; E11.65 Type 2 diabetes mellitus with hyperglycemia; E11.40 Type 2 diabetes mellitus with diabetic neuropathy, unspecified; E78.5 Hyperlipidemia, unspecified; K21.9 Gastro-esophageal reflux disease without esophagitis; I10 Essential (primary) hypertension; R00.0 Tachycardia, unspecified; E87.6 Hypokalemia; E86.0 Dehydration; R91.8 Other nonspecific abnormal finding of lung field
CPT/HCPCS: 36415; 36569; 36600; 71010; 71260; 74000; 76937; 80048; 80053; 80076; 80202; 81003; 82550; 82553; 82803; 82947; 82962; 83605; 83690; 83735; 84100; 85025; 85610; 85651; 85730; 86140; 86635; 87040; 87070; 87081; 87181; 87385; 87449; 93005; 93306; 93970; 94640; 94664; J1815; J2405; J7620; J8499; S5561

== ENCOUNTER 2017-08-29 22:38 | Inpatient (IN) | payer MEDICARE ==
[~2017-08-29] VITALS: Ht 165.1 cm; Wt 63.5 kg
[~2017-08-29 22:38] MED LIST: ASPIR 8181 MG ORAL; DOCUSATE SODIU100 M2 ORAL; GABAPENTIN100 MG ORAL; HUMALOG100 UNIT/4 SUBQ; LEVEMIR100 UNIT/1 SUBQ; LIPITOR40 MG ORAL; MIRALAX17 G2 ORAL; NEURONTIN400 MG ORAL; PANTOPRAZOLE SO20 MG ORAL; PEPCID20 MG ORAL; PLAVIX75 MG ORAL; PROMETHAZINE-C118 M1 ORAL; SENNA-GEN8.6 M1 PO; SIMVASTATIN80 MG ORAL; TYLENOL650 MG/20. ORAL; VANCO 1 GR1 GM/250 M IV; VITAMIN D250000 UNI1 ORAL
[2017-08-29 22:45] VITALS: BP 134/48
[2017-08-29] MEDS ORDERED: DIPHENHYDRAMINE25 M1 ORAL (23:04)
[2017-08-29] MEDS ORDERED: BISACODYL5 MG ORAL (23:04)
[2017-08-29] MEDS ORDERED: HEPARIN SO5000 UNIT2 SUBQ (23:04)
[2017-08-29 23:11] LABS: BASOPHILS % (AUTO) 1.8 % (0.0-2.0); EOSINOPHILS % (AUTO) 3.4 % (0.0-3.0); LYMPHOCYTES % (AUTO) 10.4 % (20.0-45.0); MEAN CORPUSCULAR HEMOGLOBIN 29.7 PG (27.0-31.0); MEAN CORPUSCULAR HGB CONC 30.8 G/DL (32.0-36.0); MEAN CORPUSCULAR VOLUME 96 FL (80-99); MEAN PLATELET VOLUME 5.6 FL (6.5-10.1); MONOCYTES % (AUTO) 4.5 % (1.0-10.0); NEUTROPHILS % (AUTO) 79.9 % (45.0-75.0); PLATELET COUNT 371 K/UL (150-450); RED BLOOD COUNT 3.18 M/UL (4.20-5.40); RED CELL DISTRIBUTION WIDTH 14.4 % (11.6-14.8); WHITE BLOOD COUNT 14.2 K/UL (4.8-10.8)
--- NOTE | 2017-08-29 23:12 | Emergency Room Report ---
History of Present Illness General Chief Complaint: Generalized Weakness Source: Patient, Medical Record Present Illness HPI Patient presents with elevated blood glucose and nausea Patient was dispositioned several days ago from the hospital with hyperglycemia Patient was initially seen in the emergency room With DKA on previous visit Patient initially presented with increased nausea general weakness Patient complained of chest pain to the nurse Denies any fevers or chills Patient is not sure why her blood glucoses staying elevated she reports that she did not eat very much and is taking her medication Allergies: Coded Allergies: PENICILLINS (Verified Allergy, Unknown, 08/10/17) [place] (Verified Allergy, Unknown, 08/10/17) Uncoded Allergies: BIAXIN (Allergy, Unknown, 08/29/17) [place] (Allergy, Unknown, 08/10/17) Patient History Past Medical History: see triage record Pertinent Family History: none Last Menstrual Period: none Now: No : 0 Para: 0 Reviewed Nursing Documentation: PMH: Agreed, PSxH: Agreed Nursing Documentation-PMH Hx Cardiac Problems: No - Muscle Weakness Hx Hypertension: Yes Hx Diabetes: Yes - Type 2 Hx Cancer: No Hx Gastrointestinal Problems: Yes - GERD, Chronic Kidney disease Hx Dialysis: Yes - During coma x 3 weeks History Of Psychiatric Problem: Yes - Schizophrenia, Depression Hx Neurological Problems: Yes - Coma for 3 weeks due to hyperglycemia Review of Systems All Other Systems: negative except mentioned in HPI Physical Exam Vital Signs Date Time Temp Pulse Resp B/P (MAP) Pulse Ox O2 Delivery O2 Flow Rate FiO2 08/29/17 22:29 98.8 88 18 100/40 98 Room Air Sp02 EP Interpretation: reviewed, normal General Appearance: no apparent distress Head: normocephalic, atraumatic Eyes: bilateral eye PERRL, bilateral eye EOMI ENT: hearing grossly normal, normal pharynx, TMs + canals normal, uvula midline Neck: full range of motion, supple, no meningismus, no bony tend Respiratory: lungs clear, normal breath sounds, no rhonchi, no respiratory distress, no retraction, no accessory muscle use Cardiovascular #1: normal peripheral pulses, regular rate, rhythm, no edema, no gallop, no JVD, no murmur Gastrointestinal: normal bowel sounds, non tender, soft, no mass, no organomegaly, non-distended, no guarding, no hernia, no pulsatile mass, no rebound Genitourinary: no CVA tenderness Musculoskeletal: normal inspection Neurologic: oriented x3, responsive, aeronautical project engineer III-XII nml as tested, motor strength/ tone normal, sensory intact Psychiatric: mood/affect normal Skin: normal color, no rash, warm/dry, palpation normal Lymphatic: normal inspection, no adenopathy Medical Decision Making Diagnostic Impression: Primary Impression: Diabetes mellitus Additional Impressions: Leukocytosis Hyponatremia ER Course Patient is a fairly complex patient with multiple differential to consideration including but not limited to cardiac cardiopulmonary and vascular emergencies Patient was previously here with high glucose and DKA Again showing symptoms of high glucose however does not appear to have obvious DKA Patient was further hydrated Insulin And requires admission Labs Test 08/29/17 22:00 08/29/17 22:46 Urine Color Pale yellow Urine Appearance Clear Urine pH 5 (4.5-8.0) Urine Specific [place] 1.010 (1.005-1.035) Urine Protein Negative (NEGATIVE) Urine Glucose (UA) 4+ (NEGATIVE) Urine Ketones 4+ (NEGATIVE) Urine Occult Blood Negative (NEGATIVE) Urine Nitrite Negative (NEGATIVE) Urine Bilirubin Negative (NEGATIVE) Urine Urobilinogen Normal MG/DL (0.0-1.0) Urine Leukocyte Esterase Negative (NEGATIVE) White Blood Count 14.2 K/UL (4.8-10.8) Red Blood Count 3.18 M/UL (4.20-5.40) Hemoglobin 9.4 G/DL (12.0-16.0) Hematocrit 30.6 % (37.0-47.0) Mean Corpuscular Volume 96 FL (80-99) Mean Corpuscular Hemoglobin 29.7 PG (27.0-31.0) Mean Corpuscular Hemoglobin Concent 30.8 G/DL (32.0-36.0) Red Cell Distribution Width 14.4 % (11.6-14.8) Platelet Count 371 K/UL (150-450) Mean Platelet Volume 5.6 FL (6.5-10.1) Neutrophils (%) (Auto) 79.9 % (45.0-75.0) Lymphocytes (%) (Auto) 10.4 % (20.0-45.0) Monocytes (%) (Auto) 4.5 % (1.0-10.0) Eosinophils (%) (Auto) 3.4 % (0.0-3.0) Basophils (%) (Auto) 1.8 % (0.0-2.0) Sodium Level 129 MMOL/L (136-145) Potassium Level 3.8 MMOL/L (3.5-5.1) Chloride Level 92 MMOL/L (98-107) Carbon Dioxide Level 16 MMOL/L (21-32) Anion Gap 21 mmol/L (5-15) Blood Urea Nitrogen 14 mg/dL (7-18) Creatinine 0.9 MG/DL (0.55-1.30) Estimat Glomerular Filtration Rate > 60 mL/min (>60) Glucose Level 600 MG/DL (74-106) Lactic Acid Level 1.90 mmol/L (0.66-2.22) Calcium Level 8.9 MG/DL (8.5-10.1) Total Bilirubin 0.6 MG/DL (0.2-1.0) Aspartate Amino Transf (AST/SGOT) 15 U/L (15-37) Alanine Aminotransferase (ALT/SGPT) 17 U/L (12-78) Alkaline Phosphatase 120 U/L (46-116) Total Creatine Kinase 48 U/L (26-308) Creatine Kinase MB 2.5 NG/ML (0.0-3.6) Creatine Kinase MB Relative Index 5.2 Troponin I 0.029 ng/mL (0.000-0.056) Pro-B-Type Natriuretic Peptide 1252 pg/mL (0-125) Total Protein 6.8 G/DL (6.4-8.2) Albumin 2.6 G/DL (3.4-5.0) Globulin 4.2 g/dL Albumin/Globulin Ratio 0.6 (1.0-2.7) Lipase 67 U/L (73-393) EKG Diagnostic Results Rate: normal Rhythm: NSR ST Segments: other - Nonspecific ST and T-wave changes Rhythm Strip Diag. Results EP Interpretation: yes Rate: 66 Rhythm: NSR, no PVC's, no ectopy Chest X-Ray Diagnostic Results Chest X-Ray Diagnostic Results : Chest X-Ray Ordered: Yes # of Views/Limited/Complete: 1 View Indication: Chest Pain EP Interpretation: Yes Interpretation: no consolidation, no effusion, no pneumothorax, other - Similar to previous Impression: No acute disease Electronically Signed by: Daxa Rivero, DO CT/MRI/US Diagnostic Results CT/MRI/US Diagnostic Results : Impression CT head no acute disease Last Vital Signs Date Time Temp Pulse Resp B/P (MAP) Pulse Ox O2 Delivery O2 Flow Rate FiO2 08/29/17 22:29 98.8 88 18 100/40 98 Room Air Status: improved Disposition: ADMITTED INPATIENT Condition: Serious Referrals: MANDIE PUENTE (PCP) DAXA RIVERO D.O. Aug 29, 2017 23:12
[2017-08-29 23:18] LABS: APPEARANCE,URINE CLEAR; KETONES,URINE 4+ (NEGATIVE); LEUKOCYTE ESTERASE ,URINE NEGATIVE (NEGATIVE); NITRITE,URINE NEGATIVE (NEGATIVE); PH,URINE 5 (4.5-8.0); PROTEIN,URINE NEGATIVE (NEGATIVE); UROBILINOGEN,URINE NORMAL MG/DL (0.0-1.0)
[2017-08-29 23:45] VITALS: BP 103/69
[2017-08-29] MEDS ORDERED: Nitroglycerin Subl 0.4mg tab SL PRN (23:45)
[2017-08-29] MEDS ORDERED: Albuterol/Ipratropium 3ml neb HHN PRN (23:45)
[2017-08-29] MEDS ORDERED: Mylanta II UD 30ml ORAL PRN (23:45)
[2017-08-29] MEDS ORDERED: Miralax 17gm pkt ORAL PRN (23:45)
[2017-08-30] VITALS (20 sets, daily range): BP systolic 88–129; BP diastolic 37–88
[2017-08-30] LABS: ALANINE AMINOTRANSFERASE 17 U/L (12-78); ALBUMIN/GLOBULIN RATIO 0.6 (1.0-2.7); ANION GAP 21 mmol/L (5-15); ASPARTATE AMINO TRANSFERASE 15 U/L (15-37); CALCIUM 8.9 MG/DL (8.5-10.1); CARBON DIOXIDE 16 MMOL/L (21-32); CHLORIDE 92 MMOL/L (98-107); CKMB 2.5 NG/ML (0.0-3.6); CREATININE 0.9 MG/DL (0.55-1.30); GLOMERULAR FILTRATION RATE > 60 mL/min (>60); LIPASE 67 U/L (73-393); POTASSIUM 3.8 MMOL/L (3.5-5.1); SODIUM 129 MMOL/L (136-145); TOTAL PROTEIN 6.8 G/DL (6.4-8.2)
[2017-08-30] MEDS ORDERED: NovoLOG Insulin Flexpen SUBQ SCH (06:30)
--- NOTE | 2017-08-30 07:44 | General Progress Note ---
Assessment/Plan Problem List: (1) DKA (diabetic ketoacidoses) ICD Codes: E13.10 - Other specified diabetes mellitus with ketoacidosis without coma SNOMED: 14372024, 501310805 (2) Diabetes mellitus ICD Codes: E11.9 - Type 2 diabetes mellitus without complications SNOMED: 05898561 Assessment/Plan recurrence of DKA AG is open admit to ICU in order to be treated with IV insulin Subjective ROS Limited/Unobtainable: Yes Allergies: Coded Allergies: PENICILLINS (Verified Allergy, Unknown, 08/10/17) [place] (Verified Allergy, Unknown, 08/10/17) Uncoded Allergies: BIAXIN (Allergy, Unknown, 08/29/17) [place] (Allergy, Unknown, 08/10/17) Subjective represented with hyperglycemia and nausea in DKA Objective Last 24 Hour Vital Signs Date Time Temp Pulse Resp B/P (MAP) Pulse Ox O2 Delivery O2 Flow Rate FiO2 08/30/17 06:45 83 18 111/42 96 Room Air 08/30/17 05:45 90 17 112/44 96 Room Air 08/30/17 04:45 82 16 122/42 97 Room Air 08/30/17 03:45 98.5 85 16 92/37 100 Room Air 08/30/17 01:45 91 18 121/49 98 Room Air 08/30/17 00:45 88 18 123/49 96 Room Air 08/29/17 23:45 85 19 103/69 100 Room Air 08/29/17 22:45 98.8 88 18 134/48 98 Room Air 08/29/17 22:29 98.8 88 18 100/40 98 Room Air Laboratory Tests 08/29/17 22:00: Urine Color Pale yellow, Urine Appearance Clear, Urine pH 5, Urine Specific [place] 1.010, Urine Protein Negative, Urine Glucose (UA) 4+H, Urine Ketones 4+H , Urine Occult Blood Negative, Urine Nitrite Negative, Urine Bilirubin Negative , Urine Urobilinogen Normal, Urine Leukocyte Esterase Negative 08/29/17 22:46: White Blood Count 14.2H, Red Blood Count 3.18L, Hemoglobin 9.4L, Hematocrit 30.6L, Mean Corpuscular Volume 96, Mean Corpuscular Hemoglobin 29.7, Mean Corpuscular Hemoglobin Concent 30.8L, Red Cell Distribution Width 14.4, Platelet Count 371, Mean Platelet Volume 5.6L, Neutrophils (%) (Auto) 79.9H, Lymphocytes (%) (Auto) 10.4L, Monocytes (%) (Auto) 4.5, Eosinophils (%) (Auto) 3.4H, Basophils (%) (Auto) 1.8, Sodium Level 129L, Potassium Level 3.8, Chloride Level 92L, Carbon Dioxide Level 16L, Anion Gap 21H, Blood Urea Nitrogen 14, Creatinine 0.9, Estimat Glomerular Filtration Rate > 60, Glucose Level 600*H, Lactic Acid Level 1.90, Calcium Level 8.9, Total Bilirubin 0.6, Aspartate Amino Transf (AST/SGOT) 15, Alanine Aminotransferase (ALT/SGPT) 17, Alkaline Phosphatase 120H, Total Creatine Kinase 48, Creatine Kinase MB 2.5, Creatine Kinase MB Relative Index 5.2, Troponin I 0.029, Pro-B-Type Natriuretic Peptide 1252H, Total Protein 6.8, Albumin 2.6L, Globulin 4.2, Albumin/Globulin Ratio 0.6L, Lipase 67L Height (Feet): 5 Height (Inches): 5.00 Weight (Pounds): 140 General Appearance: no apparent distress EENT: pale conjunctivae Neck: normal alignment Cardiovascular: normal rate Respiratory/Chest: lungs clear Abdomen: normal bowel sounds Pelvis: normal external exam Edema: no edema noted Arm (L), no edema noted Arm (R), no edema noted Leg (L), no edema noted Leg (R), no edema noted Pedal (L), no edema noted Pedal (R), no edema noted Generalized Objective Current Medications Medications (Trade) Dose Ordered Sig/Danielle Route PRN Reason Start Time Stop Time Status Last Admin Dose Admin Acetaminophen (Tylenol) 650 mg Q4H PRN ORAL fever 08/29/17 23:45 09/28/17 23:44 Al Hydroxide/Mg Hydroxide (Mylanta II) 30 ml Q6H PRN ORAL dyspepsia 08/29/17 23:45 09/28/17 23:44 Albuterol/ Ipratropium (Albuterol/ Ipratropium) 3 ml EVERY 4 HOURS PRN HHN Shortness of Breath 08/29/17 23:45 09/03/17 23:44 Clonidine HCl (Catapres) 0.1 mg EVERY 4 HOURS PRN ORAL sbp more than 160 08/29/17 23:45 09/28/17 23:44 Clopidogrel Bisulfate (Plavix) 75 mg DAILY ORAL 08/30/17 09:00 09/29/17 08:59 Dextrose (Dextrose 50%) STAT PRN IV Hypoglycemia 08/29/17 23:45 09/28/17 23:44 Gabapentin (Neurontin) 100 mg THREE TIMES A DAY ORAL 08/30/17 09:00 09/29/17 08:59 Heparin Sodium (Porcine) (Heparin 5000 units/ml) 5,000 units EVERY 12 HOURS SUBQ 08/30/17 09:00 09/29/17 08:59 Insulin Aspart (NovoLOG) BEFORE MEALS AND HS SUBQ 08/30/17 06:30 09/29/17 06:29 Insulin Detemir (Levemir) 10 units EVERY 12 HOURS SUBQ 08/30/17 09:00 09/29/17 08:59 Morphine Sulfate (Morphine Sulfate) 2 mg EVERY 4 HOURS PRN IVP severe pain 7-10 08/29/17 23:45 09/05/17 23:44 Nitroglycerin (Ntg) 0.4 mg Q5M X 3 DOSES PRN SL Prn Chest Pain 08/29/17 23:45 09/28/17 23:44 Ondansetron HCl (Zofran) 4 mg Q6H PRN IVP Nausea & Vomiting 08/29/17 23:45 09/28/17 23:44 Polyethylene Glycol (Miralax) 17 gm HSPRN PRN ORAL Constipation 08/29/17 23:45 09/28/17 23:44 Sodium Chloride 1,000 ml @ 100 mls/hr Q10H IVLG 08/30/17 03:00 09/29/17 02:59 08/30/17 04:15 Temazepam (Restoril) 15 mg HSPRN PRN ORAL Insomnia 08/29/17 23:45 09/05/17 23:44 EMA VALENCIA Aug 30, 2017 07:44
[2017-08-30] MEDS ORDERED: Levemir Flexpen SUBQ SCH (09:00)
[2017-08-30] MEDS: Morphine Sulfate 2mg/ml Inj IVP PRN ×2 (09:04→17:02)
[2017-08-30 09:57] LABS: BASOPHILS % (AUTO) 1.3 % (0.0-2.0); EOSINOPHILS % (AUTO) 2.4 % (0.0-3.0); MEAN CORPUSCULAR HEMOGLOBIN 30.7 PG (27.0-31.0); MEAN CORPUSCULAR HGB CONC 32.3 G/DL (32.0-36.0); MEAN CORPUSCULAR VOLUME 95 FL (80-99); MEAN PLATELET VOLUME 6.3 FL (6.5-10.1); MONOCYTES % (AUTO) 5.6 % (1.0-10.0); NEUTROPHILS % (AUTO) 73.7 % (45.0-75.0); PLATELET COUNT 424 K/UL (150-450); RED BLOOD COUNT 3.24 M/UL (4.20-5.40); WHITE BLOOD COUNT 10.7 K/UL (4.8-10.8)
[2017-08-30 10:04] LABS: ANION GAP 19 mmol/L (5-15); CALCIUM 8.6 MG/DL (8.5-10.1); CARBON DIOXIDE 16 MMOL/L (21-32); CHLORIDE 100 MMOL/L (98-107); CREATININE 0.9 MG/DL (0.55-1.30); GLOMERULAR FILTRATION RATE > 60 mL/min (>60); POTASSIUM 4.4 MMOL/L (3.5-5.1); SODIUM 135 MMOL/L (136-145)
[2017-08-30 10:17] LABS: ALANINE AMINOTRANSFERASE 15 U/L (12-78); ALBUMIN/GLOBULIN RATIO 0.6 (1.0-2.7); ASPARTATE AMINO TRANSFERASE 15 U/L (15-37); CHOLESTEROL 198 MG/DL (< 200); THYROID STIMULATING HORMONE 1.619 uiU/mL (0.358-3.740); TOTAL PROTEIN 6.3 G/DL (6.4-8.2)
--- NOTE | 2017-08-30 10:32 | Diagnostic Imaging Report ---
Indication: SOB Technique: One view of the chest Comparison: 08/13/2017 Findings: Again demonstrated is right upper lobe volume loss and upward retraction of the right pulmonary hilum. Compensatory hyperinflation of the right lower lobe is noted. Mild generalized interstitial prominence throughout the left lung is again demonstrated. No focal airspace consolidation. No effusions. There is now a right arm PICC Impression: No definite acute process. Chronic right upper lobe scarring and volume loss, also previously reported be in good position
--- NOTE | 2017-08-30 10:36 | Pulmonolgy Critical Care Note ---
Critical Care - Asmt/Plan Problems: (1) DKA (diabetic ketoacidoses) (2) Leukocytosis (3) detention resident Respiratory: monitor respiratory rate Cardiac: continue to monitor HR/BP Renal: F/U I&O, keep IV fluid, increase IV fluid, check electrolytes Gastrointestinal: hold feedings Endocrine: monitor blood sugar, start insulin drip, continue sliding scale insulin Hematologic: monitor H/H, transfuse if hgb<8.5 Neurologic: PRN Ativan, PRN Morphine, keep patient comfortable Affect: PRN ativan Notes Reviewed: cardio Discussed with: nurses, consultants, shelter case managercommissioning manager - Objective Last 24 Hour Vital Signs Date Time Temp Pulse Resp B/P (MAP) Pulse Ox O2 Delivery O2 Flow Rate FiO2 08/30/17 10:08 85 20 95/63 100 Room Air 08/30/17 09:00 99.1 87 24 103/88 100 Room Air 08/30/17 08:00 86 25 129/74 99 Room Air 08/30/17 07:10 98.4 84 17 114/78 98 08/30/17 07:10 84 17 Room Air 08/30/17 06:45 83 18 111/42 96 Room Air 08/30/17 05:45 90 17 112/44 96 Room Air 08/30/17 04:45 82 16 122/42 97 Room Air 08/30/17 03:45 98.5 85 16 92/37 100 Room Air 08/30/17 01:45 91 18 121/49 98 Room Air 08/30/17 00:45 88 18 123/49 96 Room Air 08/29/17 23:45 85 19 103/69 100 Room Air 08/29/17 22:45 98.8 88 18 134/48 98 Room Air 08/29/17 22:29 98.8 88 18 100/40 98 Room Air Status: awake Condition: critical HEENT: atraumatic Lungs: clear Heart: HR/BP stable, regular Abdomen: non-tender, feeding tube Extremities: no C/C/E, edema Decubiti: location Accucheck: 345 Critical Care - Subjective ROS Limited/Unobtainable: No ICU Day: 1 Condition: critical EKG Rhythm: Sinus Rhythm Fluids: NS Drips: Insulin drip I&O: Intake and Output 08/30/17 08/31/17 19:00 07:00 # Voids 1 Labs: Laboratory Tests Test 08/29/17 22:00 08/29/17 22:46 08/30/17 09:40 Urine Color Pale yellow Urine Appearance Clear Urine pH 5 (4.5-8.0) Urine Specific [place] 1.010 (1.005-1.035) Urine Protein Negative (NEGATIVE) Urine Glucose (UA) 4+ (NEGATIVE) H Urine Ketones 4+ (NEGATIVE) H Urine Occult Blood Negative (NEGATIVE) Urine Nitrite Negative (NEGATIVE) Urine Bilirubin Negative (NEGATIVE) Urine Urobilinogen Normal MG/DL (0.0-1.0) Urine Leukocyte Esterase Negative (NEGATIVE) White Blood Count 14.2 K/UL (4.8-10.8) H 10.7 K/UL (4.8-10.8) Red Blood Count 3.18 M/UL (4.20-5.40) L 3.24 M/UL (4.20-5.40) L Hemoglobin 9.4 G/DL (12.0-16.0) L 9.9 G/DL (12.0-16.0) L Hematocrit 30.6 % (37.0-47.0) L 30.7 % (37.0-47.0) L Mean Corpuscular Volume 96 FL (80-99) 95 FL (80-99) Mean Corpuscular Hemoglobin 29.7 PG (27.0-31.0) 30.7 PG (27.0-31.0) Mean Corpuscular Hemoglobin Concent 30.8 G/DL (32.0-36.0) L 32.3 G/DL (32.0-36.0) Red Cell Distribution Width 14.4 % (11.6-14.8) 15.0 % (11.6-14.8) H Platelet Count 371 K/UL (150-450) 424 K/UL (150-450) Mean Platelet Volume 5.6 FL (6.5-10.1) L 6.3 FL (6.5-10.1) L Neutrophils (%) (Auto) 79.9 % (45.0-75.0) H 73.7 % (45.0-75.0) Lymphocytes (%) (Auto) 10.4 % (20.0-45.0) L 17.0 % (20.0-45.0) L Monocytes (%) (Auto) 4.5 % (1.0-10.0) 5.6 % (1.0-10.0) Eosinophils (%) (Auto) 3.4 % (0.0-3.0) H 2.4 % (0.0-3.0) Basophils (%) (Auto) 1.8 % (0.0-2.0) 1.3 % (0.0-2.0) Sodium Level 129 MMOL/L (136-145) L 135 MMOL/L (136-145) L Potassium Level 3.8 MMOL/L (3.5-5.1) 4.4 MMOL/L (3.5-5.1) Chloride Level 92 MMOL/L (98-107) L 100 MMOL/L (98-107) Carbon Dioxide Level 16 MMOL/L (21-32) L 16 MMOL/L (21-32) L Anion Gap 21 mmol/L (5-15) H 19 mmol/L (5-15) H Blood Urea Nitrogen 14 mg/dL (7-18) 13 mg/dL (7-18) Creatinine 0.9 MG/DL (0.55-1.30) 0.9 MG/DL (0.55-1.30) Estimat Glomerular Filtration Rate > 60 mL/min (>60) > 60 mL/min (>60) Glucose Level 600 MG/DL (74-106) *H 439 MG/DL (74-106) #H Lactic Acid Level 1.90 mmol/L (0.66-2.22) Calcium Level 8.9 MG/DL (8.5-10.1) 8.6 MG/DL (8.5-10.1) Total Bilirubin 0.6 MG/DL (0.2-1.0) 0.4 MG/DL (0.2-1.0) Aspartate Amino Transf (AST/SGOT) 15 U/L (15-37) 15 U/L (15-37) Alanine Aminotransferase (ALT/SGPT) 17 U/L (12-78) 15 U/L (12-78) Alkaline Phosphatase 120 U/L (46-116) H 119 U/L (46-116) H Total Creatine Kinase 48 U/L (26-308) Creatine Kinase MB 2.5 NG/ML (0.0-3.6) Creatine Kinase MB Relative Index 5.2 Troponin I 0.029 ng/mL (0.000-0.056) Pro-B-Type Natriuretic Peptide 1252 pg/mL (0-125) H Total Protein 6.8 G/DL (6.4-8.2) 6.3 G/DL (6.4-8.2) L Albumin 2.6 G/DL (3.4-5.0) L 2.3 G/DL (3.4-5.0) L Globulin 4.2 g/dL 4.0 g/dL Albumin/Globulin Ratio 0.6 (1.0-2.7) L 0.6 (1.0-2.7) L Lipase 67 U/L (73-393) L Hemoglobin A1c Pending Triglycerides Level 154 MG/DL (30-150) H Cholesterol Level 198 MG/DL (< 200) LDL Cholesterol 125 mg/dL (<100) H HDL Cholesterol 49 MG/DL (40-60) Cholesterol/HDL Ratio 4.0 (3.3-4.4) Thyroid Stimulating Hormone (TSH) 1.619 uiU/mL (0.358-3.740) YUVAL MAYA Aug 30, 2017 10:36
--- NOTE | 2017-08-30 10:37 | Diagnostic Imaging Report ---
Indications: Altered mental status Technique: Spiral acquisitions obtained through the brain. Angled axial and coronal 5 x 5 mm slices were reconstructed. Total dose length product 1376 mGycm. CTDI vol(s) 70 mGy. Dose reduction achieved using automated exposure control Comparison: None Findings: There is age-related enlargement of ventricles and extra-axial CSF spaces. There is minimal periventricular deep white matter chronic ischemic change. 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 No acute intracranial hemorrhage or edema. No mass effect nor midline shift. Normal anaya-white differentiation. Intact calvarium. Visualized orbits and sinuses are unremarkable. Impression: Chronic and age-related changes as described Negative for acute intracranial bleed or mass effect This agrees with the preliminary interpretation provided overnight by [facility] teleradiology service. The CT scanner at [facility] is accredited by the [employer] and the scans are performed using protocols designed to limit radiation exposure to as low as reasonably achievable to attain images of sufficient resolution adequate for diagnostic evaluation.
[2017-08-30 11:00] LABS: HEMOGLOBIN A1C 9.6 % (4.3-6.0)
[2017-08-30] MEDS: Pantoprazole Inj IVP SCH (13:03)
[2017-08-30] MEDS: Heparin 5000 units/ml inj SUBQ SCH ×2 (13:04→21:04)
[2017-08-30] MEDS ORDERED: LORazepam Inj 2mg/ml 1ml IV PRN (16:00)
--- NOTE | 2017-08-30 17:00 | History and Physical Report ---
DATE OF ADMISSION: 08/29/2017 TIME: At 1 p.m. CONSULTANTS: 1. Kaitlin Oconnell M.D. 2. Jean Briceno 3. Kylee Todd M.D. CHIEF COMPLAINT: Increased lethargy, weakness, diabetic, and hyperglycemia. BRIEF HISTORY: This is a 62-year-old female from [facility] presents with increased lethargy and weakness, diagnosed with diabetes and hyperglycemia, actually admitted to ICU for further care. Currently, nauseous in bed. No complaints. PAST MEDICAL HISTORY: Diabetes, COPD, neuropathy, schizophrenia. PAST SURGICAL HISTORY: Appendectomy. MEDICATIONS: Include Novolin insulin, Zofran, Protonix, Plavix, Neurontin, heparin, albuterol, Tylenol, morphine, MiraLAX, Restoril, nitroglycerin, Mylanta, and Catapres. ALLERGIES: Penicillin, Biaxin. SOCIAL HISTORY: Positive smoking. No alcohol. No intravenous drug abuse. FAMILY HISTORY: Noncontributory. REVIEW OF SYSTEMS: No chest pain. Slight shortness of breath. Slight nausea and vomiting. No diarrhea. PHYSICAL EXAMINATION: GENERAL: Calm, slightly anxious in bed. Oriented x2, in no acute distress. VITAL SIGNS: Show temperature 99 degrees, pulse 94, respirations 24, and blood pressure 88/44. CARDIOVASCULAR: No murmur. LUNGS: Distant and clear. ABDOMEN: Bowel sounds are positive. Nontender and nondistended. EXTREMITIES: No cyanosis, clubbing, or edema. NEUROLOGICAL: The patient moves all extremities, slightly weak. LABORATORY DATA: Show initial white count 14 and now is 10.7, hemoglobin and hematocrit 9.9 over 30, platelets 424. BMP shows sodium 135, blood sugar from 600 down to 439. Otherwise, BMP is normal. Alkaline phosphatase 119. Albumin 2.3. Urinalysis, 4+ ketone, 4+ glucose. ASSESSMENT: 1. Diabetes. 2. Hyperglycemia. 3. Chronic obstructive pulmonary disease. 4. Anemia. 5. Malnutrition. 6. Neuropathy. 7. Schizophrenia. PLAN: 1. Continue premedications. 2. Blood sugar control. 3. OT, PT, and dietary evaluation. 4. CBC and BMP in the morning. 5. Psychiatric treatment. 6. We will continue to follow this patient. Javier Calzada D.O. DR: Raiza JOB#: [id number] CC:
--- NOTE | 2017-08-30 17:58 | Cardiology Report ---
APPROVED REPORT EKG Measurement Heart [id number] Normal sinus rhythm Indeterminate axis Borderline ECG
[2017-08-30 19:22] LABS: ANION GAP 19 mmol/L (5-15); CALCIUM 8.9 MG/DL (8.5-10.1); CARBON DIOXIDE 17 MMOL/L (21-32); CHLORIDE 105 MMOL/L (98-107); CREATININE 1.3 MG/DL (0.55-1.30); GLOMERULAR FILTRATION RATE 41.6 mL/min (>60); POTASSIUM 3.5 MMOL/L (3.5-5.1); SODIUM 141 MMOL/L (136-145)
[2017-08-30] MEDS: Dyna-Hex 2% Top Sol 2oz TOPIC SCH (20:11)
[2017-08-30] MEDS: Insulin Rate Change 1 Each MISC PRN ×2 (20:57→22:15)
[2017-08-31] VITALS (15 sets, daily range): BP systolic 99–143; BP diastolic 50–80
[2017-08-31] MEDS ORDERED: D5NS IV SCH (00:15)
[2017-08-31] MEDS ORDERED: Insulin Rate Change 1 Each MISC PRN (00:15)
[2017-08-31] MEDS ORDERED: INSULIN HUMAN REGULAR IV SCH (00:15)
[2017-08-31] MEDS ORDERED: D5NS 1,000 ML IV SCH (00:15)
[2017-08-31] MEDS: Morphine Sulfate 2mg/ml Inj IVP PRN ×5 (00:28→19:02)
[2017-08-31] MEDS: Insulin Rate Change 1 Each MISC PRN ×5 (01:10→09:10)
[2017-08-31 05:16] LABS: EOSINOPHILS % (AUTO) 0.3 % (0.0-3.0); LYMPHOCYTES % (AUTO) 14.6 % (20.0-45.0); MEAN CORPUSCULAR HEMOGLOBIN 30.8 PG (27.0-31.0); MEAN CORPUSCULAR VOLUME 93 FL (80-99); MEAN PLATELET VOLUME 5.9 FL (6.5-10.1); MONOCYTES % (AUTO) 5.2 % (1.0-10.0); PLATELET COUNT 487 K/UL (150-450); RED BLOOD COUNT 2.96 M/UL (4.20-5.40); WHITE BLOOD COUNT 17.4 K/UL (4.8-10.8)
[2017-08-31 06:01] LABS: ANION GAP 11 mmol/L (5-15); CALCIUM 8.6 MG/DL (8.5-10.1); CARBON DIOXIDE 23 MMOL/L (21-32); CHLORIDE 107 MMOL/L (98-107); CREATININE 1.1 MG/DL (0.55-1.30); GLOMERULAR FILTRATION RATE 50.5 mL/min (>60); POTASSIUM 3.3 MMOL/L (3.5-5.1); SODIUM 141 MMOL/L (136-145)
[2017-08-31 06:04] LABS: HEMOGLOBIN A1C 9.4 % (4.3-6.0)
--- NOTE | 2017-08-31 07:26 | General Progress Note ---
Assessment/Plan Problem List: (1) Hyperglycemia ICD Codes: R73.9 - Hyperglycemia, unspecified SNOMED: 54455370 (2) COPD (chronic obstructive pulmonary disease) ICD Codes: J44.9 - Chronic obstructive pulmonary disease, unspecified SNOMED: 91730005 (3) Anemia ICD Codes: D64.9 - Anemia, unspecified SNOMED: 077246967 (4) Malnutrition ICD Codes: E46 - Unspecified protein-calorie malnutrition SNOMED: 46998701 (5) Neuropathy ICD Codes: G62.9 - Polyneuropathy, unspecified SNOMED: 809342330 (6) Diabetes mellitus ICD Codes: E11.9 - Type 2 diabetes mellitus without complications SNOMED: 49462555 Status: stable, progressing Assessment/Plan ot pt diet pain control, cbc bmp am ltach eval Subjective Constitutional: Reports: weakness Allergies: Coded Allergies: PENICILLINS (Verified Allergy, Unknown, 08/10/17) [place] (Verified Allergy, Unknown, 08/10/17) Uncoded Allergies: BIAXIN (Allergy, Unknown, 08/29/17) [place] (Allergy, Unknown, 08/10/17) All Systems: reviewed and negative except above Subjective sleepy jocelyn m in bed Objective Last 24 Hour Vital Signs Date Time Temp Pulse Resp B/P (MAP) Pulse Ox O2 Delivery O2 Flow Rate FiO2 08/31/17 06:00 91 23 99/80 96 Room Air 08/31/17 05:00 83 20 139/54 97 Room Air 08/31/17 04:00 98.2 87 20 137/66 100 Room Air 08/31/17 04:00 87 08/31/17 03:00 83 16 128/56 99 Room Air 08/31/17 02:00 84 18 130/60 99 Room Air 08/31/17 01:00 85 18 133/62 99 Room Air 08/31/17 00:00 92 08/31/17 00:00 98.2 86 21 129/65 100 Room Air 08/30/17 23:00 85 21 118/51 100 Room Air 08/30/17 22:00 87 21 120/51 100 Room Air 08/30/17 21:00 87 21 117/51 100 Room Air 08/30/17 20:00 86 08/30/17 20:00 98.0 86 20 109/46 99 Room Air 08/30/17 19:30 82 17 Room Air 08/30/17 19:00 89 28 109/48 100 Room Air 08/30/17 18:00 88 26 111/49 100 Room Air 08/30/17 17:00 98 26 129/75 100 Room Air 08/30/17 16:20 92 08/30/17 16:00 97.5 99 28 123/46 100 Room Air 08/30/17 15:00 103 24 104/45 100 Room Air 08/30/17 14:00 99 22 100/45 100 Room Air 08/30/17 13:00 94 24 88/44 100 Room Air 08/30/17 12:00 95 08/30/17 10:08 85 20 95/63 100 Room Air 08/30/17 09:00 99.1 87 24 103/88 100 Room Air 08/30/17 08:00 86 25 129/74 99 Room Air Laboratory Tests 08/30/17 09:40: White Blood Count 10.7, Red Blood Count 3.24L, Hemoglobin 9.9L, Hematocrit 30.7L , Mean Corpuscular Volume 95, Mean Corpuscular Hemoglobin 30.7, Mean Corpuscular Hemoglobin Concent 32.3, Red Cell Distribution Width 15.0H, Platelet Count 424, Mean Platelet Volume 6.3L, Neutrophils (%) (Auto) 73.7, Lymphocytes (%) (Auto) 17.0L, Monocytes (%) (Auto) 5.6, Eosinophils (%) (Auto) 2.4, Basophils (%) (Auto) 1.3, Sodium Level 135L, Potassium Level 4.4, Chloride Level 100, Carbon Dioxide Level 16L, Anion Gap 19H, Blood Urea Nitrogen 13, Creatinine 0.9, Estimat Glomerular Filtration Rate > 60, Glucose Level 439#H, Hemoglobin A1c 9.6H, Calcium Level 8.6, Total Bilirubin 0.4, Aspartate Amino Transf (AST/SGOT) 15, Alanine Aminotransferase (ALT/SGPT) 15, Alkaline Phosphatase 119H, Total Protein 6.3L, Albumin 2.3L, Globulin 4.0, Albumin/ Globulin Ratio 0.6L, Triglycerides Level 154H, Cholesterol Level 198, LDL Cholesterol 125H, HDL Cholesterol 49, Cholesterol/HDL Ratio 4.0, Thyroid Stimulating Hormone (TSH) 1.619 08/30/17 19:00: Sodium Level 141, Potassium Level 3.5, Chloride Level 105, Carbon Dioxide Level 17L, Anion Gap 19H, Blood Urea Nitrogen 19H, Creatinine 1.3, Estimat Glomerular Filtration Rate 41.6, Glucose Level 230#H, Calcium Level 8.9 08/31/17 05:00: White Blood Count 17.4#H, Red Blood Count 2.96L, Hemoglobin 9.1L, Hematocrit 27.6L, Mean Corpuscular Volume 93, Mean Corpuscular Hemoglobin 30.8, Mean Corpuscular Hemoglobin Concent 33.0, Red Cell Distribution Width 15.0H, Platelet Count 487H, Mean Platelet Volume 5.9L, Neutrophils (%) (Auto) 79.0H, Lymphocytes (%) (Auto) 14.6L, Monocytes (%) (Auto) 5.2, Eosinophils (%) (Auto) 0.3, Basophils (%) (Auto) 1.0, Sodium Level 141, Potassium Level 3.3L, Chloride Level 107, Carbon Dioxide Level 23, Anion Gap 11, Blood Urea Nitrogen 17, Creatinine 1.1, Estimat Glomerular Filtration Rate 50.5, Glucose Level 140H, Hemoglobin A1c 9.4H, Calcium Level 8.6 Height (Feet): 5 Height (Inches): 5.00 Weight (Pounds): 140 General Appearance: lethargic EENT: normal ENT inspection Neck: normal alignment Cardiovascular: normal peripheral pulses, normal rate, regular rhythm Respiratory/Chest: chest wall non-tender, lungs clear, normal breath sounds Abdomen: normal bowel sounds, non tender, soft Extremities: normal inspection Edema: no edema noted Arm (L), no edema noted Arm (R), no edema noted Leg (L), no edema noted Leg (R), no edema noted Pedal (L), no edema noted Pedal (R), no edema noted Generalized Neurologic: motor weakness Skin: normal pigmentation, warm/dry MANDIE PUENTE Aug 31, 2017 07:26
[2017-08-31] MEDS: Pantoprazole Inj IVP SCH (08:39)
[2017-08-31] MEDS: Heparin 5000 units/ml inj SUBQ SCH ×2 (08:44→21:12)
--- NOTE | 2017-08-31 09:15 | Pulmonolgy Critical Care Note ---
Critical Care - Asmt/Plan Problems: (1) DKA (diabetic ketoacidoses) (2) Leukocytosis (3) senior living resident Respiratory: monitor respiratory rate, adjust FIO2, CXR Renal: F/U I&O, keep IV fluid, check electrolytes Infectious Disease: check cultures, continue antibiotics Gastrointestinal: continue feedings/current rate Endocrine: monitor blood sugar, continue sliding scale insulin Hematologic: monitor H/H, transfuse if hgb<8.5 Neurologic: PRN Ativan, PRN Morphine, keep patient comfortable Prophylaxis: Protonix, Heparin Disposition: keep in ICU Time Spent (Minutes): 40 Notes Reviewed: ballroom dancer, renal Discussed with: nurses, consultants, immigration case workerinformation support project manager - Objective Last 24 Hour Vital Signs Date Time Temp Pulse Resp B/P (MAP) Pulse Ox O2 Delivery O2 Flow Rate FiO2 08/31/17 08:00 98.5 87 22 138/61 87 Room Air 08/31/17 08:00 88 08/31/17 07:00 91 21 143/62 97 Room Air 08/31/17 06:00 91 23 99/80 96 Room Air 08/31/17 05:00 83 20 139/54 97 Room Air 08/31/17 04:00 98.2 87 20 137/66 100 Room Air 08/31/17 04:00 87 08/31/17 03:00 83 16 128/56 99 Room Air 08/31/17 02:00 84 18 130/60 99 Room Air 08/31/17 01:00 85 18 133/62 99 Room Air 08/31/17 00:00 92 08/31/17 00:00 98.2 86 21 129/65 100 Room Air 08/30/17 23:00 85 21 118/51 100 Room Air 08/30/17 22:00 87 21 120/51 100 Room Air 08/30/17 21:00 87 21 117/51 100 Room Air 08/30/17 20:00 86 08/30/17 20:00 98.0 86 20 109/46 99 Room Air 08/30/17 19:30 82 17 Room Air 08/30/17 19:00 89 28 109/48 100 Room Air 08/30/17 18:00 88 26 111/49 100 Room Air 08/30/17 17:00 98 26 129/75 100 Room Air 08/30/17 16:20 92 08/30/17 16:00 97.5 99 28 123/46 100 Room Air 08/30/17 15:00 103 24 104/45 100 Room Air 08/30/17 14:00 99 22 100/45 100 Room Air 08/30/17 13:00 94 24 88/44 100 Room Air 08/30/17 12:00 95 08/30/17 10:08 85 20 95/63 100 Room Air Status: awake Condition: critical HEENT: atraumatic, normocephalic Lungs: clear Heart: HR/BP stable Abdomen: soft, non-tender, feeding tube Extremities: edema Decubiti: location Micro: Microbiology Date/Time Source Procedure Growth Status 08/29/17 22:50 Blood Blood Culture - Preliminary NO GROWTH AFTER 24 HOURS Resulted 08/29/17 22:35 Blood Blood Culture - Preliminary NO GROWTH AFTER 24 HOURS Resulted 08/30/17 07:02 Nasal Nares MRSA Culture - Final NO METHICILLIN RESISTANT STAPH AUREUS... Complete Accucheck: 208 Critical Care - Subjective ROS Limited/Unobtainable: No ICU Day: 3 Condition: critical EKG Rhythm: Sinus Rhythm Fluids: d5 NS 75 cc/ hour I&O: Intake and Output 08/31/17 09/01/17 19:00 07:00 Intake Total 256 ml Balance 256 ml Intake Oral 180 ml IV Total 76 ml CXR: no change Labs: Laboratory Tests Test 08/30/17 09:40 08/30/17 19:00 08/31/17 05:00 White Blood Count 10.7 K/UL (4.8-10.8) 17.4 K/UL (4.8-10.8) #H Red Blood Count 3.24 M/UL (4.20-5.40) L 2.96 M/UL (4.20-5.40) L Hemoglobin 9.9 G/DL (12.0-16.0) L 9.1 G/DL (12.0-16.0) L Hematocrit 30.7 % (37.0-47.0) L 27.6 % (37.0-47.0) L Mean Corpuscular Volume 95 FL (80-99) 93 FL (80-99) Mean Corpuscular Hemoglobin 30.7 PG (27.0-31.0) 30.8 PG (27.0-31.0) Mean Corpuscular Hemoglobin Concent 32.3 G/DL (32.0-36.0) 33.0 G/DL (32.0-36.0) Red Cell Distribution Width 15.0 % (11.6-14.8) H 15.0 % (11.6-14.8) H Platelet Count 424 K/UL (150-450) 487 K/UL (150-450) H Mean Platelet Volume 6.3 FL (6.5-10.1) L 5.9 FL (6.5-10.1) L Neutrophils (%) (Auto) 73.7 % (45.0-75.0) 79.0 % (45.0-75.0) H Lymphocytes (%) (Auto) 17.0 % (20.0-45.0) L 14.6 % (20.0-45.0) L Monocytes (%) (Auto) 5.6 % (1.0-10.0) 5.2 % (1.0-10.0) Eosinophils (%) (Auto) 2.4 % (0.0-3.0) 0.3 % (0.0-3.0) Basophils (%) (Auto) 1.3 % (0.0-2.0) 1.0 % (0.0-2.0) Sodium Level 135 MMOL/L (136-145) L 141 MMOL/L (136-145) 141 MMOL/L (136-145) Potassium Level 4.4 MMOL/L (3.5-5.1) 3.5 MMOL/L (3.5-5.1) 3.3 MMOL/L (3.5-5.1) L Chloride Level 100 MMOL/L (98-107) 105 MMOL/L (98-107) 107 MMOL/L (98-107) Carbon Dioxide Level 16 MMOL/L (21-32) L 17 MMOL/L (21-32) L 23 MMOL/L (21-32) Anion Gap 19 mmol/L (5-15) H 19 mmol/L (5-15) H 11 mmol/L (5-15) Blood Urea Nitrogen 13 mg/dL (7-18) 19 mg/dL (7-18) H 17 mg/dL (7-18) Creatinine 0.9 MG/DL (0.55-1.30) 1.3 MG/DL (0.55-1.30) 1.1 MG/DL (0.55-1.30) Estimat Glomerular Filtration Rate > 60 mL/min (>60) 41.6 mL/min (>60) 50.5 mL/min (>60) Glucose Level 439 MG/DL (74-106) #H 230 MG/DL (74-106) #H 140 MG/DL (74-106) H Hemoglobin A1c 9.6 % (4.3-6.0) H 9.4 % (4.3-6.0) H Calcium Level 8.6 MG/DL (8.5-10.1) 8.9 MG/DL (8.5-10.1) 8.6 MG/DL (8.5-10.1) Total Bilirubin 0.4 MG/DL (0.2-1.0) Aspartate Amino Transf (AST/SGOT) 15 U/L (15-37) Alanine Aminotransferase (ALT/SGPT) 15 U/L (12-78) Alkaline Phosphatase 119 U/L (46-116) H Total Protein 6.3 G/DL (6.4-8.2) L Albumin 2.3 G/DL (3.4-5.0) L Globulin 4.0 g/dL Albumin/Globulin Ratio 0.6 (1.0-2.7) L Triglycerides Level 154 MG/DL (30-150) H Cholesterol Level 198 MG/DL (< 200) LDL Cholesterol 125 mg/dL (<100) H HDL Cholesterol 49 MG/DL (40-60) Cholesterol/HDL Ratio 4.0 (3.3-4.4) Thyroid Stimulating Hormone (TSH) 1.619 uiU/mL (0.358-3.740) YUVAL MAYA Aug 31, 2017 09:15
[2017-08-31] MEDS: Levemir Flexpen SUBQ SCH ×2 (10:26→21:12)
[2017-08-31] MEDS: Hydrocortisone 2.5% Cream - 30gm TOPIC PRN ×3 (10:40→16:58)
[2017-08-31] MEDS: NovoLOG Insulin Flexpen SUBQ SCH ×5 (12:36→21:00)
--- NOTE | 2017-08-31 14:07 | Diagnostic Imaging Report ---
Indication: Abdominal pain Comparison: 11 4 Single view of the abdomen obtained Findings: Bowel gas pattern is nonspecific. No mass, ectopic calcifications, or abnormal gas collections are identified. The bones are unremarkable. Surgical clips noted in the right hemipelvis. Impression: No acute findings
--- NOTE | 2017-08-31 16:00 | Consultation ---
DATE OF CONSULTATION: 08/31/2017 INFECTIOUS DISEASES CONSULTATION CONSULTING PHYSICIAN: Cathleen Pichardo M.D. REFERRING PHYSICIAN: Javier Calzada D.O. This consultation has been done on behalf of Dr. Alex Martinez. REASON FOR CONSULTATION: Leukocytosis. HISTORY OF PRESENTING ILLNESS: This is a 62-year-old lady with history of diabetes, neuropathy, schizophrenia, and COPD who came in to [place] emergency room with increasing lethargyness and weakness. She has been admitted to the ICU and an Infectious Diseases consultation has been obtained for antibiotics. PAST MEDICAL HISTORY: 1. History of diabetes. 2. Chronic obstructive pulmonary disease. 3. Neuropathy. 4. Schizophrenia. MEDICATIONS: As an inpatient, she is on insulin, hydrocortisone, Zofran, chlorhexidine gluconate, Ativan, Protonix, Plavix, Neurontin, subcutaneous heparin, albuterol and ipratropium, Tylenol, morphine, polyethylene glycol, Restoril, Mylanta, nitroglycerin, and clonidine. ALLERGIES: 1. Biaxin. 2. [place]. 3. Penicillin. 4. [place]. SOCIAL HISTORY: She has a history of smoking. No history of alcohol or drug use. FAMILY HISTORY: Noncontributory. REVIEW OF SYSTEMS: Unable to obtain currently. PHYSICAL EXAMINATION: VITAL SIGNS: Temperature of 98.5, T-max of 99.1, pulse of 90, respiratory rate 17, blood pressure 111/54, and O2 saturation of 91%. HEENT: Pupils equally reactive to light and accommodation. Mouth appears clean without thrush. NECK: Supple. No adenopathy. No JVD. CARDIOVASCULAR: Regular rate and rhythm. No murmurs. LUNGS: Clear to auscultation bilaterally. No crackles. No wheezes. ABDOMEN: Soft and nontender. No organomegaly. EXTREMITIES: No cyanosis. No clubbing. No edema. Groin erythema noted. Right arm PICC line noted. LABORATORY AND DIAGNOSTIC DATA: White count of 17.4, hemoglobin 9.1, hematocrit 27.6, MCV 93, platelet count of 487, and neutrophils of 79%. Sodium 141, potassium 3.3, chloride 107, bicarbonate 23, BUN 17, creatinine 1.1, glucose 140, and calcium 8.6. Total bilirubin 0.4, AST 15, ALT 15, alkaline phosphatase 119, total protein 6.3, albumin 2.3, and cholesterol 128. UA showing leukocyte esterase negative and nitrite negative. Nasal swab was negative for MRSA. Blood cultures are negative from 08/29/2017. Chest x-ray showing chronic right upper lobe scarring. No acute process is noted. CT head showing chronic age-related changes. Negative for bleed or mass effect. ASSESSMENT: 1. This is a 62-year-old lady with history of diabetes who comes in with weakness and lethargyness. She has increasing leukocytosis, would be concerned regarding a urinary tract infection or a pneumonia. 2. Diabetes. 3. Chronic obstructive pulmonary disease. 4. Schizophrenia. PLAN: 1. We will order urine cultures. 2. We will order sputum cultures. 3. We will start the patient on Zosyn. 4. We will follow up cultures and adjust antibiotics accordingly. I would like to thank, Dr. Javier Calzada, for this consultation. Cathleen Pichardo M.D. DR: NATALIE JOB#: [id number] CC: Javier Calzada D.O.
[2017-08-31] MEDS: Dyna-Hex 2% Top Sol 2oz TOPIC SCH (19:38)
[2017-08-31] MEDS ORDERED: Nitroglycerin Subl 0.4mg tab SL PRN (22:00)
[2017-08-31] MEDS ORDERED: Miralax 17gm pkt ORAL PRN (23:45)
[2017-08-31] MEDS ORDERED: Mylanta II UD 30ml ORAL PRN (23:45)
[2017-09-01] MEDS ORDERED: LORazepam Inj 2mg/ml 1ml IV PRN
[2017-09-01] MEDS: Morphine Sulfate 2mg/ml Inj IVP PRN ×6 (00:35→22:43)
[2017-09-01] MEDS ORDERED: Albuterol/Ipratropium 3ml neb HHN PRN (01:00)
[2017-09-01] MEDS ORDERED: D5NS 1,000 ML IV SCH ×2 (01:30→06:15)
[2017-09-01] MEDS ORDERED: D5NS 1,000 ML IV ONE (02:00)
[2017-09-01 04:00] VITALS: BP 119/66
[2017-09-01 06:28] LABS: BASOPHILS % (AUTO) 0.9 % (0.0-2.0); EOSINOPHILS % (AUTO) 3.8 % (0.0-3.0); LYMPHOCYTES % (AUTO) 26.1 % (20.0-45.0); MEAN CORPUSCULAR HEMOGLOBIN 30.7 PG (27.0-31.0); MEAN CORPUSCULAR HGB CONC 33.1 G/DL (32.0-36.0); MEAN CORPUSCULAR VOLUME 93 FL (80-99); MEAN PLATELET VOLUME 6.2 FL (6.5-10.1); MONOCYTES % (AUTO) 8.4 % (1.0-10.0); NEUTROPHILS % (AUTO) 60.8 % (45.0-75.0); PLATELET COUNT 403 K/UL (150-450); RED BLOOD COUNT 2.95 M/UL (4.20-5.40); RED CELL DISTRIBUTION WIDTH 15.1 % (11.6-14.8); WHITE BLOOD COUNT 8.7 K/UL (4.8-10.8)
[2017-09-01] MEDS ORDERED: NovoLOG Insulin Flexpen SUBQ SCH (06:30)
[2017-09-01] MEDS: NovoLOG Insulin Flexpen SUBQ SCH ×6 (06:30→20:28)
--- NOTE | 2017-09-01 07:21 | General Progress Note ---
Assessment/Plan Problem List: (1) DKA (diabetic ketoacidoses) ICD Codes: E13.10 - Other specified diabetes mellitus with ketoacidosis without coma SNOMED: 76787486, 317618195 (2) Diabetes mellitus ICD Codes: E11.9 - Type 2 diabetes mellitus without complications SNOMED: 17711347 Assessment/Plan change Levemir to 10 units bid Novolog 4 units ac tid + SSI Subjective ROS Limited/Unobtainable: Yes Allergies: Coded Allergies: CLARITHROMYCIN (Unverified Allergy, Unknown, 08/31/17) reentered as coded allergy (CD) PENICILLINS (Verified Allergy, Unknown, 08/10/17) [place] (Verified Allergy, Unknown, 08/10/17) Uncoded Allergies: [place] (Allergy, Unknown, 08/10/17) Subjective events noted hypoglycemic last night started on dextrose Objective Last 24 Hour Vital Signs Date Time Temp Pulse Resp B/P (MAP) Pulse Ox O2 Delivery O2 Flow Rate FiO2 09/01/17 05:06 97.5 09/01/17 04:00 99.2 72 20 119/66 97 Room Air 08/31/17 23:57 97.5 81 18 119/64 100 Room Air 08/31/17 20:00 97.8 80 18 115/50 95 Room Air 08/31/17 19:34 98.9 08/31/17 19:30 82 16 Room Air 08/31/17 16:00 98.9 90 23 121/63 95 Room Air 08/31/17 12:00 98.0 93 22 142/61 98 Room Air 08/31/17 10:00 90 17 111/54 91 Room Air 08/31/17 09:00 87 24 143/57 93 Room Air 08/31/17 08:00 98.5 87 22 138/61 87 Room Air 08/31/17 08:00 88 Laboratory Tests 09/01/17 05:50: White Blood Count 8.7, Red Blood Count 2.95L, Hemoglobin 9.0L, Hematocrit 27.3L , Mean Corpuscular Volume 93, Mean Corpuscular Hemoglobin 30.7, Mean Corpuscular Hemoglobin Concent 33.1, Red Cell Distribution Width 15.1H, Platelet Count 403, Mean Platelet Volume 6.2L, Neutrophils (%) (Auto) 60.8, Lymphocytes (%) (Auto) 26.1, Monocytes (%) (Auto) 8.4, Eosinophils (%) (Auto) 3.8H, Basophils (%) (Auto) 0.9, Sodium Level [Pending], Potassium Level [Pending ], Chloride Level [Pending], Carbon Dioxide Level [Pending], Blood Urea Nitrogen [Pending], Creatinine [Pending], Estimat Glomerular Filtration Rate [ Pending], Glucose Level [Pending], Calcium Level [Pending], Phosphorus Level [ Pending], Magnesium Level [Pending], Total Bilirubin [Pending], Aspartate Amino Transf (AST/SGOT) [Pending], Alanine Aminotransferase (ALT/SGPT) [Pending], Alkaline Phosphatase [Pending], Total Protein [Pending], Albumin [Pending], Globulin [Pending] Height (Feet): 5 Height (Inches): 5.00 Weight (Pounds): 140 General Appearance: no apparent distress Neck: normal alignment Cardiovascular: normal rate Respiratory/Chest: lungs clear Abdomen: non tender Pelvis: normal external exam Edema: no edema noted Arm (L), no edema noted Arm (R), no edema noted Leg (L), no edema noted Leg (R), no edema noted Pedal (L), no edema noted Pedal (R), no edema noted Generalized Objective Current Medications Medications (Trade) Dose Ordered Sig/Danielle Route PRN Reason Start Time Stop Time Status Last Admin Dose Admin Acetaminophen (Tylenol) 650 mg Q4H PRN ORAL fever 08/31/17 23:45 09/28/17 23:44 Al Hydroxide/Mg Hydroxide (Mylanta II) 30 ml Q6H PRN ORAL dyspepsia 08/31/17 23:45 09/28/17 23:44 Albuterol/ Ipratropium (Albuterol/ Ipratropium) 3 ml Q4H PRN HHN Shortness of Breath 09/01/17 01:00 09/06/17 00:59 Cefepime HCl 1 gm/ Dextrose 50 ml @ 100 mls/hr DAILY@1500 IVPB 09/01/17 15:00 09/07/17 14:59 Chlorhexidine Gluconate (Margarita-Hex 2%) 1 applic DAILY@2000 TOPIC 09/01/17 20:00 09/29/17 19:59 Clonidine HCl (Catapres) 0.1 mg Q4H PRN ORAL sbp more than 160 09/01/17 01:00 10/01/17 00:59 Clopidogrel Bisulfate (Plavix) 75 mg DAILY ORAL 09/01/17 09:00 09/29/17 08:59 Dextrose (Dextrose 50%) STAT PRN IV Hypoglycemia 09/01/17 01:00 10/01/17 00:59 09/01/17 06:10 Dextrose/Sodium Chloride 1,000 ml @ 75 mls/hr [id number] IV 09/01/17 06:15 09/01/17 08:15 09/01/17 06:33 Gabapentin (Neurontin) 100 mg THREE TIMES A DAY ORAL 09/01/17 09:00 09/29/17 08:59 Heparin Sodium (Porcine) (Heparin 5000 units/ml) 5,000 units EVERY 12 HOURS SUBQ 09/01/17 09:00 09/29/17 08:59 Hydrocortisone (Proctosol-HC Cream) 1 applic TID PRN TOPIC redness 09/01/17 09:00 10/01/17 08:59 Insulin Aspart (NovoLOG) BEFORE MEALS AND HS SUBQ 09/01/17 06:30 09/30/17 11:29 Insulin Aspart (NovoLOG) 8 units NOVOTIAC SUBQ 09/01/17 06:30 09/30/17 11:49 Insulin Detemir (Levemir) 15 units EVERY 12 HOURS SUBQ 09/01/17 09:00 09/30/17 10:29 Lorazepam (Ativan 2mg/ml 1ml) 2 mg Q2H PRN IV For Anxiety 09/01/17 00:00 09/06/17 15:59 Morphine Sulfate (Morphine Sulfate) 2 mg Q4H PRN IVP severe pain 7-10 09/01/17 01:00 09/08/17 00:59 09/01/17 04:36 Nitroglycerin (Ntg) 0.4 mg Q5M X 3 DOSES PRN SL Prn Chest Pain 08/31/17 22:00 09/28/17 23:44 Ondansetron HCl (Zofran) 4 mg Q4H PRN IVP Nausea & Vomiting 08/31/17 23:45 09/30/17 07:34 09/01/17 05:28 Pantoprazole (Protonix) 40 mg DAILY IVP 09/01/17 09:00 09/29/17 10:59 Polyethylene Glycol (Miralax) 17 gm HSPRN PRN ORAL Constipation 08/31/17 23:45 09/28/17 23:44 Sodium Chloride 1,000 ml @ 75 mls/hr [id number] IV 08/31/17 22:00 09/30/17 09:59 08/31/17 22:26 Temazepam (Restoril) 15 mg HSPRN PRN ORAL Insomnia 08/31/17 23:45 09/05/17 23:44 Item Value Date Time Bedside Blood Glucose 138 mg/dl H 09/01/17 0634 Bedside Blood Glucose 149 mg/dl H 09/01/17 0120 Bedside Blood Glucose 123 mg/dl H 08/31/17 2112 Bedside Blood Glucose 116 mg/dl 08/31/17 1651 Bedside Blood Glucose 259 mg/dl H 08/31/17 1237 Bedside Blood Glucose 208 mg/dl H 08/31/17 1026 EMA VALENCIA Sep 01, 2017 07:21
[2017-09-01 07:39] LABS: PHOSPHORUS 2.2 MG/DL (2.5-4.9)
[2017-09-01 07:43] LABS: ALANINE AMINOTRANSFERASE 24 U/L (12-78); ALBUMIN/GLOBULIN RATIO 0.6 (1.0-2.7); ANION GAP 8 mmol/L (5-15); ASPARTATE AMINO TRANSFERASE 55 U/L (15-37); CALCIUM 8.2 MG/DL (8.5-10.1); CARBON DIOXIDE 25 MMOL/L (21-32); CHLORIDE 103 MMOL/L (98-107); CREATININE 0.7 MG/DL (0.55-1.30); GLOMERULAR FILTRATION RATE > 60 mL/min (>60); POTASSIUM 3.2 MMOL/L (3.5-5.1); SODIUM 136 MMOL/L (136-145); TOTAL PROTEIN 5.9 G/DL (6.4-8.2)
[2017-09-01 08:00] VITALS: BP 123/69
[2017-09-01] MEDS: Levemir Flexpen SUBQ SCH ×2 (09:00→20:27)
[2017-09-01] MEDS ORDERED: Levemir Flexpen SUBQ SCH (09:00)
[2017-09-01] MEDS ORDERED: Hydrocortisone 2.5% Cream - 30gm TOPIC PRN (09:00)
[2017-09-01] MEDS: Heparin 5000 units/ml inj SUBQ SCH ×2 (09:51→20:29)
[2017-09-01] MEDS: Pantoprazole Inj IVP SCH (10:03)
[2017-09-01] MEDS ORDERED: Potassium Phosphate 30 MM in NS 275 ML IV ONE (10:30)
[2017-09-01] MEDS: DiphenhydrAMINE 50mg/ml Inj IVP PRN ×2 (11:16→19:37)
[2017-09-01 12:00] VITALS: BP 141/86
--- NOTE | 2017-09-01 13:32 | Infectious Diseases Prog Note ---
Assessment/Plan Assessment/Plan A; Leukocytosis resolved Uncontrolled DM, DKA Anemia Schizophrenia PCN allergy P; will f/u cultures, if remains negative will stop antibiotic Subjective ROS Limited/Unobtainable: No Constitutional: Reports: no symptoms Respiratory: Reports: no symptoms Cardiovascular: Reports: no symptoms Gastrointestinal/Abdominal: Reports: other - abdominal pain Musculoskeletal: Reports: pain, other - back pain Allergies: Coded Allergies: CLARITHROMYCIN (Unverified Allergy, Unknown, 08/31/17) reentered as coded allergy (CD) PENICILLINS (Verified Allergy, Unknown, 08/10/17) [place] (Verified Allergy, Unknown, 08/10/17) Uncoded Allergies: [place] (Allergy, Unknown, 08/10/17) Objective Vital Signs Last 24 Hour Vital Signs Date Time Temp Pulse Resp B/P (MAP) Pulse Ox O2 Delivery O2 Flow Rate FiO2 09/01/17 08:00 98.2 78 20 123/69 95 09/01/17 05:06 97.5 09/01/17 04:00 99.2 72 20 119/66 97 Room Air 08/31/17 23:57 97.5 81 18 119/64 100 Room Air 08/31/17 20:00 97.8 80 18 115/50 95 Room Air 08/31/17 19:34 98.9 08/31/17 19:30 82 16 Room Air 21 08/31/17 16:00 98.9 90 23 121/63 95 Room Air Height (Feet): 5 Height (Inches): 5.00 Weight (Pounds): 140 General Appearance: no acute distress HEENT: mucous membranes moist Respiratory/Chest: lungs clear, other - O2 by cannula Cardiovascular: normal rate Abdomen: soft, non tender Extremities: no edema Neurologic/Psychiatric: alert, responsive Microbiology Date/Time Source Procedure Growth Status 08/29/17 22:50 Blood Blood Culture - Preliminary NO GROWTH AFTER 48 HOURS Resulted 08/29/17 22:35 Blood Blood Culture - Preliminary NO GROWTH AFTER 48 HOURS Resulted 08/30/17 07:02 Nasal Nares MRSA Culture - Final NO METHICILLIN RESISTANT STAPH AUREUS... Complete 08/31/17 14:00 Urine,Clean Catch Urine Culture - Preliminary NO GROWTH Resulted 08/30/17 07:02 Rectum VRE Culture - Final NO VANCOMYCIN RESISTANT ENTEROCOCCUS ... Complete Laboratory Tests Test 09/01/17 05:50 White Blood Count 8.7 K/UL (4.8-10.8) Red Blood Count 2.95 M/UL (4.20-5.40) L Hemoglobin 9.0 G/DL (12.0-16.0) L Hematocrit 27.3 % (37.0-47.0) L Mean Corpuscular Volume 93 FL (80-99) Mean Corpuscular Hemoglobin 30.7 PG (27.0-31.0) Mean Corpuscular Hemoglobin Concent 33.1 G/DL (32.0-36.0) Red Cell Distribution Width 15.1 % (11.6-14.8) H Platelet Count 403 K/UL (150-450) Mean Platelet Volume 6.2 FL (6.5-10.1) L Neutrophils (%) (Auto) 60.8 % (45.0-75.0) Lymphocytes (%) (Auto) 26.1 % (20.0-45.0) Monocytes (%) (Auto) 8.4 % (1.0-10.0) Eosinophils (%) (Auto) 3.8 % (0.0-3.0) H Basophils (%) (Auto) 0.9 % (0.0-2.0) Sodium Level 136 MMOL/L (136-145) Potassium Level 3.2 MMOL/L (3.5-5.1) L Chloride Level 103 MMOL/L (98-107) Carbon Dioxide Level 25 MMOL/L (21-32) Anion Gap 8 mmol/L (5-15) Blood Urea Nitrogen 7 mg/dL (7-18) Creatinine 0.7 MG/DL (0.55-1.30) Estimat Glomerular Filtration Rate > 60 mL/min (>60) Glucose Level 51 MG/DL (74-106) L Calcium Level 8.2 MG/DL (8.5-10.1) L Phosphorus Level 2.2 MG/DL (2.5-4.9) L Magnesium Level 2.0 MG/DL (1.8-2.4) Total Bilirubin 0.2 MG/DL (0.2-1.0) Aspartate Amino Transf (AST/SGOT) 55 U/L (15-37) H Alanine Aminotransferase (ALT/SGPT) 24 U/L (12-78) Alkaline Phosphatase 118 U/L (46-116) H Total Protein 5.9 G/DL (6.4-8.2) L Albumin 2.1 G/DL (3.4-5.0) L Globulin 3.8 g/dL Albumin/Globulin Ratio 0.6 (1.0-2.7) L Current Medications Medications (Trade) Dose Ordered Sig/Danielle Route PRN Reason Start Time Stop Time Status Last Admin Dose Admin Acetaminophen (Tylenol) 650 mg Q4H PRN ORAL fever 08/31/17 23:45 09/28/17 23:44 Al Hydroxide/Mg Hydroxide (Mylanta II) 30 ml Q6H PRN ORAL dyspepsia 08/31/17 23:45 09/28/17 23:44 Albuterol/ Ipratropium (Albuterol/ Ipratropium) 3 ml Q4H PRN HHN Shortness of Breath 09/01/17 01:00 09/06/17 00:59 Cefepime HCl 1 gm/ Dextrose 50 ml @ 100 mls/hr DAILY@1500 IVPB 09/01/17 15:00 09/07/17 14:59 Chlorhexidine Gluconate (Margarita-Hex 2%) 1 applic DAILY@2000 TOPIC 09/01/17 20:00 09/29/17 19:59 Clonidine HCl (Catapres) 0.1 mg Q4H PRN ORAL sbp more than 160 09/01/17 01:00 10/01/17 00:59 Clopidogrel Bisulfate (Plavix) 75 mg DAILY ORAL 09/01/17 09:00 09/29/17 08:59 09/01/17 09:44 Dextrose (Dextrose 50%) STAT PRN IV Hypoglycemia 09/01/17 01:00 10/01/17 00:59 09/01/17 11:56 Dextrose/Sodium Chloride 1,000 ml @ 75 mls/hr [id number] IV 09/01/17 13:00 10/01/17 12:59 Diphenhydramine HCl (Benadryl) 25 mg Q4H PRN IVP Itching 09/01/17 11:00 10/01/17 10:59 09/01/17 11:16 Gabapentin (Neurontin) 100 mg THREE TIMES A DAY ORAL 09/01/17 09:00 09/29/17 08:59 09/01/17 09:45 Heparin Sodium (Porcine) (Heparin 5000 units/ml) 5,000 units EVERY 12 HOURS SUBQ 09/01/17 09:00 09/29/17 08:59 09/01/17 09:51 Hydrocortisone (Proctosol-HC Cream) 1 applic TID PRN TOPIC redness 09/01/17 09:00 10/01/17 08:59 09/01/17 08:53 Insulin Aspart (NovoLOG) BEFORE MEALS AND HS SUBQ 09/01/17 06:30 09/30/17 11:29 Insulin Aspart (NovoLOG) 4 units NOVOTIAC SUBQ 09/01/17 11:50 10/01/17 11:49 Insulin Detemir (Levemir) 10 units EVERY 12 HOURS SUBQ 09/01/17 09:00 10/01/17 08:59 Lorazepam (Ativan 2mg/ml 1ml) 2 mg Q2H PRN IV For Anxiety 09/01/17 00:00 09/06/17 15:59 Morphine Sulfate (Morphine Sulfate) 2 mg Q4H PRN IVP severe pain 7-10 09/01/17 01:00 09/08/17 00:59 09/01/17 08:38 Nitroglycerin (Ntg) 0.4 mg Q5M X 3 DOSES PRN SL Prn Chest Pain 08/31/17 22:00 09/28/17 23:44 Ondansetron HCl (Zofran) 4 mg Q4H PRN IVP Nausea & Vomiting 08/31/17 23:45 09/30/17 07:34 09/01/17 05:28 Pantoprazole (Protonix) 40 mg DAILY IVP 09/01/17 09:00 09/29/17 10:59 09/01/17 10:03 Polyethylene Glycol (Miralax) 17 gm HSPRN PRN ORAL Constipation 08/31/17 23:45 09/28/17 23:44 Potassium Phosphate 30 mm/ Sodium Chloride 285 ml @ 47.5 mls/hr ONCE ONCE IV 09/01/17 10:30 09/01/17 16:29 09/01/17 10:38 Sodium Chloride 1,000 ml @ 75 mls/hr [id number] IV 08/31/17 22:00 09/30/17 09:59 11/22/17 10:38 Temazepam (Restoril) 15 mg HSPRN PRN ORAL Insomnia 08/31/17 23:45 09/05/17 23:44 YAW ALBA Sep 01, 2017 13:32
[2017-09-01 13:51] VITALS: BP 137/70
--- NOTE | 2017-09-01 13:55 | Pulmonology Progress Note ---
Assessment/Plan Problems: (1) DKA (diabetic ketoacidoses) (2) COPD (chronic obstructive pulmonary disease) (3) Hyponatremia (4) Pulmonary nodules (5) group home resident Assessment/Plan sliding scale iv fluids symptomatic treatment pain control dvt prophylaxis all meds and labs reviewed d/w The patient's condition and treatment plan was discussed with patient's nurse.. Subjective ROS Limited/Unobtainable: No Constitutional: Reports: no symptoms HEENT: Repors: no symptoms Respiratory: Reports: no symptoms Allergies: Coded Allergies: CLARITHROMYCIN (Unverified Allergy, Unknown, 08/31/17) reentered as coded allergy (CD) PENICILLINS (Verified Allergy, Unknown, 08/10/17) [place] (Verified Allergy, Unknown, 08/10/17) Uncoded Allergies: [place] (Allergy, Unknown, 08/10/17) Objective Last 24 Hour Vital Signs Date Time Temp Pulse Resp B/P (MAP) Pulse Ox O2 Delivery O2 Flow Rate FiO2 09/01/17 13:10 88 16 Room Air 09/01/17 13:10 Nasal Cannula 2.0 28 09/01/17 13:10 88 Nasal Cannula 2.0 28 09/01/17 12:00 98.8 82 20 141/86 97 09/01/17 08:00 98.2 78 20 123/69 95 09/01/17 05:06 97.5 09/01/17 04:00 99.2 72 20 119/66 97 Room Air 08/31/17 23:57 97.5 81 18 119/64 100 Room Air 08/31/17 20:00 97.8 80 18 115/50 95 Room Air 08/31/17 19:34 98.9 08/31/17 19:30 82 16 Room Air 08/31/17 16:00 98.9 90 23 121/63 95 Room Air Objective General Appearance: WD/WN HEENT: normocephalic, anicteric Cardiovascular: normal peripheral pulses, normal rate Abdomen: normal bowel sounds, no organomegaly Genitourinary: normal external genitalia Extremities: no clubbing Skin: no lesions Lymphatic: no neck adenopathy Microbiology Date/Time Source Procedure Growth Status 08/29/17 22:50 Blood Blood Culture - Preliminary NO GROWTH AFTER 48 HOURS Resulted 08/29/17 22:35 Blood Blood Culture - Preliminary NO GROWTH AFTER 48 HOURS Resulted 08/30/17 07:02 Nasal Nares MRSA Culture - Final NO METHICILLIN RESISTANT STAPH AUREUS... Complete 08/31/17 14:00 Urine,Clean Catch Urine Culture - Preliminary NO GROWTH Resulted 08/30/17 07:02 Rectum VRE Culture - Final NO VANCOMYCIN RESISTANT ENTEROCOCCUS ... Complete Laboratory Tests 09/01/17 05:50: White Blood Count 8.7, Red Blood Count 2.95L, Hemoglobin 9.0L, Hematocrit 27.3L , Mean Corpuscular Volume 93, Mean Corpuscular Hemoglobin 30.7, Mean Corpuscular Hemoglobin Concent 33.1, Red Cell Distribution Width 15.1H, Platelet Count 403, Mean Platelet Volume 6.2L, Neutrophils (%) (Auto) 60.8, Lymphocytes (%) (Auto) 26.1, Monocytes (%) (Auto) 8.4, Eosinophils (%) (Auto) 3.8H, Basophils (%) (Auto) 0.9, Sodium Level 136, Potassium Level 3.2L, Chloride Level 103, Carbon Dioxide Level 25, Anion Gap 8, Blood Urea Nitrogen 7 , Creatinine 0.7, Estimat Glomerular Filtration Rate > 60, Glucose Level 51L, Calcium Level 8.2L, Phosphorus Level 2.2L, Magnesium Level 2.0, Total Bilirubin 0.2, Aspartate Amino Transf (AST/SGOT) 55H, Alanine Aminotransferase (ALT/SGPT) 24, Alkaline Phosphatase 118H, Total Protein 5.9L, Albumin 2.1L, Globulin 3.8, Albumin/Globulin Ratio 0.6L 09/01/17 13:19: Glucose Level 162#H Current Medications Medications (Trade) Dose Ordered Sig/Danielle Route PRN Reason Start Time Stop Time Status Last Admin Dose Admin Acetaminophen (Tylenol) 650 mg Q4H PRN ORAL fever 08/31/17 23:45 09/28/17 23:44 Al Hydroxide/Mg Hydroxide (Mylanta II) 30 ml Q6H PRN ORAL dyspepsia 08/31/17 23:45 09/28/17 23:44 Albuterol/ Ipratropium (Albuterol/ Ipratropium) 3 ml Q4H PRN HHN Shortness of Breath 09/01/17 01:00 09/06/17 00:59 Cefepime HCl 1 gm/ Dextrose 50 ml @ 100 mls/hr DAILY@1500 IVPB 09/01/17 15:00 09/07/17 14:59 Chlorhexidine Gluconate (Margarita-Hex 2%) 1 applic DAILY@2000 TOPIC 09/01/17 20:00 09/29/17 19:59 Clonidine HCl (Catapres) 0.1 mg Q4H PRN ORAL sbp more than 160 09/01/17 01:00 10/01/17 00:59 Clopidogrel Bisulfate (Plavix) 75 mg DAILY ORAL 09/01/17 09:00 09/29/17 08:59 09/01/17 09:44 Dextrose (Dextrose 50%) STAT PRN IV Hypoglycemia 09/01/17 01:00 10/01/17 00:59 09/01/17 11:56 Dextrose/Sodium Chloride 1,000 ml @ 75 mls/hr [id number] IV 09/01/17 13:00 10/01/17 12:59 Diphenhydramine HCl (Benadryl) 25 mg Q4H PRN IVP Itching 09/01/17 11:00 10/01/17 10:59 09/01/17 11:16 Gabapentin (Neurontin) 100 mg THREE TIMES A DAY ORAL 09/01/17 09:00 09/29/17 08:59 09/01/17 13:41 Heparin Sodium (Porcine) (Heparin 5000 units/ml) 5,000 units EVERY 12 HOURS SUBQ 09/01/17 09:00 09/29/17 08:59 09/01/17 09:51 Hydrocortisone (Proctosol-HC Cream) 1 applic TID PRN TOPIC redness 09/01/17 09:00 10/01/17 08:59 09/01/17 08:53 Insulin Aspart (NovoLOG) BEFORE MEALS AND HS SUBQ 09/01/17 06:30 09/30/17 11:29 Insulin Aspart (NovoLOG) 4 units NOVOTIAC SUBQ 09/01/17 11:50 10/01/17 11:49 Insulin Detemir (Levemir) 10 units EVERY 12 HOURS SUBQ 09/01/17 09:00 10/01/17 08:59 Lorazepam (Ativan 2mg/ml 1ml) 2 mg Q2H PRN IV For Anxiety 09/01/17 00:00 09/06/17 15:59 Morphine Sulfate (Morphine Sulfate) 2 mg Q4H PRN IVP severe pain 7-10 09/01/17 01:00 09/08/17 00:59 09/01/17 13:41 Nitroglycerin (Ntg) 0.4 mg Q5M X 3 DOSES PRN SL Prn Chest Pain 08/31/17 22:00 09/28/17 23:44 Ondansetron HCl (Zofran) 4 mg Q4H PRN IVP Nausea & Vomiting 08/31/17 23:45 09/30/17 07:34 09/01/17 05:28 Pantoprazole (Protonix) 40 mg DAILY IVP 09/01/17 09:00 09/29/17 10:59 09/01/17 10:03 Polyethylene Glycol (Miralax) 17 gm HSPRN PRN ORAL Constipation 08/31/17 23:45 09/28/17 23:44 Potassium Phosphate 30 mm/ Sodium Chloride 285 ml @ 47.5 mls/hr ONCE ONCE IV 09/01/17 10:30 09/01/17 16:29 09/01/17 10:38 Sodium Chloride 1,000 ml @ 75 mls/hr [id number] IV 08/31/17 22:00 09/30/17 09:59 09/01/17 10:38 Temazepam (Restoril) 15 mg HSPRN PRN ORAL Insomnia 08/31/17 23:45 09/05/17 23:44 YUVAL MAYA Sep 01, 2017 13:55
[2017-09-01 16:00] VITALS: BP 146/74
[2017-09-01] MEDS: D5NS 1,000 ML IV SCH (18:16)
[2017-09-01 20:00] VITALS: BP 132/71
[2017-09-01] MEDS: Dyna-Hex 2% Top Sol 2oz TOPIC SCH (20:29)
--- NOTE | 2017-09-01 20:34 | General Progress Note ---
Assessment/Plan Problem List: (1) Sepsis ICD Codes: A41.9 - Sepsis, unspecified organism SNOMED: 12986301 (2) Hyperglycemia ICD Codes: R73.9 - Hyperglycemia, unspecified SNOMED: 93289341 (3) Neuropathy ICD Codes: G62.9 - Polyneuropathy, unspecified SNOMED: 898129813 (4) Diabetes mellitus ICD Codes: E11.9 - Type 2 diabetes mellitus without complications SNOMED: 81506194 (5) Anemia ICD Codes: D64.9 - Anemia, unspecified SNOMED: 950730296 Status: progressing Assessment/Plan dm elevated bg afebrile reviewed chart and labs neuropathy diabetic no change Subjective ROS Limited/Unobtainable: Yes Constitutional: Reports: no symptoms Allergies: Coded Allergies: CLARITHROMYCIN (Unverified Allergy, Unknown, 08/31/17) reentered as coded allergy (CD) PENICILLINS (Verified Allergy, Unknown, 08/10/17) [place] (Verified Allergy, Unknown, 08/10/17) Uncoded Allergies: [place] (Allergy, Unknown, 08/10/17) Objective Last 24 Hour Vital Signs Date Time Temp Pulse Resp B/P (MAP) Pulse Ox O2 Delivery O2 Flow Rate FiO2 09/01/17 20:00 100.8 85 20 132/71 96 Room Air 09/01/17 19:00 96 Room Air 21 09/01/17 19:00 82 16 Room Air 21 09/01/17 19:00 Room Air 21 09/01/17 16:00 97.7 83 20 146/74 100 09/01/17 13:51 98.2 83 20 137/70 100 Nasal Cannula 09/01/17 13:10 88 16 Room Air 21 09/01/17 13:10 Nasal Cannula 2.0 28 09/01/17 13:10 88 Nasal Cannula 2.0 28 09/01/17 12:00 98.8 82 20 141/86 97 09/01/17 08:00 98.2 78 20 123/69 95 09/01/17 05:06 97.5 09/01/17 04:00 99.2 72 20 119/66 97 Room Air 08/31/17 23:57 97.5 81 18 119/64 100 Room Air Intake and Output 09/01/17 09/02/17 19:00 07:00 Intake Total 910 ml Output Total 160 ml Balance 750 ml Intake Oral 560 ml IV Total 350 ml Output Urine Total 160 ml # Voids 3 Laboratory Tests 09/01/17 05:50: White Blood Count 8.7, Red Blood Count 2.95L, Hemoglobin 9.0L, Hematocrit 27.3L , Mean Corpuscular Volume 93, Mean Corpuscular Hemoglobin 30.7, Mean Corpuscular Hemoglobin Concent 33.1, Red Cell Distribution Width 15.1H, Platelet Count 403, Mean Platelet Volume 6.2L, Neutrophils (%) (Auto) 60.8, Lymphocytes (%) (Auto) 26.1, Monocytes (%) (Auto) 8.4, Eosinophils (%) (Auto) 3.8H, Basophils (%) (Auto) 0.9, Sodium Level 136, Potassium Level 3.2L, Chloride Level 103, Carbon Dioxide Level 25, Anion Gap 8, Blood Urea Nitrogen 7 , Creatinine 0.7, Estimat Glomerular Filtration Rate > 60, Glucose Level 51L, Calcium Level 8.2L, Phosphorus Level 2.2L, Magnesium Level 2.0, Total Bilirubin 0.2, Aspartate Amino Transf (AST/SGOT) 55H, Alanine Aminotransferase (ALT/SGPT) 24, Alkaline Phosphatase 118H, Total Protein 5.9L, Albumin 2.1L, Globulin 3.8, Albumin/Globulin Ratio 0.6L 09/01/17 13:19: Glucose Level 162#H Height (Feet): 5 Height (Inches): 5.00 Weight (Pounds): 140 Cardiovascular: normal rate Abdomen: soft Daxa Lane MD Sep 01, 2017 20:34
[2017-09-02] VITALS: BP 140/73
[2017-09-02] MEDS ORDERED: D5NS 1,000 ML IV ONE (01:30)
[2017-09-02] MEDS: DiphenhydrAMINE 50mg/ml Inj IVP PRN ×3 (02:42→22:41)
[2017-09-02] MEDS: D5NS 1,000 ML IV SCH (02:42)
[2017-09-02] MEDS: Morphine Sulfate 2mg/ml Inj IVP PRN ×5 (02:43→22:42)
[2017-09-02 03:33] VITALS: BP 150/80
[2017-09-02] MEDS: NovoLOG Insulin Flexpen SUBQ SCH ×7 (06:13→21:30)
--- NOTE | 2017-09-02 07:29 | General Progress Note ---
Assessment/Plan Problem List: (1) DKA (diabetic ketoacidoses) ICD Codes: E13.10 - Other specified diabetes mellitus with ketoacidosis without coma SNOMED: 44350314, 045736645 (2) Diabetes mellitus ICD Codes: E11.9 - Type 2 diabetes mellitus without complications SNOMED: 35276517 Assessment/Plan continue Levemir 10 units bid Novolog 4 units ac tid + SSI DC IVF Subjective Allergies: Coded Allergies: CLARITHROMYCIN (Unverified Allergy, Unknown, 08/31/17) reentered as coded allergy (CD) PENICILLINS (Verified Allergy, Unknown, 08/10/17) [place] (Verified Allergy, Unknown, 08/10/17) Uncoded Allergies: [place] (Allergy, Unknown, 08/10/17) All Systems: reviewed and negative except above Subjective events noted Objective Last 24 Hour Vital Signs Date Time Temp Pulse Resp B/P (MAP) Pulse Ox O2 Delivery O2 Flow Rate FiO2 09/02/17 04:00 Nasal Cannula 2.0 09/02/17 03:33 98.6 83 20 150/80 97 Nasal Cannula 09/02/17 03:13 99.1 09/02/17 00:15 94 Nasal Cannula 2.0 09/02/17 00:00 89 Room Air 09/02/17 00:00 99.1 85 20 140/73 92 Room Air 09/01/17 21:00 97.3 09/01/17 20:00 Room Air 09/01/17 20:00 100.8 85 20 132/71 96 Room Air 09/01/17 19:00 96 Room Air 21 09/01/17 19:00 82 16 Room Air 09/01/17 19:00 Room Air 09/01/17 16:00 97.7 83 20 146/74 100 09/01/17 13:51 98.2 83 20 137/70 100 Nasal Cannula 09/01/17 13:10 88 16 Room Air 21 09/01/17 13:10 Nasal Cannula 2.0 28 09/01/17 13:10 88 Nasal Cannula 2.0 28 09/01/17 12:00 98.8 82 20 141/86 97 09/01/17 08:00 98.2 78 20 123/69 95 Laboratory Tests 09/01/17 13:19: Glucose Level 162#H Height (Feet): 5 Height (Inches): 5.00 Weight (Pounds): 140 General Appearance: no apparent distress Neck: normal alignment Cardiovascular: normal rate Respiratory/Chest: lungs clear Abdomen: normal bowel sounds Pelvis: normal external exam Edema: no edema noted Arm (L), no edema noted Arm (R), no edema noted Leg (L), no edema noted Leg (R), no edema noted Pedal (L), no edema noted Pedal (R), no edema noted Generalized Objective Current Medications Medications (Trade) Dose Ordered Sig/Danielle Route PRN Reason Start Time Stop Time Status Last Admin Dose Admin Acetaminophen (Tylenol) 650 mg Q4H PRN ORAL fever 08/31/17 23:45 09/28/17 23:44 Al Hydroxide/Mg Hydroxide (Mylanta II) 30 ml Q6H PRN ORAL dyspepsia 08/31/17 23:45 09/28/17 23:44 Albuterol/ Ipratropium (Albuterol/ Ipratropium) 3 ml Q4H PRN HHN Shortness of Breath 09/01/17 01:00 09/06/17 00:59 Cefepime HCl 1 gm/ Dextrose 50 ml @ 100 mls/hr DAILY@1500 IVPB 09/01/17 15:00 09/07/17 14:59 09/01/17 17:32 Chlorhexidine Gluconate (Margarita-Hex 2%) 1 applic DAILY@2000 TOPIC 09/01/17 20:00 09/29/17 19:59 09/01/17 20:29 Clonidine HCl (Catapres) 0.1 mg Q4H PRN ORAL sbp more than 160 09/01/17 01:00 10/01/17 00:59 Clopidogrel Bisulfate (Plavix) 75 mg DAILY ORAL 09/01/17 09:00 09/29/17 08:59 09/01/17 09:44 Dextrose (Dextrose 50%) STAT PRN IV Hypoglycemia 09/01/17 01:00 10/01/17 00:59 09/01/17 11:56 Dextrose/Sodium Chloride 1,000 ml @ 75 mls/hr [id number] IV 09/01/17 13:00 10/01/17 12:59 09/02/17 02:42 Diphenhydramine HCl (Benadryl) 25 mg Q4H PRN IVP Itching 09/01/17 11:00 10/01/17 10:59 09/02/17 02:42 Gabapentin (Neurontin) 100 mg THREE TIMES A DAY ORAL 09/01/17 09:00 09/29/17 08:59 09/01/17 18:14 Heparin Sodium (Porcine) (Heparin 5000 units/ml) 5,000 units EVERY 12 HOURS SUBQ 09/01/17 09:00 09/29/17 08:59 09/01/17 20:29 Hydrocortisone (Proctosol-HC Cream) 1 applic TID PRN TOPIC redness 09/01/17 09:00 10/01/17 08:59 09/01/17 08:53 Insulin Aspart (NovoLOG) BEFORE MEALS AND HS SUBQ 09/01/17 06:30 09/30/17 11:29 09/02/17 06:13 Insulin Aspart (NovoLOG) 4 units NOVOTIAC SUBQ 09/01/17 11:50 10/01/17 11:49 Insulin Detemir (Levemir) 10 units EVERY 12 HOURS SUBQ 09/01/17 09:00 10/01/17 08:59 09/01/17 20:27 Lorazepam (Ativan 2mg/ml 1ml) 2 mg Q2H PRN IV For Anxiety 09/01/17 00:00 09/06/17 15:59 Morphine Sulfate (Morphine Sulfate) 2 mg Q4H PRN IVP severe pain 7-10 09/01/17 01:00 09/08/17 00:59 09/02/17 06:48 Nitroglycerin (Ntg) 0.4 mg Q5M X 3 DOSES PRN SL Prn Chest Pain 08/31/17 22:00 09/28/17 23:44 Ondansetron HCl (Zofran) 4 mg Q4H PRN IVP Nausea & Vomiting 08/31/17 23:45 09/30/17 07:34 09/02/17 05:59 Pantoprazole (Protonix) 40 mg DAILY IVP 09/01/17 09:00 09/29/17 10:59 09/01/17 10:03 Polyethylene Glycol (Miralax) 17 gm HSPRN PRN ORAL Constipation 08/31/17 23:45 09/28/17 23:44 Temazepam (Restoril) 15 mg HSPRN PRN ORAL Insomnia 08/31/17 23:45 09/05/17 23:44 Item Value Date Time Bedside Blood Glucose 153 mg/dl H 09/02/17 0629 Bedside Blood Glucose 214 mg/dl H 09/02/17 0000 Bedside Blood Glucose 235 mg/dl H 09/01/172041 Bedside Blood Glucose 132 mg/dl H 09/01/17 1650 EMA VALENCIA Sep 02, 2017 07:29
[2017-09-02 08:39] VITALS: BP 149/71
[2017-09-02] MEDS: Pantoprazole Inj IVP SCH (08:59)
[2017-09-02] MEDS: Heparin 5000 units/ml inj SUBQ SCH ×2 (09:01→21:28)
[2017-09-02] MEDS: Levemir Flexpen SUBQ SCH ×2 (09:09→21:29)
--- NOTE | 2017-09-02 10:08 | Infectious Diseases Prog Note ---
Assessment/Plan Assessment/Plan A; Leukocytosis resolved Uncontrolled DM, DKA Fungal UTI Anemia Schizophrenia PCN allergy P; Discontinue Cefepime, Start on Fluconazole Subjective ROS Limited/Unobtainable: Yes Constitutional: Reports: fever, other - Nafp=688,8 Allergies: Coded Allergies: CLARITHROMYCIN (Unverified Allergy, Unknown, 08/31/17) reentered as coded allergy (CD) PENICILLINS (Verified Allergy, Unknown, 08/10/17) [place] (Verified Allergy, Unknown, 08/10/17) Uncoded Allergies: [place] (Allergy, Unknown, 08/10/17) Objective Vital Signs Last 24 Hour Vital Signs Date Time Temp Pulse Resp B/P (MAP) Pulse Ox O2 Delivery O2 Flow Rate FiO2 09/02/17 08:39 98.2 82 20 149/71 96 Room Air 09/02/17 08:23 78 16 Room Air 09/02/17 08:23 95 Room Air 09/02/17 08:23 Room Air 09/02/17 07:18 98.6 09/02/17 04:00 Nasal Cannula 2.0 09/02/17 03:33 98.6 83 20 150/80 97 Nasal Cannula 09/02/17 00:15 94 Nasal Cannula 2.0 09/02/17 00:00 89 Room Air 09/02/17 00:00 99.1 85 20 140/73 92 Room Air 09/01/17 21:00 97.3 09/01/17 20:00 Room Air 09/01/17 20:00 100.8 85 20 132/71 96 Room Air 09/01/17 19:00 96 Room Air 09/01/17 19:00 82 16 Room Air 09/01/17 19:00 Room Air 09/01/17 16:00 97.7 83 20 146/74 100 09/01/17 13:51 98.2 83 20 137/70 100 Nasal Cannula 09/01/17 13:10 88 16 Room Air 09/01/17 13:10 Nasal Cannula 2.0 28 09/01/17 13:10 88 Nasal Cannula 2.0 09/01/17 12:00 98.8 82 20 141/86 97 Height (Feet): 5 Height (Inches): 5.00 Weight (Pounds): 140 General Appearance: no acute distress HEENT: mucous membranes moist Respiratory/Chest: lungs clear Cardiovascular: normal rate Abdomen: soft, non tender Extremities: no edema Neurologic/Psychiatric: other - sleeping Microbiology Date/Time Source Procedure Growth Status 08/31/17 14:00 Urine,Clean Catch Urine Culture - Preliminary Yeast Species Resulted Laboratory Tests Test 09/01/17 13:19 Glucose Level 162 MG/DL (74-106) #H Current Medications Medications (Trade) Dose Ordered Sig/Danielle Route PRN Reason Start Time Stop Time Status Last Admin Dose Admin Acetaminophen (Tylenol) 650 mg Q4H PRN ORAL fever 08/31/17 23:45 09/28/17 23:44 Al Hydroxide/Mg Hydroxide (Mylanta II) 30 ml Q6H PRN ORAL dyspepsia 08/31/17 23:45 09/28/17 23:44 Albuterol/ Ipratropium (Albuterol/ Ipratropium) 3 ml Q4H PRN HHN Shortness of Breath 09/01/17 01:00 09/06/17 00:59 Cefepime HCl 1 gm/ Dextrose 50 ml @ 100 mls/hr DAILY@1500 IVPB 09/01/17 15:00 09/07/17 14:59 09/01/17 17:32 Chlorhexidine Gluconate (Margarita-Hex 2%) 1 applic DAILY@2000 TOPIC 09/01/17 20:00 09/29/17 19:59 09/01/17 20:29 Clonidine HCl (Catapres) 0.1 mg Q4H PRN ORAL sbp more than 160 09/01/17 01:00 10/01/17 00:59 Clopidogrel Bisulfate (Plavix) 75 mg DAILY ORAL 09/01/17 09:00 09/29/17 08:59 09/02/17 08:59 Dextrose (Dextrose 50%) STAT PRN IV Hypoglycemia 09/01/17 01:00 10/01/17 00:59 09/01/17 11:56 Diphenhydramine HCl (Benadryl) 25 mg Q4H PRN IVP Itching 09/01/17 11:00 10/01/17 10:59 09/02/17 02:42 Gabapentin (Neurontin) 100 mg THREE TIMES A DAY ORAL 09/01/17 09:00 09/29/17 08:59 09/02/17 08:59 Heparin Sodium (Porcine) (Heparin 5000 units/ml) 5,000 units EVERY 12 HOURS SUBQ 09/01/17 09:00 09/29/17 08:59 09/02/17 09:01 Hydrocortisone (Proctosol-HC Cream) 1 applic TID PRN TOPIC redness 09/01/17 09:00 10/01/17 08:59 09/01/17 08:53 Insulin Aspart (NovoLOG) BEFORE MEALS AND HS SUBQ 09/01/17 06:30 09/30/17 11:29 09/02/17 06:13 Insulin Aspart (NovoLOG) 4 units NOVOTIAC SUBQ 09/01/17 11:50 10/01/17 11:49 Insulin Detemir (Levemir) 10 units EVERY 12 HOURS SUBQ 09/01/17 09:00 10/01/17 08:59 09/02/17 09:09 Lorazepam (Ativan 2mg/ml 1ml) 2 mg Q2H PRN IV For Anxiety 09/01/17 00:00 09/06/17 15:59 Morphine Sulfate (Morphine Sulfate) 2 mg Q4H PRN IVP severe pain 7-10 09/01/17 01:00 09/08/17 00:59 09/02/17 06:48 Nitroglycerin (Ntg) 0.4 mg Q5M X 3 DOSES PRN SL Prn Chest Pain 08/31/17 22:00 09/28/17 23:44 Ondansetron HCl (Zofran) 4 mg Q4H PRN IVP Nausea & Vomiting 08/31/17 23:45 09/30/17 07:34 09/02/17 05:59 Pantoprazole (Protonix) 40 mg DAILY IVP 09/01/17 09:00 09/29/17 10:59 09/02/17 08:59 Polyethylene Glycol (Miralax) 17 gm HSPRN PRN ORAL Constipation 08/31/17 23:45 09/28/17 23:44 Temazepam (Restoril) 15 mg HSPRN PRN ORAL Insomnia 08/31/17 23:45 09/05/17 23:44 YAW ALBA Sep 02, 2017 10:08
--- NOTE | 2017-09-02 11:43 | Pulmonology Progress Note ---
Assessment/Plan Problems: (1) DKA (diabetic ketoacidoses) (2) COPD (chronic obstructive pulmonary disease) (3) Hyponatremia (4) Pulmonary nodules (5) half-way resident Assessment/Plan sliding scale iv fluids symptomatic treatment pain control dvt prophylaxis all meds and labs reviewed d/w The patient's condition and treatment plan was discussed with patient's nurse.. dc planning soon psych evaluation Subjective ROS Limited/Unobtainable: No Constitutional: Reports: no symptoms HEENT: Repors: no symptoms Respiratory: Reports: no symptoms Allergies: Coded Allergies: CLARITHROMYCIN (Unverified Allergy, Unknown, 08/31/17) reentered as coded allergy (CD) PENICILLINS (Verified Allergy, Unknown, 08/10/17) [place] (Verified Allergy, Unknown, 08/10/17) Uncoded Allergies: [place] (Allergy, Unknown, 08/10/17) Objective Last 24 Hour Vital Signs Date Time Temp Pulse Resp B/P (MAP) Pulse Ox O2 Delivery O2 Flow Rate FiO2 09/02/17 08:39 98.2 82 20 149/71 96 Room Air 09/02/17 08:23 78 16 Room Air 09/02/17 08:23 95 Room Air 09/02/17 08:23 Room Air 09/02/17 07:18 98.6 09/02/17 04:00 Nasal Cannula 2.0 09/02/17 03:33 98.6 83 20 150/80 97 Nasal Cannula 09/02/17 00:15 94 Nasal Cannula 2.0 09/02/17 00:00 89 Room Air 09/02/17 00:00 99.1 85 20 140/73 92 Room Air 09/01/17 21:00 97.3 09/01/17 20:00 Room Air 09/01/17 20:00 100.8 85 20 132/71 96 Room Air 09/01/17 19:00 96 Room Air 21 09/01/17 19:00 82 16 Room Air 09/01/17 19:00 Room Air 09/01/17 16:00 97.7 83 20 146/74 100 09/01/17 13:51 98.2 83 20 137/70 100 Nasal Cannula 09/01/17 13:10 88 16 Room Air 09/01/17 13:10 Nasal Cannula 2.0 28 09/01/17 13:10 88 Nasal Cannula 2.0 28 09/01/17 12:00 98.8 82 20 141/86 97 Intake and Output 09/02/17 09/03/17 19:00 07:00 Intake Total 225 ml Output Total 600 ml Balance -375 ml IV Total 225 ml Output Urine Total 600 ml Objective General Appearance: WD/WN HEENT: normocephalic, anicteric Cardiovascular: normal peripheral pulses, normal rate Abdomen: normal bowel sounds, no organomegaly Genitourinary: normal external genitalia Extremities: no clubbing Skin: no lesions Lymphatic: no neck adenopathy Microbiology Date/Time Source Procedure Growth Status 08/31/17 14:00 Urine,Clean Catch Urine Culture - Preliminary Yeast Species Resulted Laboratory Tests 09/01/17 13:19: Glucose Level 162#H Current Medications Medications (Trade) Dose Ordered Sig/Danielle Route PRN Reason Start Time Stop Time Status Last Admin Dose Admin Acetaminophen (Tylenol) 650 mg Q4H PRN ORAL fever 08/31/17 23:45 09/28/17 23:44 Al Hydroxide/Mg Hydroxide (Mylanta II) 30 ml Q6H PRN ORAL dyspepsia 08/31/17 23:45 09/28/17 23:44 Albuterol/ Ipratropium (Albuterol/ Ipratropium) 3 ml Q4H PRN HHN Shortness of Breath 09/01/17 01:00 09/06/17 00:59 Chlorhexidine Gluconate (Margarita-Hex 2%) 1 applic DAILY@2000 TOPIC 09/01/17 20:00 09/29/17 19:59 09/01/17 20:29 Clonidine HCl (Catapres) 0.1 mg Q4H PRN ORAL sbp more than 160 09/01/17 01:00 10/01/17 00:59 Clopidogrel Bisulfate (Plavix) 75 mg DAILY ORAL 09/01/17 09:00 09/29/17 08:59 09/02/17 08:59 Dextrose (Dextrose 50%) STAT PRN IV Hypoglycemia 09/01/17 01:00 10/01/17 00:59 09/01/17 11:56 Diphenhydramine HCl (Benadryl) 25 mg Q4H PRN IVP Itching 09/01/17 11:00 10/01/17 10:59 09/02/17 02:42 Fluconazole (Diflucan) 200 mg DAILY ORAL 09/02/17 11:00 09/09/17 10:59 Gabapentin (Neurontin) 100 mg THREE TIMES A DAY ORAL 09/01/17 09:00 09/29/17 08:59 09/02/17 08:59 Heparin Sodium (Porcine) (Heparin 5000 units/ml) 5,000 units EVERY 12 HOURS SUBQ 09/01/17 09:00 09/29/17 08:59 09/02/17 09:01 Hydrocortisone (Proctosol-HC Cream) 1 applic TID PRN TOPIC redness 09/01/17 09:00 10/01/17 08:59 09/01/17 08:53 Insulin Aspart (NovoLOG) BEFORE MEALS AND HS SUBQ 09/01/17 06:30 09/30/17 11:29 09/02/17 06:13 Insulin Aspart (NovoLOG) 4 units NOVOTIAC SUBQ 09/01/17 11:50 10/01/17 11:49 Insulin Detemir (Levemir) 10 units EVERY 12 HOURS SUBQ 09/01/17 09:00 10/01/17 08:59 09/02/17 09:09 Lorazepam (Ativan 2mg/ml 1ml) 2 mg Q2H PRN IV For Anxiety 09/01/17 00:00 09/06/17 15:59 Morphine Sulfate (Morphine Sulfate) 2 mg Q4H PRN IVP severe pain 7-10 09/01/17 01:00 09/08/17 00:59 09/02/17 06:48 Nitroglycerin (Ntg) 0.4 mg Q5M X 3 DOSES PRN SL Prn Chest Pain 08/31/17 22:00 09/28/17 23:44 Ondansetron HCl (Zofran) 4 mg Q4H PRN IVP Nausea & Vomiting 08/31/17 23:45 09/30/17 07:34 09/02/17 05:59 Pantoprazole (Protonix) 40 mg DAILY IVP 09/01/17 09:00 09/29/17 10:59 09/02/17 08:59 Polyethylene Glycol (Miralax) 17 gm HSPRN PRN ORAL Constipation 08/31/17 23:45 09/28/17 23:44 Temazepam (Restoril) 15 mg HSPRN PRN ORAL Insomnia 08/31/17 23:45 09/05/17 23:44 YUVAL MAYA Sep 02, 2017 11:43
[2017-09-02 11:49] VITALS: BP 128/66
[2017-09-02] MEDS: Fluconazole 100mg tab ORAL SCH (12:41)
--- NOTE | 2017-09-02 13:15 | General Progress Note ---
Assessment/Plan Problem List: (1) Sepsis ICD Codes: A41.9 - Sepsis, unspecified organism SNOMED: 02596799 (2) Hyperglycemia ICD Codes: R73.9 - Hyperglycemia, unspecified SNOMED: 01560044 (3) Neuropathy ICD Codes: G62.9 - Polyneuropathy, unspecified SNOMED: 201496908 (4) Diabetes mellitus ICD Codes: E11.9 - Type 2 diabetes mellitus without complications SNOMED: 53102140 (5) Anemia ICD Codes: D64.9 - Anemia, unspecified SNOMED: 887261599 Status: progressing Assessment/Plan dm elevated bg afebrile vitals stable neuropathy diabetic Subjective ROS Limited/Unobtainable: Yes Allergies: Coded Allergies: CLARITHROMYCIN (Unverified Allergy, Unknown, 08/31/17) reentered as coded allergy (CD) PENICILLINS (Verified Allergy, Unknown, 08/10/17) [place] (Verified Allergy, Unknown, 08/10/17) Uncoded Allergies: [place] (Allergy, Unknown, 08/10/17) Objective Last 24 Hour Vital Signs Date Time Temp Pulse Resp B/P (MAP) Pulse Ox O2 Delivery O2 Flow Rate FiO2 09/02/17 11:49 98.5 79 20 128/66 95 09/02/17 08:39 98.2 82 20 149/71 96 Room Air 09/02/17 08:23 78 16 Room Air 09/02/17 08:23 95 Room Air 09/02/17 08:23 Room Air 09/02/17 07:18 98.6 09/02/17 04:00 Nasal Cannula 2.0 09/02/17 03:33 98.6 83 20 150/80 97 Nasal Cannula 09/02/17 00:15 94 Nasal Cannula 2.0 09/02/17 00:00 89 Room Air 09/02/17 00:00 99.1 85 20 140/73 92 Room Air 09/01/17 21:00 97.3 09/01/17 20:00 Room Air 09/01/17 20:00 100.8 85 20 132/71 96 Room Air 09/01/17 19:00 96 Room Air 21 09/01/17 19:00 82 16 Room Air 09/01/17 19:00 Room Air 09/01/17 16:00 97.7 83 20 146/74 100 09/01/17 13:51 98.2 83 20 137/70 100 Nasal Cannula Intake and Output 09/02/17 09/03/17 19:00 07:00 Intake Total 225 ml Output Total 900 ml Balance -675 ml IV Total 225 ml Output Urine Total 900 ml # Voids 1 Laboratory Tests 09/01/17 13:19: Glucose Level 162#H Height (Feet): 5 Height (Inches): 5.00 Weight (Pounds): 140 General Appearance: confused Daax Lane MD Sep 02, 2017 13:15
[2017-09-02] MEDS ORDERED: Tubing IV Secondary IV ONE ×2 (15:40→16:19)
[2017-09-02] MEDS ORDERED: D5NS 1000ml IV ONE ×2 (15:40→16:19)
[2017-09-02 15:52] VITALS: BP 132/72
[2017-09-02 20:00] VITALS: BP_SYST 125; BP_SYST 157; BP_DIAS 70; BP_DIAS 87
[2017-09-02] MEDS: Dyna-Hex 2% Top Sol 2oz TOPIC SCH (21:28)
[2017-09-03] VITALS: BP 137/78
[2017-09-03 04:00] VITALS: BP 140/81
[2017-09-03] MEDS: DiphenhydrAMINE 50mg/ml Inj IVP PRN (05:56)
[2017-09-03] MEDS: Morphine Sulfate 2mg/ml Inj IVP PRN ×2 (05:56→13:09)
[2017-09-03] MEDS: NovoLOG Insulin Flexpen SUBQ SCH ×4 (06:30→13:00)
--- NOTE | 2017-09-03 06:32 | General Progress Note ---
Assessment/Plan Problem List: (1) DKA (diabetic ketoacidoses) ICD Codes: E13.10 - Other specified diabetes mellitus with ketoacidosis without coma SNOMED: 30556578, 340924304 (2) Diabetes mellitus ICD Codes: E11.9 - Type 2 diabetes mellitus without complications SNOMED: 06149333 Assessment/Plan continue Levemir 10 units bid Novolog 4 units ac tid + SSI Subjective Allergies: Coded Allergies: CLARITHROMYCIN (Unverified Allergy, Unknown, 08/31/17) reentered as coded allergy (CD) PENICILLINS (Verified Allergy, Unknown, 08/10/17) [place] (Verified Allergy, Unknown, 08/10/17) Uncoded Allergies: [place] (Allergy, Unknown, 08/10/17) All Systems: reviewed and negative except above Subjective events noted Objective Last 24 Hour Vital Signs Date Time Temp Pulse Resp B/P (MAP) Pulse Ox O2 Delivery O2 Flow Rate FiO2 09/03/17 04:00 97.7 78 19 140/81 95 Room Air 09/03/17 00:00 99.1 88 18 137/78 96 Room Air 09/02/17 20:00 99.0 87 18 157/70 93 Room Air 09/02/17 15:52 98.0 76 20 132/72 95 09/02/17 11:49 98.5 79 20 128/66 95 09/02/17 08:39 98.2 82 20 149/71 96 Room Air 09/02/17 08:23 78 16 Room Air 09/02/17 08:23 95 Room Air 09/02/17 08:23 Room Air 09/02/17 07:18 98.6 Height (Feet): 5 Height (Inches): 5.00 Weight (Pounds): 140 General Appearance: no apparent distress EENT: normal ENT inspection Cardiovascular: normal peripheral pulses Respiratory/Chest: lungs clear Abdomen: normal bowel sounds Objective Current Medications Medications (Trade) Dose Ordered Sig/Danielle Route PRN Reason Start Time Stop Time Status Last Admin Dose Admin Acetaminophen (Tylenol) 650 mg Q4H PRN ORAL fever 08/31/17 23:45 09/28/17 23:44 Al Hydroxide/Mg Hydroxide (Mylanta II) 30 ml Q6H PRN ORAL dyspepsia 08/31/17 23:45 09/28/17 23:44 Albuterol/ Ipratropium (Albuterol/ Ipratropium) 3 ml Q4H PRN HHN Shortness of Breath 09/01/17 01:00 09/06/17 00:59 Chlorhexidine Gluconate (Margarita-Hex 2%) 1 applic DAILY@1999 TOPIC 09/01/17 20:00 09/29/17 19:59 09/02/17 21:28 Clonidine HCl (Catapres) 0.1 mg Q4H PRN ORAL sbp more than 160 09/01/17 01:00 10/01/17 00:59 Clopidogrel Bisulfate (Plavix) 75 mg DAILY ORAL 09/01/17 09:00 09/29/17 08:59 09/02/17 08:59 Dextrose (Dextrose 50%) STAT PRN IV Hypoglycemia 09/01/17 01:00 10/01/17 00:59 09/01/17 11:56 Diphenhydramine HCl (Benadryl) 25 mg Q4H PRN IVP Itching 09/01/17 11:00 10/01/17 10:59 09/03/17 05:56 Fluconazole (Diflucan) 200 mg DAILY ORAL 09/02/17 11:00 09/09/17 10:59 09/02/17 12:41 Gabapentin (Neurontin) 100 mg THREE TIMES A DAY ORAL 09/01/17 09:00 09/29/17 08:59 09/02/17 13:02 Heparin Sodium (Porcine) (Heparin 5000 units/ml) 5,000 units EVERY 12 HOURS SUBQ 09/01/17 09:00 09/29/17 08:59 09/02/17 21:28 Hydrocortisone (Proctosol-HC Cream) 1 applic TID PRN TOPIC redness 09/01/17 09:00 10/01/17 08:59 09/01/17 08:53 Insulin Aspart (NovoLOG) BEFORE MEALS AND HS SUBQ 09/01/17 06:30 09/30/17 11:29 09/02/17 21:30 Insulin Aspart (NovoLOG) 4 units NOVOTIAC SUBQ 09/01/17 11:50 10/01/17 11:49 09/02/17 17:25 Insulin Detemir (Levemir) 10 units EVERY 12 HOURS SUBQ 09/01/17 09:00 10/01/17 08:59 09/02/17 21:29 Lorazepam (Ativan 2mg/ml 1ml) 2 mg Q2H PRN IV For Anxiety 09/01/17 00:00 09/06/17 15:59 Morphine Sulfate (Morphine Sulfate) 2 mg Q4H PRN IVP severe pain 7-10 09/01/17 01:00 09/08/17 00:59 09/03/17 05:56 Nitroglycerin (Ntg) 0.4 mg Q5M X 3 DOSES PRN SL Prn Chest Pain 08/31/17 22:00 09/28/17 23:44 Ondansetron HCl (Zofran) 4 mg Q4H PRN IVP Nausea & Vomiting 08/31/17 23:45 09/30/17 07:34 09/02/17 22:50 Pantoprazole (Protonix) 40 mg DAILY IVP 09/01/17 09:00 09/29/17 10:59 09/02/17 08:59 Polyethylene Glycol (Miralax) 17 gm HSPRN PRN ORAL Constipation 08/31/17 23:45 09/28/17 23:44 Temazepam (Restoril) 15 mg HSPRN PRN ORAL Insomnia 08/31/17 23:45 09/05/17 23:44 Item Value Date Time Bedside Blood Glucose 358 mg/dl H 09/02/170 Bedside Blood Glucose 185 mg/dl H 09/02/17 1726 Bedside Blood Glucose 86 mg/dl 09/02/17 1157 EMA VALENCIA Sep 03, 2017 06:32
[2017-09-03] MEDS ORDERED: Simethicone 80mg tab ORAL PRN (06:45)
[2017-09-03 07:21] LABS: BASOPHILS % (AUTO) 1.8 % (0.0-2.0); EOSINOPHILS % (AUTO) 7.4 % (0.0-3.0); LYMPHOCYTES % (AUTO) 23.3 % (20.0-45.0); MEAN CORPUSCULAR HGB CONC 33.1 G/DL (32.0-36.0); MEAN CORPUSCULAR VOLUME 93 FL (80-99); MEAN PLATELET VOLUME 6.2 FL (6.5-10.1); NEUTROPHILS % (AUTO) 56.5 % (45.0-75.0); PLATELET COUNT 429 K/UL (150-450); RED BLOOD COUNT 3.15 M/UL (4.20-5.40); RED CELL DISTRIBUTION WIDTH 14.8 % (11.6-14.8)
[2017-09-03 07:25] LABS: ALANINE AMINOTRANSFERASE 301 U/L (12-78); ALBUMIN/GLOBULIN RATIO 0.6 (1.0-2.7); AMYLASE 18 U/L (25-115); ANION GAP 10 mmol/L (5-15); ASPARTATE AMINO TRANSFERASE 221 U/L (15-37); CALCIUM 8.7 MG/DL (8.5-10.1); CARBON DIOXIDE 27 MMOL/L (21-32); CHLORIDE 101 MMOL/L (98-107); CREATININE 0.7 MG/DL (0.55-1.30); GLOMERULAR FILTRATION RATE > 60 mL/min (>60); LIPASE 44 U/L (73-393); POTASSIUM 3.5 MMOL/L (3.5-5.1); SODIUM 138 MMOL/L (136-145); TOTAL PROTEIN 6.1 G/DL (6.4-8.2)
[2017-09-03 07:36] LABS: PHOSPHORUS 3.3 MG/DL (2.5-4.9)
[2017-09-03 08:00] VITALS: BP 162/82
[2017-09-03] MEDS ORDERED: Docusate 100mg cap ORAL SCH (09:00)
[2017-09-03] MEDS: Pantoprazole Inj IVP SCH (09:54)
[2017-09-03] MEDS: Heparin 5000 units/ml inj SUBQ SCH (09:57)
[2017-09-03] MEDS: Levemir Flexpen SUBQ SCH (09:58)
[2017-09-03] MEDS: Lactulose 10gm/15ml UDC ORAL SCH ×2 (10:00→14:04)
[2017-09-03] MEDS: Fluconazole 100mg tab ORAL SCH (10:02)
[2017-09-03 12:00] VITALS: BP 134/58
--- NOTE | 2017-09-03 12:00 | Pulmonology Progress Note ---
Assessment/Plan Problems: (1) DKA (diabetic ketoacidoses) (2) COPD (chronic obstructive pulmonary disease) (3) Hyponatremia (4) Pulmonary nodules (5) custodial resident Assessment/Plan no new complains, doing better sliding scale iv fluids symptomatic treatment pain control dvt prophylaxis all meds and labs reviewed d/w The patient's condition and treatment plan was discussed with patient's nurse.. dc planning soon psych evaluation Subjective ROS Limited/Unobtainable: No Constitutional: Reports: no symptoms HEENT: Repors: no symptoms Respiratory: Reports: no symptoms Cardiovascular: Reports: no symptoms Allergies: Coded Allergies: CLARITHROMYCIN (Unverified Allergy, Unknown, 08/31/17) reentered as coded allergy (CD) PENICILLINS (Verified Allergy, Unknown, 08/10/17) [place] (Verified Allergy, Unknown, 08/10/17) Uncoded Allergies: [place] (Allergy, Unknown, 08/10/17) Objective Last 24 Hour Vital Signs Date Time Temp Pulse Resp B/P (MAP) Pulse Ox O2 Delivery O2 Flow Rate FiO2 09/03/17 08:18 94 Room Air 09/03/17 08:18 Room Air 21 09/03/17 08:18 80 16 Room Air 09/03/17 08:00 99.5 84 18 162/82 99 Room Air 09/03/17 04:00 97.7 78 19 140/81 95 Room Air 09/03/17 00:00 99.1 88 18 137/78 96 Room Air 09/02/17 20:00 99.0 87 18 157/70 93 Room Air 09/02/17 15:52 98.0 76 20 132/72 95 Objective General Appearance: WD/WN HEENT: normocephalic, anicteric Cardiovascular: normal peripheral pulses, normal rate Abdomen: normal bowel sounds, no organomegaly Genitourinary: normal external genitalia Extremities: no clubbing Skin: no lesions Lymphatic: no neck adenopathy Microbiology Date/Time Source Procedure Growth Status 08/31/17 14:00 Urine,Clean Catch Urine Culture - Final Mague Albicans Complete Laboratory Tests 09/03/17 05:45: White Blood Count 5.0, Red Blood Count 3.15L, Hemoglobin 9.7L, Hematocrit 29.4L , Mean Corpuscular Volume 93, Mean Corpuscular Hemoglobin 31.0, Mean Corpuscular Hemoglobin Concent 33.1, Red Cell Distribution Width 14.8, Platelet Count 429, Mean Platelet Volume 6.2L, Neutrophils (%) (Auto) 56.5, Lymphocytes ( %) (Auto) 23.3, Monocytes (%) (Auto) 11.0H, Eosinophils (%) (Auto) 7.4H, Basophils (%) (Auto) 1.8, Sodium Level 138, Potassium Level 3.5, Chloride Level 101, Carbon Dioxide Level 27, Anion Gap 10, Blood Urea Nitrogen 1L, Creatinine 0.7, Estimat Glomerular Filtration Rate > 60, Glucose Level 127H, Calcium Level 8.7, Phosphorus Level 3.3, Magnesium Level 2.0, Total Bilirubin 0.3, Aspartate Amino Transf (AST/SGOT) 221H, Alanine Aminotransferase (ALT/SGPT) 301H, Alkaline Phosphatase 244H, Total Protein 6.1L, Albumin 2.2L, Globulin 3.9, Albumin/Globulin Ratio 0.6L, Amylase Level 18L, Lipase 44L Current Medications Medications (Trade) Dose Ordered Sig/Danielle Route PRN Reason Start Time Stop Time Status Last Admin Dose Admin Acetaminophen (Tylenol) 650 mg Q4H PRN ORAL fever 08/31/17 23:45 09/28/17 23:44 Al Hydroxide/Mg Hydroxide (Mylanta II) 30 ml Q6H PRN ORAL dyspepsia 08/31/17 23:45 09/28/17 23:44 Albuterol/ Ipratropium (Albuterol/ Ipratropium) 3 ml Q4H PRN HHN Shortness of Breath 09/01/17 01:00 09/06/17 00:59 Chlorhexidine Gluconate (Margarita-Hex 2%) 1 applic DAILY@1999 TOPIC 09/01/17 20:00 09/29/17 19:59 09/02/17 21:28 Clonidine HCl (Catapres) 0.1 mg Q4H PRN ORAL sbp more than 160 09/01/17 01:00 10/01/17 00:59 Clopidogrel Bisulfate (Plavix) 75 mg DAILY ORAL 09/01/17 09:00 09/29/17 08:59 09/03/17 09:55 Dextrose (Dextrose 50%) STAT PRN IV Hypoglycemia 09/01/17 01:00 10/01/17 00:59 09/01/17 11:56 Diphenhydramine HCl (Benadryl) 25 mg Q4H PRN IVP Itching 09/01/17 11:00 10/01/17 10:59 09/03/17 05:56 Docusate Sodium (Colace) 100 mg TWICE A DAY ORAL 09/03/17 09:00 10/03/17 08:59 09/03/17 09:54 Fluconazole (Diflucan) 200 mg DAILY ORAL 09/02/17 11:00 09/09/17 10:59 09/03/17 10:02 Gabapentin (Neurontin) 100 mg THREE TIMES A DAY ORAL 09/01/17 09:00 09/29/17 08:59 09/03/17 09:54 Heparin Sodium (Porcine) (Heparin 5000 units/ml) 5,000 units EVERY 12 HOURS SUBQ 09/01/17 09:00 09/29/17 08:59 09/03/17 09:57 Hydrocortisone (Proctosol-HC Cream) 1 applic TID PRN TOPIC redness 09/01/17 09:00 10/01/17 08:59 09/01/17 08:53 Insulin Aspart (NovoLOG) BEFORE MEALS AND HS SUBQ 09/01/17 06:30 09/30/17 11:29 09/02/17 21:30 Insulin Aspart (NovoLOG) 4 units NOVOTIAC SUBQ 09/01/17 11:50 10/01/17 11:49 09/02/17 17:25 Insulin Detemir (Levemir) 10 units EVERY 12 HOURS SUBQ 09/01/17 09:00 10/01/17 08:59 09/03/17 09:58 Lactulose (Cephulac) 10 gm THREE TIMES A DAY ORAL 09/03/17 09:00 10/03/17 08:59 09/03/17 10:00 Lorazepam (Ativan 2mg/ml 1ml) 2 mg Q2H PRN IV For Anxiety 09/01/17 00:00 09/06/17 15:59 Morphine Sulfate (Morphine Sulfate) 2 mg Q4H PRN IVP severe pain 7-10 09/01/17 01:00 09/08/17 00:59 09/03/17 05:56 Nitroglycerin (Ntg) 0.4 mg Q5M X 3 DOSES PRN SL Prn Chest Pain 11/21/17 22:00 09/28/17 23:44 Ondansetron HCl (Zofran) 4 mg Q4H PRN IVP Nausea & Vomiting 08/31/17 23:45 09/30/17 07:34 09/03/17 06:37 Pantoprazole (Protonix) 40 mg DAILY IVP 09/01/17 09:00 09/29/17 10:59 09/03/17 09:54 Polyethylene Glycol (Miralax) 17 gm HSPRN PRN ORAL Constipation 08/31/17 23:45 09/28/17 23:44 Simethicone (Mylicon) 80 mg QID PRN ORAL gas 09/03/17 06:45 10/03/17 06:44 Temazepam (Restoril) 15 mg HSPRN PRN ORAL Insomnia 08/31/17 23:45 09/05/17 23:44 YUVAL MAYA Sep 03, 2017 12:00
[2017-09-03] MEDS ORDERED: NOVOLOG100 UNITS1 SUBQ (12:02)
[2017-09-03] MEDS ORDERED: LEVEMIR FL100 UNIT/1 SUBQ (12:02)
--- NOTE | 2017-09-03 12:18 | Infectious Diseases Prog Note ---
Assessment/Plan Assessment/Plan A; Leukocytosis resolved Uncontrolled DM, DKA Fungal UTI Anemia Schizophrenia PCN allergy P; continue Fluconazole X 4 days Subjective ROS Limited/Unobtainable: Yes Constitutional: Reports: no symptoms Respiratory: Reports: no symptoms Cardiovascular: Reports: no symptoms Musculoskeletal: Reports: pain Allergies: Coded Allergies: CLARITHROMYCIN (Unverified Allergy, Unknown, 08/31/17) reentered as coded allergy (CD) PENICILLINS (Verified Allergy, Unknown, 08/10/17) [place] (Verified Allergy, Unknown, 08/10/17) Uncoded Allergies: [place] (Allergy, Unknown, 08/10/17) Objective Vital Signs Last 24 Hour Vital Signs Date Time Temp Pulse Resp B/P (MAP) Pulse Ox O2 Delivery O2 Flow Rate FiO2 09/03/17 08:18 94 Room Air 09/03/17 08:18 Room Air 09/03/17 08:18 80 16 Room Air 09/03/17 08:00 99.5 84 18 162/82 99 Room Air 09/03/17 04:00 97.7 78 19 140/81 95 Room Air 09/03/17 00:00 99.1 88 18 137/78 96 Room Air 09/02/17 20:00 99.0 87 18 157/70 93 Room Air 09/02/17 15:52 98.0 76 20 132/72 95 Height (Feet): 5 Height (Inches): 5.00 Weight (Pounds): 140 General Appearance: no acute distress HEENT: mucous membranes moist Respiratory/Chest: lungs clear Cardiovascular: normal rate Abdomen: soft, non tender Extremities: no edema Neurologic/Psychiatric: alert, responsive Microbiology Date/Time Source Procedure Growth Status 08/31/17 14:00 Urine,Clean Catch Urine Culture - Final Mague Albicans Complete Laboratory Tests Test 09/03/17 05:45 White Blood Count 5.0 K/UL (4.8-10.8) Red Blood Count 3.15 M/UL (4.20-5.40) L Hemoglobin 9.7 G/DL (12.0-16.0) L Hematocrit 29.4 % (37.0-47.0) L Mean Corpuscular Volume 93 FL (80-99) Mean Corpuscular Hemoglobin 31.0 PG (27.0-31.0) Mean Corpuscular Hemoglobin Concent 33.1 G/DL (32.0-36.0) Red Cell Distribution Width 14.8 % (11.6-14.8) Platelet Count 429 K/UL (150-450) Mean Platelet Volume 6.2 FL (6.5-10.1) L Neutrophils (%) (Auto) 56.5 % (45.0-75.0) Lymphocytes (%) (Auto) 23.3 % (20.0-45.0) Monocytes (%) (Auto) 11.0 % (1.0-10.0) H Eosinophils (%) (Auto) 7.4 % (0.0-3.0) H Basophils (%) (Auto) 1.8 % (0.0-2.0) Sodium Level 138 MMOL/L (136-145) Potassium Level 3.5 MMOL/L (3.5-5.1) Chloride Level 101 MMOL/L (98-107) Carbon Dioxide Level 27 MMOL/L (21-32) Anion Gap 10 mmol/L (5-15) Blood Urea Nitrogen 1 mg/dL (7-18) L Creatinine 0.7 MG/DL (0.55-1.30) Estimat Glomerular Filtration Rate > 60 mL/min (>60) Glucose Level 127 MG/DL (74-106) H Calcium Level 8.7 MG/DL (8.5-10.1) Phosphorus Level 3.3 MG/DL (2.5-4.9) Magnesium Level 2.0 MG/DL (1.5-2.4) Total Bilirubin 0.3 MG/DL (0.2-1.0) Aspartate Amino Transf (AST/SGOT) 221 U/L (15-37) H Alanine Aminotransferase (ALT/SGPT) 301 U/L (12-78) H Alkaline Phosphatase 244 U/L (46-116) H Total Protein 6.1 G/DL (6.4-8.2) L Albumin 2.2 G/DL (3.4-5.0) L Globulin 3.9 g/dL Albumin/Globulin Ratio 0.6 (1.0-2.7) L Amylase Level 18 U/L (25-115) L Lipase 44 U/L (73-393) L Current Medications Medications (Trade) Dose Ordered Sig/Danielle Route PRN Reason Start Time Stop Time Status Last Admin Dose Admin Acetaminophen (Tylenol) 650 mg Q4H PRN ORAL fever 08/31/17 23:45 09/28/17 23:44 Al Hydroxide/Mg Hydroxide (Mylanta II) 30 ml Q6H PRN ORAL dyspepsia 08/31/17 23:45 09/28/17 23:44 Albuterol/ Ipratropium (Albuterol/ Ipratropium) 3 ml Q4H PRN HHN Shortness of Breath 09/01/17 01:00 09/06/17 00:59 Chlorhexidine Gluconate (Margarita-Hex 2%) 1 applic DAILY@2000 TOPIC 09/01/17 20:00 09/29/17 19:59 09/02/17 21:28 Clonidine HCl (Catapres) 0.1 mg Q4H PRN ORAL sbp more than 160 09/01/17 01:00 10/01/17 00:59 Clopidogrel Bisulfate (Plavix) 75 mg DAILY ORAL 09/01/17 09:00 09/29/17 08:59 09/03/17 09:55 Dextrose (Dextrose 50%) STAT PRN IV Hypoglycemia 09/01/17 01:00 10/01/17 00:59 09/01/17 11:56 Diphenhydramine HCl (Benadryl) 25 mg Q4H PRN IVP Itching 09/01/17 11:00 10/01/17 10:59 09/03/17 05:56 Docusate Sodium (Colace) 100 mg TWICE A DAY ORAL 09/03/17 09:00 10/03/17 08:59 09/03/17 09:54 Fluconazole (Diflucan) 200 mg DAILY ORAL 09/02/17 11:00 09/09/17 10:59 09/03/17 10:02 Gabapentin (Neurontin) 100 mg THREE TIMES A DAY ORAL 09/01/17 09:00 09/29/17 08:59 09/03/17 09:54 Heparin Sodium (Porcine) (Heparin 5000 units/ml) 5,000 units EVERY 12 HOURS SUBQ 09/01/17 09:00 09/29/17 08:59 09/03/17 09:57 Hydrocortisone (Proctosol-HC Cream) 1 applic TID PRN TOPIC redness 09/01/17 09:00 10/01/17 08:59 09/01/17 08:53 Insulin Aspart (NovoLOG) BEFORE MEALS AND HS SUBQ 09/01/17 06:30 09/30/17 11:29 09/02/17 21:30 Insulin Aspart (NovoLOG) 4 units NOVOTIAC SUBQ 09/01/17 11:50 10/01/17 11:49 09/02/17 17:25 Insulin Detemir (Levemir) 10 units EVERY 12 HOURS SUBQ 09/01/17 09:00 10/01/17 08:59 09/03/17 09:58 Lactulose (Cephulac) 10 gm THREE TIMES A DAY ORAL 09/03/17 09:00 10/03/17 08:59 09/03/17 10:00 Lorazepam (Ativan 2mg/ml 1ml) 2 mg Q2H PRN IV For Anxiety 09/01/17 00:00 09/06/17 15:59 Morphine Sulfate (Morphine Sulfate) 2 mg Q4H PRN IVP severe pain 7-10 09/01/17 01:00 09/08/17 00:59 09/03/17 05:56 Nitroglycerin (Ntg) 0.4 mg Q5M X 3 DOSES PRN SL Prn Chest Pain 08/31/17 22:00 09/28/17 23:44 Ondansetron HCl (Zofran) 4 mg Q4H PRN IVP Nausea & Vomiting 08/31/17 23:45 09/30/17 07:34 09/03/17 06:37 Pantoprazole (Protonix) 40 mg DAILY IVP 09/01/17 09:00 09/29/17 10:59 09/03/17 09:54 Polyethylene Glycol (Miralax) 17 gm HSPRN PRN ORAL Constipation 08/31/17 23:45 09/28/17 23:44 Simethicone (Mylicon) 80 mg QID PRN ORAL gas 09/03/17 06:45 10/03/17 06:44 Temazepam (Restoril) 15 mg HSPRN PRN ORAL Insomnia 08/31/17 23:45 09/05/17 23:44 YAW ALBA Sep 03, 2017 12:18
--- NOTE | 2017-09-03 13:30 | Consultation ---
DATE OF CONSULTATION: 09/03/2017 CONSULTING PHYSICIAN: Fox Blunt M.D. CHIEF COMPLAINT: Abdominal pain and anemia. HISTORY OF PRESENT ILLNESS: This is a 62-year-old female with multiple medical problems includes history of diabetes, which is not well controlled, history of chronic back pain, neuropathy, anemia, constipation, schizophrenia, and history of prior UTI, admitted to the hospital with elevated blood sugars. Also, the patient with complaint of abdominal pain, so GI consult has been requested for evaluation. Abdominal pain apparently seems to be chronic, but is more severe for the last few days. The patient is not very specific about the abdominal pain. She has no nausea, no vomiting, no dysphagia, no odynophagia, no melena, no hematochezia. The patient has history of constipation. She last time had a bowel movement five days ago. Also complained of some abdominal bloating pain. PAST MEDICAL HISTORY: 1. Diabetes. 2. 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 3. Back pain, chronic. 4. Neuropathy. 5. Anemia. 6. Constipation. 7. Schizophrenia. 8. UTI. ALLERGIES: Penicillin and clarithromycin. MEDICATIONS: Please see medication reconciliation list. SOCIAL HISTORY: The patient smokes about one pack of cigarettes per day. Denies any alcohol or IV drug abuse. FAMILY HISTORY: Noncontributory. REVIEW OF SYSTEMS: A 10-point review of systems was performed and pertinent positives in history of present illness. PAST SURGICAL HISTORY: 1. Partial lobectomy of her lung from valley fever in age 14. 2. Appendectomy. PHYSICAL EXAMINATION: VITAL SIGNS: Temperature 97.7, pulse 70, respirations 19, and blood pressure is 140/81. HEENT: Normocephalic and atraumatic. Sclerae anicteric. NECK: Supple. No evidence of lymphadenopathy. CARDIOVASCULAR: Regular rate and rhythm. Pulse S1 and S2. No obvious murmur. LUNGS: Decreased breath sounds bilaterally. ABDOMEN: Soft. Mildly distended. Mildly tender to percussion. Diffusely tender to palpation. No rebound. No guarding. No peritoneal sign. EXTREMITIES: No cyanosis, no clubbing, no edema. LABORATORY DATA: White count is 8.7, hemoglobin 9, hematocrit 27, and platelet count is 403,000. Chem-7, grossly normal. Liver function tests, AST of 55, ALT 24, and alkaline phosphatase 118. Bilirubin is 0.2. ASSESSMENT AND PLAN: This is a 62-year-old female with anemia, constipation, abdominal pain. PLAN: Treat the constipation aggressively. Continue on PPI daily that she is on right now. Send the stool for OB. Consider GI procedure if the stool come back positive. Monitor hemoglobin and hematocrit, anemia workup. I want to thank, Dr. Javier Calzada, for this kind referral. Fox Blunt M.D. DR: BRANDIN JOB#: [id number] CC: Javier Calzada D.O.
[2017-09-03 15:21] LABS: URIC ACID 2.2 MG/DL (2.6-7.2)
[2017-09-03] MEDS ORDERED: NovoLOG Insulin Flexpen SUBQ SCH (16:30)
--- NOTE | 2017-09-06 07:45 | Consultation ---
DATE OF CONSULTATION: 09/03/2017 HEMATOLOGY/ONCOLOGY CONSULTATION REQUESTING PHYSICIAN: Daxa Lane M.D. REASON FOR CONSULTATION: Evaluation of anemia. IDENTIFICATION DATA: Dear Dr. Lane, The patient is a pleasant 62-year-old female with a past medical history significant for diabetes mellitus, COPD, neuropathy, and schizophrenia. At this time, presents to [facility] to the ER with lethargy as well as weakness, noted to be admitted to the ICU and Infectious Disease service consulted as well as GI service where the patient was on antibiotics being treated with . Penicillin allergy noted. PAST MEDICAL HISTORY: Diabetes mellitus, COPD, neuropathy, and schizophrenia. MEDICATIONS: Reviewed. Zofran, Protonix, Plavix, Neurontin, subcutaneous heparin, Tylenol, polyethylene glycol, and Restoril. ALLERGIES: Biaxin, citrus, penicillin, and [place]. SOCIAL HISTORY: History of smoking. No alcohol or illicit drug use. FAMILY HISTORY: Noncontributory. REVIEW OF SYSTEMS: Difficult to obtain. Otherwise, none noted. PHYSICAL EXAMINATION: GENERAL: No distress. VITAL SIGNS: Reviewed. PULMONARY: Decreased breath sounds. CARDIOVASCULAR: Regular rate. No S3 or S4. ABDOMEN: Soft, nontender, and nondistended. EXTREMITIES: A 1+ edema. LABORATORY AND DIAGNOSTIC DATA: WBC of 5, hemoglobin 9.7, hematocrit 29, and platelet count of 429,000. BUN 1 and creatinine 0.7. AST 221 and ALT 31. Amylase of 18 and lipase was . Imaging, abdominal x-ray reviewed. No acute findings. ASSESSMENT AND RECOMMENDATIONS: 1. Anemia secondary to chronic disease. Continue to closely monitor to rule out gastrointestinal bleed. Anemia workup is pending. 2. Diabetes mellitus with history of diabetic ketoacidosis. Currently, on Levemir and NovoLog. 3. Neuropathy secondary to diabetes mellitus. 4. Hypoglycemia. Currently, better controlled. 5. Sepsis, on antibiotics per Infectious Disease service. I appreciate the consultation. Reed Morrell M.D. DR: Perfecto JOB#: [id number] CC:
--- NOTE | 2017-09-06 09:41 | Discharge Summary ---
Discharge Summary Hospital Course Date of Admission Aug 29, 2017 at 23:06 Date of Discharge Sep 03, 2017 at 15:40 Admitting Diagnosis HYPOGLYCEMIA,SEPSIS HPI Juliette Hernandez is a 62 year old female who was admitted on Aug 29, 2017 at 23:06 for Hypoglycemia, Sepsis Hospital Course dc summary #[id number] Discharge Medications New Medications: Insulin Aspart (Novolog Flexpen) 100 Unit/1 Ml Insuln.pen 4 UNITS SUBQ NOVOTIAC for 30 Days, EA Insulin Detemir (Levemir Flexpen) 100 Unit/1 Ml Insuln.pen 10 UNITS SUBQ EVERY 12 HOURS for 30 Days, EA Continued Medications: Acetaminophen (Acetaminophen) 650 Mg/20.3 Ml Solution 650 MG ORAL Q4HR PRN for Prn Headache/Temp > 101, ML 0 Refills Clopidogrel Bisulfate* (Plavix*) 75 Mg Tablet 75 MG ORAL DAILY, TAB Codeine/Promethazine Hcl* (Promethazine-Codeine Syrup*) 118 Ml Syrup 5 ML ORAL Q6HR PRN for For Cough, ML 0 Refills Diphenhydramine Hcl* (Diphenhydramine Hcl*) 25 Mg Capsule 25 MG ORAL Q6H PRN for Itching, #30 CAP 0 Refills Docusate Sodium (Docusate Sodium) 100 Mg Tablet 100 MG ORAL TWICE A DAY, #30 TAB 0 Refills Gabapentin* (Gabapentin*) 100 Mg Capsule 100 MG ORAL THREE TIMES A DAY, CAP Insulin Detemir (Levemir) 100 Unit/1 Ml Vial 10 SUBQ EVERY 12 HOURS, VIAL Discharge Condition Upon Discharge: stable Discharge Disposition Patient was discharged to SNF Discharge Diagnoses: Discharge Instructions Discharge Instructions Special Instructions I have been assigned to complete a D/C Summary on this account. I was not involved in the patient management Ce Barillas NP (Vanchte[place]) Sep 06, 2017 09:41
--- NOTE | 2017-09-06 16:00 | Discharge Summary 2 SIG ---
DATE OF ADMISSION: 08/29/2017 DATE OF DISCHARGE: 09/03/2017 REASON FOR ADMISSION: 62-year-old female was brought to emergency room for evaluation due to the elevated blood glucose and nausea. Vital signs were stable. No fever. White blood count -14.2. EKG revealed normal sinus rhythm. No acute ischemic changes. Troponin negative. Lactic acid -1.9. Glucose -600 with elevated anion gap - 21 and low CO2. Sodium was -129. The patient was admitted for diabetic ketoacidosis , leukocytosis, hyponatremia. HOSPITAL COURSE: The patient was admitted initially to ICU and started on the insulin drip as per protocol until anion gap closed. Endocrinology consult was requested. When anion gap closed, insulin drip discontinued, and the patient was started on long-acting and short-acting insulin, doses were titrated as per professor of political science. Hemoglobin A1c- 9.6. The patient with recurrent diabetic ketoacidosis and uncontrolled blood sugar. Insulin regimen was titrated by professor of political science prior to discharge. Blood sugar was stable. Insulin regimen will be continued at the correction [facility]. The patient initially with leukocytosis, possible sepsis. ID followed the patient. Blood culture were negative. Urine culture revealed evidence of Mague. The patient was on fluconazole , ID recommended to continue for additional four days upon discharge . Leukocytosis resolved. No fever. Chest x-ray revealed no acute cardiopulmonary disease. CT of the chest on the previous admission revealed multiple small left upper lobe nodules. Recommended repeat CT of the chest in 6 to 12 months. Abdominal x-ray revealed no acute findings. CT of the head revealed no acute intracranial pathology. Supplemental oxygen and pulmonary toilet were provided as needed. Pulse oximetry was stable on room air. No need for supplemental oxygen. Sodium stabilized, 138. The patient was on Neurontin for treatment of diabetic neuropathy. The patient had evidence of anemia. Medical Records Field Technician seen and evaluated the patient. Hemoglobin and hematocrit remained at the baseline. Medical Records Field Technician recommended anemia workup at the facility. Bowel regimen was instituted. The patient had IV fluids with normal saline and hyponatremia resolved, likely hypovolemic hyponatremia due to dehydration. Gastrointestinal prophylaxis was provided. The patient was stable for discharge back to correction facility. FINAL DIAGNOSES: 1. Diabetic ketoacidosis, resolved. 2. Diabetes mellitus, out of control with hemoglobin A1c of 9.6. 3. Leukocytosis, 4. Possible sepsis. 5. Fungal urinary tract infection. 6. Anemia. 7. Hyponatremia. 8. Chronic obstructive pulmonary disease. 9. Diabetic neuropathy. 10. Pulmonary nodules. DISCHARGE MEDICATIONS: See medication reconciliation list. DISCHARGE INSTRUCTIONS: The patient was discharged to correction facility. FOLLOWUP: Follow up with medical doctor at the facility. Recommended to repeat CT chest in 6-12 months. Javier Calzada D.O. I have been assigned to dictate discharge summary on this account and I was not involved in the patient's management. Ce Barillas ([facility] N.PMynor DR: MEENA JOB#: [id number] CC: CASH
== END 2017-09-03 15:40 | DRG 637 ==
LOC: EDBD 22:38 → EMR 22:55 → ICU 23:06 → EDBEDREQ 08-30 02:22 → UNDOADMIN 08-30 02:31 → 2E 08-30 02:31 → EDBEDREQ 08-30 07:57 → ENRESERV 08-30 08:00 → EDBEDREQ 08-30 09:27 → 4E 08-31 22:06
DX: E11.10 Type 2 diabetes mellitus with ketoacidosis without coma (principal); A41.9 Sepsis, unspecified organism; G62.9 Polyneuropathy, unspecified; B37.49 Other urogenital candidiasis; F20.9 Schizophrenia, unspecified; E87.1 Hypo-osmolality and hyponatremia; J44.9 Chronic obstructive pulmonary disease, unspecified; D63.8 Anemia in other chronic diseases classified elsewhere; Z88.0 Allergy status to penicillin; Z79.02 Long term (current) use of antithrombotics/antiplatelets; Z79.4 Long term (current) use of insulin; Z88.8 Allergy status to other drugs, medicaments and biological substances; Z91.018 Allergy to other foods; R91.8 Other nonspecific abnormal finding of lung field
CPT/HCPCS: 36415; 70450; 71010; 74000; 80048; 80053; 80061; 81003; 82150; 82550; 82553; 82728; 82947; 82962; 83036; 83605; 83690; 83735; 83880; 84100; 84443; 84484; 84550; 85025; 85044; 85384; 87040; 87081; 87086; 93005; 94664; 94760; 97803; 99285; J1815; J2405; J8499; S5561

== ENCOUNTER 2017-09-12 03:05 | Inpatient (IN) | payer MEDICARE, MEDICAID ==
[~2017-09-12] VITALS: Ht 172.7 cm; Wt 59.9 kg
[2017-09-12] VITALS (18 sets, daily range): BP systolic 86–162; BP diastolic 33–68
[~2017-09-12 03:05] MED LIST changes: +BISACODYL5 MG ORAL; +DIPHENHYDRAMINE25 M1 ORAL; +HEPARIN SO5000 UNIT2 SUBQ; +LEVEMIR FL100 UNIT/1 SUBQ; +NOVOLOG100 UNITS1 SUBQ
--- NOTE | 2017-09-12 03:06 | Emergency Room Report ---
History of Present Illness General Source: Patient, EMS Present Illness HPI Patient a 62-year-old female who presented after increased altered mental status low blood pressure. Patient had prior history of insulin-dependent diabetes. She's been noted to have a low blood pressure by EMS. She started on IV fluids. She was noted to have high blood sugar. Patient reports having pain to her abdomen and low back. She prior history of schizophrenia as well as COPD Allergies: Coded Allergies: CITRUS AND DERIVATIVES (Unverified Allergy, Unknown, 09/12/17) CLARITHROMYCIN (Unverified Allergy, Unknown, 08/31/17) reentered as coded allergy (CD) PENICILLINS (Verified Allergy, Unknown, 08/10/17) [place] (Verified Allergy, Unknown, 08/10/17) Uncoded Allergies: [place] (Allergy, Unknown, 08/10/17) walnuts (Allergy, Unknown, 09/12/17) Patient History Past Medical History: old chart reviewed Reviewed Nursing Documentation: PMH: Agreed, PSxH: Agreed Review of Systems All Other Systems: negative except mentioned in HPI Physical Exam Sp02 EP Interpretation: reviewed, normal General Appearance: normal inspection, well appearing, no apparent distress, alert, GCS 15, non-toxic Head: atraumatic ENT: normal ENT inspection, hearing grossly normal, normal voice Neck: normal inspection, full range of motion, supple, no bony tend Respiratory: normal inspection, lungs clear, normal breath sounds, no respiratory distress, no retraction, no wheezing Cardiovascular #1: regular rate, rhythm, no edema Gastrointestinal: normal inspection, normal bowel sounds, non tender, soft, no guarding, no hernia Genitourinary: no CVA tenderness Musculoskeletal: normal inspection, back normal, normal range of motion Neurologic: normal inspection, alert, oriented x3, responsive, buttonhole maker III-XII nml as tested, speech normal Psychiatric: normal inspection, judgement/insight normal, mood/affect normal Skin: normal inspection, normal color, no rash Procedures Critical Care Time Critical Care Time Patient had a critical medical condition which untreated could potentially result in life or limb threatening injury. Total critical care time excluding procedures approximately 45 minutes. Medical Decision Making Diagnostic Impression: Primary Impression: DKA (diabetic ketoacidoses) Additional Impression: Anemia ER Course Patient presented for altered mental status. Differential diagnosis included but was not limited to ischemic stroke, subarachnoid hemorrhage, hypoglycemia, spinal cord injury, neurodegenerative disorder, urinary tract infection, hypoxemia.Because of complexity of patient's case laboratory testing and imaging studies were ordered. EKG interpreted by me showed normal sinus rhythm with a rate of [address] or T wave changes QTC was noted to be prolonged. Patient was noted to be hypotensive. Patient started on IV fluids as well as IV insulinPatient started on insulin drip. Patient noted have improvement in her blood pressure after IV fluids as she started on Dr. Javier Calzada was contacted for inpatient management due to primary care physician. Labs Test 09/12/17 03:06 09/12/17 03:35 09/12/17 05:10 09/12/17 06:25 Arterial Blood pH 7.258 (7.350-7.450) Arterial Blood Partial Pressure CO2 19.5 mmHg (35.0-45.0) Arterial Blood Partial Pressure O2 100.2 mmHg (75.0-100.0) Arterial Blood HCO3 8.5 mmol/L (22.0-26.0) Arterial Blood Oxygen Saturation 95.8 % (92.0-98.0) Arterial Blood Base Excess -16.7 Kenneth Test Positive White Blood Count 8.5 K/UL (4.8-10.8) Red Blood Count 2.98 M/UL (4.20-5.40) Hemoglobin 8.4 G/DL (12.0-16.0) Hematocrit 28.6 % (37.0-47.0) Mean Corpuscular Volume 96 FL (80-99) Mean Corpuscular Hemoglobin 28.3 PG (27.0-31.0) Mean Corpuscular Hemoglobin Concent 29.5 G/DL (32.0-36.0) Red Cell Distribution Width 15.6 % (11.6-14.8) Platelet Count 366 K/UL (150-450) Mean Platelet Volume 6.2 FL (6.5-10.1) Neutrophils (%) (Auto) 84.6 % (45.0-75.0) Lymphocytes (%) (Auto) 9.3 % (20.0-45.0) Monocytes (%) (Auto) 4.5 % (1.0-10.0) Eosinophils (%) (Auto) 0.7 % (0.0-3.0) Basophils (%) (Auto) 0.9 % (0.0-2.0) Magnesium Level 1.9 MG/DL (1.8-2.4) Lipase 56 U/L (73-393) Acetone Level Positive-moderate (NEGATIVE) Urine Color Pale yellow Urine Appearance Clear Urine pH 5 (4.5-8.0) Urine Specific [place] 1.010 (1.005-1.035) Urine Protein Negative (NEGATIVE) Urine Glucose (UA) 4+ (NEGATIVE) Urine Ketones 4+ (NEGATIVE) Urine Occult Blood Negative (NEGATIVE) Urine Nitrite Negative (NEGATIVE) Urine Bilirubin Negative (NEGATIVE) Urine Urobilinogen Normal MG/DL (0.0-1.0) Urine Leukocyte Esterase Negative (NEGATIVE) Sodium Level 134 MMOL/L (136-145) Potassium Level 3.5 MMOL/L (3.5-5.1) Chloride Level 98 MMOL/L (98-107) Carbon Dioxide Level 10 MMOL/L (21-32) Anion Gap 26 mmol/L (5-15) Blood Urea Nitrogen 20 mg/dL (7-18) Creatinine 1.0 MG/DL (0.55-1.30) Estimat Glomerular Filtration Rate 56.4 mL/min (>60) Glucose Level 528 MG/DL (74-106) Lactic Acid Level 1.90 mmol/L (0.66-2.22) Calcium Level 8.3 MG/DL (8.5-10.1) Total Bilirubin 0.5 MG/DL (0.2-1.0) Aspartate Amino Transf (AST/SGOT) 27 U/L (15-37) Alanine Aminotransferase (ALT/SGPT) 44 U/L (12-78) Alkaline Phosphatase 144 U/L (46-116) Total Protein 6.4 G/DL (6.4-8.2) Albumin 2.4 G/DL (3.4-5.0) Globulin 4.0 g/dL Albumin/Globulin Ratio 0.6 (1.0-2.7) EKG Diagnostic Results Rate: tachycardiac - 100 Rhythm: NSR ST Segments: no acute changes Rhythm Strip Diag. Results EP Interpretation: yes Rhythm: NSR, no PVC's, no ectopy Status: unchanged Disposition: ADMITTED INPATIENT Condition: Critical Sandeep Jimenez Sep 12, 2017 03:06
[2017-09-12 04:00] LABS: BASOPHILS % (AUTO) 0.9 % (0.0-2.0); EOSINOPHILS % (AUTO) 0.7 % (0.0-3.0); LYMPHOCYTES % (AUTO) 9.3 % (20.0-45.0); MEAN CORPUSCULAR HEMOGLOBIN 28.3 PG (27.0-31.0); MEAN CORPUSCULAR HGB CONC 29.5 G/DL (32.0-36.0); MEAN CORPUSCULAR VOLUME 96 FL (80-99); MEAN PLATELET VOLUME 6.2 FL (6.5-10.1); MONOCYTES % (AUTO) 4.5 % (1.0-10.0); NEUTROPHILS % (AUTO) 84.6 % (45.0-75.0); PLATELET COUNT 366 K/UL (150-450); RED BLOOD COUNT 2.98 M/UL (4.20-5.40); RED CELL DISTRIBUTION WIDTH 15.6 % (11.6-14.8); WHITE BLOOD COUNT 8.5 K/UL (4.8-10.8)
[2017-09-12 04:34] LABS: ALANINE AMINOTRANSFERASE 39 U/L (12-78); ALBUMIN/GLOBULIN RATIO 0.6 (1.0-2.7); ANION GAP 26 mmol/L (5-15); ASPARTATE AMINO TRANSFERASE 18 U/L (15-37); CALCIUM 8.8 MG/DL (8.5-10.1); CARBON DIOXIDE 13 MMOL/L (21-32); CHLORIDE 91 MMOL/L (98-107); CREATININE 1.1 MG/DL (0.55-1.30); GLOMERULAR FILTRATION RATE 50.5 mL/min (>60); LIPASE 56 U/L (73-393); MAGNESIUM 1.9 MG/DL (1.8-2.4); POTASSIUM 4.5 MMOL/L (3.5-5.1); SODIUM 130 MMOL/L (136-145); TOTAL PROTEIN 6.3 G/DL (6.4-8.2)
[2017-09-12 04:35] LABS: REFLEX LACTIC ACID YES OR NO YES
[2017-09-12 05:00] LABS: ABG ALLEN TEST POSITIVE; ABG BASE EXCESS -16.7; ABG PCO2 19.5 mmHg (35.0-45.0)
[2017-09-12] MEDS ORDERED: Acetaminophen 650 MG SUPP RECTAL ONE (05:00)
[2017-09-12 05:51] LABS: APPEARANCE,URINE CLEAR; KETONES,URINE 4+ (NEGATIVE); LEUKOCYTE ESTERASE ,URINE NEGATIVE (NEGATIVE); NITRITE,URINE NEGATIVE (NEGATIVE); PH,URINE 5 (4.5-8.0); PROTEIN,URINE NEGATIVE (NEGATIVE); UROBILINOGEN,URINE NORMAL MG/DL (0.0-1.0)
[2017-09-12] MEDS ORDERED: NITROGLYCERIN0.4 MG SL (06:24)
[2017-09-12] MEDS ORDERED: CATAPRES0.1 MG ORAL (06:24)
[2017-09-12] MEDS ORDERED: HYDROCORTISONE30 G2 TP (06:24)
[2017-09-12] MEDS ORDERED: LEVEMIR100 UNIT/1 SUBQ (06:24)
[2017-09-12] MEDS ORDERED: NOVOLOG100 UNIT/3 SUBQ ×2 (06:24)
[2017-09-12] MEDS ORDERED: ACETAMINOPHEN325 M1 ORAL (06:24)
[2017-09-12] MEDS ORDERED: MORPHINE 22 MG/1 ML IV (06:24)
[2017-09-12] MEDS ORDERED: ZOFRAN8 MG ORAL (06:24)
[2017-09-12] MEDS ORDERED: POLYETHYLENE GL17 GM ORAL (06:24)
[2017-09-12] MEDS ORDERED: DIPHENHYDRAMINE25 M1 ORAL (06:24)
[2017-09-12] MEDS ORDERED: HEPARIN SO5000 UNIT2 SUBQ (06:24)
[2017-09-12] MEDS ORDERED: PROTONIX IV40 MG IV (06:24)
[2017-09-12] MEDS ORDERED: GABAPENTIN100 MG ORAL (06:24)
[2017-09-12] MEDS ORDERED: [UNRECOGNIZED DRUG - OTHER] TP (06:24)
[2017-09-12] MEDS ORDERED: LORAZEPAM2 MG/1 M1 IV ×2 (06:24)
[2017-09-12] MEDS ORDERED: PLAVIX75 MG ORAL (06:24)
[2017-09-12] MEDS ORDERED: Albuterol/Ipratropium 3ml neb HHN PRN (06:45)
[2017-09-12] MEDS ORDERED: Insulin Rate Change 1 Each MISC PRN ×2 (06:45→13:45)
[2017-09-12] MEDS ORDERED: LORazepam Inj 2mg/ml 1ml IV PRN (06:45)
[2017-09-12] MEDS ORDERED: Nitroglycerin Subl 0.4mg tab SL PRN (06:45)
[2017-09-12] MEDS ORDERED: Miralax 17gm pkt ORAL PRN (06:45)
[2017-09-12 07:48] LABS: ALANINE AMINOTRANSFERASE 44 U/L (12-78); ALBUMIN/GLOBULIN RATIO 0.6 (1.0-2.7); ANION GAP 26 mmol/L (5-15); ASPARTATE AMINO TRANSFERASE 27 U/L (15-37); CALCIUM 8.3 MG/DL (8.5-10.1); CARBON DIOXIDE 10 MMOL/L (21-32); CHLORIDE 98 MMOL/L (98-107); GLOMERULAR FILTRATION RATE 56.4 mL/min (>60); POTASSIUM 3.5 MMOL/L (3.5-5.1); SODIUM 134 MMOL/L (136-145); TOTAL PROTEIN 6.4 G/DL (6.4-8.2)
[2017-09-12] MEDS: Heparin 5000 units/ml inj SUBQ SCH ×2 (09:16→21:16)
--- NOTE | 2017-09-12 09:26 | Diagnostic Imaging Report ---
Indication: Abdominal pain Technique: Continuous helical transaxial imaging of the abdomen and pelvis was obtained from the lung bases to the pubic symphysis. No intravenous contrast was administered. Coronal 2-D reformats were also obtained. Automatic Exposure Control was utilized. Total Dose length Product (DLP): [address] Dose Index Volume (CTDIvol): 0.15, 12 mGy Comparison: none Findings: There is prominence of stool in the colon which is distended. No evidence of bowel obstruction, free fluid or free air. Trace left pleural effusion noted. Gallbladder is unremarkable. Moderate arterial calcifications are present. The appendix is probably normal. A portion of the appendix is seen. Uterus noted. There is hypo-dense structure in the right adnexa with a thick wall and calcification measuring 2.5-3 cm. Evaluation with ultrasound suggested. There is thickening of the wall the urinary bladder. Impression: Prominent retention of stool. Atherosclerotic disease Trace left pleural effusion Complex cystic structure right adnexa. Further evaluation with ultrasound recommended. Cystitis suspected with thickening of the bladder wall. [facility] has communicated the preliminary results to the Emergency Department. Their findings are largely concordant with this report. The CT scanner at [facility] is accredited by the [employer] and the scans are performed using dose optimization techniques as appropriate to a performed exam including Automatic Exposure control.
--- NOTE | 2017-09-12 10:16 | Diagnostic Imaging Report ---
Indication: Dyspnea Comparison: 08/29/17 A single view chest radiograph was obtained. Findings: Bilateral upper lobe densities are again demonstrated. Suspect much of this is chronic. Radiographically no change seen since last exam. Heart is enlarged but stable. Bones are osteopenic. Impression: Bilateral upper lobe lung disease largely chronic. No change
--- NOTE | 2017-09-12 11:21 | General Progress Note ---
Assessment/Plan Problem List: (1) Diabetes mellitus ICD Codes: E11.9 - Type 2 diabetes mellitus without complications SNOMED: 24182624 (2) COPD (chronic obstructive pulmonary disease) ICD Codes: J44.9 - Chronic obstructive pulmonary disease, unspecified SNOMED: 14425753 (3) DKA (diabetic ketoacidoses) ICD Codes: E13.10 - Other specified diabetes mellitus with ketoacidosis without coma SNOMED: 68318494, 770770200 Assessment/Plan will be admitted to ICU for management of DKA Insulin IV per algorithm IV hydration will monitor lytes and correct Subjective ROS Limited/Unobtainable: Yes Allergies: Coded Allergies: CITRUS AND DERIVATIVES (Unverified Allergy, Unknown, 09/12/17) CLARITHROMYCIN (Unverified Allergy, Unknown, 08/31/17) reentered as coded allergy (CD) PENICILLINS (Verified Allergy, Unknown, 08/10/17) [place] (Verified Allergy, Unknown, 08/10/17) Uncoded Allergies: [place] (Allergy, Unknown, 08/10/17) walnuts (Allergy, Unknown, 09/12/17) Subjective patient seen and evaluated in ED represented with DKA waiting for ICU bed Objective Last 24 Hour Vital Signs Date Time Temp Pulse Resp B/P (MAP) Pulse Ox O2 Delivery O2 Flow Rate FiO2 09/12/17 08:44 97 09/12/17 08:30 97 20 107/49 100 Room Air 09/12/17 07:29 102 25 122/55 100 Room Air 09/12/17 05:15 104 23 116/51 99 Room Air 09/12/17 03:15 98.4 24 86/37 100 Room Air 09/12/17 03:04 98.4 98 24 86/37 100 Room Air Intake and Output 09/12/17 09/13/17 19:00 07:00 # Bowel Movements 1 Laboratory Tests 09/12/17 03:06: Arterial Blood pH 7.258L, Arterial Blood Partial Pressure CO2 19.5*L, Arterial Blood Partial Pressure O2 100.2H, Arterial Blood HCO3 8.5L, Arterial Blood Oxygen Saturation 95.8, Arterial Blood Base Excess -16.7, Kenneth Test Positive 09/12/17 03:35: White Blood Count 8.5, Red Blood Count 2.98L, Hemoglobin 8.4L, Hematocrit 28.6L , Mean Corpuscular Volume 96, Mean Corpuscular Hemoglobin 28.3, Mean Corpuscular Hemoglobin Concent 29.5L, Red Cell Distribution Width 15.6H, Platelet Count 366, Mean Platelet Volume 6.2L, Neutrophils (%) (Auto) 84.6H, Lymphocytes (%) (Auto) 9.3L, Monocytes (%) (Auto) 4.5, Eosinophils (%) (Auto) 0.7, Basophils (%) (Auto) 0.9, Sodium Level 130L, Potassium Level 4.5, Chloride Level 91L, Carbon Dioxide Level 13L, Anion Gap 26H, Blood Urea Nitrogen 20H, Creatinine 1.1, Estimat Glomerular Filtration Rate 50.5, Glucose Level 710*H, Lactic Acid Level 2.90H, Calcium Level 8.8, Magnesium Level 1.9, Total Bilirubin 0.6, Aspartate Amino Transf (AST/SGOT) 18, Alanine Aminotransferase ( ALT/SGPT) 39, Alkaline Phosphatase 143H, Total Protein 6.3L, Albumin 2.3L, Globulin 4.0, Albumin/Globulin Ratio 0.6L, Lipase 56L, Acetone Level Positive- moderate 09/12/17 05:10: Urine Color Pale yellow, Urine Appearance Clear, Urine pH 5, Urine Specific [place] 1.010, Urine Protein Negative, Urine Glucose (UA) 4+H, Urine Ketones 4+H , Urine Occult Blood Negative, Urine Nitrite Negative, Urine Bilirubin Negative , Urine Urobilinogen Normal, Urine Leukocyte Esterase Negative 09/12/17 06:25: Sodium Level 134L, Potassium Level 3.5, Chloride Level 98, Carbon Dioxide Level 10L, Anion Gap 26H, Blood Urea Nitrogen 20H, Creatinine 1.0, Estimat Glomerular Filtration Rate 56.4, Glucose Level 528#*H, Lactic Acid Level 1.90, Calcium Level 8.3L, Total Bilirubin 0.5, Aspartate Amino Transf (AST/SGOT) 27, Alanine Aminotransferase (ALT/SGPT) 44, Alkaline Phosphatase 144H, Total Protein 6.4, Albumin 2.4L, Globulin 4.0, Albumin/Globulin Ratio 0.6L Height (Feet): 4 Height (Inches): 11.00 Weight (Pounds): 143 General Appearance: lethargic Neck: normal alignment Cardiovascular: regular rhythm Respiratory/Chest: lungs clear Pelvis: normal external exam Objective Current Medications Medications (Trade) Dose Ordered Sig/Danielle Route PRN Reason Start Time Stop Time Status Last Admin Dose Admin Acetaminophen (Tylenol) 650 mg Q4H PRN ORAL Fever 09/12/17 06:45 10/12/17 06:44 Albuterol/ Ipratropium (Albuterol/ Ipratropium) 3 ml Q4H PRN HHN Shortness of Breath 09/12/17 06:45 09/17/17 06:44 Clonidine HCl (Catapres) 0.1 mg Q4H PRN ORAL SBP >160 09/12/17 07:30 10/12/17 07:29 Clopidogrel Bisulfate (Plavix) 75 mg DAILY ORAL 09/12/17 09:00 10/12/17 08:59 09/12/17 11:18 Dextrose (Dextrose 50%) PRN PRN IV HYPOGLYCEMIA 09/12/17 06:45 10/12/17 06:44 Heparin Sodium (Porcine) (Heparin 5000 units/ml) 5,000 units EVERY 12 HOURS SUBQ 09/12/17 09:00 10/12/17 08:59 09/12/17 09:16 Insulin Human Regular (NovoLIN R) 5 units PRN PRN IV BS 200-299 09/12/17 06:45 10/12/17 06:44 Insulin Human Regular (NovoLIN R) 10 units PRN PRN IV BS=>300 09/12/17 06:45 10/12/17 06:44 09/12/17 09:03 Insulin Human Regular 100 units/ Sodium Chloride 101 ml @ 0 mls/hr Q24H IV 09/12/17 11:20 10/12/17 11:19 Lorazepam (Ativan 2mg/ml 1ml) 2 mg Q2H PRN IV agitation 09/12/17 06:45 09/19/17 06:44 Miscellaneous Medication (Insulin Rate Change) 1 ea PRN PRN MISC RATE CHANGE 09/12/17 06:45 10/12/17 06:44 Morphine Sulfate (Morphine Sulfate) 4 mg Q4H PRN IVP Severe Pain (Pain Scale 7-10) 09/12/17 06:45 09/19/17 06:44 Nitroglycerin (Ntg) 0.4 mg Q5M PRN SL Prn Chest Pain 12/3/17 06:45 10/12/17 06:44 Ondansetron HCl (Zofran) 4 mg Q6H PRN IVP Nausea & Vomiting 09/12/17 06:45 10/12/17 06:44 Polyethylene Glycol (Miralax) 17 gm DAILYPRN PRN ORAL Constipation 09/12/17 06:45 10/12/17 06:44 Sodium Chloride 1,000 ml @ 150 mls/hr Q6H40M IV 09/12/17 06:40 10/12/17 06:39 09/12/17 07:26 EMA VALENCIA Sep 12, 2017 11:21
--- NOTE | 2017-09-12 16:45 | History and Physical Report ---
DATE OF ADMISSION: 09/12/2017 TIME SEEN: At 8 a.m. CONSULTANTS: 1. Kaitlin Oconnell M.D. 2. Nicko Martinez M.D. 3. Fox Blunt M.D. 4. Kylee Todd M.D. CHIEF COMPLAINT: Vomiting, weakness, DKA, fecal impaction, psych history. BRIEF HISTORY: This is a 62-year-old female from [facility], who presented with the above-mentioned diagnoses and was found to be vomiting and weakness for a day, was found to have DKA of 720. The patient is in the ER awaiting admission to ICU. Currently slightly anxious in bed, slightly weak, no complaint. REVIEW OF SYSTEMS: No chest pain. Slight shortness of breath. Slight nausea, vomiting. No diarrhea. PAST MEDICAL HISTORY: Includes diabetes, psych history, COPD, and neuropathy. PAST SURGICAL HISTORY: Appendectomy. ALLERGIES: Clarithromycin and penicillin. MEDICATIONS: Include Plavix, insulin, Catapres, lorazepam, Zofran, morphine, Tylenol, and albuterol. SOCIAL HISTORY: Positive smoking. No alcohol. No intravenous drug abuse. FAMILY HISTORY: Noncontributory. PHYSICAL EXAMINATION: GENERAL: Slightly anxious in bed, oriented x2, in no acute distress. VITAL SIGNS: Temperature 98, pulse 102, respirations 25, and blood pressure 122/55. CARDIOVASCULAR: Distant without murmur. LUNGS: Distant, clear. ABDOMEN: Bowel sounds positive. Nontender. Nondistended. EXTREMITIES: No cyanosis, clubbing, or edema. NEUROLOGIC: The patient moves all extremities, but slightly weak. LABORATORY AND DIAGNOSTIC DATA: Laboratories at this time show hemoglobin 8.4, otherwise CBC is normal. BMP shows sodium 134, BUN 20, glucose 528. Lipase 56. Urinalysis, 4+ ketones, 4+ glucose. ASSESSMENT: 1. Diabetic ketoacidosis. 2. Vomiting. 3. Weakness. 4. Fecal impaction. 5. Tachycardia. 6. Psychiatric history. 7. Chronic obstructive pulmonary disease. 8. Neuropathy. 9. Anemia. PLAN: Continue previous medications. Blood sugar control. OT, PT, dietary evaluation. CBC, BMP in the morning. Dr. Oconnell, Dr. Martinez, Dr. Blunt, Dr. Todd, Dr. Brewer, and Dr. Vasquez to consult. Continue to follow this patient medically. Javier Calzada D.O. DR: Maximus JOB#: [id number] CC:
--- NOTE | 2017-09-12 17:45 | Pulmonolgy Critical Care Note ---
Critical Care - Asmt/Plan Problems: (1) Pulmonary fibrosis (2) DKA (diabetic ketoacidoses) (3) COPD (chronic obstructive pulmonary disease) (4) Diabetes mellitus Respiratory: monitor respiratory rate, adjust FIO2 Cardiac: continue to monitor HR/BP Renal: F/U I&O, keep IV fluid Gastrointestinal: hold feedings Endocrine: monitor blood sugar, continue sliding scale insulin Hematologic: monitor H/H, transfuse if hgb<8.5 Neurologic: PRN Morphine, keep patient comfortable Affect: PRN ativan Prophylaxis: Heparin Notes Reviewed: director of media, cardio, renal Discussed with: nurses, consultants, casework specialistship manager - Objective Last 24 Hour Vital Signs Date Time Temp Pulse Resp B/P (MAP) Pulse Ox O2 Delivery O2 Flow Rate FiO2 09/12/17 17:00 96 18 116/52 93 Room Air 09/12/17 16:00 96 09/12/17 16:00 98.4 96 20 98/33 95 Room Air 09/12/17 15:00 90 18 126/58 95 Room Air 09/12/17 14:00 95 18 112/43 96 Room Air 09/12/17 13:00 90 18 117/47 97 Room Air 09/12/17 12:00 98.5 94 18 99/43 94 Room Air 09/12/17 11:00 93 18 96/41 95 Room Air 09/12/17 10:30 98.6 97 18 106/52 97 Room Air 09/12/17 10:30 95 09/12/17 10:15 98.4 97 20 107/49 100 Room Air 09/12/17 08:44 97 09/12/17 08:30 97 20 107/49 100 Room Air 09/12/17 07:29 102 25 122/55 100 Room Air 09/12/17 05:15 104 23 116/51 99 Room Air 09/12/17 03:15 98.4 24 86/37 100 Room Air 09/12/17 03:04 98.4 98 24 86/37 100 Room Air Status: awake Condition: critical HEENT: atraumatic Neck: full ROM Heart: HR/BP stable Abdomen: soft, active bowel sounds, feeding tube Extremities: edema Accucheck: 88 Critical Care - Subjective ROS Limited/Unobtainable: Yes ICU Day: 1 Interval Events: 62-year-old female with history of insulin-dependent diabetes, schizophrenia as well as COPD who presented after increased altered mental status low blood pressure. . She's had low blood pressure . She started on IV fluids. Patient reports having pain to her abdomen and low back. She was diagnosed to have DKA and admitted to ICU. Drips: Insulin drip I&O: Intake and Output 09/12/17 09/13/17 19:00 07:00 Intake Total 877.5 ml Output Total 600 ml Balance 277.5 ml IV Total 877.5 ml Output Urine Total 600 ml # Voids 2 # Bowel Movements 2 CXR: chronic pulmonary fibrosis Labs: Laboratory Tests Test 09/12/17 03:06 09/12/17 03:35 09/12/17 05:10 09/12/17 06:25 Arterial Blood pH 7.258 (7.350-7.450) Arterial Blood Partial Pressure CO2 19.5 mmHg (35.0-45.0) *L Arterial Blood Partial Pressure O2 100.2 mmHg (75.0-100.0) H Arterial Blood HCO3 8.5 mmol/L (22.0-26.0) L Arterial Blood Oxygen Saturation 95.8 % (92.0-98.0) Arterial Blood Base Excess -16.7 Kenneth Test Positive White Blood Count 8.5 K/UL (4.8-10.8) Red Blood Count 2.98 M/UL (4.20-5.40) L Hemoglobin 8.4 G/DL (12.0-16.0) L Hematocrit 28.6 % (37.0-47.0) L Mean Corpuscular Volume 96 FL (80-99) Mean Corpuscular Hemoglobin 28.3 PG (27.0-31.0) Mean Corpuscular Hemoglobin Concent 29.5 G/DL (32.0-36.0) L Red Cell Distribution Width 15.6 % (11.6-14.8) H Platelet Count 366 K/UL (150-450) Mean Platelet Volume 6.2 FL (6.5-10.1) L Neutrophils (%) (Auto) 84.6 % (45.0-75.0) H Lymphocytes (%) (Auto) 9.3 % (20.0-45.0) L Monocytes (%) (Auto) 4.5 % (1.0-10.0) Eosinophils (%) (Auto) 0.7 % (0.0-3.0) Basophils (%) (Auto) 0.9 % (0.0-2.0) Sodium Level 130 MMOL/L (136-145) L 134 MMOL/L (136-145) L Potassium Level 4.5 MMOL/L (3.5-5.1) 3.5 MMOL/L (3.5-5.1) Chloride Level 91 MMOL/L (98-107) L 98 MMOL/L (98-107) Carbon Dioxide Level 13 MMOL/L (21-32) L 10 MMOL/L (21-32) L Anion Gap 26 mmol/L (5-15) H 26 mmol/L (5-15) H Blood Urea Nitrogen 20 mg/dL (7-18) H 20 mg/dL (7-18) H Creatinine 1.1 MG/DL (0.55-1.30) 1.0 MG/DL (0.55-1.30) Estimat Glomerular Filtration Rate 50.5 mL/min (>60) 56.4 mL/min (>60) Glucose Level 710 MG/DL (74-106) *H 528 MG/DL (74-106) #*H Lactic Acid Level 2.90 mmol/L (0.66-2.22) H 1.90 mmol/L (0.66-2.22) Calcium Level 8.8 MG/DL (8.5-10.1) 8.3 MG/DL (8.5-10.1) L Magnesium Level 1.9 MG/DL (1.8-2.4) Total Bilirubin 0.6 MG/DL (0.2-1.0) 0.5 MG/DL (0.2-1.0) Aspartate Amino Transf (AST/SGOT) 18 U/L (15-37) 27 U/L (15-37) Alanine Aminotransferase (ALT/SGPT) 39 U/L (12-78) 44 U/L (12-78) Alkaline Phosphatase 143 U/L (46-116) H 144 U/L (46-116) H Total Protein 6.3 G/DL (6.4-8.2) L 6.4 G/DL (6.4-8.2) Albumin 2.3 G/DL (3.4-5.0) L 2.4 G/DL (3.4-5.0) L Globulin 4.0 g/dL 4.0 g/dL Albumin/Globulin Ratio 0.6 (1.0-2.7) L 0.6 (1.0-2.7) L Lipase 56 U/L (73-393) L Acetone Level Positive-moderate (NEGATIVE) Urine Color Pale yellow Urine Appearance Clear Urine pH 5 (4.5-8.0) Urine Specific [place] 1.010 (1.005-1.035) Urine Protein Negative (NEGATIVE) Urine Glucose (UA) 4+ (NEGATIVE) H Urine Ketones 4+ (NEGATIVE) H Urine Occult Blood Negative (NEGATIVE) Urine Nitrite Negative (NEGATIVE) Urine Bilirubin Negative (NEGATIVE) Urine Urobilinogen Normal MG/DL (0.0-1.0) Urine Leukocyte Esterase Negative (NEGATIVE) YUVAL MAYA Sep 12, 2017 17:45
[2017-09-12] MEDS ORDERED: Sorbitol Solution UD 30ml ORAL ONE (19:30)
--- NOTE | 2017-09-12 19:39 | General Progress Note ---
Assessment/Plan Assessment/Plan GI Consult Dictated Thank You Khoi Cortes MD Subjective Allergies: Coded Allergies: CITRUS AND DERIVATIVES (Unverified Allergy, Unknown, 09/12/17) CLARITHROMYCIN (Unverified Allergy, Unknown, 08/31/17) reentered as coded allergy (CD) PENICILLINS (Verified Allergy, Unknown, 08/10/17) [place] (Verified Allergy, Unknown, 08/10/17) Uncoded Allergies: [place] (Allergy, Unknown, 08/10/17) walnuts (Allergy, Unknown, 09/12/17) Objective Last 24 Hour Vital Signs Date Time Temp Pulse Resp B/P (MAP) Pulse Ox O2 Delivery O2 Flow Rate FiO2 09/12/17 19:00 90 18 112/63 100 Nasal Cannula 2.0 09/12/17 18:00 96 18 120/45 96 Nasal Cannula 2.0 09/12/17 17:00 96 18 116/52 93 Room Air 09/12/17 16:00 96 09/12/17 16:00 98.4 96 20 98/33 95 Room Air 09/12/17 15:00 90 18 126/58 95 Room Air 09/12/17 14:00 95 18 112/43 96 Room Air 09/12/17 13:00 90 18 117/47 97 Room Air 09/12/17 12:00 98.5 94 18 99/43 94 Room Air 09/12/17 11:00 93 18 96/41 95 Room Air 09/12/17 10:30 98.6 97 18 106/52 97 Room Air 09/12/17 10:30 95 09/12/17 10:15 98.4 97 20 107/49 100 Room Air 09/12/17 08:44 97 09/12/17 08:30 97 20 107/49 100 Room Air 09/12/17 07:29 102 25 122/55 100 Room Air 09/12/17 05:15 104 23 116/51 99 Room Air 09/12/17 03:15 98.4 24 86/37 100 Room Air 09/12/17 03:04 98.4 98 24 86/37 100 Room Air Intake and Output 09/12/17 09/13/17 19:00 07:00 Intake Total 1179.2 ml Output Total 600 ml Balance 579.2 ml IV Total 1179.2 ml Output Urine Total 600 ml # Voids 2 # Bowel Movements 2 Laboratory Tests 09/12/17 03:06: Arterial Blood pH 7.258L, Arterial Blood Partial Pressure CO2 19.5*L, Arterial Blood Partial Pressure O2 100.2H, Arterial Blood HCO3 8.5L, Arterial Blood Oxygen Saturation 95.8, Arterial Blood Base Excess -16.7, Kenneth Test Positive 09/12/17 03:35: White Blood Count 8.5, Red Blood Count 2.98L, Hemoglobin 8.4L, Hematocrit 28.6L , Mean Corpuscular Volume 96, Mean Corpuscular Hemoglobin 28.3, Mean Corpuscular Hemoglobin Concent 29.5L, Red Cell Distribution Width 15.6H, Platelet Count 366, Mean Platelet Volume 6.2L, Neutrophils (%) (Auto) 84.6H, Lymphocytes (%) (Auto) 9.3L, Monocytes (%) (Auto) 4.5, Eosinophils (%) (Auto) 0.7, Basophils (%) (Auto) 0.9, Sodium Level 130L, Potassium Level 4.5, Chloride Level 91L, Carbon Dioxide Level 13L, Anion Gap 26H, Blood Urea Nitrogen 20H, Creatinine 1.1, Estimat Glomerular Filtration Rate 50.5, Glucose Level 710*H, Lactic Acid Level 2.90H, Calcium Level 8.8, Magnesium Level 1.9, Total Bilirubin 0.6, Aspartate Amino Transf (AST/SGOT) 18, Alanine Aminotransferase ( ALT/SGPT) 39, Alkaline Phosphatase 143H, Total Protein 6.3L, Albumin 2.3L, Globulin 4.0, Albumin/Globulin Ratio 0.6L, Lipase 56L, Acetone Level Positive- moderate 09/12/17 05:10: Urine Color Pale yellow, Urine Appearance Clear, Urine pH 5, Urine Specific [place] 1.010, Urine Protein Negative, Urine Glucose (UA) 4+H, Urine Ketones 4+H , Urine Occult Blood Negative, Urine Nitrite Negative, Urine Bilirubin Negative , Urine Urobilinogen Normal, Urine Leukocyte Esterase Negative 09/12/17 06:25: Sodium Level 134L, Potassium Level 3.5, Chloride Level 98, Carbon Dioxide Level 10L, Anion Gap 26H, Blood Urea Nitrogen 20H, Creatinine 1.0, Estimat Glomerular Filtration Rate 56.4, Glucose Level 528#*H, Lactic Acid Level 1.90, Calcium Level 8.3L, Total Bilirubin 0.5, Aspartate Amino Transf (AST/SGOT) 27, Alanine Aminotransferase (ALT/SGPT) 44, Alkaline Phosphatase 144H, Total Protein 6.4, Albumin 2.4L, Globulin 4.0, Albumin/Globulin Ratio 0.6L Height (Feet): 5 Height (Inches): 8.00 Weight (Pounds): 130 KHOI CORTES Sep 12, 2017 19:39
[2017-09-12] MEDS: Morphine Sulfate 4mg/ml Inj IVP PRN (20:05)
[2017-09-13] VITALS (17 sets, daily range): BP systolic 117–184; BP diastolic 48–107
[2017-09-13] MEDS: Morphine Sulfate 4mg/ml Inj IVP PRN ×5 (02:14→20:44)
--- NOTE | 2017-09-13 04:30 | Consultation ---
DATE OF CONSULTATION: 09/12/2017 GASTROENTEROLOGY CONSULTATION CONSULTING PHYSICIAN: Khoi Cortes M.D. REFERRING PHYSICIAN: Javier Calzada D.O. CHIEF COMPLAINT: I was asked to see this patient by Dr. Javier Calzada for evaluation of abnormal CT scan. HISTORY OF PRESENT ILLNESS: The patient is a 62-year-old white woman from senior living, who comes into the hospital due to diabetic ketoacidosis. She has vomiting. She is weak. She is confused and she appears to have fecal loading on CT scan. The patient himself is somewhat altered in mental status and is unable to provide any useful details. Most of the information is only available from the chart. PAST MEDICAL HISTORY: History of diabetes, psychosis, COPD, and neuropathy. PAST SURGICAL HISTORY: Status post appendectomy. ALLERGIES: Clarithromycin and penicillin. FAMILY HISTORY: Noncontributory and not obtainable. SOCIAL HISTORY: The patient does smoke, but does not drink alcohol or use drugs. REVIEW OF SYSTEMS: Otherwise negative. PHYSICAL EXAMINATION: GENERAL: Well-developed, well-nourished white woman, seen in the intensive care unit. HEENT: Normocephalic, atraumatic. Sclerae anicteric. Oropharynx clear. NECK: Supple. CHEST: Clear to auscultation. CARDIOVASCULAR: Regular rate. ABDOMEN: Soft, nontender, and mildly distended. There is no organomegaly. RECTAL: No stool in the vault. EXTREMITIES: No edema. LABORATORY DATA: Noted. ASSESSMENT: This patient presents with fecal loading, which will be treated with laxatives on a daily basis. There is no stool in the rectal vault on examination. Therefore, there is no rectal stool impaction. The patient is slightly dehydrated from her overall poor health and presentation. The patient also is confused and therefore, a swallow study should be done tomorrow morning to evaluate her swallowing for feeding her. Her diabetes will be managed by endocrinology and I will follow this patient with you. RECOMMENDATIONS: Per above discussion and per orders written in the chart. Thank you for asking me to participate in the care of this patient. Khoi Cortes M.D. DR: LANDON JOB#: [id number] CC: CASH
[2017-09-13 05:52] LABS: ANION GAP 7 mmol/L (5-15); CALCIUM 8.5 MG/DL (8.5-10.1); CARBON DIOXIDE 24 MMOL/L (21-32); CHLORIDE 107 MMOL/L (98-107); CREATININE 0.7 MG/DL (0.55-1.30); GLOMERULAR FILTRATION RATE > 60 mL/min (>60); POTASSIUM 3.5 MMOL/L (3.5-5.1); SODIUM 138 MMOL/L (136-145)
[2017-09-13 06:13] LABS: ALANINE AMINOTRANSFERASE 39 U/L (12-78); ASPARTATE AMINO TRANSFERASE 40 U/L (15-37); BILIRUBIN,DIRECT < 0.1 MG/DL (0.0-0.3); PHOSPHORUS 2.5 MG/DL (2.5-4.9); THYROID STIMULATING HORMONE 0.899 uiU/mL (0.358-3.740); TOTAL PROTEIN 6.3 G/DL (6.4-8.2)
[2017-09-13 06:42] LABS: ABG ALLEN TEST POSITIVE; ABG BASE EXCESS -5.9; ABG PCO2 47.8 mmHg (35.0-45.0)
--- NOTE | 2017-09-13 08:26 | General Progress Note ---
Progress Note Progress Note [id number] full note dictated EMILY LOWE Sep 13, 2017 08:26
[2017-09-13] MEDS: Heparin 5000 units/ml inj SUBQ SCH ×2 (09:52→21:11)
--- NOTE | 2017-09-13 11:02 | Diagnostic Imaging Report ---
Indication: SOB Technique: One view of the chest Comparison: 09/12/2017 Findings: Less optimal inspiration currently. Resultant crowding of the bronchovascular markings. Diffuse bilateral interstitial disease persists, appears stable on the right, may be increased on the left. There is also suggestion of of basilar atelectasis and some airspace consolidation. Right upper lobe scarring and upward retraction of the pulmonary hilum and volume loss is again noted. There is minimal bilateral costophrenic angle blunting, may indicate a small amount of pleural fluid bilaterally. Heart size is normal. Impression: Suspect increasing parenchymal disease on the left, as described Possible small bilateral pleural effusions Other findings as noted
--- NOTE | 2017-09-13 11:54 | Pulmonolgy Critical Care Note ---
Critical Care - Asmt/Plan Problems: (1) Pulmonary fibrosis (2) DKA (diabetic ketoacidoses) (3) COPD (chronic obstructive pulmonary disease) (4) Diabetes mellitus Respiratory: monitor respiratory rate, adjust FIO2, CXR, other - tiral off bipap Cardiac: continue to monitor HR/BP Renal: F/U I&O, decrease IV fluid Infectious Disease: check cultures Gastrointestinal: continue feedings/current rate Endocrine: check HgA1C, d/c insulin drip Hematologic: transfuse if hgb<8.5 Neurologic: PRN Ativan, PRN Morphine, keep patient comfortable Affect: PRN ativan Disposition: keep in ICU Discussed with: nurses, consultants, rn case managementcyber workforce developer and manager - Objective Last 24 Hour Vital Signs Date Time Temp Pulse Resp B/P (MAP) Pulse Ox O2 Delivery O2 Flow Rate FiO2 09/13/17 11:00 85 24 134/60 100 Nasal Cannula 2.0 09/13/17 11:00 86 22 99 Facial 40 09/13/17 10:00 87 28 133/60 100 Nasal Cannula 2.0 09/13/17 09:05 99 33 98 Facial 40 09/13/17 09:00 102 22 142/61 98 Nasal Cannula 2.0 09/13/17 08:00 98.4 95 22 139/64 99 Nasal Cannula 2.0 09/13/17 08:00 95 09/13/17 07:30 103 24 98 Facial 40 09/13/17 07:00 101 18 148/70 94 Nasal Cannula 2.0 09/13/17 06:50 116 32 99 Facial 50 09/13/17 06:00 115 18 148/89 94 Nasal Cannula 2.0 09/13/17 05:00 97 18 117/55 94 Nasal Cannula 2.0 09/13/17 04:00 98.7 92 18 124/54 94 Nasal Cannula 2.0 09/13/17 04:00 99 09/13/17 03:00 94 18 144/51 96 Nasal Cannula 2.0 09/13/17 02:00 99 18 136/70 96 Nasal Cannula 2.0 09/13/17 01:00 94 18 128/48 96 Nasal Cannula 2.0 09/13/17 00:00 100 09/13/17 00:00 98.9 95 18 129/56 96 Nasal Cannula 2.0 09/12/17 23:00 100 18 120/67 96 Nasal Cannula 2.0 09/12/17 22:00 113 18 162/60 91 Nasal Cannula 2.0 09/12/17 21:00 112 18 140/57 95 Nasal Cannula 2.0 09/12/17 20:00 94 09/12/17 20:00 99.2 109 22 155/68 90 Nasal Cannula 2.0 09/12/17 19:00 90 18 112/63 100 Nasal Cannula 2.0 09/12/17 18:00 96 18 120/45 96 Nasal Cannula 2.0 09/12/17 17:00 96 18 116/52 93 Room Air 09/12/17 16:00 96 09/12/17 16:00 98.4 96 20 98/33 95 Room Air 09/12/17 15:00 90 18 126/58 95 Room Air 09/12/17 14:00 95 18 112/43 96 Room Air 09/12/17 13:00 90 18 117/47 97 Room Air 09/12/17 12:00 98.5 94 18 99/43 94 Room Air Status: awake Condition: critical HEENT: atraumatic, normocephalic Neck: full ROM Lungs: clear Heart: HR/BP stable, HR/BP unstable Abdomen: non-tender, active bowel sounds Decubiti: location Micro: Microbiology Date/Time Source Procedure Growth Status 09/12/17 03:45 Blood Blood Culture - Preliminary NO GROWTH AFTER 24 HOURS Resulted 09/12/17 03:35 Blood Blood Culture - Preliminary NO GROWTH AFTER 24 HOURS Resulted Accucheck: 91 Critical Care - Subjective ROS Limited/Unobtainable: Yes ICU Day: 2 Condition: critical EKG Rhythm: Sinus Rhythm FI02: 40 Sputum Amount: None Fluids: NS 150 cc/hour I&O: Intake and Output 09/13/17 09/14/17 19:00 07:00 Intake Total 454.5 ml Balance 454.5 ml IV Total 454.5 ml # Voids 1 CXR: no change, pulmonary edema Labs: Laboratory Tests Test 09/13/17 04:50 09/13/17 06:30 Prothrombin Time 10.0 SEC (9.30-11.50) Prothromb Time International Ratio 1.0 (0.9-1.1) Activated Partial Thromboplast Time 28 SEC (23-33) Sodium Level 138 MMOL/L (136-145) Potassium Level 3.5 MMOL/L (3.5-5.1) Chloride Level 107 MMOL/L (98-107) Carbon Dioxide Level 24 MMOL/L (21-32) Anion Gap 7 mmol/L (5-15) Blood Urea Nitrogen 14 mg/dL (7-18) Creatinine 0.7 MG/DL (0.55-1.30) Estimat Glomerular Filtration Rate > 60 mL/min (>60) Glucose Level 97 MG/DL (74-106) # Calcium Level 8.5 MG/DL (8.5-10.1) Phosphorus Level 2.5 MG/DL (2.5-4.9) Total Bilirubin 0.3 MG/DL (0.2-1.0) Direct Bilirubin < 0.1 MG/DL (0.0-0.3) Aspartate Amino Transf (AST/SGOT) 40 U/L (15-37) H Alanine Aminotransferase (ALT/SGPT) 39 U/L (12-78) Alkaline Phosphatase 143 U/L (46-116) H Total Protein 6.3 G/DL (6.4-8.2) L Albumin 2.3 G/DL (3.4-5.0) L Thyroid Stimulating Hormone (TSH) 0.899 uiU/mL (0.358-3.740) Arterial Blood pH 7.261 (7.350-7.450) Arterial Blood Partial Pressure CO2 47.8 mmHg (35.0-45.0) H Arterial Blood Partial Pressure O2 51.1 mmHg (75.0-100.0) L Arterial Blood HCO3 21.0 mmol/L (22.0-26.0) L Arterial Blood Oxygen Saturation 80.6 % (92.0-98.0) L Arterial Blood Base Excess -5.9 Kenneth Test Positive YUVAL MAYA Sep 13, 2017 11:54
--- NOTE | 2017-09-13 12:17 | GI Progress Note ---
Assessment/Plan Problems: (1) Diabetes mellitus ICD Codes: E11.9 - Type 2 diabetes mellitus without complications SNOMED: 69041379 (2) DKA (diabetic ketoacidoses) ICD Codes: E13.10 - Other specified diabetes mellitus with ketoacidosis without coma SNOMED: 22317429, 809574564 (3) Anemia ICD Codes: D64.9 - Anemia, unspecified SNOMED: 110085087 (4) Abdominal pain ICD Codes: R10.9 - Unspecified abdominal pain SNOMED: 36164135 (5) Malnutrition ICD Codes: E46 - Unspecified protein-calorie malnutrition SNOMED: 85357951 Status: not improved, unchanged Status Narrative Discussed with Dr. Blunt. Assessment/Plan defer GI procedures at this time, patient not stable supportive care at this time fu video swallow anemia work up OB stool r/o GI bleed monitor H&H, prn transfusions bowel regime >> colace ppi DM mgmt pulmonary mgmt fu labs Subjective Subjective limited Objective Last 24 Hour Vital Signs Date Time Temp Pulse Resp B/P (MAP) Pulse Ox O2 Delivery O2 Flow Rate FiO2 09/13/17 11:48 96 24 97 4.0 09/13/17 11:00 85 24 134/60 100 Nasal Cannula 2.0 09/13/17 11:00 86 22 99 Facial 40 09/13/17 10:00 87 28 133/60 100 Nasal Cannula 2.0 09/13/17 09:05 99 33 98 Facial 40 09/13/17 09:00 102 22 142/61 98 Nasal Cannula 2.0 09/13/17 08:00 98.4 95 22 139/64 99 Nasal Cannula 2.0 09/13/17 08:00 95 09/13/17 07:30 103 24 98 Facial 40 09/13/17 07:00 101 18 148/70 94 Nasal Cannula 2.0 09/13/17 06:50 116 32 99 Facial 50 09/13/17 06:00 115 18 148/89 94 Nasal Cannula 2.0 09/13/17 05:00 97 18 117/55 94 Nasal Cannula 2.0 09/13/17 04:00 98.7 92 18 124/54 94 Nasal Cannula 2.0 09/13/17 04:00 99 09/13/17 03:00 94 18 144/51 96 Nasal Cannula 2.0 09/13/17 02:00 99 18 136/70 96 Nasal Cannula 2.0 09/13/17 01:00 94 18 128/48 96 Nasal Cannula 2.0 09/13/17 00:00 100 09/13/17 00:00 98.9 95 18 129/56 96 Nasal Cannula 2.0 09/12/17 23:00 100 18 120/67 96 Nasal Cannula 2.0 09/12/17 22:00 113 18 162/60 91 Nasal Cannula 2.0 09/12/17 21:00 112 18 140/57 95 Nasal Cannula 2.0 09/12/17 20:00 94 09/12/17 20:00 99.2 109 22 155/68 90 Nasal Cannula 2.0 09/12/17 19:00 90 18 112/63 100 Nasal Cannula 2.0 09/12/17 18:00 96 18 120/45 96 Nasal Cannula 2.0 09/12/17 17:00 96 18 116/52 93 Room Air 09/12/17 16:00 96 09/12/17 16:00 98.4 96 20 98/33 95 Room Air 09/12/17 15:00 90 18 126/58 95 Room Air 09/12/17 14:00 95 18 112/43 96 Room Air 09/12/17 13:00 90 18 117/47 97 Room Air Intake and Output 09/13/17 09/14/17 19:00 07:00 Intake Total 455.0 ml Balance 455.0 ml IV Total 455.0 ml # Voids 1 Laboratory Tests Test 09/13/17 04:50 09/13/17 06:30 Prothrombin Time 10.0 SEC (9.30-11.50) Prothromb Time International Ratio 1.0 (0.9-1.1) Activated Partial Thromboplast Time 28 SEC (23-33) Sodium Level 138 MMOL/L (136-145) Potassium Level 3.5 MMOL/L (3.5-5.1) Chloride Level 107 MMOL/L (98-107) Carbon Dioxide Level 24 MMOL/L (21-32) Anion Gap 7 mmol/L (5-15) Blood Urea Nitrogen 14 mg/dL (7-18) Creatinine 0.7 MG/DL (0.55-1.30) Estimat Glomerular Filtration Rate > 60 mL/min (>60) Glucose Level 97 MG/DL (74-106) # Calcium Level 8.5 MG/DL (8.5-10.1) Phosphorus Level 2.5 MG/DL (2.5-4.9) Total Bilirubin 0.3 MG/DL (0.2-1.0) Direct Bilirubin < 0.1 MG/DL (0.0-0.3) Aspartate Amino Transf (AST/SGOT) 40 U/L (15-37) H Alanine Aminotransferase (ALT/SGPT) 39 U/L (12-78) Alkaline Phosphatase 143 U/L (46-116) H Total Protein 6.3 G/DL (6.4-8.2) L Albumin 2.3 G/DL (3.4-5.0) L Thyroid Stimulating Hormone (TSH) 0.899 uiU/mL (0.358-3.740) Arterial Blood pH 7.261 (7.350-7.450) Arterial Blood Partial Pressure CO2 47.8 mmHg (35.0-45.0) H Arterial Blood Partial Pressure O2 51.1 mmHg (75.0-100.0) L Arterial Blood HCO3 21.0 mmol/L (22.0-26.0) L Arterial Blood Oxygen Saturation 80.6 % (92.0-98.0) L Arterial Blood Base Excess -5.9 Kenneth Test Positive Height (Feet): 5 Height (Inches): 8.00 Weight (Pounds): 122 General Appearance: moderate distress Cardiovascular: normal rate Respiratory/Chest: normal breath sounds Abdominal Exam: normal bowel sounds, non tender, soft Carmen Ross N.P. Sep 13, 2017 12:17
--- NOTE | 2017-09-13 12:25 | Wound Care Consultation ---
Wound Assessment Wound Assessment : Wound Number: 1 Wound Present on Admission: Yes New Wound: No Status Change of Wound: No Wound Location Body Site Modif: mid Wound Location Body Site: other - sacrococcygeal Wound Type: pressure ulcer Heena Test: Does not Heena Pressure Ulcer Stage: Deep Tissue Injury Wound Thickness: Full Thickness Wound Length: 3.0 Wound Width: 3.0 Wound Depth: utd Percent of Wound Purple/Maroon: 100 Wound Drainage Amount: None Wound Drainage Odor: None/Absent Tissue Surrounding Wound: Erythemic Wound General Appearance: Reddened - purple Wound Comment #1 Sacrococcygeal DTI pressure ulcer Recommendation -Local wound care per protocol -Keep clean and dry -Turn and reposition -Optimize nutrition -Low air loss SPR mattress -Offload both heels -Heel protector on both heels -Assess and f/u accordingly for any changes ATTI ROBLES RN Sep 13, 2017 12:25
[2017-09-13] MEDS ORDERED: Levemir Flexpen SUBQ ONE (13:00)
[2017-09-13] MEDS ORDERED: Docusate 100mg cap ORAL SCH (13:00)
--- NOTE | 2017-09-13 13:42 | General Progress Note ---
Assessment/Plan Problem List: (1) DKA (diabetic ketoacidoses) ICD Codes: E13.10 - Other specified diabetes mellitus with ketoacidosis without coma SNOMED: 38657000, 386416556 (2) Anemia ICD Codes: D64.9 - Anemia, unspecified SNOMED: 405448030 (3) COPD (chronic obstructive pulmonary disease) ICD Codes: J44.9 - Chronic obstructive pulmonary disease, unspecified SNOMED: 94776110 (4) Diabetes mellitus ICD Codes: E11.9 - Type 2 diabetes mellitus without complications SNOMED: 05455578 (5) Neuropathy ICD Codes: G62.9 - Polyneuropathy, unspecified SNOMED: 987618463 Status: unchanged Assessment/Plan o2 pulm tx bs control cbc bmp am Subjective Constitutional: Reports: weakness Allergies: Coded Allergies: CITRUS AND DERIVATIVES (Unverified Allergy, Unknown, 09/12/17) CLARITHROMYCIN (Unverified Allergy, Unknown, 08/31/17) reentered as coded allergy (CD) PENICILLINS (Verified Allergy, Unknown, 08/10/17) [place] (Verified Allergy, Unknown, 08/10/17) Uncoded Allergies: Rickreall (Allergy, Unknown, 08/10/17) walnuts (Allergy, Unknown, 09/12/17) All Systems: reviewed and negative except above Subjective o2nc weak Objective Last 24 Hour Vital Signs Date Time Temp Pulse Resp B/P (MAP) Pulse Ox O2 Delivery O2 Flow Rate FiO2 09/13/17 12:51 94 25 95 4.0 09/13/17 11:48 96 24 97 4.0 09/13/17 11:00 85 24 134/60 100 Nasal Cannula 2.0 09/13/17 11:00 86 22 99 Facial 40 09/13/17 10:00 87 28 133/60 100 Nasal Cannula 2.0 09/13/17 09:05 99 33 98 Facial 40 09/13/17 09:00 102 22 142/61 98 Nasal Cannula 2.0 09/13/17 08:00 98.4 95 22 139/64 99 Nasal Cannula 2.0 09/13/17 08:00 95 09/13/17 07:30 103 24 98 Facial 40 09/13/17 07:00 101 18 148/70 94 Nasal Cannula 2.0 09/13/17 06:50 116 32 99 Facial 50 09/13/17 06:00 115 18 148/89 94 Nasal Cannula 2.0 09/13/17 05:00 97 18 117/55 94 Nasal Cannula 2.0 09/13/17 04:00 98.7 92 18 124/54 94 Nasal Cannula 2.0 09/13/17 04:00 99 09/13/17 03:00 94 18 144/51 96 Nasal Cannula 2.0 09/13/17 02:00 99 18 136/70 96 Nasal Cannula 2.0 09/13/17 01:00 94 18 128/48 96 Nasal Cannula 2.0 09/13/17 00:00 100 09/13/17 00:00 98.9 95 18 129/56 96 Nasal Cannula 2.0 09/12/17 23:00 100 18 120/67 96 Nasal Cannula 2.0 09/12/17 22:00 113 18 162/60 91 Nasal Cannula 2.0 09/12/17 21:00 112 18 140/57 95 Nasal Cannula 2.0 09/12/17 20:00 94 09/12/17 20:00 99.2 109 22 155/68 90 Nasal Cannula 2.0 09/12/17 19:00 90 18 112/63 100 Nasal Cannula 2.0 09/12/17 18:00 96 18 120/45 96 Nasal Cannula 2.0 09/12/17 17:00 96 18 116/52 93 Room Air 09/12/17 16:00 96 09/12/17 16:00 98.4 96 20 98/33 95 Room Air 09/12/17 15:00 90 18 126/58 95 Room Air 09/12/17 14:00 95 18 112/43 96 Room Air Intake and Output 09/13/17 09/14/17 19:00 07:00 Intake Total 455.0 ml Balance 455.0 ml IV Total 455.0 ml # Voids 1 Laboratory Tests 09/13/17 04:50: Prothrombin Time 10.0, Prothromb Time International Ratio 1.0, Activated Partial Thromboplast Time 28, Sodium Level 138, Potassium Level 3.5, Chloride Level 107, Carbon Dioxide Level 24, Anion Gap 7, Blood Urea Nitrogen 14, Creatinine 0.7, Estimat Glomerular Filtration Rate > 60, Glucose Level 97#, Calcium Level 8.5, Phosphorus Level 2.5, Total Bilirubin 0.3, Direct Bilirubin < 0.1, Aspartate Amino Transf (AST/SGOT) 40H, Alanine Aminotransferase (ALT/SGPT ) 39, Alkaline Phosphatase 143H, Total Protein 6.3L, Albumin 2.3L, Thyroid Stimulating Hormone (TSH) 0.899 09/13/17 06:30: Arterial Blood pH 7.261L, Arterial Blood Partial Pressure CO2 47.8H, Arterial Blood Partial Pressure O2 51.1L, Arterial Blood HCO3 21.0L, Arterial Blood Oxygen Saturation 80.6L, Arterial Blood Base Excess -5.9, Kenneth Test Positive Height (Feet): 5 Height (Inches): 8.00 Weight (Pounds): 122 General Appearance: lethargic EENT: normal ENT inspection Neck: normal alignment Cardiovascular: normal peripheral pulses, normal rate, regular rhythm Respiratory/Chest: chest wall non-tender, lungs clear, normal breath sounds Abdomen: normal bowel sounds, non tender, soft Extremities: normal inspection Edema: no edema noted Arm (L), no edema noted Arm (R), no edema noted Leg (L), no edema noted Leg (R), no edema noted Pedal (L), no edema noted Pedal (R), no edema noted Generalized Neurologic: motor weakness Skin: normal pigmentation, warm/dry MANDIE PUENTE Sep 13, 2017 13:42
[2017-09-13] MEDS ORDERED: DiphenhydrAMINE 50mg/ml Inj IVP PRN (13:45)
--- NOTE | 2017-09-13 14:07 | Cardiology Progress Note ---
Assessment/Plan Assessment/Plan The patient is seen and examined, full consult note will be dictated. Objective Last 24 Hour Vital Signs Date Time Temp Pulse Resp B/P (MAP) Pulse Ox O2 Delivery O2 Flow Rate FiO2 09/13/17 13:00 85 16 162/85 92 Nasal Cannula 2.0 09/13/17 12:51 94 25 95 4.0 09/13/17 12:00 98.8 91 20 184/107 96 Nasal Cannula 2.0 09/13/17 11:48 96 24 97 4.0 09/13/17 11:00 85 24 134/60 100 Nasal Cannula 2.0 09/13/17 11:00 86 22 99 Facial 40 09/13/17 10:00 87 28 133/60 100 Nasal Cannula 2.0 09/13/17 09:05 99 33 98 Facial 40 09/13/17 09:00 102 22 142/61 98 Nasal Cannula 2.0 09/13/17 08:00 98.4 95 22 139/64 99 Nasal Cannula 2.0 09/13/17 08:00 95 09/13/17 07:30 103 24 98 Facial 40 09/13/17 07:00 101 18 148/70 94 Nasal Cannula 2.0 09/13/17 06:50 116 32 99 Facial 50 09/13/17 06:00 115 18 148/89 94 Nasal Cannula 2.0 09/13/17 05:00 97 18 117/55 94 Nasal Cannula 2.0 09/13/17 04:00 98.7 92 18 124/54 94 Nasal Cannula 2.0 09/13/17 04:00 99 09/13/17 03:00 94 18 144/51 96 Nasal Cannula 2.0 09/13/17 02:00 99 18 136/70 96 Nasal Cannula 2.0 09/13/17 01:00 94 18 128/48 96 Nasal Cannula 2.0 09/13/17 00:00 100 09/13/17 00:00 98.9 95 18 129/56 96 Nasal Cannula 2.0 09/12/17 23:00 100 18 120/67 96 Nasal Cannula 2.0 09/12/17 22:00 113 18 162/60 91 Nasal Cannula 2.0 09/12/17 21:00 112 18 140/57 95 Nasal Cannula 2.0 09/12/17 20:00 94 09/12/17 20:00 99.2 109 22 155/68 90 Nasal Cannula 2.0 09/12/17 19:00 90 18 112/63 100 Nasal Cannula 2.0 09/12/17 18:00 96 18 120/45 96 Nasal Cannula 2.0 09/12/17 17:00 96 18 116/52 93 Room Air 09/12/17 16:00 96 09/12/17 16:00 98.4 96 20 98/33 95 Room Air 09/12/17 15:00 90 18 126/58 95 Room Air Intake and Output 09/13/17 09/14/17 19:00 07:00 Intake Total 455.0 ml Output Total 200 ml Balance 255.0 ml IV Total 455.0 ml Output Urine Total 200 ml # Voids 1 Laboratory Tests Test 09/13/17 04:50 09/13/17 06:30 Prothrombin Time 10.0 SEC (9.30-11.50) Prothromb Time International Ratio 1.0 (0.9-1.1) Activated Partial Thromboplast Time 28 SEC (23-33) Sodium Level 138 MMOL/L (136-145) Potassium Level 3.5 MMOL/L (3.5-5.1) Chloride Level 107 MMOL/L (98-107) Carbon Dioxide Level 24 MMOL/L (21-32) Anion Gap 7 mmol/L (5-15) Blood Urea Nitrogen 14 mg/dL (7-18) Creatinine 0.7 MG/DL (0.55-1.30) Estimat Glomerular Filtration Rate > 60 mL/min (>60) Glucose Level 97 MG/DL (74-106) # Calcium Level 8.5 MG/DL (8.5-10.1) Phosphorus Level 2.5 MG/DL (2.5-4.9) Total Bilirubin 0.3 MG/DL (0.2-1.0) Direct Bilirubin < 0.1 MG/DL (0.0-0.3) Aspartate Amino Transf (AST/SGOT) 40 U/L (15-37) H Alanine Aminotransferase (ALT/SGPT) 39 U/L (12-78) Alkaline Phosphatase 143 U/L (46-116) H Total Protein 6.3 G/DL (6.4-8.2) L Albumin 2.3 G/DL (3.4-5.0) L Thyroid Stimulating Hormone (TSH) 0.899 uiU/mL (0.358-3.740) Arterial Blood pH 7.261 (7.350-7.450) Arterial Blood Partial Pressure CO2 47.8 mmHg (35.0-45.0) H Arterial Blood Partial Pressure O2 51.1 mmHg (75.0-100.0) L Arterial Blood HCO3 21.0 mmol/L (22.0-26.0) L Arterial Blood Oxygen Saturation 80.6 % (92.0-98.0) L Arterial Blood Base Excess -5.9 Kenneth Test Positive Microbiology Date/Time Source Procedure Growth Status 09/12/17 03:45 Blood Blood Culture - Preliminary NO GROWTH AFTER 24 HOURS Resulted 09/12/17 03:35 Blood Blood Culture - Preliminary NO GROWTH AFTER 24 HOURS Resulted TAMAR CONNELL Sep 13, 2017 14:07
[2017-09-13] MEDS ORDERED: Nitroglycerin Subl 0.4mg tab SL PRN (16:15)
[2017-09-13] MEDS ORDERED: Albuterol/Ipratropium 3ml neb HHN PRN (16:30)
[2017-09-13] MEDS ORDERED: LORazepam Inj 2mg/ml 1ml IV PRN (16:30)
[2017-09-13] MEDS ORDERED: Miralax 17gm pkt ORAL PRN (16:30)
[2017-09-13] MEDS ORDERED: NovoLOG Insulin Flexpen SUBQ SCH ×2 (16:30→16:50)
[2017-09-13] MEDS: Memantine 5 MG TAB ORAL SCH (17:45)
[2017-09-13] MEDS: Docusate 100mg cap ORAL SCH (17:45)
[2017-09-13] MEDS: NovoLOG Insulin Flexpen SUBQ SCH ×4 (17:46→22:34)
[2017-09-13] MEDS ORDERED: Memantine 5 MG TAB ORAL SCH (18:00)
--- NOTE | 2017-09-13 18:38 | Cardiology Report ---
APPROVED REPORT EKG Measurement Heart [id number] Normal sinus rhythm Right superior axis deviation Cannot rule out Anterior infarct, age undetermined Abnormal ECG
--- NOTE | 2017-09-13 19:30 | Consultation ---
DATE OF CONSULTATION: 09/13/2017 CARDIOLOGY CONSULTATION REFERRING PHYSICIAN: Javier Calzada D.O. REASON FOR CONSULTATION: Management of tachycardia in the patient with diagnosis of DKA. The patient is seen in the intensive care unit of [facility] for tachycardia. Cardiology consultation was made at the request of Dr. Calzada. HISTORY OF PRESENT ILLNESS: The patient is a very unfortunate 62-year-old female, who presents to the hospital with altered level of consciousness and hypotension. The patient has history of insulin-dependent diabetes mellitus. Apparently, the patient's initial workup in the emergency department showed blood sugar of 528 with presence of metabolic acidosis. The patient was admitted to intensive care unit for insulin drip. The patient seen in the intensive care unit of [facility] and currently not capable of providing a detailed history due to her altered level of consciousness as well as history of schizophrenia in combination. Review of the old records from this hospital had shown a 2D echocardiography, which was done in the last month in this facility and that had shown normal LV systolic function with LVEF of approximately 55%. There was no wall motion abnormality in the distal inferoseptal wall, but presence of grade 1 LV diastolic dysfunction and normal intracardiac filling pressures. Initial vital signs were blood pressure of 83/37 mmHg, heart rate of 98, which subsequently kofi to 104 in the emergency department. She was started on IV fluids and was admitted to intensive care unit. There was no complaint of chest pain, although she had some shortness of breath last night and was placed on BiPAP mask according to the nurse. PAST MEDICAL HISTORY: Psychosis, COPD, diabetes mellitus, and neuropathy. PAST SURGICAL HISTORY: Appendectomy. MEDICATIONS: List of the medication includes acetaminophen 650 mg q.4 h. p.r.n. fever, headache, pain, aspirin 81 mg p.o. daily, Lipitor 40 mg p.o. nightly, Dulcolax 10 mg p.o. twice daily p.r.n. constipation, , Catapres 0.1 mg q.4 h., Plavix 75 mg daily, codeine and promethazine syrup 5 mL q.6 h. p.r.n. cough, diphenhydramine hydrochloride 25 mg q.6 h. p.r.n. pruritus, Colace 100 mg p.o. twice daily, vitamin D 50,000 units once a week for 6 weeks, Pepcid 20 mg p.o. nightly, Neurontin 300 mg three times daily, heparin 5000 units subcutaneous q.12 h., hydrocortisone cream 2.5% topical twice daily, NovoLog insulin 4 units subcutaneous daily, Levemir insulin 10 units subcutaneous q.12 hours, lorazepam 2 mg IV q.6 h., nitroglycerin 0.4 mg sublingual q.5 minutes p.r.n. chest pain, Zofran 4 mg p.o. q.6 h. p.r.n. nausea and vomiting, Pantoprazole 40 mg p.o. daily, MiraLAX 17 g daily, Senna-Gen 8.6 mg p.o. daily, simvastatin 80 mg p.o. nightly, and vancomycin 1 g IV piggyback daily. ALLERGIES: Penicillin and clarithromycin. SOCIAL HISTORY: Denies any history of tobacco, alcohol, or illicit drug use. FAMILY HISTORY: No premature coronary artery disease in the first-degree relative. REVIEW OF SYSTEMS: Currently with better mental status, I was able to obtain review of systems.HEENT: Denies any headache, diplopia, or blurred vision. CONSTITUTIONAL: Complains of generalized weakness and dry mouth. Denies any fever or chills. CARDIOVASCULAR: Denies any chest pain, shortness of breath, PND, orthopnea, or leg swelling. PULMONARY: Denies any cough, hemoptysis, or wheezing. GASTROINTESTINAL: Denies any nausea, vomiting, diarrhea, constipation, abdominal pain, or GI bleed. GENITOURINARY: Denies any polyuria or polydipsia. History of diabetes mellitus. NEUROLOGIC: Denies any motor dysfunction, sensory deficits, or altered speech, but had some altered mental status. PHYSICAL EXAMINATION: VITAL SIGNS: Blood pressure was 86/37, pulse of 104, respirations 24, O2 saturation 100% on room air, and temperature 98.4 degrees Fahrenheit. GENERAL: At this time mental status improved, communicating with me verbally and answering to my questions, following commands. HEENT: Atraumatic and normocephalic. Anicteric. Pupils are equal, round, and reactive to light and accommodation. Extraocular muscles are intact. Dry mucosal membranes. NECK: JVP less than 5 cm. No carotid bruit. Carotid upstrokes 2+ bilaterally. CVS: Normal S1 and S2. Regular rate and rhythm. No murmurs, gallops, or rubs. PMI is at fourth intercostal space in midclavicular line. LUNGS: Clear to auscultation bilaterally. ABDOMEN: Soft, nontender, and nondistended. No hepatosplenomegaly. Positive bowel sounds. EXTREMITIES: No evidence of edema, clubbing, or cyanosis. LABORATORY AND DIAGNOSTIC DATA: A 2D echocardiography from last admission, normal LV systolic and normal LVEF of about 50% to 55%, distal inferoseptal hypokinesia, mild grade 1 LV diastolic dysfunction suggestive of normal intracardiac filling pressure with impaired LV relaxation. Laboratory findings at the time of arrival to the hospital, WBC is 8.5, hemoglobin of 8.4, hematocrit of 28.3, and platelet count is 366. Sodium was 130, potassium of 4.5, chloride of 91, bicarbonate is 13, BUN of 20, creatinine 1.1, and glucose 710. Lactic acid is 2.9. Magnesium is 1.9. INR was 1.0. A 12-lead electrocardiogram showed sinus tachycardia at a rate of [address] and T-wave abnormalities, prolongation of QT interval. ASSESSMENT AND PLAN: The patient is a very unfortunate lady, seen in Cardiology consultation in the intensive care unit of [facility]. 1. Hypovolemic shock due to osmosis diuresis due to uncontrolled diabetes mellitus. The patient benefits from IV hydration as she appears to be intravascular volume depleted. A chest x-ray shows interstitial lung disease as her 2D echocardiography was suggestive of acute heart failure in the last admission. Diastolic data was significant for impaired LV relaxation, but normal intracardiac filling pressures. Currently, the blood pressure is normotensive and I think that the patient can have oral liquids as demanded. 2. Sinus tachycardia resolved with hydration. At this time, there is no role for AV anneliese agents. 3. Diabetic ketoacidosis. 4. Anemia. A total amount of time spent in evaluation of this patient, review of the old record particularly 2D echocardiography as discussed in the plan of care with the nursing staff and the primary care physician was 45 minutes. I would like to thank, Dr. Calzada, for the courtesy of this consultation. Milind Osman, M.D. DR: Nery JOB#: [id number] CC:
--- NOTE | 2017-09-13 20:00 | Consultation ---
DATE OF CONSULTATION: 09/13/2017 NEPHROLOGY CONSULTATION CONSULTING PHYSICIAN: Jesika Vasquez M.D. REFERRING PHYSICIAN: Javier Calzada D.O. REASON FOR CONSULTATION: Acute renal failure and electrolyte abnormality. HISTORY OF PRESENT ILLNESS: The patient is a 62-year-old female with past medical history significant for history of diabetes, history of hypertension, history of COPD, neuropathy, and diabetic neuropathy, who was sent from long-term to [facility] for evaluation of the altered mental status and intractable nausea and vomiting. Upon arrival, the patient in the ER was found to have blood sugar of 720, was in DKA. The patient was transferred to ICU, was started on insulin drip, found to have an electrolyte abnormality. I was called for management of renal disease and electrolyte imbalance. PAST MEDICAL HISTORY: 1. History of diabetes. 2. History of hypertension. 3. History of COPD. 4. History of hyperlipidemia. 5. History of schizophrenia. ALLERGIES: Clarithromycin and penicillin. PAST SURGICAL HISTORY: History of appendectomy. SOCIAL HISTORY: She has previous history of smoking. There is no current history of smoking, alcohol, or drug use. FAMILY HISTORY: Positive for history of diabetes. REVIEW OF SYSTEMS: GENERAL: She complained of generalized weakness. Denied any fever, chills, or night sweats. HEAD AND NECK: Denies any dysphagia, odynophagia, blurry vision, headache, or neck stiffness. PULMONARY: Mild shortness of breath. Denies any cough or sputum. CARDIOVASCULAR: Denies any chest pain or palpitations. GASTROINTESTINAL: Complained of nausea and vomiting on admission. Denies any melena, hematemesis, or hematochezia. GENITOURINARY: Denies any dysuria, frequency, or hematuria. MUSCULOSKELETAL: Generalized weakness. Denies any localized weakness or numbness. PHYSICAL EXAMINATION: VITAL SIGNS: The patient has temperature of 98, blood pressure 136/70, pulse rate of 98, and respiratory rate of 18. HEAD AND NECK: No JVP. No LAD. No thyromegaly. Extraocular movements intact. Pupils are reactive to light and accommodation. LUNGS: Clear to auscultation. CARDIAC: Regular rate and rhythm. S1, S2 normal. No rub. ABDOMEN: Soft. Diffuse tenderness. No guarding. No rebound. EXTREMITIES: No edema. No clubbing. No cyanosis. LABORATORY AND DIAGNOSTIC DATA: The patient had sodium of 134, potassium 3.5, chloride 98, on admission had bicarbonate of 10, BUN was 20, creatinine was 1, glucose was 528, and calcium was 8.3. AST of 27, ALT of 99, and alkaline phosphatase of 144. Urine revealed specific gravity of 1.010, pH of 5, glucose 4+, and ketones 4+. CBC revealed WBC count of 8.5, hemoglobin of 8.4, hematocrit of 26, and platelet count of 366,000. The patient had CT of the abdomen which revealed prominent fecal retention, atherosclerosis, trace pleural effusion, complex cysts on adnexa, cystitis was suspected. ASSESSMENT: 1. Acute renal failure, most likely dehydration. 2. Diabetic ketoacidosis. 3. Diabetic nephropathy. 4. This patient has some degree of diabetic neuropathy. 5. Hypertension, well controlled. 6. Anemia. 7. Intractable nausea and vomiting. PLAN: Plan for the patient is to continue with current IV. Check the UA. Check random urine protein and creatinine ratio to calculate the proteinuria. Check the urine sodium and creatinine to calculate fractional excretion of sodium. Check the microalbumin level. Again, I would like to thank Dr. Javier Calzada for allowing me to participate in the care of this patient. Jesika Vasquez M.D. DR: GRADY JOB#: [id number] CC:
--- NOTE | 2017-09-13 21:45 | Consultation ---
DATE OF CONSULTATION: HISTORY OF PRESENT ILLNESS: This is a 62-year-old female patient with diabetic ketoacidosis. She is currently in the ICU. She is very confused and disorganized. I saw and assessed her at bedside. She has altered mental status secondary to the progression of her medical illness. SOCIAL HISTORY: She lives in a [facility]. Financially supported by [employer] and Medicare. MEDICAL HISTORY: Diabetes and diabetic ketoacidosis. Please see Internal Medicine note for further details. ALLERGIES: Penicillin. PSYCHIATRIC HISTORY: Depression with psychotic features, rule out pseudodementia and rule out dementia with psychotic features. SUBSTANCE ABUSE HISTORY: Denies drug and alcohol abuse. MENTAL STATUS EXAMINATION: The patient is a 62-year-old female with psychomotor retardation. Mood is depressed. Affect is guarded and restricted. Thought process is disorganized. She denies any current suicidal thoughts. Insight and judgment is poor. DIAGNOSIS: Major depressive disorder, rule out pseudodementia. PLAN: I am going to continue currently, but also adding Namenda 5 mg twice a day to prevent any decline in her cognition. Chart reviewed. Discussed with staff. Seen and assessed at bedside. I would like to thank Dr. Javier Calzada for this interesting consultation. Kylee Todd M.D. DR: KATHIE JOB#: [id number] CC:
[2017-09-13] MEDS: DiphenhydrAMINE 50mg/ml Inj IVP PRN (22:30)
[2017-09-14] VITALS (7 sets, daily range): BP systolic 128–161; BP diastolic 60–86
[2017-09-14] MEDS: Morphine Sulfate 4mg/ml Inj IVP PRN ×3 (00:28→20:38)
--- NOTE | 2017-09-14 06:02 | General Progress Note ---
Assessment/Plan Problem List: (1) Diabetes mellitus ICD Codes: E11.9 - Type 2 diabetes mellitus without complications SNOMED: 19987116 (2) COPD (chronic obstructive pulmonary disease) ICD Codes: J44.9 - Chronic obstructive pulmonary disease, unspecified SNOMED: 71027615 (3) DKA (diabetic ketoacidoses) ICD Codes: E13.10 - Other specified diabetes mellitus with ketoacidosis without coma SNOMED: 06480254, 014847152 Assessment/Plan Levemir 20 units daily Novolog 5 units ac tid + SSI Subjective ROS Limited/Unobtainable: Yes Allergies: Coded Allergies: CITRUS AND DERIVATIVES (Unverified Allergy, Unknown, 09/12/17) CLARITHROMYCIN (Unverified Allergy, Unknown, 08/31/17) reentered as coded allergy (CD) PENICILLINS (Verified Allergy, Unknown, 08/10/17) [place] (Verified Allergy, Unknown, 08/10/17) Uncoded Allergies: [place] (Allergy, Unknown, 08/10/17) walnuts (Allergy, Unknown, 09/12/17) Subjective DKA resolved transferred out of ICU Objective Last 24 Hour Vital Signs Date Time Temp Pulse Resp B/P (MAP) Pulse Ox O2 Delivery O2 Flow Rate FiO2 09/14/17 04:00 98.6 99 18 154/79 98 Nasal Cannula 2.0 09/14/17 04:00 83 09/14/17 00:27 161/86 09/14/17 00:00 99.7 100 20 161/86 96 Nasal Cannula 2.0 09/14/17 00:00 99 09/13/17 23:37 98 24 95 2.0 09/13/17 21:47 93 23 96 2.0 09/13/17 21:38 81 24 99 Facial 40 09/13/17 21:04 Nasal Cannula 2.0 28 09/13/17 21:00 89 20 95 2.0 09/13/17 20:00 97.0 101 20 153/70 96 Nasal Cannula 2.0 09/13/17 19:00 91 20 94 2.0 09/13/17 17:08 98 21 95 2.0 09/13/17 16:00 103 09/13/17 15:00 96 17 167/69 99 Nasal Cannula 2.0 09/13/17 14:53 95 21 95 2.0 09/13/17 14:00 97 17 139/62 92 Nasal Cannula 2.0 09/13/17 13:00 104 16 129/85 52 Nasal Cannula 2.0 09/13/17 12:51 94 25 95 4.0 09/13/17 12:00 98.8 98 24 151/64 97 Nasal Cannula 2.0 09/13/17 12:00 97 09/13/17 11:48 96 24 97 4.0 09/13/17 11:00 85 24 134/60 100 Nasal Cannula 2.0 09/13/17 11:00 86 22 99 Facial 40 09/13/17 10:00 87 28 133/60 100 Nasal Cannula 2.0 09/13/17 09:05 99 33 98 Facial 40 09/13/17 09:00 102 22 142/61 98 Nasal Cannula 2.0 09/13/17 08:00 98.4 95 22 139/64 99 Nasal Cannula 2.0 09/13/17 08:00 95 09/13/17 07:30 103 24 98 Facial 40 09/13/17 07:00 101 18 148/70 94 Nasal Cannula 2.0 09/13/17 06:50 116 32 99 Facial 50 Laboratory Tests 09/13/17 06:30: Arterial Blood pH 7.261L, Arterial Blood Partial Pressure CO2 47.8H, Arterial Blood Partial Pressure O2 51.1L, Arterial Blood HCO3 21.0L, Arterial Blood Oxygen Saturation 80.6L, Arterial Blood Base Excess -5.9, Kenneth Test Positive 09/14/17 00:30: Urine Eosinophils [Pending], Urine Random Creatinine [Pending], Urine Random Microalbumin [Pending], Urine Random Total Protein 109H, Urine Microalbumin/ Creatinine Ratio [Pending] Height (Feet): 5 Height (Inches): 8.00 Weight (Pounds): 122 General Appearance: no apparent distress Neck: normal alignment, supple Cardiovascular: normal peripheral pulses Respiratory/Chest: lungs clear Objective Current Medications Medications (Trade) Dose Ordered Sig/Danielle Route PRN Reason Start Time Stop Time Status Last Admin Dose Admin Acetaminophen (Tylenol) 650 mg Q4H PRN ORAL Fever 09/13/17 16:30 10/12/17 16:29 Albuterol/ Ipratropium (Albuterol/ Ipratropium) 3 ml Q4H PRN HHN Shortness of Breath 09/13/17 16:30 09/17/17 16:29 Clonidine HCl (Catapres) 0.1 mg Q4H PRN ORAL SBP >160 09/13/17 16:30 10/12/17 16:29 09/14/17 00:27 Clopidogrel Bisulfate (Plavix) 75 mg DAILY ORAL 09/14/17 09:00 10/12/17 08:59 Dextrose (Dextrose 50%) STAT PRN IV Hypoglycemia 09/13/17 16:30 10/13/17 16:29 Diphenhydramine HCl (Benadryl) 25 mg Q6H PRN IVP Itching 09/13/17 16:30 10/13/17 16:29 09/13/17 22:30 Docusate Sodium (Colace) 100 mg THREE TIMES A DAY ORAL 09/13/17 18:00 10/13/17 12:59 09/13/17 17:45 Heparin Sodium (Porcine) (Heparin 5000 units/ml) 5,000 units EVERY 12 HOURS SUBQ 09/13/17 21:00 10/12/17 08:59 09/13/17 21:11 Insulin Aspart (NovoLOG) BEFORE MEALS AND HS SUBQ 09/13/17 16:30 10/13/17 16:29 09/13/17 22:34 Insulin Aspart (NovoLOG) 5 units NOVOTIAC SUBQ 09/13/17 16:50 10/13/17 16:49 09/13/17 17:46 Lorazepam (Ativan 2mg/ml 1ml) 2 mg Q2H PRN IV agitation 09/13/17 16:30 09/19/17 16:29 Memantine (Namenda) 5 mg BID ORAL 09/13/17 18:00 10/13/17 17:59 09/13/17 17:45 Morphine Sulfate (Morphine Sulfate) 4 mg Q4H PRN IVP Severe Pain (Pain Scale 7-10) 09/13/17 20:00 09/19/17 19:59 09/14/17 00:28 Nitroglycerin (Ntg) 0.4 mg Q5M PRN SL Prn Chest Pain 09/13/17 16:15 10/12/17 06:44 Ondansetron HCl (Zofran) 4 mg Q6H PRN IVP Nausea & Vomiting 09/13/17 18:45 10/12/17 06:44 09/14/17 01:50 Pantoprazole (Protonix) 40 mg DAILY IVP 09/14/17 09:00 10/14/17 08:59 Polyethylene Glycol (Miralax) 17 gm DAILYPRN PRN ORAL Constipation 09/13/17 16:30 10/13/17 16:29 Item Value Date Time Bedside Blood Glucose 147 mg/dl H 09/14/17 0000 Bedside Blood Glucose 147 mg/dl H 09/13/17 2234 Bedside Blood Glucose 214 mg/dl H 09/13/17 1748 Bedside Blood Glucose 231 mg/dl H 09/13/17 1330 EMA VALENCIA Sep 14, 2017 06:02
[2017-09-14 06:20] LABS: BASOPHILS % (AUTO) 2.6 % (0.0-2.0); EOSINOPHILS % (AUTO) 2.2 % (0.0-3.0); LYMPHOCYTES % (AUTO) 15.9 % (20.0-45.0); MEAN CORPUSCULAR HEMOGLOBIN 28.3 PG (27.0-31.0); MEAN CORPUSCULAR HGB CONC 30.8 G/DL (32.0-36.0); MEAN CORPUSCULAR VOLUME 92 FL (80-99); NEUTROPHILS % (AUTO) 67.3 % (45.0-75.0); PLATELET COUNT 444 K/UL (150-450); RED BLOOD COUNT 3.18 M/UL (4.20-5.40); RED CELL DISTRIBUTION WIDTH 15.2 % (11.6-14.8); WHITE BLOOD COUNT 7.9 K/UL (4.8-10.8)
[2017-09-14] MEDS: NovoLOG Insulin Flexpen SUBQ SCH ×7 (06:30→20:17)
[2017-09-14 06:43] LABS: IRON 18 ug/dL (50-175); TOTAL IRON BINDING CAPACITY 271 ug/dL (250-450)
[2017-09-14 06:58] LABS: ALANINE AMINOTRANSFERASE 38 U/L (12-78); ALBUMIN/GLOBULIN RATIO 0.6 (1.0-2.7); ANION GAP 8 mmol/L (5-15); ASPARTATE AMINO TRANSFERASE 30 U/L (15-37); CALCIUM 9.1 MG/DL (8.5-10.1); CARBON DIOXIDE 28 MMOL/L (21-32); CHLORIDE 106 MMOL/L (98-107); CREATININE 0.6 MG/DL (0.55-1.30); FERRITIN 79 NG/ML (8-388); GLOMERULAR FILTRATION RATE > 60 mL/min (>60); MAGNESIUM 2.1 MG/DL (1.8-2.4); PHOSPHORUS 2.5 MG/DL (2.5-4.9); POTASSIUM 3.4 MMOL/L (3.5-5.1); SODIUM 142 MMOL/L (136-145); TOTAL PROTEIN 6.9 G/DL (6.4-8.2)
[2017-09-14] MEDS: DiphenhydrAMINE 50mg/ml Inj IVP PRN ×3 (07:08→23:50)
[2017-09-14 07:52] LABS: FOLIC ACID 12.5 NG/ML (8.6-58.9)
[2017-09-14 08:37] LABS: ABG BASE EXCESS -0.4; ABG PCO2 48.4 mmHg (35.0-45.0)
[2017-09-14 08:38] LABS: ABG ALLEN TEST POSITIVE
[2017-09-14] MEDS ORDERED: Levemir Flexpen SUBQ SCH (09:00)
[2017-09-14] MEDS ORDERED: Pantoprazole Inj IVP SCH ×2 (09:00)
[2017-09-14] MEDS: Memantine 5 MG TAB ORAL SCH ×2 (09:43→17:17)
[2017-09-14] MEDS: Docusate 100mg cap ORAL SCH ×3 (09:44→17:16)
[2017-09-14] MEDS: Heparin 5000 units/ml inj SUBQ SCH ×2 (09:45→20:06)
--- NOTE | 2017-09-14 10:29 | Pulmonology Progress Note ---
Assessment/Plan Problems: (1) DKA (diabetic ketoacidoses) (2) COPD (chronic obstructive pulmonary disease) (3) Pulmonary fibrosis (4) Neuropathy Assessment/Plan improving titrate down fio2 Levemir 20 units daily Novolog 5 units ac tid + SSI doing better med/surg Subjective ROS Limited/Unobtainable: No Interval Events: on Nasal cannula Constitutional: Reports: no symptoms HEENT: Repors: no symptoms Allergies: Coded Allergies: CITRUS AND DERIVATIVES (Unverified Allergy, Unknown, 09/12/17) CLARITHROMYCIN (Unverified Allergy, Unknown, 08/31/17) reentered as coded allergy (CD) PENICILLINS (Verified Allergy, Unknown, 08/10/17) [place] (Verified Allergy, Unknown, 08/10/17) Uncoded Allergies: [place] (Allergy, Unknown, 08/10/17) walnuts (Allergy, Unknown, 09/12/17) Objective Last 24 Hour Vital Signs Date Time Temp Pulse Resp B/P (MAP) Pulse Ox O2 Delivery O2 Flow Rate FiO2 09/14/17 08:00 87 09/14/17 08:00 97.9 87 18 134/72 98 Nasal Cannula 2.0 09/14/17 07:15 Nasal Cannula 3.0 32 09/14/17 07:15 96 Nasal Cannula 3.0 32 09/14/17 04:00 98.6 99 18 154/79 98 Nasal Cannula 2.0 09/14/17 04:00 83 09/14/17 00:27 161/86 09/14/17 00:00 99.7 100 20 161/86 96 Nasal Cannula 2.0 09/14/17 00:00 99 09/13/17 23:37 98 24 95 2.0 09/13/17 21:47 93 23 96 2.0 09/13/17 21:38 81 24 99 Facial 40 09/13/17 21:04 Nasal Cannula 2.0 28 09/13/17 21:00 89 20 95 2.0 09/13/17 20:00 97.0 101 20 153/70 96 Nasal Cannula 2.0 09/13/17 19:00 91 20 94 2.0 09/13/17 17:08 98 21 95 2.0 09/13/17 16:00 103 09/13/17 15:00 96 17 167/69 99 Nasal Cannula 2.0 09/13/17 14:53 95 21 95 2.0 09/13/17 14:00 97 17 139/62 92 Nasal Cannula 2.0 09/13/17 13:00 104 16 129/85 52 Nasal Cannula 2.0 09/13/17 12:51 94 25 95 4.0 09/13/17 12:00 98.8 98 24 151/64 97 Nasal Cannula 2.0 09/13/17 12:00 97 09/13/17 11:48 96 24 97 4.0 09/13/17 11:00 85 24 134/60 100 Nasal Cannula 2.0 09/13/17 11:00 86 22 99 Facial 40 HEENT: normocephalic, atraumatic, anicteric Respiratory/Chest: normal breath sounds Cardiovascular: normal peripheral pulses Abdomen: normal bowel sounds, soft, non tender Genitourinary: normal external genitalia Skin: no rash, no lesions Microbiology Date/Time Source Procedure Growth Status 09/12/17 03:45 Blood Blood Culture - Preliminary NO GROWTH AFTER 48 HOURS Resulted 09/12/17 03:35 Blood Blood Culture - Preliminary NO GROWTH AFTER 48 HOURS Resulted 09/12/17 05:30 Nasal Nares MRSA Culture - Final NO METHICILLIN RESISTANT STAPH AUREUS... Complete 09/12/17 05:30 Rectum VRE Culture - Final Enterococcus Faecium - Vre Complete Laboratory Tests 09/14/17 00:30: Urine Eosinophils None seen, Urine Random Creatinine [Pending], Urine Random Microalbumin [Pending], Urine Random Total Protein 109H, Urine Microalbumin/ Creatinine Ratio [Pending] 09/14/17 05:15: White Blood Count 7.9, Red Blood Count 3.18L, Hemoglobin 9.0L, Hematocrit 29.2L , Mean Corpuscular Volume 92, Mean Corpuscular Hemoglobin 28.3, Mean Corpuscular Hemoglobin Concent 30.8L, Red Cell Distribution Width 15.2H, Platelet Count 444, Mean Platelet Volume 6.0L, Neutrophils (%) (Auto) 67.3, Lymphocytes (%) (Auto) 15.9L, Monocytes (%) (Auto) 12.0H, Eosinophils (%) (Auto ) 2.2, Basophils (%) (Auto) 2.6H, Reticulocyte Count [Pending], Sodium Level 142 , Potassium Level 3.4L, Chloride Level 106, Carbon Dioxide Level 28, Anion Gap 8 , Blood Urea Nitrogen 11, Creatinine 0.6, Estimat Glomerular Filtration Rate > 60, Glucose Level 48L, Calcium Level 9.1, Phosphorus Level 2.5, Magnesium Level 2.1, Iron Level 18L, Total Iron Binding Capacity 271, Percent Iron Saturation 7L , Unsaturated Iron Binding 253, Ferritin 79, Total Bilirubin 0.3, Aspartate Amino Transf (AST/SGOT) 30, Alanine Aminotransferase (ALT/SGPT) 38, Alkaline Phosphatase 150H, Total Protein 6.9, Albumin 2.5L, Globulin 4.4, Albumin/ Globulin Ratio 0.6L, Vitamin B12 Level 838, Folate 12.5 09/14/17 08:25: Arterial Blood pH 7.342L, Arterial Blood Partial Pressure CO2 48.4H, Arterial Blood Partial Pressure O2 53.9L, Arterial Blood HCO3 25.6, Arterial Blood Oxygen Saturation 83.5L, Arterial Blood Base Excess -0.4, Kenneth Test Positive Current Medications Medications (Trade) Dose Ordered Sig/Danielle Route PRN Reason Start Time Stop Time Status Last Admin Dose Admin Acetaminophen (Tylenol) 650 mg Q4H PRN ORAL Fever 09/13/17 16:30 10/12/17 16:29 Albuterol/ Ipratropium (Albuterol/ Ipratropium) 3 ml Q4H PRN HHN Shortness of Breath 09/13/17 16:30 09/17/17 16:29 Clonidine HCl (Catapres) 0.1 mg Q4H PRN ORAL SBP >160 09/13/17 16:30 10/12/17 16:29 09/14/17 00:27 Clopidogrel Bisulfate (Plavix) 75 mg DAILY ORAL 09/14/17 09:00 10/12/17 08:59 09/14/17 09:43 Dextrose (Dextrose 50%) STAT PRN IV Hypoglycemia 09/14/17 06:15 10/14/17 06:14 Diphenhydramine HCl (Benadryl) 25 mg Q6H PRN IVP Itching 09/13/17 16:30 10/13/17 16:29 09/14/17 07:08 Docusate Sodium (Colace) 100 mg THREE TIMES A DAY ORAL 09/13/17 18:00 10/13/17 12:59 09/14/17 09:44 Heparin Sodium (Porcine) (Heparin 5000 units/ml) 5,000 units EVERY 12 HOURS SUBQ 09/13/17 21:00 10/12/17 08:59 09/14/17 09:45 Insulin Aspart (NovoLOG) BEFORE MEALS AND HS SUBQ 09/13/17 16:30 10/13/17 16:29 09/13/17 22:34 Insulin Aspart (NovoLOG) 5 units NOVOTIAC SUBQ 09/13/17 16:50 10/13/17 16:49 09/13/17 17:46 Insulin Detemir (Levemir) 20 units DAILY SUBQ 09/14/17 09:00 10/14/17 08:59 Lorazepam (Ativan 2mg/ml 1ml) 2 mg Q2H PRN IV agitation 09/13/17 16:30 09/19/17 16:29 Memantine (Namenda) 5 mg BID ORAL 09/13/17 18:00 10/13/17 17:59 09/14/17 09:43 Morphine Sulfate (Morphine Sulfate) 4 mg Q4H PRN IVP Severe Pain (Pain Scale 7-10) 09/13/17 20:00 09/19/17 19:59 09/14/17 00:28 Nitroglycerin (Ntg) 0.4 mg Q5M PRN SL Prn Chest Pain 09/13/17 16:15 10/12/17 06:44 Ondansetron HCl (Zofran) 4 mg Q6H PRN IVP Nausea & Vomiting 09/13/17 18:45 10/12/17 06:44 09/14/17 01:50 Pantoprazole (Protonix) 40 mg DAILY IVP 09/14/17 09:00 10/14/17 08:59 09/14/17 09:43 Polyethylene Glycol (Miralax) 17 gm DAILYPRN PRN ORAL Constipation 09/13/17 16:30 10/13/17 16:29 YUVAL MAYA Sep 14, 2017 10:29
[2017-09-14] MEDS ORDERED: Nitroglycerin Subl 0.4mg tab SL PRN (11:50)
[2017-09-14] MEDS ORDERED: LORazepam Inj 2mg/ml 1ml IV PRN (12:00)
[2017-09-14] MEDS ORDERED: Miralax 17gm pkt ORAL PRN (12:00)
[2017-09-14] MEDS ORDERED: Albuterol/Ipratropium 3ml neb HHN PRN (12:00)
--- NOTE | 2017-09-14 12:34 | Nephrology Progress Note ---
Assessment/Plan Assessment 1. Acute renal failure, most likely dehydration. 2. Diabetic ketoacidosis. 3. Diabetic nephropathy. 4. This patient has some degree of diabetic neuropathy. 5. Hypertension, well controlled. 6. Anemia. 7. Intractable nausea and vomiting. Plan Plan to continue ivf monitoring electrolyte avoid NSAID Replace electrolyte as need it Subjective Constitutional: Reports: no symptoms HEENT: Reports: no symptoms Genitourinary: Reports: no symptoms Neurologic/Psychiatric: Reports: no symptoms Subjective alert and awake was transferred out ICU Objective Objective Last 24 Hour Vital Signs Date Time Temp Pulse Resp B/P (MAP) Pulse Ox O2 Delivery O2 Flow Rate FiO2 09/14/17 11:21 90 09/14/17 11:21 98.0 90 20 128/78 98 Nasal Cannula 2.0 09/14/17 08:00 87 09/14/17 08:00 97.9 87 18 134/72 98 Nasal Cannula 2.0 09/14/17 07:15 Nasal Cannula 3.0 32 09/14/17 07:15 96 Nasal Cannula 3.0 32 09/14/17 04:00 98.6 99 18 154/79 98 Nasal Cannula 2.0 09/14/17 04:00 83 09/14/17 00:27 161/86 09/14/17 00:00 99.7 100 20 161/86 96 Nasal Cannula 2.0 09/14/17 00:00 99 09/13/17 23:37 98 24 95 2.0 09/13/17 21:47 93 23 96 2.0 09/13/17 21:38 81 24 99 Facial 40 09/13/17 21:04 Nasal Cannula 2.0 28 09/13/17 21:00 89 20 95 2.0 09/13/17 20:00 97.0 101 20 153/70 96 Nasal Cannula 2.0 09/13/17 19:00 91 20 94 2.0 09/13/17 17:08 98 21 95 2.0 09/13/17 16:00 103 09/13/17 15:00 96 17 167/69 99 Nasal Cannula 2.0 09/13/17 14:53 95 21 95 2.0 09/13/17 14:00 97 17 139/62 92 Nasal Cannula 2.0 09/13/17 13:00 104 16 129/85 52 Nasal Cannula 2.0 09/13/17 12:51 94 25 95 4.0 Laboratory Tests 09/14/17 00:30: Urine Eosinophils None seen, Urine Random Creatinine [Pending], Urine Random Microalbumin [Pending], Urine Random Total Protein 109H, Urine Microalbumin/ Creatinine Ratio [Pending] 09/14/17 05:15: White Blood Count 7.9, Red Blood Count 3.18L, Hemoglobin 9.0L, Hematocrit 29.2L , Mean Corpuscular Volume 92, Mean Corpuscular Hemoglobin 28.3, Mean Corpuscular Hemoglobin Concent 30.8L, Red Cell Distribution Width 15.2H, Platelet Count 444, Mean Platelet Volume 6.0L, Neutrophils (%) (Auto) 67.3, Lymphocytes (%) (Auto) 15.9L, Monocytes (%) (Auto) 12.0H, Eosinophils (%) (Auto ) 2.2, Basophils (%) (Auto) 2.6H, Reticulocyte Count 2.3H, Sodium Level 142, Potassium Level 3.4L, Chloride Level 106, Carbon Dioxide Level 28, Anion Gap 8, Blood Urea Nitrogen 11, Creatinine 0.6, Estimat Glomerular Filtration Rate > 60 , Glucose Level 48L, Calcium Level 9.1, Phosphorus Level 2.5, Magnesium Level 2.1, Iron Level 18L, Total Iron Binding Capacity 271, Percent Iron Saturation 7L , Unsaturated Iron Binding 253, Ferritin 79, Total Bilirubin 0.3, Aspartate Amino Transf (AST/SGOT) 30, Alanine Aminotransferase (ALT/SGPT) 38, Alkaline Phosphatase 150H, Total Protein 6.9, Albumin 2.5L, Globulin 4.4, Albumin/ Globulin Ratio 0.6L, Vitamin B12 Level 838, Folate 12.5 09/14/17 08:25: Arterial Blood pH 7.342L, Arterial Blood Partial Pressure CO2 48.4H, Arterial Blood Partial Pressure O2 53.9L, Arterial Blood HCO3 25.6, Arterial Blood Oxygen Saturation 83.5L, Arterial Blood Base Excess -0.4, Kenneth Test Positive Height (Feet): 5 Height (Inches): 8.00 Weight (Pounds): 132 Objective HEAD AND NECK: No JVP. No LAD. No thyromegaly. Extraocular movements intact. Pupils are reactive to light and accommodation. LUNGS: Clear to auscultation. CARDIAC: Regular rate and rhythm. S1, S2 normal. No rub. ABDOMEN: Soft. Diffuse tenderness. No guarding. No rebound. EXTREMITIES: No edema. No clubbing. No cyanosis. EMILY LOWE Sep 14, 2017 12:33
--- NOTE | 2017-09-14 13:40 | General Progress Note ---
Assessment/Plan Problem List: (1) DKA (diabetic ketoacidoses) ICD Codes: E13.10 - Other specified diabetes mellitus with ketoacidosis without coma SNOMED: 97760600, 010694518 (2) Anemia ICD Codes: D64.9 - Anemia, unspecified SNOMED: 938514878 (3) COPD (chronic obstructive pulmonary disease) ICD Codes: J44.9 - Chronic obstructive pulmonary disease, unspecified SNOMED: 90327957 (4) Diabetes mellitus ICD Codes: E11.9 - Type 2 diabetes mellitus without complications SNOMED: 96585998 (5) Neuropathy ICD Codes: G62.9 - Polyneuropathy, unspecified SNOMED: 802706177 Status: stable, progressing Assessment/Plan o2 pulm tx bs control cbc bmp am adv diet dc plan Subjective Constitutional: Reports: weakness Allergies: Coded Allergies: CITRUS AND DERIVATIVES (Unverified Allergy, Unknown, 09/12/17) CLARITHROMYCIN (Unverified Allergy, Unknown, 08/31/17) reentered as coded allergy (CD) PENICILLINS (Verified Allergy, Unknown, 08/10/17) [place] (Verified Allergy, Unknown, 08/10/17) Uncoded Allergies: [place] (Allergy, Unknown, 08/10/17) walnuts (Allergy, Unknown, 09/12/17) All Systems: reviewed and negative except above Subjective o2nc weak Objective Last 24 Hour Vital Signs Date Time Temp Pulse Resp B/P (MAP) Pulse Ox O2 Delivery O2 Flow Rate FiO2 09/14/17 11:21 90 09/14/17 11:21 98.0 90 20 128/78 98 Nasal Cannula 2.0 09/14/17 08:00 87 09/14/17 08:00 97.9 87 18 134/72 98 Nasal Cannula 2.0 09/14/17 07:15 Nasal Cannula 3.0 32 09/14/17 07:15 96 Nasal Cannula 3.0 32 09/14/17 04:00 98.6 99 18 154/79 98 Nasal Cannula 2.0 09/14/17 04:00 83 09/14/17 00:27 161/86 09/14/17 00:00 99.7 100 20 161/86 96 Nasal Cannula 2.0 09/14/17 00:00 99 09/13/17 23:37 98 24 95 2.0 09/13/17 21:47 93 23 96 2.0 09/13/17 21:38 81 24 99 Facial 40 09/13/17 21:04 Nasal Cannula 2.0 28 09/13/17 21:00 89 20 95 2.0 09/13/17 20:00 97.0 101 20 153/70 96 Nasal Cannula 2.0 09/13/17 19:00 91 20 94 2.0 09/13/17 17:08 98 21 95 2.0 09/13/17 16:00 103 09/13/17 15:00 96 17 167/69 99 Nasal Cannula 2.0 09/13/17 14:53 95 21 95 2.0 09/13/17 14:00 97 17 139/62 92 Nasal Cannula 2.0 Laboratory Tests 09/14/17 00:30: Urine Eosinophils None seen, Urine Random Creatinine [Pending], Urine Random Microalbumin [Pending], Urine Random Total Protein 109H, Urine Microalbumin/ Creatinine Ratio [Pending] 09/14/17 05:15: White Blood Count 7.9, Red Blood Count 3.18L, Hemoglobin 9.0L, Hematocrit 29.2L , Mean Corpuscular Volume 92, Mean Corpuscular Hemoglobin 28.3, Mean Corpuscular Hemoglobin Concent 30.8L, Red Cell Distribution Width 15.2H, Platelet Count 444, Mean Platelet Volume 6.0L, Neutrophils (%) (Auto) 67.3, Lymphocytes (%) (Auto) 15.9L, Monocytes (%) (Auto) 12.0H, Eosinophils (%) (Auto ) 2.2, Basophils (%) (Auto) 2.6H, Reticulocyte Count 2.3H, Sodium Level 142, Potassium Level 3.4L, Chloride Level 106, Carbon Dioxide Level 28, Anion Gap 8, Blood Urea Nitrogen 11, Creatinine 0.6, Estimat Glomerular Filtration Rate > 60 , Glucose Level 48L, Calcium Level 9.1, Phosphorus Level 2.5, Magnesium Level 2.1, Iron Level 18L, Total Iron Binding Capacity 271, Percent Iron Saturation 7L , Unsaturated Iron Binding 253, Ferritin 79, Total Bilirubin 0.3, Aspartate Amino Transf (AST/SGOT) 30, Alanine Aminotransferase (ALT/SGPT) 38, Alkaline Phosphatase 150H, Total Protein 6.9, Albumin 2.5L, Globulin 4.4, Albumin/ Globulin Ratio 0.6L, Vitamin B12 Level 838, Folate 12.5 09/14/17 08:25: Arterial Blood pH 7.342L, Arterial Blood Partial Pressure CO2 48.4H, Arterial Blood Partial Pressure O2 53.9L, Arterial Blood HCO3 25.6, Arterial Blood Oxygen Saturation 83.5L, Arterial Blood Base Excess -0.4, Kenneth Test Positive Height (Feet): 5 Height (Inches): 8.00 Weight (Pounds): 132 General Appearance: lethargic EENT: normal ENT inspection Neck: normal alignment Cardiovascular: normal peripheral pulses, normal rate, regular rhythm Respiratory/Chest: chest wall non-tender, lungs clear, normal breath sounds Abdomen: normal bowel sounds, non tender, soft Extremities: normal inspection Edema: no edema noted Arm (L), no edema noted Arm (R), no edema noted Leg (L), no edema noted Leg (R), no edema noted Pedal (L), no edema noted Pedal (R), no edema noted Generalized Neurologic: responsive, motor weakness Skin: normal pigmentation, warm/dry MANDIE PUENTE Sep 14, 2017 13:39
[2017-09-14] MEDS ORDERED: NS 500ML ONE (15:22)
--- NOTE | 2017-09-14 16:06 | GI Progress Note ---
Assessment/Plan Problems: (1) Diabetes mellitus ICD Codes: E11.9 - Type 2 diabetes mellitus without complications SNOMED: 50008398 (2) DKA (diabetic ketoacidoses) ICD Codes: E13.10 - Other specified diabetes mellitus with ketoacidosis without coma SNOMED: 48425019, 869216925 (3) Anemia ICD Codes: D64.9 - Anemia, unspecified SNOMED: 484830104 (4) Abdominal pain ICD Codes: R10.9 - Unspecified abdominal pain SNOMED: 19357636 (5) Malnutrition ICD Codes: E46 - Unspecified protein-calorie malnutrition SNOMED: 30531767 Status: progressing Status Narrative Discussed with Dr. Blunt. Assessment/Plan defer GI procedures at this time, patient not stable supportive care at this time NPO + IVFs, fu video swallow anemia work up >> iron deficiency, venofer OB stool r/o GI bleed monitor H&H, prn transfusions bowel regime >> colace ppi DM mgmt pulmonary mgmt fu labs Objective Last 24 Hour Vital Signs Date Time Temp Pulse Resp B/P (MAP) Pulse Ox O2 Delivery O2 Flow Rate FiO2 09/14/17 16:01 97.6 83 20 132/60 99 Nasal Cannula 2.0 09/14/17 11:21 90 09/14/17 11:21 98.0 90 20 128/78 98 Nasal Cannula 2.0 09/14/17 08:00 87 09/14/17 08:00 97.9 87 18 134/72 98 Nasal Cannula 2.0 09/14/17 07:15 Nasal Cannula 3.0 32 09/14/17 07:15 96 Nasal Cannula 3.0 32 09/14/17 04:00 98.6 99 18 154/79 98 Nasal Cannula 2.0 09/14/17 04:00 83 09/14/17 00:27 161/86 09/14/17 00:00 99.7 100 20 161/86 96 Nasal Cannula 2.0 09/14/17 00:00 99 09/13/17 23:37 98 24 95 2.0 09/13/17 21:47 93 23 96 2.0 09/13/17 21:38 81 24 99 Facial 40 09/13/17 21:04 Nasal Cannula 2.0 28 09/13/17 21:00 89 20 95 2.0 09/13/17 20:00 97.0 101 20 153/70 96 Nasal Cannula 2.0 09/13/17 19:00 91 20 94 2.0 09/13/17 17:08 98 21 95 2.0 Intake and Output 09/14/17 09/15/17 19:00 07:00 # Voids 3 # Bowel Movements 1 Laboratory Tests Test 09/14/17 00:30 09/14/17 05:15 09/14/17 08:25 Urine Eosinophils None seen Urine Random Creatinine Pending Urine Random Microalbumin Pending Urine Random Total Protein 109 MG/DL (< 11.9) H Urine Microalbumin/Creatinine Ratio Pending White Blood Count 7.9 K/UL (4.8-10.8) Red Blood Count 3.18 M/UL (4.20-5.40) L Hemoglobin 9.0 G/DL (12.0-16.0) L Hematocrit 29.2 % (37.0-47.0) L Mean Corpuscular Volume 92 FL (80-99) Mean Corpuscular Hemoglobin 28.3 PG (27.0-31.0) Mean Corpuscular Hemoglobin Concent 30.8 G/DL (32.0-36.0) L Red Cell Distribution Width 15.2 % (11.6-14.8) H Platelet Count 444 K/UL (150-450) Mean Platelet Volume 6.0 FL (6.5-10.1) L Neutrophils (%) (Auto) 67.3 % (45.0-75.0) Lymphocytes (%) (Auto) 15.9 % (20.0-45.0) L Monocytes (%) (Auto) 12.0 % (1.0-10.0) H Eosinophils (%) (Auto) 2.2 % (0.0-3.0) Basophils (%) (Auto) 2.6 % (0.0-2.0) H Reticulocyte Count 2.3 % (0.0-2.0) H Sodium Level 142 MMOL/L (136-145) Potassium Level 3.4 MMOL/L (3.5-5.1) L Chloride Level 106 MMOL/L (98-107) Carbon Dioxide Level 28 MMOL/L (21-32) Anion Gap 8 mmol/L (5-15) Blood Urea Nitrogen 11 mg/dL (7-18) Creatinine 0.6 MG/DL (0.55-1.30) Estimat Glomerular Filtration Rate > 60 mL/min (>60) Glucose Level 48 MG/DL (74-106) L Calcium Level 9.1 MG/DL (8.5-10.1) Phosphorus Level 2.5 MG/DL (2.5-4.9) Magnesium Level 2.1 MG/DL (1.8-2.4) Iron Level 18 ug/dL (50-175) L Total Iron Binding Capacity 271 ug/dL (250-450) Percent Iron Saturation 7 % (15-50) L Unsaturated Iron Binding 253 ug/dL (112-346) Ferritin 79 NG/ML (8-388) Total Bilirubin 0.3 MG/DL (0.2-1.0) Aspartate Amino Transf (AST/SGOT) 30 U/L (15-37) Alanine Aminotransferase (ALT/SGPT) 38 U/L (12-78) Alkaline Phosphatase 150 U/L (46-116) H Total Protein 6.9 G/DL (6.4-8.2) Albumin 2.5 G/DL (3.4-5.0) L Globulin 4.4 g/dL Albumin/Globulin Ratio 0.6 (1.0-2.7) L Vitamin B12 Level 838 PG/ML (193-986) Folate 12.5 NG/ML (8.6-58.9) Arterial Blood pH 7.342 (7.350-7.450) Arterial Blood Partial Pressure CO2 48.4 mmHg (35.0-45.0) H Arterial Blood Partial Pressure O2 53.9 mmHg (75.0-100.0) L Arterial Blood HCO3 25.6 mmol/L (22.0-26.0) Arterial Blood Oxygen Saturation 83.5 % (92.0-98.0) L Arterial Blood Base Excess -0.4 Kenneth Test Positive Height (Feet): 5 Height (Inches): 8.00 Weight (Pounds): 132 General Appearance: no apparent distress, alert Cardiovascular: normal rate Respiratory/Chest: normal breath sounds, no respiratory distress Abdominal Exam: normal bowel sounds, non tender, soft Extremities: normal range of motion, non-tender Carmen Ross N.P. Sep 14, 2017 16:06
[2017-09-15] MEDS: Morphine Sulfate 4mg/ml Inj IVP PRN ×4 (00:47→20:27)
[2017-09-15] MEDS: NovoLOG Insulin Flexpen SUBQ SCH ×7 (06:08→21:00)
[2017-09-15 08:00] VITALS: BP 129/68
--- NOTE | 2017-09-15 08:31 | Progress Note ---
DATE: 09/14/2017 NOTE: POOR AUDIO QUALITY SUBJECTIVE: This is a 62-year-old female patient with diabetic ketoacidosis, seen in the ICU. She still has altered mental status and confusion secondary to progression of medical illness, still being treated for diabetic ketoacidosis. PLAN: Plan is to continue treatment with medications to prevent any further decline in her cognition. Seen and assessed at bedside. Chart was reviewed and discussed with staff. . Seen and assessed in her room today. Her cognition has declined below baseline that is why she requires assistance with psychiatric followup physician. Kylee Todd M.D. DR: KATHIE JOB#: [id number] CC:
[2017-09-15 09:00] VITALS: BP 129/68
[2017-09-15] MEDS ORDERED: Levemir Flexpen SUBQ SCH ×2 (09:00→21:00)
[2017-09-15] MEDS ORDERED: Pantoprazole Inj IVP SCH (09:00)
[2017-09-15] MEDS: Docusate 100mg cap ORAL SCH ×3 (10:04→18:31)
[2017-09-15] MEDS: Memantine 5 MG TAB ORAL SCH ×2 (10:05→18:31)
[2017-09-15] MEDS: Heparin 5000 units/ml inj SUBQ SCH ×2 (10:06→21:45)
--- NOTE | 2017-09-15 10:29 | GI Progress Note ---
Assessment/Plan Problems: (1) Diabetes mellitus ICD Codes: E11.9 - Type 2 diabetes mellitus without complications SNOMED: 92889475 (2) DKA (diabetic ketoacidoses) ICD Codes: E13.10 - Other specified diabetes mellitus with ketoacidosis without coma SNOMED: 64822426, 115779844 (3) Anemia ICD Codes: D64.9 - Anemia, unspecified SNOMED: 791714898 (4) Abdominal pain ICD Codes: R10.9 - Unspecified abdominal pain SNOMED: 05257004 (5) Malnutrition ICD Codes: E46 - Unspecified protein-calorie malnutrition SNOMED: 76189810 Status: stable Status Narrative Discussed with Dr. Blunt. Assessment/Plan okay for DC per GI standpoint diet per ST anemia work up >> iron deficiency, venofer monitor H&H, prn transfusions bowel regime >> colace ppi DM mgmt pulmonary mgmt fu labs outpatient GI procedures Subjective Gastrointestinal/Abdominal: Reports: no symptoms Objective Last 24 Hour Vital Signs Date Time Temp Pulse Resp B/P (MAP) Pulse Ox O2 Delivery O2 Flow Rate FiO2 09/15/17 08:00 97.9 85 20 129/68 92 Room Air 09/15/17 06:06 164/86 09/15/17 04:00 Nasal Cannula 2.0 09/15/17 00:10 Nasal Cannula 2.0 09/14/17 21:02 98.2 09/14/17 21:00 101.5 89 20 140/69 96 09/14/17 20:15 Nasal Cannula 3.0 32 09/14/17 20:14 96 Nasal Cannula 3.0 32 09/14/17 20:00 101.5 89 20 140/69 96 09/14/17 20:00 Nasal Cannula 2.0 09/14/17 16:01 97.6 83 20 132/60 99 Nasal Cannula 2.0 09/14/17 11:21 90 09/14/17 11:21 98.0 90 20 128/78 98 Nasal Cannula 2.0 Height (Feet): 5 Height (Inches): 8.00 Weight (Pounds): 132 General Appearance: WD/WN, no apparent distress, alert Cardiovascular: normal rate Respiratory/Chest: normal breath sounds, no respiratory distress Abdominal Exam: normal bowel sounds, non tender, soft Extremities: normal range of motion, non-tender Ross,Carmen Artem N.P. Sep 15, 2017 10:29
[2017-09-15 12:04] VITALS: BP 135/56
[2017-09-15] MEDS: DiphenhydrAMINE 50mg/ml Inj IVP PRN (12:42)
[2017-09-15 13:08] LABS: BASOPHILS % (AUTO) 3.4 % (0.0-2.0); EOSINOPHILS % (AUTO) 6.9 % (0.0-3.0); LYMPHOCYTES % (AUTO) 27.6 % (20.0-45.0); MEAN CORPUSCULAR HEMOGLOBIN 26.7 PG (27.0-31.0); MEAN CORPUSCULAR HGB CONC 29.5 G/DL (32.0-36.0); MEAN CORPUSCULAR VOLUME 91 FL (80-99); MEAN PLATELET VOLUME 5.6 FL (6.5-10.1); MONOCYTES % (AUTO) 10.8 % (1.0-10.0); NEUTROPHILS % (AUTO) 51.3 % (45.0-75.0); PLATELET COUNT 415 K/UL (150-450); RED BLOOD COUNT 3.55 M/UL (4.20-5.40); WHITE BLOOD COUNT 5.3 K/UL (4.8-10.8)
[2017-09-15 13:23] LABS: ANION GAP 9 mmol/L (5-15); CALCIUM 8.9 MG/DL (8.5-10.1); CARBON DIOXIDE 30 MMOL/L (21-32); CHLORIDE 96 MMOL/L (98-107); CREATININE 0.7 MG/DL (0.55-1.30); GLOMERULAR FILTRATION RATE > 60 mL/min (>60); POTASSIUM 3.1 MMOL/L (3.5-5.1); SODIUM 135 MMOL/L (136-145)
--- NOTE | 2017-09-15 14:07 | General Progress Note ---
Assessment/Plan Problem List: (1) DKA (diabetic ketoacidoses) ICD Codes: E13.10 - Other specified diabetes mellitus with ketoacidosis without coma SNOMED: 74895929, 941790459 (2) Anemia ICD Codes: D64.9 - Anemia, unspecified SNOMED: 158515650 (3) COPD (chronic obstructive pulmonary disease) ICD Codes: J44.9 - Chronic obstructive pulmonary disease, unspecified SNOMED: 29262458 (4) Diabetes mellitus ICD Codes: E11.9 - Type 2 diabetes mellitus without complications SNOMED: 78353653 (5) Neuropathy ICD Codes: G62.9 - Polyneuropathy, unspecified SNOMED: 744390603 Status: stable, progressing, tolerating diet Assessment/Plan o2 pulm tx bs control cbc bmp am dc to snf Subjective Constitutional: Reports: weakness Allergies: Coded Allergies: CITRUS AND DERIVATIVES (Unverified Allergy, Unknown, 09/12/17) CLARITHROMYCIN (Unverified Allergy, Unknown, 08/31/17) reentered as coded allergy (CD) PENICILLINS (Verified Allergy, Unknown, 08/10/17) [place] (Verified Allergy, Unknown, 08/10/17) Uncoded Allergies: [place] (Allergy, Unknown, 08/10/17) walnuts (Allergy, Unknown, 09/12/17) All Systems: reviewed and negative except above Subjective o2nc weak ate ok Objective Last 24 Hour Vital Signs Date Time Temp Pulse Resp B/P (MAP) Pulse Ox O2 Delivery O2 Flow Rate FiO2 09/15/17 12:04 98.4 78 20 135/56 97 Nasal Cannula 2.0 09/15/17 10:29 Nasal Cannula 3.0 32 09/15/17 10:28 93 Nasal Cannula 3.0 32 09/15/17 09:00 97.9 85 20 129/68 96 Room Air 09/15/17 08:00 97.9 85 20 129/68 92 Room Air 09/15/17 06:06 164/86 09/15/17 04:00 Nasal Cannula 2.0 09/15/17 00:10 Nasal Cannula 2.0 09/14/17 21:02 98.2 09/14/17 21:00 101.5 89 20 140/69 96 09/14/17 20:15 Nasal Cannula 3.0 32 09/14/17 20:14 96 Nasal Cannula 3.0 32 09/14/17 20:00 101.5 89 20 140/69 96 09/14/17 20:00 Nasal Cannula 2.0 09/14/17 16:01 97.6 83 20 132/60 99 Nasal Cannula 2.0 Laboratory Tests 09/15/17 13:00: White Blood Count 5.3, Red Blood Count 3.55L, Hemoglobin 9.5L, Hematocrit 32.1L , Mean Corpuscular Volume 91, Mean Corpuscular Hemoglobin 26.7L, Mean Corpuscular Hemoglobin Concent 29.5L, Red Cell Distribution Width 15.0H, Platelet Count 415, Mean Platelet Volume 5.6L, Neutrophils (%) (Auto) 51.3, Lymphocytes (%) (Auto) 27.6, Monocytes (%) (Auto) 10.8H, Eosinophils (%) (Auto) 6.9H, Basophils (%) (Auto) 3.4H, Sodium Level 135L, Potassium Level 3.1L, Chloride Level 96L, Carbon Dioxide Level 30, Anion Gap 9, Blood Urea Nitrogen 7 , Creatinine 0.7, Estimat Glomerular Filtration Rate > 60, Glucose Level 183#H, Calcium Level 8.9 Height (Feet): 5 Height (Inches): 8.00 Weight (Pounds): 132 General Appearance: alert EENT: normal ENT inspection Neck: normal alignment Cardiovascular: normal peripheral pulses, normal rate, regular rhythm Respiratory/Chest: chest wall non-tender, lungs clear, normal breath sounds Abdomen: normal bowel sounds, non tender, soft Extremities: normal inspection Edema: no edema noted Arm (L), no edema noted Arm (R), no edema noted Leg (L), no edema noted Leg (R), no edema noted Pedal (L), no edema noted Pedal (R), no edema noted Generalized Neurologic: responsive, motor weakness Skin: normal pigmentation, warm/dry MANDIE PUENTE Sep 15, 2017 14:07
[2017-09-15] MEDS ORDERED: DOCUSATE SODIU100 M2 ORAL (14:48)
[2017-09-15] MEDS ORDERED: NAMENDA5 MG ORAL (14:49)
[2017-09-15] MEDS ORDERED: PANTOPRAZOLE SO40 MG ORAL (14:49)
[2017-09-15] MEDS ORDERED: NOVOLOG100 UNITS1 (14:53)
[2017-09-15] MEDS ORDERED: LEVEMIR FL100 UNIT/1 SUBQ (14:54)
--- NOTE | 2017-09-15 15:29 | Nephrology Progress Note ---
Assessment/Plan Assessment 1. Acute renal failure, most likely dehydration. 2. Diabetic ketoacidosis. 3. Diabetic nephropathy. 4. This patient has some degree of diabetic neuropathy. 5. Hypertension, well controlled. 6. Anemia. 7. Intractable nausea and vomiting. Plan Plan to continue ivf replace k monitoring electrolyte avoid NSAID Replace electrolyte as need it Subjective Constitutional: Reports: no symptoms HEENT: Reports: no symptoms Genitourinary: Reports: no symptoms, incontinence Neurologic/Psychiatric: Reports: no symptoms Subjective alert and awake no acute event overnight Objective Objective Last 24 Hour Vital Signs Date Time Temp Pulse Resp B/P (MAP) Pulse Ox O2 Delivery O2 Flow Rate FiO2 09/15/17 14:37 94 Room Air 09/15/17 12:04 98.4 78 20 135/56 97 Nasal Cannula 2.0 09/15/17 10:29 Nasal Cannula 3.0 32 09/15/17 10:28 93 Nasal Cannula 3.0 32 09/15/17 09:00 97.9 85 20 129/68 96 Room Air 09/15/17 08:00 97.9 85 20 129/68 92 Room Air 09/15/17 06:06 164/86 09/15/17 04:00 Nasal Cannula 2.0 09/15/17 00:10 Nasal Cannula 2.0 09/14/17 21:02 98.2 09/14/17 21:00 101.5 89 20 140/69 96 09/14/17 20:15 Nasal Cannula 3.0 32 09/14/17 20:14 96 Nasal Cannula 3.0 32 09/14/17 20:00 101.5 89 20 140/69 96 09/14/17 20:00 Nasal Cannula 2.0 09/14/17 16:01 97.6 83 20 132/60 99 Nasal Cannula 2.0 Laboratory Tests 09/15/17 13:00: White Blood Count 5.3, Red Blood Count 3.55L, Hemoglobin 9.5L, Hematocrit 32.1L , Mean Corpuscular Volume 91, Mean Corpuscular Hemoglobin 26.7L, Mean Corpuscular Hemoglobin Concent 29.5L, Red Cell Distribution Width 15.0H, Platelet Count 415, Mean Platelet Volume 5.6L, Neutrophils (%) (Auto) 51.3, Lymphocytes (%) (Auto) 27.6, Monocytes (%) (Auto) 10.8H, Eosinophils (%) (Auto) 6.9H, Basophils (%) (Auto) 3.4H, Sodium Level 135L, Potassium Level 3.1L, Chloride Level 96L, Carbon Dioxide Level 30, Anion Gap 9, Blood Urea Nitrogen 7 , Creatinine 0.7, Estimat Glomerular Filtration Rate > 60, Glucose Level 183#H, Calcium Level 8.9 Height (Feet): 5 Height (Inches): 8.00 Weight (Pounds): 132 Objective HEAD AND NECK: No JVP. No LAD. No thyromegaly. Extraocular movements intact. Pupils are reactive to light and accommodation. LUNGS: Clear to auscultation. CARDIAC: Regular rate and rhythm. S1, S2 normal. No rub. ABDOMEN: Soft. Diffuse tenderness. No guarding. No rebound. EXTREMITIES: No edema. No clubbing. No cyanosis. EMILY LOWE Sep 15, 2017 15:29
[2017-09-15] MEDS ORDERED: LORAZEPAM2 MG/1 M4 ORAL (15:35)
[2017-09-15] MEDS ORDERED: MORPHINE SU4 MG/1 M1 IV (15:36)
[2017-09-15] MEDS ORDERED: NITROGLYCERIN0.4 MG SL (15:37)
[2017-09-15] MEDS ORDERED: ZOFRAN4 M1 ORAL (15:37)
--- NOTE | 2017-09-15 16:03 | Pulmonology Progress Note ---
Assessment/Plan Problems: (1) DKA (diabetic ketoacidoses) (2) COPD (chronic obstructive pulmonary disease) (3) Pulmonary fibrosis (4) Neuropathy Assessment/Plan improving titrate down fio2 Levemir 20 units daily Novolog 5 units ac tid + SSI doing better med/surg dc planning in progress Subjective ROS Limited/Unobtainable: No Constitutional: Reports: no symptoms HEENT: Repors: no symptoms Respiratory: Reports: no symptoms Allergies: Coded Allergies: CITRUS AND DERIVATIVES (Unverified Allergy, Unknown, 09/12/17) CLARITHROMYCIN (Unverified Allergy, Unknown, 08/31/17) reentered as coded allergy (CD) PENICILLINS (Verified Allergy, Unknown, 08/10/17) [place] (Verified Allergy, Unknown, 08/10/17) Uncoded Allergies: [place] (Allergy, Unknown, 08/10/17) walnuts (Allergy, Unknown, 09/12/17) Objective Last 24 Hour Vital Signs Date Time Temp Pulse Resp B/P (MAP) Pulse Ox O2 Delivery O2 Flow Rate FiO2 09/15/17 14:37 94 Room Air 09/15/17 12:04 98.4 78 20 135/56 97 Nasal Cannula 2.0 09/15/17 10:29 Nasal Cannula 3.0 32 09/15/17 10:28 93 Nasal Cannula 3.0 32 09/15/17 09:00 97.9 85 20 129/68 96 Room Air 09/15/17 08:00 97.9 85 20 129/68 92 Room Air 09/15/17 06:06 164/86 09/15/17 04:00 Nasal Cannula 2.0 09/15/17 00:10 Nasal Cannula 2.0 09/14/17 21:02 98.2 09/14/17 21:00 101.5 89 20 140/69 96 09/14/17 20:15 Nasal Cannula 3.0 32 09/14/17 20:14 96 Nasal Cannula 3.0 32 09/14/17 20:00 101.5 89 20 140/69 96 09/14/17 20:00 Nasal Cannula 2.0 General Appearance: WD/WN HEENT: normocephalic, atraumatic Respiratory/Chest: chest wall non-tender, lungs clear Breasts: no masses Cardiovascular: normal rate, regularly irregular Abdomen: non distended, no mass Skin: no rash, no lesions Laboratory Tests 09/15/17 13:00: White Blood Count 5.3, Red Blood Count 3.55L, Hemoglobin 9.5L, Hematocrit 32.1L , Mean Corpuscular Volume 91, Mean Corpuscular Hemoglobin 26.7L, Mean Corpuscular Hemoglobin Concent 29.5L, Red Cell Distribution Width 15.0H, Platelet Count 415, Mean Platelet Volume 5.6L, Neutrophils (%) (Auto) 51.3, Lymphocytes (%) (Auto) 27.6, Monocytes (%) (Auto) 10.8H, Eosinophils (%) (Auto) 6.9H, Basophils (%) (Auto) 3.4H, Sodium Level 135L, Potassium Level 3.1L, Chloride Level 96L, Carbon Dioxide Level 30, Anion Gap 9, Blood Urea Nitrogen 7 , Creatinine 0.7, Estimat Glomerular Filtration Rate > 60, Glucose Level 183#H, Calcium Level 8.9 Current Medications Medications (Trade) Dose Ordered Sig/Danielle Route PRN Reason Start Time Stop Time Status Last Admin Dose Admin Acetaminophen (Tylenol) 650 mg Q4H PRN ORAL Fever 09/14/17 12:00 10/12/17 11:59 09/14/17 20:03 Albuterol/ Ipratropium (Albuterol/ Ipratropium) 3 ml Q4H PRN HHN Shortness of Breath 09/14/17 12:00 09/17/17 11:59 Clonidine HCl (Catapres) 0.1 mg Q4H PRN ORAL SBP >160 09/14/17 12:00 10/12/17 11:59 09/15/17 06:06 Clopidogrel Bisulfate (Plavix) 75 mg DAILY ORAL 09/15/17 09:00 10/12/17 08:59 09/15/17 10:04 Dextrose (Dextrose 50%) STAT PRN IV Hypoglycemia 09/14/17 12:00 10/14/17 11:59 Diphenhydramine HCl (Benadryl) 25 mg Q6H PRN IVP Itching 09/14/17 12:00 10/13/17 11:59 09/15/17 12:42 Docusate Sodium (Colace) 100 mg THREE TIMES A DAY ORAL 09/14/17 13:00 10/13/17 12:59 09/15/17 12:56 Heparin Sodium (Porcine) (Heparin 5000 units/ml) 5,000 units EVERY 12 HOURS SUBQ 09/14/17 21:00 10/12/17 08:59 09/15/17 10:06 Insulin Aspart (NovoLOG) BEFORE MEALS AND HS SUBQ 09/14/17 16:30 10/13/17 16:29 09/15/17 06:08 Insulin Aspart (NovoLOG) 5 units NOVOTIAC SUBQ 09/14/17 16:50 10/14/17 16:49 09/15/17 06:09 Insulin Detemir (Levemir) 20 units DAILY SUBQ 09/15/17 09:00 10/14/17 08:59 Lorazepam (Ativan 2mg/ml 1ml) 2 mg Q2H PRN IV agitation 09/14/17 12:00 09/19/17 11:59 Memantine (Namenda) 5 mg BID ORAL 09/14/17 18:00 10/13/17 17:59 09/15/17 10:05 Morphine Sulfate (Morphine Sulfate) 4 mg Q4H PRN IVP Severe Pain (Pain Scale 7-10) 09/14/17 12:00 09/19/17 19:59 09/15/17 12:44 Nitroglycerin (Ntg) 0.4 mg Q5M PRN SL Prn Chest Pain 09/14/17 11:50 10/12/17 06:44 Ondansetron HCl (Zofran) 4 mg Q6H PRN IVP Nausea & Vomiting 09/14/17 12:00 10/12/17 11:59 09/15/17 06:47 Pantoprazole (Protonix) 40 mg DAILY IVP 09/15/17 09:00 10/14/17 08:59 09/15/17 10:05 Polyethylene Glycol (Miralax) 17 gm DAILYPRN PRN ORAL Constipation 09/14/17 12:00 10/13/17 11:59 Potassium Chloride 100 ml @ 100 mls/hr Q1H IVPB 09/15/17 15:00 09/15/17 16:59 YUVAL MAYA Sep 15, 2017 16:03
[2017-09-15 17:52] VITALS: BP 150/77
--- NOTE | 2017-09-15 19:06 | General Progress Note ---
Assessment/Plan Problem List: (1) Diabetes mellitus ICD Codes: E11.9 - Type 2 diabetes mellitus without complications SNOMED: 52407103 (2) COPD (chronic obstructive pulmonary disease) ICD Codes: J44.9 - Chronic obstructive pulmonary disease, unspecified SNOMED: 03729556 (3) DKA (diabetic ketoacidoses) ICD Codes: E13.10 - Other specified diabetes mellitus with ketoacidosis without coma SNOMED: 48729574, [id number] Assessment/Plan Levemir 20 units daily was held this morning - change to Levemir 16 units qhs - change Novolog 5 to 4 units ac tid - continue SSI Subjective Allergies: Coded Allergies: CITRUS AND DERIVATIVES (Unverified Allergy, Unknown, 09/12/17) CLARITHROMYCIN (Unverified Allergy, Unknown, 08/31/17) reentered as coded allergy (CD) PENICILLINS (Verified Allergy, Unknown, 08/10/17) [place] (Verified Allergy, Unknown, 08/10/17) Uncoded Allergies: [place] (Allergy, Unknown, 08/10/17) walnuts (Allergy, Unknown, 09/12/17) All Systems: reviewed and negative except above Subjective feeling better sitting on a chair asking to go home Objective Last 24 Hour Vital Signs Date Time Temp Pulse Resp B/P (MAP) Pulse Ox O2 Delivery O2 Flow Rate FiO2 09/15/17 17:52 98.0 80 21 150/77 95 Room Air 09/15/17 14:37 94 Room Air 09/15/17 12:04 98.4 78 20 135/56 97 Nasal Cannula 2.0 09/15/17 10:29 Nasal Cannula 3.0 32 09/15/17 10:28 93 Nasal Cannula 3.0 32 09/15/17 09:00 97.9 85 20 129/68 96 Room Air 09/15/17 08:00 97.9 85 20 129/68 92 Room Air 09/15/17 06:06 164/86 09/15/17 04:00 Nasal Cannula 2.0 09/15/17 00:10 Nasal Cannula 2.0 09/14/17 21:02 98.2 09/14/17 21:00 101.5 89 20 140/69 96 09/14/17 20:15 Nasal Cannula 3.0 32 09/14/17 20:14 96 Nasal Cannula 3.0 32 09/14/17 20:00 101.5 89 20 140/69 96 09/14/17 20:00 Nasal Cannula 2.0 Intake and Output 09/15/17 09/16/17 19:00 07:00 Intake Total 240 ml Balance 240 ml Intake Oral 240 ml Laboratory Tests 09/15/17 13:00: White Blood Count 5.3, Red Blood Count 3.55L, Hemoglobin 9.5L, Hematocrit 32.1L , Mean Corpuscular Volume 91, Mean Corpuscular Hemoglobin 26.7L, Mean Corpuscular Hemoglobin Concent 29.5L, Red Cell Distribution Width 15.0H, Platelet Count 415, Mean Platelet Volume 5.6L, Neutrophils (%) (Auto) 51.3, Lymphocytes (%) (Auto) 27.6, Monocytes (%) (Auto) 10.8H, Eosinophils (%) (Auto) 6.9H, Basophils (%) (Auto) 3.4H, Sodium Level 135L, Potassium Level 3.1L, Chloride Level 96L, Carbon Dioxide Level 30, Anion Gap 9, Blood Urea Nitrogen 7 , Creatinine 0.7, Estimat Glomerular Filtration Rate > 60, Glucose Level 183#H, Calcium Level 8.9 Height (Feet): 5 Height (Inches): 8.00 Weight (Pounds): 132 General Appearance: no apparent distress Neck: normal alignment Cardiovascular: normal rate Respiratory/Chest: normal breath sounds Abdomen: normal bowel sounds Edema: no edema noted Arm (L), no edema noted Arm (R), no edema noted Leg (L), no edema noted Leg (R), no edema noted Pedal (L), no edema noted Pedal (R), no edema noted Generalized Objective Current Medications Medications (Trade) Dose Ordered Sig/Danielle Route PRN Reason Start Time Stop Time Status Last Admin Dose Admin Acetaminophen (Tylenol) 650 mg Q4H PRN ORAL Fever 09/14/17 12:00 10/12/17 11:59 09/14/17 20:03 Albuterol/ Ipratropium (Albuterol/ Ipratropium) 3 ml Q4H PRN HHN Shortness of Breath 09/14/17 12:00 09/17/17 11:59 Clonidine HCl (Catapres) 0.1 mg Q4H PRN ORAL SBP >160 09/14/17 12:00 10/12/17 11:59 09/15/17 06:06 Clopidogrel Bisulfate (Plavix) 75 mg DAILY ORAL 09/15/17 09:00 10/12/17 08:59 09/15/17 10:04 Dextrose (Dextrose 50%) STAT PRN IV Hypoglycemia 09/14/17 12:00 10/14/17 11:59 Diphenhydramine HCl (Benadryl) 25 mg Q6H PRN IVP Itching 09/14/17 12:00 10/13/17 11:59 09/15/17 12:42 Docusate Sodium (Colace) 100 mg THREE TIMES A DAY ORAL 09/14/17 13:00 10/13/17 12:59 09/15/17 18:31 Heparin Sodium (Porcine) (Heparin 5000 units/ml) 5,000 units EVERY 12 HOURS SUBQ 09/14/17 21:00 10/12/17 08:59 09/15/17 10:06 Insulin Aspart (NovoLOG) BEFORE MEALS AND HS SUBQ 09/14/17 16:30 10/13/17 16:29 09/15/17 16:43 Insulin Aspart (NovoLOG) 5 units NOVOTIAC SUBQ 09/14/17 16:50 10/14/17 16:49 09/15/17 16:44 Insulin Detemir (Levemir) 20 units DAILY SUBQ 09/15/17 09:00 10/14/17 08:59 Lorazepam (Ativan 2mg/ml 1ml) 2 mg Q2H PRN IV agitation 09/14/17 12:00 09/19/17 11:59 Memantine (Namenda) 5 mg BID ORAL 09/14/17 18:00 10/13/17 17:59 09/15/17 18:31 Morphine Sulfate (Morphine Sulfate) 4 mg Q4H PRN IVP Severe Pain (Pain Scale 7-10) 09/14/17 12:00 09/19/17 19:59 09/15/17 12:44 Nitroglycerin (Ntg) 0.4 mg Q5M PRN SL Prn Chest Pain 09/14/17 11:50 10/12/17 06:44 Ondansetron HCl (Zofran) 4 mg Q6H PRN IVP Nausea & Vomiting 09/14/17 12:00 10/12/17 11:59 09/15/17 06:47 Pantoprazole (Protonix) 40 mg DAILY IVP 09/15/17 09:00 10/14/17 08:59 09/15/17 10:05 Polyethylene Glycol (Miralax) 17 gm DAILYPRN PRN ORAL Constipation 09/14/17 12:00 10/13/17 11:59 Item Value Date Time Bedside Blood Glucose 113 mg/dl 09/15/17 1800 Bedside Blood Glucose 61 mg/dl L 09/15/17 1200 Bedside Blood Glucose 78 mg/dl 09/15/17 0900 Bedside Blood Glucose 214 mg/dl H 09/15/17 0630 Bedside Blood Glucose 161 mg/dl H 09/15/17 0000 Bedside Blood Glucose 211 mg/dl H 09/14/17 2100 Bedside Blood Glucose 187 mg/dl H 09/14/17 1800 EMA VALENCIA Sep 15, 2017 19:06
[2017-09-15 20:00] VITALS: BP 136/71
[2017-09-15 21:00] VITALS: BP 136/71
--- NOTE | 2017-09-15 21:45 | Progress Note ---
DATE: 09/15/2017 SUBJECTIVE: This is a 62-year-old female patient with diabetic ketoacidosis. She still has some irritability and confusions secondary to the progression of her medical illness. She still has altered mental status and confusion. I am going to continue treatment with medications to prevent any decline in her cognition. DIAGNOSIS: Paranoid schizophrenia, rule out dementia with psychosis, also rule out psychosis secondary to medical illness. PLAN: Because she has altered mental status, her attending physician is requesting daily psychiatric consultation. Continue treatment with medications to prevent any decline in cognition. She will continue to be followed up throughout her hospital course. Her cognition has declined below baseline. Daily consultation is requested to prevent any further decline in cognition and into her baseline. Chart was reviewed and discussed with staff. Kylee Todd M.D. DR: Milla JOB#: [id number] CC:
[2017-09-16] MEDS ORDERED: NovoLOG Insulin Flexpen SUBQ SCH (06:30)
--- NOTE | 2017-09-16 22:45 | Discharge Summary 2 SIG ---
DATE OF ADMISSION: 09/12/2017 DATE OF DISCHARGE: 09/15/2017 CONSULTANTS: 1. Kaitlin Oconnell M.D. 2. Nicko Martinez M.D. 3. Fox Blunt M.D. 4. Jesika Vasquez M.D. 5. Kylee Todd M.D. 6. Milind Brewer M.D. BRIEF HOSPITAL COURSE: The patient is a 62-year-old female from [facility], who presented to ED for vomiting and weakness. The patient had altered mental status and low blood pressure. She has history of diabetes mellitus and was noted to have high blood sugar. She has medical history of schizophrenia as well as COPD. She was noted to be hypotensive by EMS and was started on IV hydration. On evaluation at ED, she was noted to be hypotensive. Blood glucose was 528 and anion gap of 26. Urine with positive acetone. She was started on insulin drip and was admitted to ICU for diabetic ketoacidosis. Blood sugars were monitored. CAT scan of the abdomen and pelvis showed prominent retention of stools. She was treated with laxatives on a daily basis. There was no stool in the rectal vault. On examination, no rectal stool impaction. Her creatinine was 1, BUN was 20, bicarbonate was 10, and chloride 98. She had acute renal failure most likely from dehydration and diabetic nephropathy. She was continued on IV hydration. She was initially tachycardic. EKG showed sinus tachycardia at a rate of [address] to T-wave abnormalities with prolongation of QT interval. Blood pressure was initially on 80 systolic. The patient has hypovolemic shock due to osmosis diuresis due to uncontrolled diabetes mellitus. Her prior echocardiogram was suggestive of acute heart failure. There was impaired LV relaxation, but normal intracardiac filling pressures. She was given bowel regimen and underwent swallow evaluation. She was taken off insulin drip and was placed on Levemir 20 units daily with NovoLog 5 units before meals b.i.d. together with sliding scale. Swallow evaluation was done and was given pureed moist diet with thin liquids. Insulin was titrated. Levemir was further reduced to 16 units nightly and NovoLog was reduced to 4 units before meals b.i.d. She had better glucose control and was continued on her Namenda. She came in with a sacrococcygeal DTI, she was given would care. She was eventually discharged back to [facility]. FINAL DIAGNOSES: 1. Diabetic ketoacidosis. 2. Chronic obstructive pulmonary disease. 3. Neuropathy. 4. Acute renal failure, most likely from dehydration. 5. Diabetic nephropathy 6. Diabetic neuropathy. 7. Hypertension. 8. Iron deficiency anemia. 9. Paranoid schizophrenia. 10. Major depressive disorder. 11. Hypovolemic shock due to osmosis diuresis due to uncontrolled diabetes mellitus. 12. Sinus tachycardia. 13. Protein-calorie malnutrition. 14. Sacral coccygeal deep tissue injury pressure ulcer, present on admission. DISCHARGE DISPOSITION: The patient was discharged to SNF. DISCHARGE MEDICATIONS: Refer to medication list. Javier Calzada D.O. I have been assigned to dictate discharge summary on this account and I was not involved in the patient's management. Paola Ferreira N.P. DR: Becky JOB#: [id number] CC: CASH
--- NOTE | 2017-09-17 09:12 | Diagnostic Imaging Report ---
Indication: Shortness of breath Technique: XRAY CHEST 1 V Comparison: 09/13/2017 Findings: Heart size and mediastinal contours are stable. No acute osseous abnormality is seen. There is persistent interstitial opacification/edema. There is interval worsening of aeration in the left lower lung with increasing left basilar opacity and likely layering small left pleural effusion. There is no pneumothorax. Impression: Interval worsening of aeration in the left lower lung with slight interval increase in small left pleural effusion.
== END 2017-09-15 22:50 | DRG 637 ==
LOC: EDBD 03:05 → EMR 03:56 → ICU 04:25 → EDBEDREQ 09:36 → ICU 10:37 → 2W 09-13 15:58 → 4E 09-14 11:59
DX: E11.10 Type 2 diabetes mellitus with ketoacidosis without coma (principal); R57.1 Hypovolemic shock; N17.9 Acute kidney failure, unspecified; E46 Unspecified protein-calorie malnutrition; J84.10 Pulmonary fibrosis, unspecified; L89.150 Pressure ulcer of sacral region, unstageable; F20.0 Paranoid schizophrenia; J44.9 Chronic obstructive pulmonary disease, unspecified; K56.41 Fecal impaction; R00.0 Tachycardia, unspecified; E11.40 Type 2 diabetes mellitus with diabetic neuropathy, unspecified; E78.5 Hyperlipidemia, unspecified; E11.21 Type 2 diabetes mellitus with diabetic nephropathy; F32.9 Major depressive disorder, single episode, unspecified; Z68.20 Body mass index [BMI] 20.0-20.9, adult; Z88.0 Allergy status to penicillin; Z79.02 Long term (current) use of antithrombotics/antiplatelets; D50.9 Iron deficiency anemia, unspecified; Z79.4 Long term (current) use of insulin; Z87.891 Personal history of nicotine dependence
CPT/HCPCS: 36415; 36600; 71010; 74176; 80048; 80053; 80076; 81003; 82009; 82043; 82044; 82378; 82607; 82728; 82746; 82803; 82962; 83540; 83550; 83605; 83690; 83735; 83880; 84100; 84443; 85025; 85044; 85610; 85730; 87040; 87081; 89050; 93005; 94660; 94760; J1815; J2405; S5561